=== PATIENT | male | born 1955 | race Caucasian/White ===

== ENCOUNTER 2018-02-04 15:31 | Inpatient (IN) | payer MEDICAID ==
[2018-02-04] MEDS ORDERED: Lidocaine 2% Jelly 10 ML Urojet MUCMEM ONE (16:15)
[2018-02-04] MEDS ORDERED: Belladonna Alkaloids/Opium 16.2-30 MG Supp RECTAL ONE (16:55)
--- NOTE | 2018-02-04 17:19 | EDM.PDOC ---
ED HPI GENERAL MEDICAL PROBLEM - General Chief Complaint: Genitourinary Problem Stated Complaint: UNABLE TO URINATE Time Seen by Provider: 02/04/18 16:14 Source of Information: Reports: Patient History Limitations: Reports: No Limitations - History of Present Illness INITIAL COMMENTS - FREE TEXT/NARRATIVE: Patient is a 62-year-old male who states over the past few days asincreased difficulty with urination. States today he only has a small amount of urine produced with straining. He has a burning sensation at times with urinating. Pain to the lower abdomen described as constant mild in nature with a sensation of feeling distended. He has no history of similar symptoms as such. He denies a history of BPH but medication records indicate he is on tamsulosin and finasteride. States he has history of renal disease, but notes no history of reoccuring uti's. Patient denies any fever, nausea vomiting, diarrhea, hematuria, bloody stool, pain to his testicles, swollen testicles, or any additional complaints. Lower Abdominal Pain Score (Numeric/FACES): 7 - Related Data Allergies Allergy/AdvReac Type Severity Reaction Status Date / Time No Known Allergies Allergy Verified 02/04/18 15:41 Home Meds: Home Meds Furosemide 20 mg PO DAILY 05/01/16 [History] Lactulose [Cephulac] 30 ml PO DAILY PRN 05/01/16 [History] Omeprazole 40 mg PO DAILY 05/01/16 [History] Spironolactone [Aldactone] 100 mg PO DAILY 05/01/16 [History] Tamsulosin HCl 0.4 mg PO DAILY 05/01/16 [History] Levothyroxine Sodium [Synthroid] 100 mcg PO DAILY 07/12/16 [History] Docusate Sodium [Colace] 100 mg PO BID cap 07/17/16 [Rx] Magnesium Hydroxide [Milk of Magnesia] 30 ml PO BID PRN #0 cup 07/17/16 [Rx] Sennosides [Senna] 8.6 mg PO BID PRN #0 tablet 07/17/16 [Rx] Canagliflozin/Metformin HCl [Invokamet 150-500 mg Tablet] 1 tab PO BIDMEALS [History] Exenatide Microspheres [Bydureon Pen] 2 mg SQ WEEKLY 02/05/18 [History] Rosuvastatin Calcium 5 mg PO DAILY 02/05/18 [History] oxyCODONE HCl/Acetaminophen [Oxycodone-Acetaminophen 5-325] 1 tab PO DAILY PRN 02/05/18 [History] Past Medical History HEENT History: Reports: Impaired Vision, Other (See Below) Other HEENT History: wears glasses Cardiovascular History: Reports: Hypertension, Other (See Below) Other Cardiovascular History: edema, PVCs Respiratory History: Reports: None Gastrointestinal History: Reports: Chronic Constipation, Other (See Below) Other Gastrointestinal History: alcoholic cirrhosis of liver with ascites Genitourinary History: Reports: BPH, Other (See Below) Other Genitourinary History: hematuria [employer] History: Reports: None Musculoskeletal History: Reports: Osteoarthritis Neurological History: Reports: None Psychiatric History: Reports: Addiction, Depression, Other (See Below) Other Psychiatric History: alcohol abuse Endocrine/Metabolic History: Reports: Diabetes, Type II, Hypothyroidism Hematologic History: Reports: None Immunologic History: Reports: None Oncologic (Cancer) History: Reports: None - Infectious Disease History Infectious Disease History: Reports: MRSA - Past Surgical History Musculoskeletal Surgical History: Reports: Knee Replacement Dermatological Surgical History: Reports: Skin Graft Social & Family History - Family History Cardiac: Reports: CT Other Cardiac Family History: father Neurological: Reports: Alzheimers Disease Other Neurological Family History: mother - Caffeine Use Caffeine Use: Reports: Coffee - Living Situation & Occupation Occupation: Employed ED ROS GENERAL - Review of Systems Review Of Systems: ROS reveals no pertinent complaints other than HPI. ED EXAM, GI/ABD - Physical Exam Exam: See Below Exam Limited By: No Limitations General Appearance: Alert, WD/WN, No Apparent Distress Ears: Hearing Grossly Normal Nose: Normal Inspection Throat/Mouth: Normal Voice, No Airway Compromise Neck: Normal Inspection, Supple Respiratory/Chest: No Respiratory Distress, Lungs Clear, Normal Breath Sounds, Chest Non-Tender Cardiovascular: Normal Peripheral Pulses, Regular Rate, Rhythm GI/Abdominal Exam: Normal Bowel Sounds, Soft, No Organomegaly, No Distention, Tender (Suprapubic region. No McBurney's point pain, no inguinal pain. ) (Male) Exam: Deferred (Patient deferred examination. ) Rectal (Males) Exam: Deferred (patient deferred examination. ) Back Exam: Normal Inspection Extremities: Normal Inspection Neurological: Alert, Oriented, CN II-XII Intact, Normal Cognition, No Motor/ Sensory Deficits Psychiatric: Normal Affect, Normal Mood Skin Exam: Warm, Dry, Intact, Normal Color Course - Vital Signs Last Recorded V/S: Last Vital Signs Temp 98.4 F 02/05/18 20:57 Pulse 70 02/05/18 20:57 Resp 14 02/05/18 20:57 BP 123/66 02/05/18 20:59 Pulse Ox 95 02/05/18 20:57 - Orders/Labs/Meds Orders: Medication Orders Acetaminophen (Tylenol) 650 mg PO Q4H PRN PRN Reason: Pain (Mild 1-3)/fever Hydrocodone Bitart/Acetaminophen ([place] 325-5 Mg) 1 tab PO Q4H PRN PRN Reason: Pain (moderate 4-6) Last Admin: 02/05/18 00:38 Dose: 1 tab Albuterol/Ipratropium (Duoneb 3.0-0.5 Mg/3 Ml) 3 ml NEB Q4H PRN PRN Reason: Shortness Of Breath/wheezing Bisacodyl (Dulcolax) 5 mg PO DAILY PRN PRN Reason: Constipation Calcium Carbonate/Glycine (Calcium Carbonate) 1,200 mg PO BIDMEALS [facility] Last Admin: 02/05/18 18:17 Dose: 1,200 mg Admin: 02/05/18 06:30 Dose: 1,200 mg Cyclobenzaprine HCl (Flexeril) 10 mg PO TID PRN PRN Reason: Muscle Spasm Last Admin: 02/05/18 15:21 Dose: 10 mg Docusate Sodium (Colace) 100 mg PO BID PRN PRN Reason: Constipation Doxazosin Mesylate (Cardura) 2 mg PO BID [facility] Last Admin: 02/05/18 20:59 Dose: 2 mg Admin: 02/05/18 10:09 Dose: 2 mg Enoxaparin Sodium (Lovenox) 30 mg SUBCUT DAILY [facility] Finasteride (Proscar) 5 mg PO DAILY [facility] Hydralazine HCl (Apresoline) 20 mg IVPUSH Q4H PRN PRN Reason: Hypertension Hydromorphone HCl (Dilaudid) 0.5 mg IVPUSH Q4H PRN PRN Reason: Pain (severe 7-10) Promethazine HCl 12.5 mg/ (Sodium Chloride) 50.5 mls @ 100 mls/hr IV Q6H PRN PRN Reason: Nausea/Vomiting Sodium Chloride (Normal Saline) 1,000 mls @ 100 mls/hr IV ASDIRECTED [facility] Last Admin: 02/05/18 15:07 Dose: 100 mls/hr Infusion: 02/05/18 14:13 Dose: 100 mls/hr Admin: 02/05/18 04:13 Dose: 100 mls/hr Lactulose (Cephulac) 20 gm PO DAILY PRN PRN Reason: Constipation Levothyroxine Sodium (Synthroid) 100 mcg PO ACBREAKFAST [facility] Lorazepam (Ativan) 2 mg IVPUSH Q4H PRN PRN Reason: Seizures Lorazepam (Ativan) 1 mg IV Q6H PRN PRN Reason: Anxiety Magnesium Hydroxide (Milk Of Magnesia) 30 ml PO BID PRN PRN Reason: Constipation Magnesium Sulfate (Pharmacy To Dose - Magnesium Replacement) 0 dose .XX ASDIRECTED PRN PRN Reason: RX TO DOSE MAG Metoprolol Tartrate (Lopressor) 5 mg IVPUSH Q4H PRN PRN Reason: Tachycardia Miscellaneous Information (Remove Patch) 1 ea TRDERM DAILY PRN PRN Reason: IF NICOTINE PATCH APPLIED Nicotine (Habitrol) 21 mg TRDERM DAILY PRN PRN Reason: Nicotine Dependence Ondansetron HCl (Zofran) 4 mg IV Q6H PRN PRN Reason: Nausea/Vomiting Pantoprazole Sodium (Protonix) 40 mg PO DAILY [facility] Last Admin: 02/05/18 11:15 Dose: 40 mg Polyethylene Glycol (Miralax) 17 gm PO DAILY PRN PRN Reason: Constipation Potassium Chloride (Pharmacy To Dose - Potassium Replacement) 0 dose .XX ASDIRECTED PRN PRN Reason: RX TO WATCH K Rosuvastatin Calcium (Crestor) 5 mg PO DAILY [facility] Senna (Senna) 8.6 mg PO BID PRN PRN Reason: Constipation Senna/Docusate Sodium (Senna Plus) 1 tab PO BID PRN PRN Reason: Constipation Sodium Chloride (Saline Flush) 10 ml FLUSH ASDIRECTED PRN PRN Reason: Keep Vein Open Last Admin: 02/04/18 19:06 Dose: 10 ml Tamsulosin HCl (Flomax) 0.4 mg PO BID [facility] Last Admin: 02/05/18 20:59 Dose: 0.4 mg Temazepam (Restoril) 7.5 mg PO BEDTIME PRN PRN Reason: Sleep Last Admin: 02/05/18 21:09 Dose: 7.5 mg Labs: Laboratory Tests 02/04/18 02/04/18 02/04/18 Range/Units 16:40 17:35 17:35 WBC 6.11 (4.23-9.07) K/mm3 RBC 4.15 L (4.63-6.08) M/mm3 Hgb 13.1 L (13.7-17.5) gm/L Hct 38.8 L (40.1-51.0) % MCV 93.5 H (79.0-92.2) fl MCH 31.6 (25.7-32.2) pg MCHC 33.8 (32.2-35.5) g/dl RDW Std Deviation 49.2 H (35.1-43.9) fL Plt Count 78 L (163-337) K/mm3 MPV 10.4 (9.4-12.3) fl Neutrophils % (Manual) 82 H (40-60) % Band Neutrophils % 0 (0-10) % Lymphocytes % (Manual) 12 L (20-40) % Atypical Lymphs % 0 % Monocytes % (Manual) 4 (2-10) % Eosinophils % (Manual) 2 (0.8-7.0) % Basophils % (Manual) 0 L (0.2-1.2) Platelet Estimate Decreased Plt Morphology Comment Normal RBC Morph Comment Normal Sodium 136 (136-145) mEq/L Potassium 4.6 (3.5-5.1) mEq/L Chloride 98 (98-107) mEq/L Carbon Dioxide 20 L (21-32) mEq/L Anion Gap 22.6 H (5-15) BUN 64 H (7-18) mg/dL Creatinine 9.5 H (0.7-1.3) mg/dL Est Cr Clr Drug Dosing 7.44 mL/min Estimated GFR (MDRD) 6 (>60) mL/min BUN/Creatinine Ratio 6.7 L (14-18) Glucose 110 (80-115) mg/dL Calcium 7.7 L (8.5-10.1) mg/dL Total Bilirubin 0.7 (0.2-1.0) mg/dL AST 20 (15-37) U/L ALT 26 (16-63) U/L Alkaline Phosphatase 84 (46-116) U/L C-Reactive Protein 12.7 H* (<1.0) mg/dL Total Protein 7.7 (6.4-8.2) g/dl Albumin 3.2 L (3.4-5.0) g/dl Globulin 4.5 gm/dL Albumin/Globulin Ratio 0.7 L (1-2) PSA Screen (0.0-4.0) ng/mL Urine Color Yellow (Yellow) Urine Appearance Clear (Clear) Urine pH 5.5 (5.0-8.0) Ur Specific [place] 1.010 (1.005-1.030) Urine Protein Negative (Negative) Urine Glucose (UA) Trace H (Negative) Urine Ketones Negative (Negative) Urine Occult Blood 2+ H (Negative) Urine Nitrite Negative (Negative) Urine Bilirubin Negative (Negative) Urine Urobilinogen 0.2 (0.2-1.0) Ur Leukocyte Esterase Negative (Negative) Urine RBC 0-5 (0-5) /hpf Urine WBC 0-5 (0-5) /hpf Ur Epithelial Cells 0-5 (0-5) /hpf Urine Bacteria Not seen (FEW) /hpf Urine Mucus Not seen (FEW) /hpf 02/04/18 Range/Units 17:35 WBC (4.23-9.07) K/mm3 RBC (4.63-6.08) M/mm3 Hgb (13.7-17.5) gm/L Hct (40.1-51.0) % MCV (79.0-92.2) fl MCH (25.7-32.2) pg MCHC (32.2-35.5) g/dl RDW Std Deviation (35.1-43.9) fL Plt Count (163-337) K/mm3 MPV (9.4-12.3) fl Neutrophils % (Manual) (40-60) % Band Neutrophils % (0-10) % Lymphocytes % (Manual) (20-40) % Atypical Lymphs % % Monocytes % (Manual) (2-10) % Eosinophils % (Manual) (0.8-7.0) % Basophils % (Manual) (0.2-1.2) Platelet Estimate Plt Morphology Comment RBC Morph Comment Sodium (136-145) mEq/L Potassium (3.5-5.1) mEq/L Chloride (98-107) mEq/L Carbon Dioxide (21-32) mEq/L Anion Gap (5-15) BUN (7-18) mg/dL Creatinine (0.7-1.3) mg/dL Est Cr Clr Drug Dosing mL/min Estimated GFR (MDRD) (>60) mL/min BUN/Creatinine Ratio (14-18) Glucose (80-115) mg/dL Calcium (8.5-10.1) mg/dL Total Bilirubin (0.2-1.0) mg/dL AST (15-37) U/L ALT (16-63) U/L Alkaline Phosphatase (46-116) U/L C-Reactive Protein (<1.0) mg/dL Total Protein (6.4-8.2) g/dl Albumin (3.4-5.0) g/dl Globulin gm/dL Albumin/Globulin Ratio (1-2) PSA Screen 17.0 H (0.0-4.0) ng/mL Urine Color (Yellow) Urine Appearance (Clear) Urine pH (5.0-8.0) Ur Specific [place] (1.005-1.030) Urine Protein (Negative) Urine Glucose (UA) (Negative) Urine Ketones (Negative) Urine Occult Blood (Negative) Urine Nitrite (Negative) Urine Bilirubin (Negative) Urine Urobilinogen (0.2-1.0) Ur Leukocyte Esterase (Negative) Urine RBC (0-5) /hpf Urine WBC (0-5) /hpf Ur Epithelial Cells (0-5) /hpf Urine Bacteria (FEW) /hpf Urine Mucus (FEW) /hpf Meds: Medications Generic Name Dose Route Start Last Admin Trade Name Freq PRN Reason Stop Dose Admin Acetaminophen 650 mg 02/04/18 22:01 Tylenol PO Q4H PRN Pain (Mild 1-3)/fever Hydrocodone Bitart/Acetaminophen 1 tab 02/04/18 22:01 02/05/18 00:38 [place] 325-5 Mg PO 1 tab Q4H PRN Administration Pain (moderate 4-6) Albuterol/Ipratropium 3 ml 02/04/18 22:01 Duoneb 3.0-0.5 Mg/3 Ml NEB Q4H PRN Shortness Of Breath/wheezing Bisacodyl 5 mg 02/04/18 22:01 Dulcolax PO DAILY PRN Constipation Calcium Carbonate/Glycine 1,200 mg 02/05/18 07:00 02/05/18 18:17 Calcium Carbonate PO 1,200 mg BIDMEALS [facility] Administration Cyclobenzaprine HCl 10 mg 02/04/18 23:05 02/05/18 15:21 Flexeril PO 10 mg TID PRN Administration Muscle Spasm Docusate Sodium 100 mg 02/04/18 22:01 Colace PO BID PRN Constipation Doxazosin Mesylate 2 mg 02/05/18 09:00 02/05/18 20:59 Cardura PO 2 mg BID [facility] Administration Enoxaparin Sodium 30 mg 02/06/18 09:00 Lovenox SUBCUT DAILY [facility] Finasteride 5 mg 02/06/18 09:00 Proscar PO DAILY [facility] Hydralazine HCl 20 mg 02/04/18 22:00 Apresoline IVPUSH Q4H PRN Hypertension Hydromorphone HCl 0.5 mg 02/05/18 07:30 Dilaudid IVPUSH Q4H PRN Pain (severe 7-10) Promethazine HCl 12.5 mg/ 50.5 mls @ 100 mls/hr 02/04/18 22:01 Sodium Chloride IV Q6H PRN Nausea/Vomiting Sodium Chloride 1,000 mls @ 100 mls/hr 02/04/18 23:15 02/05/18 15:07 Normal Saline IV 100 mls/hr ASDIRECTED [facility] Administration Lactulose 20 gm 02/04/18 22:07 Cephulac PO DAILY PRN Constipation Levothyroxine Sodium 100 mcg 02/06/18 06:00 Synthroid PO ACBREAKFAST [facility]KO Lorazepam 2 mg 02/04/18 22:00 Ativan IVPUSH Q4H PRN Seizures Lorazepam 1 mg 02/04/18 22:01 Ativan IV Q6H PRN Anxiety Magnesium Hydroxide 30 ml 02/04/18 22:07 Milk Of Magnesia PO BID PRN Constipation Magnesium Sulfate 0 dose 02/04/18 22:00 Pharmacy To Dose - Magnesium Replacement .XX ASDIRECTED PRN RX TO DOSE MAG Metoprolol Tartrate 5 mg 02/04/18 22:00 Lopressor IVPUSH Q4H PRN Tachycardia Miscellaneous Information 1 ea 09/12/18 22:13 Remove Patch TRDERM DAILY PRN IF NICOTINE PATCH APPLIED Nicotine 21 mg 02/04/18 22:00 Habitrol TRDERM DAILY PRN Nicotine Dependence Ondansetron HCl 4 mg 02/04/18 22:01 Zofran IV Q6H PRN Nausea/Vomiting Pantoprazole Sodium 40 mg 02/05/18 09:00 02/05/18 11:15 Protonix PO 40 mg DAILY [facility] Administration Polyethylene Glycol 17 gm 02/04/18 22:01 Miralax PO DAILY PRN Constipation Potassium Chloride 0 dose 02/04/18 22:00 Pharmacy To Dose - Potassium Replacement .XX ASDIRECTED PRN RX TO WATCH K Rosuvastatin Calcium 5 mg 02/06/18 09:00 Crestor PO DAILY [facility] Senna 8.6 mg 02/04/18 22:07 Senna PO BID PRN Constipation Senna/Docusate Sodium 1 tab 02/04/18 22:01 Senna Plus PO BID PRN Constipation Sodium Chloride 10 ml 02/04/18 18:35 02/04/18 19:06 Saline Flush FLUSH 10 ml ASDIRECTED PRN Administration Keep Vein Open Tamsulosin HCl 0.4 mg 02/05/18 21:00 02/05/18 20:59 Flomax PO 0.4 mg BID [facility] Administration Temazepam 7.5 mg 02/04/18 22:01 02/05/18 21:09 Restoril PO 7.5 mg BEDTIME PRN Administration Sleep Discontinued Medications Generic Name Dose Route Start Last Admin Trade Name Freq PRN Reason Stop Dose Admin Apixaban 2.5 mg 02/05/18 09:00 02/05/18 10:10 Eliquis PO 2.5 mg BID [facility] Administration Apixaban 2.5 mg 02/04/18 22:16 02/04/18 22:53 Eliquis PO 02/04/18 22:17 2.5 mg ONETIME STA Administration Belladonna Alkaloids/Opium 1 supp 02/04/18 16:55 02/04/18 16:59 B & O Supprettes No. 15a RECTAL 02/04/18 16:56 1 supp ONETIME ONE Administration Calcium Carbonate/Glycine 1,000 mg 02/04/18 23:09 02/05/18 00:38 Tums PO 02/04/18 23:10 1,000 mg ONETIME ONE Administration Cyclobenzaprine HCl 10 mg 02/04/18 20:16 02/04/18 20:21 Flexeril PO 02/04/18 20:17 10 mg ONETIME ONE Administration Cyclobenzaprine HCl 10 mg 02/05/18 04:11 02/05/18 04:20 Flexeril PO 02/05/18 04:12 10 mg ONETIME ONE Administration Finasteride mg 02/05/18 09:00 Proscar PO DAILY [facility] Hydromorphone HCl 0.5 mg 02/04/18 22:01 Dilaudid IVPUSH Q4H PRN Pain (severe 7-10) Sodium Chloride 1,000 mls @ 250 mls/hr 02/04/18 18:35 02/04/18 19:06 Normal Saline IV 02/04/18 22:34 250 mls/hr ONETIME ONE Administration Magnesium Sulfate 4 gm/ Premix 100 mls @ 25 mls/hr 02/05/18 09:00 02/05/18 10 :13 IV 02/05/18 12:59 25 mls/hr ONETIME ONE Administration Lidocaine HCl 10 ml 02/04/18 16:15 02/04/18 16:21 Xylocaine 2% Jelly MUCMEM 02/04/18 16:16 10 ml ONETIME ONE Administration Non-Formulary Medication 1 tab 02/05/18 09:00 Aspirin/Caffeine [Anacin 500-32 Mg Tablet] PO DAILY [facility] Non-Formulary Medication 2 mg 02/05/18 14:00 Exenatide Microspheres [Bydureon Pen] SQ WEEKLY [facility] Oxycodone/Acetaminophen 1 tab 02/05/18 13:52 Percocet 325-5 Mg PO DAILY PRN Pain (severe 7-10) Pneumococcal Polyvalent Vaccine 0.5 ml 02/05/18 08:25 Pneumovax 23 IM 02/05/18 08:26 .ONCE ONE - Re-Assessments/Exams Free Text/Narrative Re-Assessment/Exam: Bladder scan indicated >834 mL of urine present. Patient was tender to the suprapubic region with sensation to urinate. Rey will be placed with leg bag. 1718 Per nursing staff patient has had 1220 mls of total urine drainage. I have ordered basic labs including: CBC, C14, CRP, and UA. Labs reviewed: White blood cell count 6.11, hemoglobin 13.1, platelet count 78 which is low, neutrophil percent is 82, lymphocytes 12. Sodium 136, potassium 4.6, CO2 20, AG 22.6, creatinine 0.5, CRP is 12.7. UA Glucose trace, occult blood 2+. [address] Regalado pick[employer]. He agrees to admit patient or obstructive uropathy. PSA is 17. Departure - Departure Time of Disposition: 18:43 Disposition: Admitted As Inpatient 65 Clinical Impression: Obstructive uropathy - Discharge Information
[2018-02-04] MEDS ORDERED: Sodium Chloride 0.9% 1,000 ML IV ONE (18:35)
[2018-02-04] MEDS ORDERED: Sodium Chloride 0.9% 10 ML Syringe FLUSH PRN (18:35)
[2018-02-04] MEDS ORDERED: Cyclobenzaprine 10 MG Tab PO ONE (20:16)
[2018-02-04] MEDS ORDERED: Metoprolol Tartrate 5 MG/5 ML SDV IVPUSH PRN (22:00)
[2018-02-04] MEDS ORDERED: Nicotine 21 MG/24 Hr Patch TRDERM PRN (22:00)
[2018-02-04] MEDS ORDERED: LORazepam 2 MG/ML SDV IVPUSH PRN (22:00)
[2018-02-04] MEDS ORDERED: hydrALAZINE 20 MG/ML SDV IVPUSH PRN (22:00)
[2018-02-04] MEDS ORDERED: LORazepam 2 MG/ML SDV IV PRN (22:01)
[2018-02-04] MEDS ORDERED: Acetaminophen 325 MG Tab PO PRN (22:01)
[2018-02-04] MEDS ORDERED: HYDROmorphone 0.5 MG/0.5 ML SYRINGE IVPUSH PRN (22:01)
[2018-02-04] MEDS ORDERED: Albuterol/Ipratropium 3.0-0.5 MG/3 ML Neb Soln NEB PRN (22:01)
[2018-02-04] MEDS ORDERED: Polyethylene Glycol 3350 Powder 17 GM Packet PO PRN (22:01)
[2018-02-04] MEDS ORDERED: Ondansetron 4 MG/2 ML SDV IV PRN (22:01)
[2018-02-04] MEDS ORDERED: Temazepam 7.5 MG Cap PO PRN (22:01)
[2018-02-04] MEDS ORDERED: Bisacodyl 5 MG Tab PO PRN (22:01)
[2018-02-04] MEDS ORDERED: Promethazine 12.5 MG in Sodium Chloride 0.9% 50 ML IV PRN (22:01)
[2018-02-04] MEDS ORDERED: Docusate Sodium 100 MG Cap PO PRN (22:01)
[2018-02-04] MEDS ORDERED: Sennosides 8.6 MG Tab PO PRN (22:07)
[2018-02-04] MEDS ORDERED: Lactulose Soln 10 GM/15 ML 30 ML UD Cup PO PRN (22:07)
[2018-02-04] MEDS ORDERED: Magnesium Hydroxide 400 MG/5 ML Susp 30 ML Cup PO PRN (22:07)
[2018-02-04] MEDS ORDERED: Apixaban 5 MG Tab PO STA (22:16)
[2018-02-04] MEDS ORDERED: Calcium Carbonate 500 MG Tab.Chew PO ONE (23:09)
--- NOTE | 2018-02-04 23:18 | PCM.HP ---
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 His symptom started a few days ago and is associated with burning sensation, lower abdominal pain, and feeling of distention. He carries no hx/o BPH or enlarged prostate but his home medications show he is on flomax and finasteride. His initial work up in the emergency department shows a CBC remarkable for RBC of 4.15, Hgb of 13.1, Hct of 38.8, MCV of 93.5, RDW of 49.2, Platelet of 78, Neutrophils of 82% and Lymphocytes of 12%. His chemistry is significant for CO2 of 20, AG of 22.65, BUN of 64, CR of 9.5, GFR of 6, Ca of 7.7, Albumin of 3.2 and PSA of 17. His UA is negative for UTI. Patient is being admitted for medical management and evaluation of acute renal failure and urinary retention. He is full code. Lower Abdominal Pain Score (Numeric/FACES): 7 - Related Data Allergies/Adverse Reactions: Allergies Allergy/AdvReac Type Severity Reaction Status Date / Time No Known Allergies Allergy Verified 02/04/18 15:41 Home Medications: Home Meds Furosemide 20 mg PO DAILY 05/01/16 [History] Lactulose [Cephulac] 30 ml PO DAILY PRN 05/01/16 [History] Omeprazole 40 mg PO DAILY 05/01/16 [History] Spironolactone [Aldactone] 100 mg PO DAILY 05/01/16 [History] Tamsulosin HCl 0.4 mg PO DAILY 05/01/16 [History] Aspirin/Caffeine [Anacin 500-32 mg Tablet] 1 tab PO DAILY 07/12/16 [History] Levothyroxine Sodium [Synthroid] 100 mcg PO DAILY 07/12/16 [History] Bisacodyl [Dulcolax] 5 mg PO DAILY PRN #0 tablet 07/17/16 [Rx] Cyclobenzaprine [Flexeril] 10 mg PO TID PRN #40 tablet 07/17/16 [Rx] Docusate Sodium [Colace] 100 mg PO BID cap 07/17/16 [Rx] Magnesium Hydroxide [Milk of Magnesia] 30 ml PO BID PRN #0 cup 07/17/16 [Rx] Sennosides [Senna] 8.6 mg PO BID PRN #0 tablet 07/17/16 [Rx] Canagliflozin/Metformin HCl [Invokamet 150-500 mg Tablet] 1 tab PO BIDMEALS [History] Exenatide Microspheres [Bydureon Pen] 2 mg SQ WEEKLY 02/05/18 [History] Rosuvastatin Calcium 5 mg PO DAILY 02/05/18 [History] oxyCODONE HCl/Acetaminophen [Oxycodone-Acetaminophen 5-325] 1 tab PO DAILY PRN 02/05/18 [History] Past Medical History HEENT History: Reports: Impaired Vision, Other (See Below) Other HEENT History: wears glasses Cardiovascular History: Reports: Hypertension, Other (See Below) Other Cardiovascular History: edema, PVCs Respiratory History: Reports: None Gastrointestinal History: Reports: Chronic Constipation, Other (See Below) Other Gastrointestinal History: alcoholic cirrhosis of liver with ascites Genitourinary History: Reports: BPH, Other (See Below) Other Genitourinary History: hematuria STUD MASTER/MISTRESS History: Reports: None Musculoskeletal History: Reports: Osteoarthritis Neurological History: Reports: None Psychiatric History: Reports: Addiction, Depression, Other (See Below) Other Psychiatric History: alcohol abuse Endocrine/Metabolic History: Reports: Diabetes, Type II, Hypothyroidism Hematologic History: Reports: None Immunologic History: Reports: None Oncologic (Cancer) History: Reports: None - Infectious Disease History Infectious Disease History: Reports: MRSA - Past Surgical History Musculoskeletal Surgical History: Reports: Knee Replacement Dermatological Surgical History: Reports: Skin Graft Social & Family History - Family History Cardiac: Reports: [place] Other Cardiac Family History: father Neurological: Reports: Alzheimers Disease Other Neurological Family History: mother - Caffeine Use Caffeine Use: Reports: Coffee - Living Situation & Occupation Occupation: Employed H&P Review of Systems - Review of Systems: Review Of Systems: See Below General: Denies: Fever, Chills HEENT: Reports: No Symptoms Pulmonary: Denies: Shortness of Breath Cardiovascular: Reports: Edema. Denies: Chest Pain Gastrointestinal: Reports: Abdominal Pain, Distension. Denies: Nausea, Vomiting Genitourinary: Reports: Burning, Retention. Denies: Frequency, Urgency, Hematuria, Discharge, Flank Pain Musculoskeletal: Reports: No Symptoms Skin: Denies: Cyanosis, Jaundice, Mottled, Pallor, Diaphoresis, Bruising Psychiatric: Denies: Depression, Anxiety, Agitation, Hallucinations Neurological: Denies: Confusion, Difficulty Walking, Weakness, Gait Disturbance Hematologic/Lymphatic: Reports: No Symptoms Immunologic: Reports: No Symptoms Exam - Exam Exam: See Below - Vital Signs Vital Signs: Last Vital Signs Temp 36.9 C 02/04/18 20:50 Pulse 100 02/04/18 20:50 Resp 20 02/04/18 20:50 BP 118/99 H 02/04/18 20:50 Pulse Ox 98 02/04/18 20:50 Weight: 124.738 kg - Exam General: Alert, Oriented, Cooperative, Mild Distress, Other (Morbidly Obese) HEENT: Conjunctiva Clear, EACs Clear, EOMI, Hearing Intact, Mucosa Moist & [place] , Nares Patent, Normal Nasal Septum, Posterior Pharynx Clear, Pupils Equal, Pupils Reactive Neck: Supple, Trachea Midline, +2 Carotid Pulse wo Bruit, Other (short and thick ) Lungs: Normal Respiratory Effort, Decreased Breath Sounds Cardiovascular: Regular Rate, Regular Rhythm GI/Abdominal Exam: Normal Bowel Sounds, Soft, Non-Tender, No Abnormal Bruit, No Mass, Distended, Hepatomegaly. No: Guarding, Rigid, Rebound, Tender (Male) Exam: Other (indwelling dolan catheter) Rectal (Males) Exam: Normal Rectal Tone, BPH. No: Fecal Impaction, Hemorrhoids , Perirectal Abscess, Rectal Fissure Back Exam: Normal Inspection, Decreased Range of Motion Extremities: Normal Inspection, Normal Range of Motion, Non-Tender, No Pedal Edema, Normal Capillary Refill Peripheral Pulses: 2+: Posterior Tibial (L), Posterior Tibial (R), Dorsalis Pedis (L), Dorsalis Pedis (R) Skin: Warm, Dry, Intact Neuro Extensive - Mental Status: Oriented x3, Normal Cognition, Memory Intact Neuro Extensive - Motor, Sensory, Reflexes: CN II-XII Intact, Normal Gait Psychiatric: Alert, Normal Affect, Normal Mood - Patient Data Lab Results Last 24 hrs: Laboratory Results - last 24 hr 02/04/18 02/04/18 02/04/18 Range/Units 16:40 17:35 17:35 WBC 6.11 (4.23-9.07) K/mm3 RBC 4.15 L (4.63-6.08) M/mm3 Hgb 13.1 L (13.7-17.5) gm/L Hct 38.8 L (40.1-51.0) % MCV 93.5 H (79.0-92.2) fl MCH 31.6 (25.7-32.2) pg MCHC 33.8 (32.2-35.5) g/dl RDW Std Deviation 49.2 H (35.1-43.9) fL Plt Count 78 L (163-337) K/mm3 MPV 10.4 (9.4-12.3) fl Neutrophils % (Manual) 82 H (40-60) % Band Neutrophils % 0 (0-10) % Lymphocytes % (Manual) 12 L (20-40) % Atypical Lymphs % 0 % Monocytes % (Manual) 4 (2-10) % Eosinophils % (Manual) 2 (0.8-7.0) % Basophils % (Manual) 0 L (0.2-1.2) Platelet Estimate Decreased Plt Morphology Comment Normal RBC Morph Comment Normal Sodium 136 (136-145) mEq/L Potassium 4.6 (3.5-5.1) mEq/L Chloride 98 (98-107) mEq/L Carbon Dioxide 20 L (21-32) mEq/L Anion Gap 22.6 H (5-15) BUN 64 H (7-18) mg/dL Creatinine 9.5 H (0.7-1.3) mg/dL Est Cr Clr Drug Dosing 7.44 mL/min Estimated GFR (MDRD) 6 (>60) mL/min BUN/Creatinine Ratio 6.7 L (14-18) Glucose 110 (80-115) mg/dL Calcium 7.7 L (8.5-10.1) mg/dL Total Bilirubin 0.7 (0.2-1.0) mg/dL AST 20 (15-37) U/L ALT 26 (16-63) U/L Alkaline Phosphatase 84 (46-116) U/L C-Reactive Protein 12.7 H* (<1.0) mg/dL Total Protein 7.7 (6.4-8.2) g/dl Albumin 3.2 L (3.4-5.0) g/dl Globulin 4.5 gm/dL Albumin/Globulin Ratio 0.7 L (1-2) PSA Screen (0.0-4.0) ng/mL Urine Color Yellow (Yellow) Urine Appearance Clear (Clear) Urine pH 5.5 (5.0-8.0) Ur Specific [place] 1.010 (1.005-1.030) Urine Protein Negative (Negative) Urine Glucose (UA) Trace H (Negative) Urine Ketones Negative (Negative) Urine Occult Blood 2+ H (Negative) Urine Nitrite Negative (Negative) Urine Bilirubin Negative (Negative) Urine Urobilinogen 0.2 (0.2-1.0) Ur Leukocyte Esterase Negative (Negative) Urine RBC 0-5 (0-5) /hpf Urine WBC 0-5 (0-5) /hpf Ur Epithelial Cells 0-5 (0-5) /hpf Urine Bacteria Not seen (FEW) /hpf Urine Mucus Not seen (FEW) /hpf 02/04/18 Range/Units 17:35 WBC (4.23-9.07) K/mm3 RBC (4.63-6.08) M/mm3 Hgb (13.7-17.5) gm/L Hct (40.1-51.0) % MCV (79.0-92.2) fl MCH (25.7-32.2) pg MCHC (32.2-35.5) g/dl RDW Std Deviation (35.1-43.9) fL Plt Count (163-337) K/mm3 MPV (9.4-12.3) fl Neutrophils % (Manual) (40-60) % Band Neutrophils % (0-10) % Lymphocytes % (Manual) (20-40) % Atypical Lymphs % % Monocytes % (Manual) (2-10) % Eosinophils % (Manual) (0.8-7.0) % Basophils % (Manual) (0.2-1.2) Platelet Estimate Plt Morphology Comment RBC Morph Comment Sodium (136-145) mEq/L Potassium (3.5-5.1) mEq/L Chloride (98-107) mEq/L Carbon Dioxide (21-32) mEq/L Anion Gap (5-15) BUN (7-18) mg/dL Creatinine (0.7-1.3) mg/dL Est Cr Clr Drug Dosing mL/min Estimated GFR (MDRD) (>60) mL/min BUN/Creatinine Ratio (14-18) Glucose (80-115) mg/dL Calcium (8.5-10.1) mg/dL Total Bilirubin (0.2-1.0) mg/dL AST (15-37) U/L ALT (16-63) U/L Alkaline Phosphatase (46-116) U/L C-Reactive Protein (<1.0) mg/dL Total Protein (6.4-8.2) g/dl Albumin (3.4-5.0) g/dl Globulin gm/dL Albumin/Globulin Ratio (1-2) PSA Screen 17.0 H (0.0-4.0) ng/mL Urine Color (Yellow) Urine Appearance (Clear) Urine pH (5.0-8.0) Ur Specific [place] (1.005-1.030) Urine Protein (Negative) Urine Glucose (UA) (Negative) Urine Ketones (Negative) Urine Occult Blood (Negative) Urine Nitrite (Negative) Urine Bilirubin (Negative) Urine Urobilinogen (0.2-1.0) Ur Leukocyte Esterase (Negative) Urine RBC (0-5) /hpf Urine WBC (0-5) /hpf Ur Epithelial Cells (0-5) /hpf Urine Bacteria (FEW) /hpf Urine Mucus (FEW) /hpf Result Diagrams: 02/05/18 06:30 02/05/18 06:30 Problem List Initiated/Reviewed/Updated: Yes Orders Last 24hrs: Active Orders 24 hr Category Date Time Status Patient Status [ADT] Routine ADT 02/04/18 20:29 Active Bladder Scan [RC] ASDIRECTED Care 02/04/18 16:17 Active Dolan Catheter Insertion [Insert Urinary Catheter] [OM. Care 02/04/18 16:30 Ordered PC] Q24H Height and Weight [RC] 0400 Care 02/04/18 22:01 Active Intake and Output Strict [RC] Q2HR Care 02/04/18 22:14 Active Oxygen Therapy [RC] PRN Care 02/04/18 22:01 Active Peripheral IV Care [RC] Q2HR Care 02/04/18 18:35 Active RT Aerosol Therapy [RC] ASDIRECTED Care 02/04/18 22:05 Active Up ad Glendy [RC] ASDIRECTED Care 02/04/18 22:33 Active Urinary Catheter Assessment [RC] 10,22 Care 02/04/18 16:16 Active VTE/DVT Education [RC] DAILY Care 02/04/18 22:01 Active Vital Signs [RC] Q4HR Care 02/04/18 22:01 Active Consult to Case Management/Facility Administrator [CONS] Cons 02/04/18 22:01 Active Routine Consult to Spiritual Care [CONS] Routine Cons 02/04/18 22:01 Active Consistent Carbohydrate Diet [DIET] Diet 02/04/18 Breakfast Active Heart Healthy Diet [DIET] Diet 02/04/18 Breakfast Active Retroperitoneal Comp [US] Routine Exams 02/05/18 07:00 Ordered A1C [GLYCOSYLATED HEMOGLOBIN,HGBA1C] [CHEM] AM Lab 02/05/18 05:11 Ordered BASIC METABOLIC PANEL,BMP [CHEM] AM Lab 02/05/18 05:11 Ordered BASIC METABOLIC PANEL,BMP [CHEM] AM Lab 02/06/18 05:11 Ordered BASIC METABOLIC PANEL,BMP [CHEM] AM Lab 02/07/18 05:11 Ordered BASIC METABOLIC PANEL,BMP [CHEM] AM Lab 02/08/18 05:11 Ordered BASIC METABOLIC PANEL,BMP [CHEM] AM Lab 02/09/18 05:11 Ordered CBC WITH AUTO DIFF [HEME] AM Lab 02/05/18 05:11 Ordered CBC WITH AUTO DIFF [HEME] AM Lab 02/06/18 05:11 Ordered CBC WITH AUTO DIFF [HEME] AM Lab 02/07/18 05:11 Ordered MAGNESIUM [CHEM] AM Lab 02/05/18 05:11 Ordered MAGNESIUM [CHEM] AM Lab 02/06/18 05:11 Ordered MAGNESIUM [CHEM] AM Lab 02/07/18 05:11 Ordered T4 FREE [CHEM] AM Lab 02/05/18 05:11 Ordered TSH [CHEM] AM Lab 02/05/18 05:11 Ordered Acetaminophen [Tylenol] Med 02/04/18 22:01 Active 650 mg PO Q4H PRN Acetaminophen/HYDROcodone [[place] 325-5 MG] Med 02/04/18 22:01 Active 1 tab PO Q4H PRN Albuterol/Ipratropium [DuoNeb 3.0-0.5 MG/3 ML] Med 02/04/18 22:01 Active 3 ml NEB Q4H PRN Apixaban [Eliquis] Med 02/05/18 09:00 Ordered 2.5 mg PO BID Aspirin/Caffeine [Anacin 500-32 mg Tablet] Med 02/05/18 09:00 Ordered 1 tab PO DAILY Bisacodyl [Dulcolax] Med 02/04/18 22:01 Ordered 5 mg PO DAILY PRN Cyclobenzaprine [Flexeril] Med 02/04/18 22:07 Unverified DOSE UNIT RTE FREQ PRN Docusate Sodium [Colace] Med 02/04/18 22:01 Active 100 mg PO BID PRN Docusate Sodium/Sennosides [Senna Plus] Med 02/04/18 22:01 Active 1 tab PO BID PRN Doxazosin [Cardura] Med 02/05/18 09:00 Ordered 2 mg PO BID Finasteride [Proscar] Med 02/05/18 09:00 Ordered DOSE mg PO DAILY HYDROmorphone [Dilaudid] Med 02/04/18 22:01 Active 0.5 mg IVPUSH Q4H PRN LORazepam [Ativan] Med 02/04/18 22:01 Active 1 mg IV Q6H PRN LORazepam [Ativan] Med 02/04/18 22:00 Active 2 mg IVPUSH Q4H PRN Lactulose [Cephulac] Med 02/04/18 22:07 Active 20 gm PO DAILY PRN Levothyroxine [Synthroid] Med 02/05/18 09:00 Unverified DOSE UNIT RTE FREQ Magnesium Hydroxide [Milk of Magnesia] Med 02/04/18 22:07 Active 30 ml PO BID PRN Magnesium Rep Pharmacy to Dose [Pharmacy to Dose - Med 02/04/18 22:00 Pending Magnesium Replacement] 1 dose .XX ASDIRECTED Metoprolol Succinate [Toprol XL] Med 02/05/18 09:00 Unverified DOSE UNIT RTE FREQ Metoprolol Tartrate [Lopressor] Med 02/04/18 22:00 Active 5 mg IVPUSH Q4H PRN Nicotine [Habitrol] Med 02/04/18 22:00 Active 21 mg TRDERM DAILY PRN Omeprazole [Omeprazole] Med 02/05/18 09:00 Ordered 1 cap PO DAILY Ondansetron [Zofran] Med 02/04/18 22:01 Active 4 mg IV Q6H PRN Polyethylene Glycol 3350 [MiraLAX] Med 02/04/18 22:01 Active 17 gm PO DAILY PRN Potassium Rep Pharmacy to Dose [Pharmacy to Dose - Med 02/04/18 22:00 Pending Potassium Replacement] 1 dose .XX ASDIRECTED Promethazine [Phenergan] 12.5 mg Med 02/04/18 22:01 Active Sodium Chloride 0.9% [Normal Saline] 50 ml IV Q6H Remove Patch Med 02/04/18 22:13 Active 1 ea TRDERM DAILY PRN Sennosides [Senna] Med 02/04/18 22:07 Active 8.6 mg PO BID PRN Sodium Chloride 0.9% [Saline Flush] Med 02/04/18 18:35 Active 10 ml FLUSH ASDIRECTED PRN Tamsulosin [Flomax] Med 02/05/18 09:00 Ordered 0.4 mg PO BIDPC Temazepam [Restoril] Med 02/04/18 22:01 Active 7.5 mg PO BEDTIME PRN hydrALAZINE [Apresoline] Med 02/04/18 22:00 Active 20 mg IVPUSH Q4H PRN Peripheral IV Insertion Adult [OM.PC] Routine Oth 02/04/18 18:35 Ordered Resuscitation Status Routine Resus Stat 02/04/18 21:18 Ordered Medication Orders Acetaminophen (Tylenol) 650 mg PO Q4H PRN PRN Reason: Pain (Mild 1-3)/fever Hydrocodone Bitart/Acetaminophen ([place] 325-5 Mg) 1 tab PO Q4H PRN PRN Reason: Pain (moderate 4-6) Albuterol/Ipratropium (Duoneb 3.0-0.5 Mg/3 Ml) 3 ml NEB Q4H PRN PRN Reason: Shortness Of Breath/wheezing Apixaban (Eliquis) 2.5 mg PO BID MIKO Bisacodyl (Dulcolax) 5 mg PO DAILY PRN PRN Reason: Constipation Docusate Sodium (Colace) 100 mg PO BID PRN PRN Reason: Constipation Doxazosin Mesylate (Cardura) 2 mg PO BID MIKO Finasteride (Proscar) mg PO DAILY MIKO Hydralazine HCl (Apresoline) 20 mg IVPUSH Q4H PRN PRN Reason: Hypertension Hydromorphone HCl (Dilaudid) 0.5 mg IVPUSH Q4H PRN PRN Reason: Pain (severe 7-10) Promethazine HCl 12.5 mg/ (Sodium Chloride) 50.5 mls @ 100 mls/hr IV Q6H PRN PRN Reason: Nausea/Vomiting Lactulose (Cephulac) 20 gm PO DAILY PRN PRN Reason: Constipation Lorazepam (Ativan) 2 mg IVPUSH Q4H PRN PRN Reason: Seizures Lorazepam (Ativan) 1 mg IV Q6H PRN PRN Reason: Anxiety Magnesium Hydroxide (Milk Of Magnesia) 30 ml PO BID PRN PRN Reason: Constipation Magnesium Sulfate (Pharmacy To Dose - Magnesium Replacement) 1 dose .XX ASDIRECTED [facility] Metoprolol Tartrate (Lopressor) 5 mg IVPUSH Q4H PRN PRN Reason: Tachycardia Miscellaneous Information (Remove Patch) 1 ea TRDERM DAILY PRN PRN Reason: IF NICOTINE PATCH APPLIED Nicotine (Habitrol) 21 mg TRDERM DAILY PRN PRN Reason: Nicotine Dependence Non-Formulary Medication (Aspirin/Caffeine [Anacin 500-32 Mg Tablet]) 1 tab PO DAILY [facility] Non-Formulary Medication (Omeprazole [Omeprazole]) 1 cap PO DAILY [facility] Ondansetron HCl (Zofran) 4 mg IV Q6H PRN PRN Reason: Nausea/Vomiting Polyethylene Glycol (Miralax) 17 gm PO DAILY PRN PRN Reason: Constipation Potassium Chloride (Pharmacy To Dose - Potassium Replacement) 1 dose .XX ASDIRECTED [facility] Senna (Senna) 8.6 mg PO BID PRN PRN Reason: Constipation Senna/Docusate Sodium (Senna Plus) 1 tab PO BID PRN PRN Reason: Constipation Sodium Chloride (Saline Flush) 10 ml FLUSH ASDIRECTED PRN PRN Reason: Keep Vein Open Last Admin: 02/04/18 19:06 Dose: 10 ml Tamsulosin HCl (Flomax) 0.4 mg PO BIDPC MIKO Temazepam (Restoril) 7.5 mg PO BEDTIME PRN PRN Reason: Sleep Assessment/Plan Comment:: Assessment/Plan: Acute: Oliguric Renal Failure - 2/2 Obstructive Uropathy - Carries a hx/o enlarged prostate - He is on finasteride and flomax for maintenance medications - Urine output about 1220 ml after dolan cather was put in - Cr 9 and BUN 6 - Avoid Nephrotoxic agents - Renal U/S Urinary Retention - 2/2 Above - Risk Factors: BPH and DM2 - Dolan catheter for therapeutic management - Urology eval after discharge BPH - PSA is 17 - Continue flomax and finasteride - May consider adding cardura Hypocalcemia - Ca+ 7.7 - Replete and monitor Chronic: Impaired Vision HTN Peripheral Edema ETOH Liver Cirrhosis with Ascites, Stable Thrombocytopenia 2/2 Chronic Liver Cirrhosis Hx/o Hematuria Hx/o PVCs OA Hx/o ETOH Abuse DM2, Unsure of Medications, BS is 110 Hypothyroidism Morbid Obesity with BMI of 43 Plan: Admit to [facility] Resume Some Home Meds Routine AM Labs Strict Is/Os Hold Nephrotoxic Home Medications A1C level, Thyroid Panel Dietary consult for weight management DVT PPx: Per EMR he is on Lovenox SubQ but his platelet is low; will switch to Eliquis 2.5 mg po BID GI PPx: H2B Code status is full
[2018-02-05] MEDS: Acetaminophen/HYDROcodone 325-5 MG Tab PO PRN (00:38)
[2018-02-05] MEDS ORDERED: Cyclobenzaprine 10 MG Tab PO ONE (04:11)
[2018-02-05] MEDS: Sodium Chloride 0.9% 1,000 ML IV SCH ×2 (04:13→15:07)
[2018-02-05] MEDS: Calcium Carbonate 600 MG Tab PO SCH ×2 (06:30→18:17)
[2018-02-05] MEDS ORDERED: HYDROmorphone 0.5 MG/0.5 ML Syringe IVPUSH PRN (07:30)
[2018-02-05] MEDS ORDERED: Pneumococcal Polyvalent-23 Vaccine 0.5 ML SDV IM ONE (08:25)
[2018-02-05] MEDS ORDERED: Apixaban 5 MG Tab PO SCH (09:00)
[2018-02-05] MEDS ORDERED: Finasteride 5 MG Tab PO SCH (09:00)
[2018-02-05] MEDS ORDERED: Magnesium Sulfate/Water 4 GM in Premix Bag 1 BAG IV ONE (09:00)
[2018-02-05] MEDS ORDERED: ASPIRIN PO SCH (09:00)
[2018-02-05] MEDS ORDERED: CAFFEINE PO SCH (09:00)
--- NOTE | 2018-02-05 09:27 | PCM.PN ---
- General Info Date of Service: 02/05/18 Admission Dx/Problem (Free Text): Admission Diagnosis/Problem Admission Diagnosis/Problem Obstructive uropathy Subjective Update: Follow Up Functional Status: Reports: Pain Controlled, Tolerating Diet, Ambulating, Urinating. Denies: New Symptoms - Review of Systems General: Denies: Fever, Weakness, Fatigue, Malaise, Chills HEENT: Reports: No Symptoms Pulmonary: Denies: Shortness of Breath Cardiovascular: Denies: Chest Pain, Dyspnea on Exertion, Lightheadedness Gastrointestinal: Denies: Abdominal Pain, Nausea, Vomiting Genitourinary: Reports: No Symptoms Musculoskeletal: Reports: No Symptoms Skin: Reports: No Symptoms Neurological: Denies: Confusion, Difficulty Walking, Weakness, Gait Disturbance Psychiatric: Denies: Depression, Anxiety, Agitation, Hallucinations Systems Review Comment:: No significant overnight or acute issues. He feels much better this AM. He has no complaints. His Cr s now 5.5 from 9.5 His Mg level is slightly low at 1.2. He is afebrile w/o leukocytosis. - Patient Data Vitals - Most Recent: Last Vital Signs Temp 36.9 C 02/05/18 03:54 Pulse 77 02/05/18 03:54 Resp 18 02/05/18 03:54 BP 127/69 02/05/18 03:54 Pulse Ox 98 02/05/18 03:54 Weight - Most Recent: 117.594 kg I&O - Last 24 Hours: Intake & Output 02/04/18 02/05/18 02/05/18 22:59 06:59 14:59 Intake Total 300 1350 Output Total 4125 7985 Balance -4448 -1419 Lab Results Last 24 Hours: Laboratory Results - last 24 hr 02/04/18 02/04/18 02/04/18 Range/Units 16:40 17:35 17:35 WBC 6.11 (4.23-9.07) K/mm3 RBC 4.15 L (4.63-6.08) M/mm3 Hgb 13.1 L (13.7-17.5) gm/L Hct 38.8 L (40.1-51.0) % MCV 93.5 H (79.0-92.2) fl MCH 31.6 (25.7-32.2) pg MCHC 33.8 (32.2-35.5) g/dl RDW Std Deviation 49.2 H (35.1-43.9) fL Plt Count 78 L (163-337) K/mm3 MPV 10.4 (9.4-12.3) fl Neut % (Auto) (34.0-67.9) % Lymph % (Auto) (21.8-53.1) % [place] % (Auto) (5.3-12.2) % Eos % (Auto) (0.8-7.0) Baso % (Auto) (0.1-1.2) % Neut # (Auto) (1.78-5.38) K/mm3 Lymph # (Auto) (1.32-3.57) K/mm3 [place] # (Auto) (0.30-0.82) K/mm3 Eos # (Auto) (0.04-0.54) K/mm3 Baso # (Auto) (0.01-0.08) K/mm3 Neutrophils % (Manual) 82 H (40-60) % Band Neutrophils % 0 (0-10) % Lymphocytes % (Manual) 12 L (20-40) % Atypical Lymphs % 0 % Monocytes % (Manual) 4 (2-10) % Eosinophils % (Manual) 2 (0.8-7.0) % Basophils % (Manual) 0 L (0.2-1.2) Manual Slide Review Platelet Estimate Decreased Plt Morphology Comment Normal RBC Morph Comment Normal Sodium 136 (136-145) mEq/L Potassium 4.6 (3.5-5.1) mEq/L Chloride 98 (98-107) mEq/L Carbon Dioxide 20 L (21-32) mEq/L Anion Gap 22.6 H (5-15) BUN 64 H (7-18) mg/dL Creatinine 9.5 H (0.7-1.3) mg/dL Est Cr Clr Drug Dosing 7.44 mL/min Estimated GFR (MDRD) 6 (>60) mL/min BUN/Creatinine Ratio 6.7 L (14-18) Glucose 110 (80-115) mg/dL Calcium 7.7 L (8.5-10.1) mg/dL Magnesium (1.8-2.4) mg/dl Total Bilirubin 0.7 (0.2-1.0) mg/dL AST 20 (15-37) U/L ALT 26 (16-63) U/L Alkaline Phosphatase 84 (46-116) U/L C-Reactive Protein 12.7 H* (<1.0) mg/dL Total Protein 7.7 (6.4-8.2) g/dl Albumin 3.2 L (3.4-5.0) g/dl Globulin 4.5 gm/dL Albumin/Globulin Ratio 0.7 L (1-2) PSA Screen (0.0-4.0) ng/mL Free T4 (0.76-1.46) ng/dL TSH 3rd Generation (0.358-3.74) uIU/mL Urine Color Yellow (Yellow) Urine Appearance Clear (Clear) Urine pH 5.5 (5.0-8.0) Ur Specific [place] 1.010 (1.005-1.030) Urine Protein Negative (Negative) Urine Glucose (UA) Trace H (Negative) Urine Ketones Negative (Negative) Urine Occult Blood 2+ H (Negative) Urine Nitrite Negative (Negative) Urine Bilirubin Negative (Negative) Urine Urobilinogen 0.2 (0.2-1.0) Ur Leukocyte Esterase Negative (Negative) Urine RBC 0-5 (0-5) /hpf Urine WBC 0-5 (0-5) /hpf Ur Epithelial Cells 0-5 (0-5) /hpf Urine Bacteria Not seen (FEW) /hpf Urine Mucus Not seen (FEW) /hpf 02/04/18 02/05/18 02/05/18 Range/Units 17:35 06:30 06:30 WBC 6.05 (4.23-9.07) K/mm3 RBC 4.28 L (4.63-6.08) M/mm3 Hgb 13.4 L (13.7-17.5) gm/L Hct 39.3 L (40.1-51.0) % MCV 91.8 (79.0-92.2) fl MCH 31.3 (25.7-32.2) pg MCHC 34.1 (32.2-35.5) g/dl RDW Std Deviation 48.6 H (35.1-43.9) fL Plt Count 94 L (163-337) K/mm3 MPV 10.6 (9.4-12.3) fl Neut % (Auto) 62.0 (34.0-67.9) % Lymph % (Auto) 17.5 L (21.8-53.1) % [place] % (Auto) 13.7 H (5.3-12.2) % Eos % (Auto) 6.1 (0.8-7.0) Baso % (Auto) 0.5 (0.1-1.2) % Neut # (Auto) 3.75 (1.78-5.38) K/mm3 Lymph # (Auto) 1.06 L (1.32-3.57) K/mm3 [place] # (Auto) 0.83 H (0.30-0.82) K/mm3 Eos # (Auto) 0.37 (0.04-0.54) K/mm3 Baso # (Auto) 0.03 (0.01-0.08) K/mm3 Neutrophils % (Manual) (40-60) % Band Neutrophils % (0-10) % Lymphocytes % (Manual) (20-40) % Atypical Lymphs % % Monocytes % (Manual) (2-10) % Eosinophils % (Manual) (0.8-7.0) % Basophils % (Manual) (0.2-1.2) Manual Slide Review Abnormal smear Platelet Estimate Plt Morphology Comment RBC Morph Comment Sodium 140 (136-145) mEq/L Potassium 3.5 (3.5-5.1) mEq/L Chloride 100 (98-107) mEq/L Carbon Dioxide 24 (21-32) mEq/L Anion Gap 19.5 H (5-15) BUN 52 H (7-18) mg/dL Creatinine 5.5 H (0.7-1.3) mg/dL Est Cr Clr Drug Dosing 12.85 mL/min Estimated GFR (MDRD) 11 (>60) mL/min BUN/Creatinine Ratio 9.5 L (14-18) Glucose 90 (80-115) mg/dL Calcium 7.9 L (8.5-10.1) mg/dL Magnesium 1.2 L (1.8-2.4) mg/dl Total Bilirubin (0.2-1.0) mg/dL AST (15-37) U/L ALT (16-63) U/L Alkaline Phosphatase (46-116) U/L C-Reactive Protein (<1.0) mg/dL Total Protein (6.4-8.2) g/dl Albumin (3.4-5.0) g/dl Globulin gm/dL Albumin/Globulin Ratio (1-2) PSA Screen 17.0 H (0.0-4.0) ng/mL Free T4 1.12 (0.76-1.46) ng/dL TSH 3rd Generation 0.784 (0.358-3.74) uIU/mL Urine Color (Yellow) Urine Appearance (Clear) Urine pH (5.0-8.0) Ur Specific [place] (1.005-1.030) Urine Protein (Negative) Urine Glucose (UA) (Negative) Urine Ketones (Negative) Urine Occult Blood (Negative) Urine Nitrite (Negative) Urine Bilirubin (Negative) Urine Urobilinogen (0.2-1.0) Ur Leukocyte Esterase (Negative) Urine RBC (0-5) /hpf Urine WBC (0-5) /hpf Ur Epithelial Cells (0-5) /hpf Urine Bacteria (FEW) /hpf Urine Mucus (FEW) /hpf Med Orders - Current: Current Medications Acetaminophen (Tylenol) 650 mg PO Q4H PRN PRN Reason: Pain (Mild 1-3)/fever Hydrocodone Bitart/Acetaminophen ([place]ell 325-5 Mg) 1 tab PO Q4H PRN PRN Reason: Pain (moderate 4-6) Last Admin: 02/05/18 00:38 Dose: 1 tab Albuterol/Ipratropium (Duoneb 3.0-0.5 Mg/3 Ml) 3 ml NEB Q4H PRN PRN Reason: Shortness Of Breath/wheezing Apixaban (Eliquis) 2.5 mg PO BID MIKO Bisacodyl (Dulcolax) 5 mg PO DAILY PRN PRN Reason: Constipation Calcium Carbonate/Glycine (Calcium Carbonate) 1,200 mg PO BIDMEALS MIKO Last Admin: 02/05/18 06:30 Dose: 1,200 mg Cyclobenzaprine HCl (Flexeril) 10 mg PO TID PRN PRN Reason: Muscle Spasm Docusate Sodium (Colace) 100 mg PO BID PRN PRN Reason: Constipation Doxazosin Mesylate (Cardura) 2 mg PO BID MIKO Finasteride (Proscar) mg PO DAILY MIKO Hydralazine HCl (Apresoline) 20 mg IVPUSH Q4H PRN PRN Reason: Hypertension Hydromorphone HCl (Dilaudid) 0.5 mg IVPUSH Q4H PRN PRN Reason: Pain (severe 7-10) Promethazine HCl 12.5 mg/ (Sodium Chloride) 50.5 mls @ 100 mls/hr IV Q6H PRN PRN Reason: Nausea/Vomiting Sodium Chloride (Normal Saline) 1,000 mls @ 100 mls/hr IV ASDIRECTED [facility] Last Admin: 02/05/18 04:13 Dose: 100 mls/hr Magnesium Sulfate 4 gm/ Premix 100 mls @ 25 mls/hr IV ONETIME ONE Stop: 02/05/18 12:59 Lactulose (Cephulac) 20 gm PO DAILY PRN PRN Reason: Constipation Lorazepam (Ativan) 2 mg IVPUSH Q4H PRN PRN Reason: Seizures Lorazepam (Ativan) 1 mg IV Q6H PRN PRN Reason: Anxiety Magnesium Hydroxide (Milk Of Magnesia) 30 ml PO BID PRN PRN Reason: Constipation Magnesium Sulfate (Pharmacy To Dose - Magnesium Replacement) 0 dose .XX ASDIRECTED PRN PRN Reason: RX TO DOSE MAG Metoprolol Tartrate (Lopressor) 5 mg IVPUSH Q4H PRN PRN Reason: Tachycardia Miscellaneous Information (Remove Patch) 1 ea TRDERM DAILY PRN PRN Reason: IF NICOTINE PATCH APPLIED Nicotine (Habitrol) 21 mg TRDERM DAILY PRN PRN Reason: Nicotine Dependence Non-Formulary Medication (Omeprazole [Omeprazole]) 1 cap PO DAILY [facility] Ondansetron HCl (Zofran) 4 mg IV Q6H PRN PRN Reason: Nausea/Vomiting Polyethylene Glycol (Miralax) 17 gm PO DAILY PRN PRN Reason: Constipation Potassium Chloride (Pharmacy To Dose - Potassium Replacement) 0 dose .XX ASDIRECTED PRN PRN Reason: RX TO WATCH K Senna (Senna) 8.6 mg PO BID PRN PRN Reason: Constipation Senna/Docusate Sodium (Senna Plus) 1 tab PO BID PRN PRN Reason: Constipation Sodium Chloride (Saline Flush) 10 ml FLUSH ASDIRECTED PRN PRN Reason: Keep Vein Open Last Admin: 02/04/18 19:06 Dose: 10 ml Tamsulosin HCl (Flomax) 0.4 mg PO BIDPC MIKO Temazepam (Restoril) 7.5 mg PO BEDTIME PRN PRN Reason: Sleep Discontinued Medications Apixaban (Eliquis) 2.5 mg PO ONETIME STA Stop: 02/04/18 22:17 Last Admin: 02/04/18 22:53 Dose: 2.5 mg Belladonna Alkaloids/Opium (B & O Supprettes No. 15a) 1 supp RECTAL ONETIME ONE Stop: 02/04/18 16:56 Last Admin: 02/04/18 16:59 Dose: 1 supp Calcium Carbonate/Glycine (Tums) 1,000 mg PO ONETIME ONE Stop: 02/04/18 23:10 Last Admin: 02/05/18 00:38 Dose: 1,000 mg Cyclobenzaprine HCl (Flexeril) 10 mg PO ONETIME ONE Stop: 02/04/18 20:17 Last Admin: 02/04/18 20:21 Dose: 10 mg Cyclobenzaprine HCl (Flexeril) 10 mg PO ONETIME ONE Stop: 02/05/18 04:12 Last Admin: 02/05/18 04:20 Dose: 10 mg Hydromorphone HCl (Dilaudid) 0.5 mg IVPUSH Q4H PRN PRN Reason: Pain (severe 7-10) Sodium Chloride (Normal Saline) 1,000 mls @ 250 mls/hr IV ONETIME ONE Stop: 02/04/18 22:34 Last Admin: 02/04/18 19:06 Dose: 250 mls/hr Lidocaine HCl (Xylocaine 2% Jelly) 10 ml MUCMEM ONETIME ONE Stop: 02/04/18 16:16 Last Admin: 02/04/18 16:21 Dose: 10 ml Non-Formulary Medication (Aspirin/Caffeine [Anacin 500-32 Mg Tablet]) 1 tab PO DAILY MIKO Pneumococcal Polyvalent Vaccine (Pneumovax 23) 0.5 ml IM .ONCE ONE Stop: 02/05/18 08:26 - Exam General: Alert, Oriented, Cooperative, No Acute Distress, Other (Morbidly Obese) HEENT: Pupils Equal, Pupils Reactive, EOMI, Mucous Membr. Moist/[place] Neck: Supple, Trachea Midline, No JVD, No Thyromegaly. No: JVD Lungs: Clear to Auscultation, Normal Respiratory Effort Cardiovascular: Regular Rate, Regular Rhythm GI/Abdominal Exam: Normal Bowel Sounds, Soft, Non-Tender, No Mass, Pelvis Stable , Distended, Hepatomegaly. No: Guarding, Rigid, Rebound, Tender (Male) Exam: Other (indwelling dolan catheter) Back Exam: Normal Inspection, Decreased Range of Motion Extremities: Normal Inspection, Normal Range of Motion, Non-Tender, Pedal Edema (mild), Other (trace edema on b/l lower etxremity) Peripheral Pulses: 1+: Dorsalis Pedis (L), Dorsalis Pedis (R) Skin: Warm, Dry, Intact Neurological: No New Focal Deficit Psy/Mental Status: Alert, Normal Affect, Normal Mood - Problem List Review Problem List Initiated/Reviewed/Updated: Yes - My Orders Last 24 Hours: My Active Orders 02/04/18 21:18 Resuscitation Status Routine 02/04/18 22:00 LORazepam [Ativan] 2 mg IVPUSH Q4H PRN Magnesium Rep Pharmacy to Dose [Pharmacy to Dose - Magnesium Replacement] 0 dose .XX ASDIRECTED PRN Metoprolol Tartrate [Lopressor] 5 mg IVPUSH Q4H PRN Nicotine [Habitrol] 21 mg TRDERM DAILY PRN Potassium Rep Pharmacy to Dose [Pharmacy to Dose - Potassium Replacement] 0 dose .XX ASDIRECTED PRN hydrALAZINE [Apresoline] 20 mg IVPUSH Q4H PRN 02/04/18 22:01 Height and Weight [RC] 0400 Oxygen Therapy [RC] PRN VTE/DVT Education [RC] DAILY Vital Signs [RC] Q4HR Consult to Case Management/Photoflash Powder Mixer [CONS] Routine Consult to Spiritual Care [CONS] Routine Acetaminophen [Tylenol] 650 mg PO Q4H PRN Acetaminophen/HYDROcodone [[place] 325-5 MG] 1 tab PO Q4H PRN Albuterol/Ipratropium [DuoNeb 3.0-0.5 MG/3 ML] 3 ml NEB Q4H PRN Bisacodyl [Dulcolax] 5 mg PO DAILY PRN Docusate Sodium [Colace] 100 mg PO BID PRN Docusate Sodium/Sennosides [Senna Plus] 1 tab PO BID PRN LORazepam [Ativan] 1 mg IV Q6H PRN Ondansetron [Zofran] 4 mg IV Q6H PRN Polyethylene Glycol 3350 [MiraLAX] 17 gm PO DAILY PRN Promethazine [Phenergan] 12.5 mg Sodium Chloride 0.9% [Normal Saline] 50 ml IV Q6H Temazepam [Restoril] 7.5 mg PO BEDTIME PRN 02/04/18 22:05 RT Aerosol Therapy [RC] ASDIRECTED 02/04/18 22:07 Cyclobenzaprine [Flexeril] DOSE UNIT RTE FREQ PRN Lactulose [Cephulac] 20 gm PO DAILY PRN Magnesium Hydroxide [Milk of Magnesia] 30 ml PO BID PRN Sennosides [Senna] 8.6 mg PO BID PRN 02/04/18 22:13 Remove Patch 1 ea TRDERM DAILY PRN 02/04/18 22:14 Intake and Output Strict [RC] Q2HR 02/04/18 22:33 Up ad Glendy [RC] BID 02/04/18 23:05 Cyclobenzaprine [Flexeril] 10 mg PO TID PRN 02/04/18 23:11 Consult to Dietary [Consult to Lithographic Artist] [CONS] Routine 02/04/18 23:15 Sodium Chloride 0.9% [Normal Saline] 1,000 ml IV ASDIRECTED 02/05/18 06:30 A1C [GLYCOSYLATED HEMOGLOBIN,HGBA1C] [CHEM] AM 02/05/18 07:00 Retroperitoneal Comp [US] Routine Calcium Carbonate 1,200 mg PO BIDMEALS 02/05/18 07:30 HYDROmorphone [Dilaudid] 0.5 mg IVPUSH Q4H PRN 02/05/18 09:00 Apixaban [Eliquis] 2.5 mg PO BID Doxazosin [Cardura] 2 mg PO BID Finasteride [Proscar] DOSE mg PO DAILY Levothyroxine [Synthroid] DOSE UNIT RTE FREQ Magnesium Sulfate/Water [Magnesium Sulfate 4 GM in Water 100 ML] 4 gm Premix Bag 1 bag IV ONETIME Metoprolol Succinate [Toprol XL] DOSE UNIT RTE FREQ Omeprazole [Omeprazole] 1 cap PO DAILY Tamsulosin [Flomax] 0.4 mg PO BIDPC 02/06/18 05:11 BASIC METABOLIC PANEL,BMP [CHEM] AM CBC WITH AUTO DIFF [HEME] AM MAGNESIUM [CHEM] AM 02/07/18 05:11 BASIC METABOLIC PANEL,BMP [CHEM] AM CBC WITH AUTO DIFF [HEME] AM MAGNESIUM [CHEM] AM 02/08/18 05:11 BASIC METABOLIC PANEL,BMP [CHEM] AM 02/09/18 05:11 BASIC METABOLIC PANEL,BMP [CHEM] AM - Plan Plan:: Assessment/Plan: Acute: Oliguric Renal Failure, Improving - 2/2 Obstructive Uropathy - Carries a hx/o enlarged prostate - He is on finasteride and flomax for maintenance medications - Urine output about 1220 ml after dolan cather was put in - Cr 9.5 --> now 5.5 and BUN 64--> now 52 - Avoid Nephrotoxic agents - Renal U/S: right kidney shows a small cyst. Left kidney shows a non- obstructing stone. Small post void residual within the bladder. Mild elevated resistivity indices likely representing medical renal disease. Urinary Retention - 2/2 Above - Risk Factors: BPH and DM2 - Dolan catheter for therapeutic management - Urology eval after discharge BPH - PSA is 17 - Continue flomax, finasteride and cardura - Urology referral after discharge Hypocalcemia, Improved - Ca+ 7.7--> 7.9 - Replete and monitor Hypomagnesemia - 1.2 - 2/2 GI loss and inadequate intake - Replete and monitor Chronic: Impaired Vision HTN Peripheral Edema ETOH Liver Cirrhosis with Ascites, Stable Thrombocytopenia 2/2 Chronic Liver Cirrhosis Hx/o Hematuria Hx/o PVCs OA Hx/o ETOH Abuse DM2, Unsure of Medications, BS well controlled --> A1c 5.5 Hypothyroidism Morbid Obesity with BMI of 43 Plan: He is clinically stable Routine AM Labs Strict Is/Os Accu-check HS/AM Hold Invoka/Metformin combo due to renal failure Continue to hold Lasix and Spironolactone Thyroid Panel- normal Dietary consult for weight management DVT PPx: Will resume lovenox home dose GI PPx: H2B Code status is full Met up with his daughter with patient's permission. She was updated about dad's diagnosis, tests result, clinical progress and discharge care plan. CM to help schedule him for Urology outpatient after discharge.
[2018-02-05] MEDS: Doxazosin 2 MG Tab PO SCH ×2 (10:09→20:59)
--- NOTE | 2018-02-05 10:14 | US ---
Renal ultrasound: Multiple real-time images of the kidneys were obtained. Comparison: Previous abdominal ultrasound showing the kidneys dated 03/15/11. Findings: Small 1.4 cm cyst is seen within the right kidney. Kidneys show no hydronephrosis or solid mass. Rey catheter is noted within the bladder. Slight hyperechoic finding is seen within the mid to upper left kidney compatible with a nonobstructing stone measuring about 1.6 cm. Cortical thickness is preserved. Resistivity indices are slightly increased. Measurements: Right kidney length: 12.1 cm Left kidney likely: 12.1 cm Bladder: Prevoid volume 132 mL and post void volume 65 mL Impression: 1. Right kidney shows a small cyst. Left kidney shows a nonobstructing stone. 2. Small post void residual within the bladder. 3. Mildly elevated resistivity indices likely representing medical renal disease. Diagnostic code #3
[2018-02-05] MEDS: Pantoprazole 40 MG Tab.CR PO SCH (11:15)
[2018-02-05] MEDS ORDERED: Acetaminophen/oxyCODONE 325-5 MG Tab PO PRN (13:52)
[2018-02-05] MEDS ORDERED: Non-Formulary Medication 1 Each (Exenatide Microspheres [Bydureon Pen] 2 MG) SQ SCH (14:00)
[2018-02-05] MEDS: Cyclobenzaprine 10 MG Tab PO PRN ×2 (15:21→23:12)
[2018-02-05] MEDS: Tamsulosin 0.4 MG Cap.ER PO SCH (20:59)
[2018-02-06] MEDS: Sodium Chloride 0.9% 1,000 ML IV SCH (00:19)
[2018-02-06] MEDS ORDERED: Levothyroxine 100 MCG Tab PO SCH (06:00)
[2018-02-06] MEDS: Calcium Carbonate 600 MG Tab PO SCH (06:23)
[2018-02-06] MEDS: Doxazosin 2 MG Tab PO SCH (08:58)
[2018-02-06] MEDS: Tamsulosin 0.4 MG Cap.ER PO SCH (08:59)
[2018-02-06] MEDS ORDERED: Rosuvastatin 10 MG Tab PO SCH (09:00)
[2018-02-06] MEDS ORDERED: Enoxaparin 30 MG/0.3 ML Syringe SUBCUT SCH (09:00)
[2018-02-06] MEDS ORDERED: Finasteride 5 MG Tab PO SCH (09:00)
[2018-02-06] MEDS: Pantoprazole 40 MG Tab.CR PO SCH (09:01)
[2018-02-06] MEDS ORDERED: Magnesium Oxide 400 MG Tab PO ONE (09:30)
[2018-02-06] MEDS: Acetaminophen/HYDROcodone 325-5 MG Tab PO PRN (11:21)
--- NOTE | 2018-02-06 12:05 | PCM.DCSUM1 ---
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 His symptom started a few days ago and is associated with burning sensation, lower abdominal pain, and feeling of distention. He carries no hx/o BPH or enlarged prostate but his home medications show he is on flomax and finasteride. His initial work up in the emergency department shows a CBC remarkable for RBC of 4.15, Hgb of 13.1, Hct of 38.8, MCV of 93.5, RDW of 49.2, Platelet of 78, Neutrophils of 82% and Lymphocytes of 12%. His chemistry is significant for CO2 of 20, AG of 22.65, BUN of 64, CR of 9.5, GFR of 6, Ca of 7.7, Albumin of 3.2 and PSA of 17. His UA is negative for UTI. Patient is being admitted for medical management and evaluation of acute renal failure and urinary retention. He is full code. Diagnosis: Stroke: No Modified [place] Scale: No Symptoms at All Modified [place] Scale Score: 0 - Discharge Data Discharge Date: 02/06/18 Discharge Disposition: Home, Self-Care 01 Condition: Good - Discharge Diagnosis/Problem(s) (1) Acute renal failure (ARF) SNOMED Code(s): 93947017 ICD Code: N17.9 - ACUTE KIDNEY FAILURE, UNSPECIFIED Status: Resolved Qualifiers: Acute renal failure type: unspecified Qualified Code(s): N17.9 - Acute kidney failure, unspecified (2) Enlarged prostate with urinary retention SNOMED Code(s): 494226511 ICD Code: N40.1 - BENIGN PROSTATIC HYPERPLASIA WITH LOWER URINARY TRACT SYMP ; R33.8 - OTHER RETENTION OF URINE Status: Acute (3) Hypocalcemia syndrome SNOMED Code(s): 1818022 ICD Code: E83.51 - HYPOCALCEMIA Status: Resolved (4) Hypomagnesemia syndrome SNOMED Code(s): 911274788 ICD Code: E83.42 - HYPOMAGNESEMIA Status: Acute (5) Renal cyst SNOMED Code(s): 332615443 ICD Code: N28.1 - CYST OF KIDNEY, ACQUIRED Status: Acute (6) Renal stone SNOMED Code(s): 09801848 ICD Code: N20.0 - CALCULUS OF KIDNEY Status: Chronic Problem Details: - He is aware of it - Patient Summary/Data Operative Procedure(s) Performed: None Complications: None Consults: Consultations 02/04/18 22:01 Consult to Case Management/Engineer Specialist [CONS] Routine Consult to Spiritual Care [CONS] Routine 02/04/18 23:11 Consult to Dietary [Consult to [employer] Erector] [CONS] Routine Labs Pending at D/C: None Recommended Follow-up Testing/Procedures: Urology eval after discharge Planned Operative Procedure(s) after DC: None Hospital Course: Patient was primarily admitted for evaluation of acute urinary retention. He carried a hx/o enlarged prostate and was already on treatment for flomax and finasteride. Unfortunately, due to obstructive uropathy he developed acute renal injury. His severe urinary retention was improved with dolan catheter placement and a total to over 1500 ml was obtained at the time. As for his considerably reduced renal function, he was provided supportive care and fluid hydration. He slowly he improved on this regimen while we held his diuretic and other nephrotoxic agents. His hospital course was uncomplicated and the rest of his chronic medical illness remained stable during this admission. Patient was stable upon discharge. He was advised to see urology for further evaluation of his severe urinary retention. He was further advised to come back or seek immediate care should his symptom persists or gets worse. The patient expressed understanding and in agreement with the plans as discussed above. All questions were answered. - Patient Instructions Diet: Heart Healthy Diet, Usual Diet as Tolerated, Low Sodium, Diabetic Diet, Weight Loss Diet Activity: As Tolerated Driving: May Drive Today Showering/Bathing: May Shower Notify Provider of: Fever, Increased Pain, Swelling and Redness, Drainage, Nausea and/or Vomiting Other/Special Instructions: - Please new medication as directed. - Resume all home medications except for Invokamet for 5 days. - Continue routine home activities as tolerated. - Recommend follow up BMP and Mg in 1 week through your PCP's office. - Keep dolan catheter until Urology eval. - Recommend keep your Urology appointment as scheduled. - Call or follow up with your PCP for any questions or concerns after discharge. - Follow up with your PCP in 1 week with repeat labs above. - Come back or seek immediate care should your symptoms persist or get worse - Discharge Plan *PRESCRIPTION DRUG MONITORING PROGRAM REVIEWED*: Not Applicable *COPY OF PRESCRIPTION DRUG MONITORING REPORT IN PATIENT RM: Not Applicable Prescriptions/Med Rec: Glimepiride 4 mg PO BIDMEALS #10 tab Home Medications: Home Meds Furosemide 20 mg PO DAILY 05/01/16 [History] Lactulose [Cephulac] 30 ml PO DAILY PRN 05/01/16 [History] Omeprazole 40 mg PO DAILY 05/01/16 [History] Spironolactone [Aldactone] 100 mg PO DAILY 05/01/16 [History] Tamsulosin HCl 0.4 mg PO DAILY 05/01/16 [History] Levothyroxine Sodium [Synthroid] 100 mcg PO DAILY 07/12/16 [History] Docusate Sodium [Colace] 100 mg PO BID cap 07/17/16 [Rx] Magnesium Hydroxide [Milk of Magnesia] 30 ml PO BID PRN #0 cup 07/17/16 [Rx] Sennosides [Senna] 8.6 mg PO BID PRN #0 tablet 07/17/16 [Rx] Exenatide Microspheres [Bydureon Pen] 2 mg SQ WEEKLY 02/05/18 [History] Rosuvastatin Calcium 5 mg PO DAILY 02/05/18 [History] oxyCODONE HCl/Acetaminophen [Oxycodone-Acetaminophen 5-325] 1 tab PO DAILY PRN 02/05/18 [History] Canagliflozin/Metformin HCl [Invokamet 150-500 mg Tablet] 1 tab PO BIDMEALS #0 02/06/18 [Rx] Glimepiride 4 mg PO BIDMEALS #10 tab 02/06/18 [Rx] Patient Handouts: Acute Kidney Injury, Adult, Hypomagnesemia, Benign Prostatic Hyperplasia, Hypocalcemia, Adult, Indwelling Urinary Catheter Care, Adult, Easy- to-Read, Acute Urinary Retention, Male, [id number] Referrals: Lukas Trevino [Other] - 02/19/18 3:00 pm (You are being referred to a urologist. They need you to have the dolan catheter in place for 2 weeks prior to your appointment for bladder rest and they will evaluate you at your appointment. Please call [place] [facility] with any questions or concerns.) Reji Bravo MD [Primary Care Provider] - 02/23/18 10:15 am (Please see Dr. Bravo in the clinic on February 23 @ 10:15am. Contact his office before then if needed.) - Discharge Summary/Plan Comment DC Time >30 min.: Yes (45 mins) Discharge Summary/Plan Comment: Discharge to home - General Info Date of Service: 02/06/18 Admission Dx/Problem (Free Text: Admission Diagnosis/Problem Admission Diagnosis/Problem Obstructive uropathy Subjective Update: Follow Up Functional Status: Reports: Pain Controlled, Tolerating Diet, Ambulating, Urinating. Denies: New Symptoms - Review of Systems General: Denies: Fever, Weakness, Fatigue, Malaise, Chills HEENT: Reports: No Symptoms Pulmonary: Denies: Shortness of Breath, Cough, Other Cardiovascular: Reports: Edema. Denies: Chest Pain, Palpitations, Dyspnea on Exertion, Lightheadedness Gastrointestinal: Denies: Abdominal Pain, Constipation, Decreased Appetite, Diarrhea, Difficulty Swallowing, Nausea, Vomiting Genitourinary: Reports: No Symptoms Musculoskeletal: Reports: No Symptoms Skin: Denies: Cyanosis, Mottled, Pallor, Diaphoresis Neurological: Denies: Difficulty Walking, Weakness, Gait Disturbance Psychiatric: Denies: Depression, Anxiety, Agitation, Hallucinations Systems Review Comment: No overnight or acute issues. He rested well last night. He feels good this AM. His Cr is now 2.2. His Mg level is slightly low at 1.7. - Patient Data Vitals - Most Recent: Last Vital Signs Temp 36.8 C 02/06/18 04:54 Pulse 63 02/06/18 08:57 Resp 16 02/06/18 08:57 BP 143/67 H 02/06/18 08:58 Pulse Ox 95 02/06/18 08:57 Weight - Most Recent: 116.981 kg I&O - Last 24 hours: Intake & Output 02/05/18 02/06/18 02/06/18 22:59 06:59 14:59 Intake Total 2624 1400 0 Output Total 1400 950 300 Balance 1224 450 -300 Lab Results - Last 24 hrs: Laboratory Results - last 24 hr 02/05/18 02/05/18 02/05/18 Range/Units 18:13 18:27 21:22 WBC (4.23-9.07) K/mm3 RBC (4.63-6.08) M/mm3 Hgb (13.7-17.5) gm/L Hct (40.1-51.0) % MCV (79.0-92.2) fl MCH (25.7-32.2) pg MCHC (32.2-35.5) g/dl RDW Std Deviation (35.1-43.9) fL Plt Count (163-337) K/mm3 MPV (9.4-12.3) fl Neut % (Auto) (34.0-67.9) % Lymph % (Auto) (21.8-53.1) % [place] % (Auto) (5.3-12.2) % Eos % (Auto) (0.8-7.0) Baso % (Auto) (0.1-1.2) % Neut # (Auto) (1.78-5.38) K/mm3 Lymph # (Auto) (1.32-3.57) K/mm3 [place] # (Auto) (0.30-0.82) K/mm3 Eos # (Auto) (0.04-0.54) K/mm3 Baso # (Auto) (0.01-0.08) K/mm3 Manual Slide Review APTT 32 H (24-31) SECONDS Sodium (136-145) mEq/L Potassium (3.5-5.1) mEq/L Chloride (98-107) mEq/L Carbon Dioxide (21-32) mEq/L Anion Gap (5-15) BUN (7-18) mg/dL Creatinine (0.7-1.3) mg/dL Est Cr Clr Drug Dosing mL/min Estimated GFR (MDRD) (>60) mL/min BUN/Creatinine Ratio (14-18) Glucose (80-115) mg/dL POC Glucose 171 H 108 (80-115) mg/dL Calcium (8.5-10.1) mg/dL Magnesium (1.8-2.4) mg/dl 02/06/18 02/06/18 02/06/18 Range/Units 06:19 06:19 06:19 WBC 4.29 (4.23-9.07) K/mm3 RBC 4.14 L (4.63-6.08) M/mm3 Hgb 13.1 L (13.7-17.5) gm/L Hct 37.8 L (40.1-51.0) % MCV 91.3 (79.0-92.2) fl MCH 31.6 (25.7-32.2) pg MCHC 34.7 (32.2-35.5) g/dl RDW Std Deviation 48.2 H (35.1-43.9) fL Plt Count 85 L (163-337) K/mm3 MPV 10.3 (9.4-12.3) fl Neut % (Auto) 52.8 (34.0-67.9) % Lymph % (Auto) 23.5 (21.8-53.1) % [place] % (Auto) 14.2 H (5.3-12.2) % Eos % (Auto) 8.4 H (0.8-7.0) Baso % (Auto) 0.9 (0.1-1.2) % Neut # (Auto) 2.26 (1.78-5.38) K/mm3 Lymph # (Auto) 1.01 L (1.32-3.57) K/mm3 [place] # (Auto) 0.61 (0.30-0.82) K/mm3 Eos # (Auto) 0.36 (0.04-0.54) K/mm3 Baso # (Auto) 0.04 (0.01-0.08) K/mm3 Manual Slide Review Abnormal smear APTT 31 (24-31) SECONDS Sodium 138 (136-145) mEq/L Potassium 3.6 (3.5-5.1) mEq/L Chloride 104 (98-107) mEq/L Carbon Dioxide 26 (21-32) mEq/L Anion Gap 11.6 (5-15) BUN 34 H (7-18) mg/dL Creatinine 2.2 H (0.7-1.3) mg/dL Est Cr Clr Drug Dosing 32.13 mL/min Estimated GFR (MDRD) 30 (>60) mL/min BUN/Creatinine Ratio 15.5 (14-18) Glucose 108 (80-115) mg/dL POC Glucose (80-115) mg/dL Calcium 8.7 (8.5-10.1) mg/dL Magnesium 1.7 L (1.8-2.4) mg/dl 02/06/18 02/06/18 Range/Units 06:45 11:07 WBC (4.23-9.07) K/mm3 RBC (4.63-6.08) M/mm3 Hgb (13.7-17.5) gm/L Hct (40.1-51.0) % MCV (79.0-92.2) fl MCH (25.7-32.2) pg MCHC (32.2-35.5) g/dl RDW Std Deviation (35.1-43.9) fL Plt Count (163-337) K/mm3 MPV (9.4-12.3) fl Neut % (Auto) (34.0-67.9) % Lymph % (Auto) (21.8-53.1) % [place] % (Auto) (5.3-12.2) % Eos % (Auto) (0.8-7.0) Baso % (Auto) (0.1-1.2) % Neut # (Auto) (1.78-5.38) K/mm3 Lymph # (Auto) (1.32-3.57) K/mm3 [place] # (Auto) (0.30-0.82) K/mm3 Eos # (Auto) (0.04-0.54) K/mm3 Baso # (Auto) (0.01-0.08) K/mm3 Manual Slide Review APTT (24-31) SECONDS Sodium (136-145) mEq/L Potassium (3.5-5.1) mEq/L Chloride (98-107) mEq/L Carbon Dioxide (21-32) mEq/L Anion Gap (5-15) BUN (7-18) mg/dL Creatinine (0.7-1.3) mg/dL Est Cr Clr Drug Dosing mL/min Estimated GFR (MDRD) (>60) mL/min BUN/Creatinine Ratio (14-18) Glucose (80-115) mg/dL POC Glucose 135 H 221 H (80-115) mg/dL Calcium (8.5-10.1) mg/dL Magnesium (1.8-2.4) mg/dl Med Orders - Current: Current Medications Acetaminophen (Tylenol) 650 mg PO Q4H PRN PRN Reason: Pain (Mild 1-3)/fever Hydrocodone Bitart/Acetaminophen ([place] 325-5 Mg) 1 tab PO Q4H PRN PRN Reason: Pain (moderate 4-6) Last Admin: 02/06/18 11:21 Dose: 1 tab Albuterol/Ipratropium (Duoneb 3.0-0.5 Mg/3 Ml) 3 ml NEB Q4H PRN PRN Reason: Shortness Of Breath/wheezing Bisacodyl (Dulcolax) 5 mg PO DAILY PRN PRN Reason: Constipation Calcium Carbonate/Glycine (Calcium Carbonate) 1,200 mg PO BIDMEALS [facility] Last Admin: 02/06/18 06:23 Dose: 1,200 mg Cyclobenzaprine HCl (Flexeril) 10 mg PO TID PRN PRN Reason: Muscle Spasm Last Admin: 02/05/18 23:12 Dose: 10 mg Docusate Sodium (Colace) 100 mg PO BID PRN PRN Reason: Constipation Doxazosin Mesylate (Cardura) 2 mg PO BID [facility] Last Admin: 02/06/18 08:58 Dose: 2 mg Enoxaparin Sodium (Lovenox) 30 mg SUBCUT DAILY [facility] Last Admin: 02/06/18 09:02 Dose: 30 mg Finasteride (Proscar) 5 mg PO DAILY [facility] Last Admin: 02/06/18 09:01 Dose: 5 mg Hydralazine HCl (Apresoline) 20 mg IVPUSH Q4H PRN PRN Reason: Hypertension Hydromorphone HCl (Dilaudid) 0.5 mg IVPUSH Q4H PRN PRN Reason: Pain (severe 7-10) Promethazine HCl 12.5 mg/ (Sodium Chloride) 50.5 mls @ 100 mls/hr IV Q6H PRN PRN Reason: Nausea/Vomiting Lactulose (Cephulac) 20 gm PO DAILY PRN PRN Reason: Constipation Levothyroxine Sodium (Synthroid) 100 mcg PO ACBREAKFAST [facility] Last Admin: 02/06/18 06:24 Dose: 100 mcg Lorazepam (Ativan) 2 mg IVPUSH Q4H PRN PRN Reason: Seizures Lorazepam (Ativan) 1 mg IV Q6H PRN PRN Reason: Anxiety Magnesium Hydroxide (Milk Of Magnesia) 30 ml PO BID PRN PRN Reason: Constipation Magnesium Sulfate (Pharmacy To Dose - Magnesium Replacement) 0 dose .XX ASDIRECTED PRN PRN Reason: RX TO DOSE MAG Metoprolol Tartrate (Lopressor) 5 mg IVPUSH Q4H PRN PRN Reason: Tachycardia Miscellaneous Information (Remove Patch) 1 ea TRDERM DAILY PRN PRN Reason: IF NICOTINE PATCH APPLIED Nicotine (Habitrol) 21 mg TRDERM DAILY PRN PRN Reason: Nicotine Dependence Ondansetron HCl (Zofran) 4 mg IV Q6H PRN PRN Reason: Nausea/Vomiting Pantoprazole Sodium (Protonix) 40 mg PO DAILY [facility] Last Admin: 02/06/18 09:01 Dose: 40 mg Polyethylene Glycol (Miralax) 17 gm PO DAILY PRN PRN Reason: Constipation Potassium Chloride (Pharmacy To Dose - Potassium Replacement) 0 dose .XX ASDIRECTED PRN PRN Reason: RX TO WATCH K Rosuvastatin Calcium (Crestor) 5 mg PO DAILY [facility] Last Admin: 02/06/18 09:00 Dose: 5 mg Senna (Senna) 8.6 mg PO BID PRN PRN Reason: Constipation Senna/Docusate Sodium (Senna Plus) 1 tab PO BID PRN PRN Reason: Constipation Sodium Chloride (Saline Flush) 10 ml FLUSH ASDIRECTED PRN PRN Reason: Keep Vein Open Last Admin: 02/04/18 19:06 Dose: 10 ml Tamsulosin HCl (Flomax) 0.4 mg PO BID [facility] Last Admin: 02/06/18 08:59 Dose: 0.4 mg Temazepam (Restoril) 7.5 mg PO BEDTIME PRN PRN Reason: Sleep Last Admin: 02/05/18 21:09 Dose: 7.5 mg Discontinued Medications Apixaban (Eliquis) 2.5 mg PO BID [facility] Last Admin: 02/05/18 10:10 Dose: 2.5 mg Apixaban (Eliquis) 2.5 mg PO ONETIME STA Stop: 02/04/18 22:17 Last Admin: 02/04/18 22:53 Dose: 2.5 mg Belladonna Alkaloids/Opium (B & O Supprettes No. 15a) 1 supp RECTAL ONETIME ONE Stop: 02/04/18 16:56 Last Admin: 02/04/18 16:59 Dose: 1 supp Calcium Carbonate/Glycine (Tums) 1,000 mg PO ONETIME ONE Stop: 02/04/18 23:10 Last Admin: 02/05/18 00:38 Dose: 1,000 mg Cyclobenzaprine HCl (Flexeril) 10 mg PO ONETIME ONE Stop: 02/04/18 20:17 Last Admin: 02/04/18 20:21 Dose: 10 mg Cyclobenzaprine HCl (Flexeril) 10 mg PO ONETIME ONE Stop: 02/05/18 04:12 Last Admin: 02/05/18 04:20 Dose: 10 mg Finasteride (Proscar) mg PO DAILY MIKO Hydromorphone HCl (Dilaudid) 0.5 mg IVPUSH Q4H PRN PRN Reason: Pain (severe 7-10) Sodium Chloride (Normal Saline) 1,000 mls @ 250 mls/hr IV ONETIME ONE Stop: 02/04/18 22:34 Last Admin: 02/04/18 19:06 Dose: 250 mls/hr Sodium Chloride (Normal Saline) 1,000 mls @ 100 mls/hr IV ASDIRECTED MIKO Last Admin: 02/06/18 00:19 Dose: 100 mls/hr Magnesium Sulfate 4 gm/ Premix 100 mls @ 25 mls/hr IV ONETIME ONE Stop: 02/05/18 12:59 Last Admin: 02/05/18 10:13 Dose: 25 mls/hr Lidocaine HCl (Xylocaine 2% Jelly) 10 ml MUCMEM ONETIME ONE Stop: 02/04/18 16:16 Last Admin: 02/04/18 16:21 Dose: 10 ml Magnesium Oxide (Magnesium Oxide) 800 mg PO ONETIME ONE Stop: 02/06/18 09:31 Last Admin: 02/06/18 09:55 Dose: 800 mg Non-Formulary Medication (Aspirin/Caffeine [Anacin 500-32 Mg Tablet]) 1 tab PO DAILY MIKO Non-Formulary Medication (Exenatide Microspheres [Bydureon Pen]) 2 mg SQ WEEKLY MIKO Oxycodone/Acetaminophen (Percocet 325-5 Mg) 1 tab PO DAILY PRN PRN Reason: Pain (severe 7-10) Pneumococcal Polyvalent Vaccine (Pneumovax 23) 0.5 ml IM .ONCE ONE Stop: 02/05/18 08:26 - Exam General: Reports: Alert, Oriented, Cooperative, No Acute Distress, Other ( Morbidly Obese) HEENT: Reports: Pupils Equal, Pupils Reactive, EOMI, Mucous Membr. Moist/[place] Neck: Reports: Supple, Trachea Midline, No JVD, No Thyromegaly, JVD, Other ( short and thick) Lungs: Reports: Normal Respiratory Effort, Decreased Breath Sounds Cardiovascular: Reports: Regular Rate, Regular Rhythm GI/Abdominal Exam: Normal Bowel Sounds, Soft, Non-Tender, No Organomegaly, No Abnormal Bruit, Distended, Hepatomegaly. No: Guarding, Rigid, Rebound (Male) Exam: Other (indwelling dolan catheter) Rectal (Males) Exam: Deferred Back Exam: Reports: Normal Inspection, Decreased Range of Motion Extremities: Normal Inspection, Normal Range of Motion, Non-Tender, Normal Capillary Refill, Other (Trace bilateral lower extremity edema) Skin: Reports: Warm, Dry, Intact Neurological: Reports: No New Focal Deficit Psy/Mental Status: Reports: Alert, Normal Affect, Normal Mood
[2018-02-06 12:30] VITALS: BP 127/62
== END 2018-02-06 14:27 | disposition home or self-care (01) | DRG 683 ==
LOC: JD.ED 15:31 → JD.MS 20:27 → OBSVTOIN 20:29
PROVIDERS: ADMIT Internal Medicine; ATTEND Internal Medicine
PROC: 3E0234Z Introduction of Serum, Toxoid and Vaccine into Muscle, Percutaneous Approach (ICD-10-PCS; principal; 2018-02-06)
DX: N17.9 Acute kidney failure, unspecified (principal); Z68.41 Body mass index [BMI] 40.0-44.9, adult; N13.8 Other obstructive and reflux uropathy; H54.7 Unspecified visual loss; I10 Essential (primary) hypertension; D69.59 Other secondary thrombocytopenia; E11.9 Type 2 diabetes mellitus without complications; E03.9 Hypothyroidism, unspecified; E66.01 Morbid (severe) obesity due to excess calories; N40.1 Benign prostatic hyperplasia with lower urinary tract symptoms; R39.16 Straining to void; R33.8 Other retention of urine; E83.51 Hypocalcemia; N28.1 Cyst of kidney, acquired; N20.0 Calculus of kidney; K59.09 Other constipation; F32.9 Major depressive disorder, single episode, unspecified; M19.90 Unspecified osteoarthritis, unspecified site; K70.31 Alcoholic cirrhosis of liver with ascites; F10.10 Alcohol abuse, uncomplicated; E83.42 Hypomagnesemia; Z23 Encounter for immunization; Z79.899 Other long term (current) drug therapy; Z86.14 Personal history of Methicillin resistant Staphylococcus aureus infection; Z79.82 Long term (current) use of aspirin; Z96.659 Presence of unspecified artificial knee joint
CPT/HCPCS: 36415; 51702; 51798; 76770; 76770-26; 80048; 80053; 81001; 82962; 83036; 83735; 84439; 84443; 85007; 85025; 85027; 85730; 86140; 90732; 96360; 99284-25; 99285; A9270; A9270-GY; G0103; J1650; J3475; J7040; J7050

== ENCOUNTER 2018-05-30 12:25 | Emergency (ER) | payer MEDICAID ==
[2018-05-30 12:47] VITALS: BP 137/71
[2018-05-30] MEDS ORDERED: Acetaminophen 325 MG Tab PO ONE (13:24)
[2018-05-30] MEDS ORDERED: Ondansetron 4 MG/2 ML SDV IVPUSH ONE (13:27)
[2018-05-30] MEDS ORDERED: Sodium Chloride 0.9% 10 ML Syringe FLUSH PRN (13:27)
[2018-05-30] MEDS ORDERED: Sodium Chloride 0.9% 1,000 ML IV ONE ×3 (14:16→17:18)
--- NOTE | 2018-05-30 15:42 | CT ---
CT abdomen and pelvis Technique: Multiple axial sections were obtained from above the dome of the diaphragm inferiorly through the pubic symphysis. Intravenous contrast not utilized. Study performed as a ureteral stone protocol. Comparison: Previous CT abdomen exam of 03/14/1916. Findings: Small portion of the visualized lung bases shows slight basilar atelectasis on the left side. Fatty infiltration is seen within the liver. Liver is small with nodular contour compatible with cirrhosis. Spleen is not enlarged. 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 Obstructing stone is noted within the left UPJ measuring about 1.3 cm in size. Other portions of the right ureter show no additional calcifications or dilatation. Kidneys show no abnormal calcifications. Adrenal glands show no nodule. Pancreas is within normal limits. Surgical clips are seen from prior cholecystectomy. Aorta shows mild atherosclerotic change without aneurysm. No retroperitoneal adenopathy or mesenteric abnormalities are seen. Prostate gland mildly enlarged and contains several calcifications. No free fluid or inflammatory change is seen within the abdomen or pelvis. Mild diverticuli are seen within the descending and sigmoid colon without inflammatory change of diverticulitis. Bone window setting shows scattered degenerative change throughout the spine. Impression: 1. Obstructing stone within the left UPJ measuring 1.3 cm. 2. Fatty infiltration within the liver which has worsened from prior CT exam. Findings of cirrhosis are seen within the liver. 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 3. Other incidental findings as noted above. Diagnostic code #3
[2018-05-30] MEDS ORDERED: HYDROmorphone 1 MG/ML Syringe IVPUSH ONE (16:14)
--- NOTE | 2018-05-30 16:54 | EDM.PDOC ---
ED HPI GENERAL MEDICAL PROBLEM - General Chief Complaint: Genitourinary Problem Stated Complaint: UNABLE TO URINATE Time Seen by Provider: 05/30/18 13:05 Source of Information: Reports: Patient History Limitations: Reports: No Limitations - History of Present Illness INITIAL COMMENTS - FREE TEXT/NARRATIVE: 63-year-old male presents for evaluation and treatment of urinary retention. Reportedly the patient has not passed a significant amount of urine since yesterday. He states that he attempted to void during the night but is only been dribbling. He is reporting pain in his back and the sense of urination urgency. Patient reports that this occurred previously. Our ER records indicate he was seen in January 2018 for urinary retention. At that time he was admitted as his creatinine was significantly elevated at 9.5. He had a Rey catheter placed. He has followed up with urology as he is found to have BPH is currently on Flomax. He is also complaining of headaches and nausea. No fevers, chills or vomiting. No abdominal pain or suprapubic pain but he is experiencing left sided back pain. Patient's primary care providers Dr. Elaine. - Related Data Allergies Allergy/AdvReac Type Severity Reaction Status Date / Time No Known Allergies Allergy Verified 02/04/18 15:41 Home Meds: Home Meds Furosemide 20 mg PO DAILY 05/01/16 [History] Lactulose [Cephulac] 30 ml PO DAILY PRN 05/01/16 [History] Spironolactone [Aldactone] 100 mg PO DAILY 05/01/16 [History] Tamsulosin HCl 0.4 mg PO DAILY 05/01/16 [History] Levothyroxine Sodium [Synthroid] 100 mcg PO DAILY 07/12/16 [History] Magnesium Hydroxide [Milk of Magnesia] 30 ml PO BID PRN #0 cup 07/17/16 [Rx] Exenatide Microspheres [Bydureon Pen] 2 mg SQ WEEKLY 02/05/18 [History] Rosuvastatin Calcium 5 mg PO DAILY 02/05/18 [History] oxyCODONE HCl/Acetaminophen [Oxycodone-Acetaminophen 5-325] 1 tab PO DAILY PRN 02/05/18 [History] Glimepiride 4 mg PO BIDMEALS #10 tab 02/06/18 [Rx] Cephalexin [Keflex] 500 mg PO TID #30 capsule 05/30/18 [Rx] Ondansetron [Zofran ODT] 4 mg PO Q6H PRN #20 tab.dis 05/30/18 [Rx] Past Medical History HEENT History: Reports: Impaired Vision, Other (See Below) Other HEENT History: wears glasses Cardiovascular History: Reports: Hypertension, Other (See Below) Other Cardiovascular History: edema, PVCs Respiratory History: Reports: None Gastrointestinal History: Reports: Chronic Constipation, Other (See Below) Other Gastrointestinal History: alcoholic cirrhosis of liver with ascites Genitourinary History: Reports: BPH, Prostate Disorder, Other (See Below) Other Genitourinary History: hematuria INNER TUBE CUTTER History: Reports: None Musculoskeletal History: Reports: Osteoarthritis Neurological History: Reports: None Psychiatric History: Reports: Addiction, Depression, Other (See Below) Other Psychiatric History: alcohol abuse Endocrine/Metabolic History: Reports: Diabetes, Type II, Hypothyroidism Hematologic History: Reports: None Immunologic History: Reports: None Oncologic (Cancer) History: Reports: None - Infectious Disease History Infectious Disease History: Reports: MRSA - Past Surgical History Musculoskeletal Surgical History: Reports: Knee Replacement Dermatological Surgical History: Reports: Skin Graft Social & Family History - Family History Family Medical History: Noncontributory Cardiac: Reports: [place] Other Cardiac Family History: father Neurological: Reports: Alzheimers Disease Other Neurological Family History: mother - Tobacco Use Smoking Status *Q: Current Every Day Smoker Years of Tobacco use: 46 Packs/Tins Daily: 0.2 - Caffeine Use Caffeine Use: Reports: Soda - Recreational Drug Use Recreational Drug Use: No - Living Situation & Occupation Occupation: Employed ED ROS GENERAL - Review of Systems Review Of Systems: See Below Constitutional: Denies: Fever, Chills GI/Abdominal: Reports: Nausea. Denies: Abdominal Pain, Constipation, Vomiting : Reports: Dysuria, Frequency, Urgency, Urinary Retention. Denies: Flank Pain , Hematuria Musculoskeletal: Reports: Back Pain Neurological: Reports: Headache ED EXAM, RENAL/ - Physical Exam Exam: See Below Exam Limited By: No Limitations General Appearance: Alert, WD/WN, No Apparent Distress, Obese Throat/Mouth: Other (lips and mucus membranes are dry) Respiratory/Chest: No Respiratory Distress, Lungs Clear, Normal Breath Sounds Cardiovascular: Normal Peripheral Pulses, No Murmur, Tachycardia GI/Abdominal: Normal Bowel Sounds, Soft, Non-Tender, Other (no suprapubic tenderness appreciated) Back Exam: Normal Inspection, CVA Tenderness (L). No: CVA Tenderness (R) Extremities: Normal Inspection Neurological: Alert, Oriented, Normal Cognition Psychiatric: Normal Affect, Normal Mood Skin Exam: Warm, Dry, Normal Color Course - Vital Signs Last Recorded V/S: Last Vital Signs Temp 97.4 F 05/30/18 12:45 Pulse 104 H 05/30/18 12:45 Resp 20 05/30/18 12:45 BP 137/71 05/30/18 12:45 Pulse Ox 96 05/30/18 12:45 - Orders/Labs/Meds Orders: Active Orders 24 hr Category Date Time Status Head wo Cont [CT] Stat Exams 05/30/18 16:11 Taken CULTURE BLOOD [BC] Stat Lab 05/30/18 17:05 Received CULTURE BLOOD [BC] Stat Lab 05/30/18 17:15 Received CULTURE URINE [RM] Stat Lab 05/30/18 16:10 Received Blood Culture x2 Reflex Set [OM.PC] Stat Oth 05/30/18 16:48 Ordered Peripheral IV Insertion Adult [OM.PC] Routine Oth 05/30/18 13:27 Ordered Labs: Laboratory Tests 05/30/18 05/30/18 05/30/18 Range/Units 13:45 13:45 16:10 WBC 2.67 L (4.23-9.07) K/mm3 RBC 4.39 L (4.63-6.08) M/mm3 Hgb 13.9 (13.7-17.5) gm/L Hct 39.7 L (40.1-51.0) % MCV 90.4 (79.0-92.2) fl MCH 31.7 (25.7-32.2) pg MCHC 35.0 (32.2-35.5) g/dl RDW Std Deviation 45.6 H (35.1-43.9) fL Plt Count 41 L (163-337) K/mm3 MPV 10.0 (9.4-12.3) fl Neut % (Auto) 74.9 H (34.0-67.9) % Lymph % (Auto) 12.7 L (21.8-53.1) % [place] % (Auto) 12.0 (5.3-12.2) % Eos % (Auto) 0 L (0.8-7.0) Baso % (Auto) 0.4 (0.1-1.2) % Neut # (Auto) 2.00 (1.78-5.38) K/mm3 Lymph # (Auto) 0.34 L (1.32-3.57) K/mm3 [place] # (Auto) 0.32 (0.30-0.82) K/mm3 Eos # (Auto) 0.00 L (0.04-0.54) K/mm3 Baso # (Auto) 0.01 (0.01-0.08) K/mm3 Manual Slide Review Abnormal smear Sodium 135 L (136-145) mEq/L Potassium 4.4 (3.5-5.1) mEq/L Chloride 95 L (98-107) mEq/L Carbon Dioxide 16 L (21-32) mEq/L Anion Gap 28.4 H (5-15) BUN 28 H (7-18) mg/dL Creatinine 2.5 H (0.7-1.3) mg/dL Est Cr Clr Drug Dosing 26.94 mL/min Estimated GFR (MDRD) 26 (>60) mL/min BUN/Creatinine Ratio 11.2 L (14-18) Glucose 103 (80-115) mg/dL Lactic Acid (0.4-2.0) mmol/L Calcium 9.1 (8.5-10.1) mg/dL Total Bilirubin 3.3 H (0.2-1.0) mg/dL AST 91 H (15-37) U/L ALT 64 H (16-63) U/L Alkaline Phosphatase 78 (46-116) U/L C-Reactive Protein < 0.2 (<1.0) mg/dL Total Protein 8.2 (6.4-8.2) g/dl Albumin 3.8 (3.4-5.0) g/dl Globulin 4.4 gm/dL Albumin/Globulin Ratio 0.9 L (1-2) Urine Color Janet H (Yellow) Urine Appearance Cloudy H (Clear) Urine pH 6.0 (5.0-8.0) Ur Specific [place] 1.020 (1.005-1.030) Urine Protein 2+ H (Negative) Urine Glucose (UA) Negative (Negative) Urine Ketones Trace H (Negative) Urine Occult Blood 3+ H (Negative) Urine Nitrite Negative (Negative) Urine Bilirubin 1+ H (Negative) Urine Urobilinogen 0.2 (0.2-1.0) Ur Leukocyte Esterase 3+ H (Negative) Urine RBC Too numerous to cnt H (0-5) /hpf Urine WBC 50-75 H (0-5) /hpf Ur Epithelial Cells 0-5 (0-5) /hpf Urine Bacteria Moderate H (FEW) /hpf Urine Mucus Few (FEW) /hpf 05/30/18 Range/Units 17:05 WBC (4.23-9.07) K/mm3 RBC (4.63-6.08) M/mm3 Hgb (13.7-17.5) gm/L Hct (40.1-51.0) % MCV (79.0-92.2) fl MCH (25.7-32.2) pg MCHC (32.2-35.5) g/dl RDW Std Deviation (35.1-43.9) fL Plt Count (163-337) K/mm3 MPV (9.4-12.3) fl Neut % (Auto) (34.0-67.9) % Lymph % (Auto) (21.8-53.1) % [place] % (Auto) (5.3-12.2) % Eos % (Auto) (0.8-7.0) Baso % (Auto) (0.1-1.2) % Neut # (Auto) (1.78-5.38) K/mm3 Lymph # (Auto) (1.32-3.57) K/mm3 [place] # (Auto) (0.30-0.82) K/mm3 Eos # (Auto) (0.04-0.54) K/mm3 Baso # (Auto) (0.01-0.08) K/mm3 Manual Slide Review Sodium (136-145) mEq/L Potassium (3.5-5.1) mEq/L Chloride (98-107) mEq/L Carbon Dioxide (21-32) mEq/L Anion Gap (5-15) BUN (7-18) mg/dL Creatinine (0.7-1.3) mg/dL Est Cr Clr Drug Dosing mL/min Estimated GFR (MDRD) (>60) mL/min BUN/Creatinine Ratio (14-18) Glucose (80-115) mg/dL Lactic Acid 2.5 H (0.4-2.0) mmol/L Calcium (8.5-10.1) mg/dL Total Bilirubin (0.2-1.0) mg/dL AST (15-37) U/L ALT (16-63) U/L Alkaline Phosphatase (46-116) U/L C-Reactive Protein (<1.0) mg/dL Total Protein (6.4-8.2) g/dl Albumin (3.4-5.0) g/dl Globulin gm/dL Albumin/Globulin Ratio (1-2) Urine Color (Yellow) Urine Appearance (Clear) Urine pH (5.0-8.0) Ur Specific [place] (1.005-1.030) Urine Protein (Negative) Urine Glucose (UA) (Negative) Urine Ketones (Negative) Urine Occult Blood (Negative) Urine Nitrite (Negative) Urine Bilirubin (Negative) Urine Urobilinogen (0.2-1.0) Ur Leukocyte Esterase (Negative) Urine RBC (0-5) /hpf Urine WBC (0-5) /hpf Ur Epithelial Cells (0-5) /hpf Urine Bacteria (FEW) /hpf Urine Mucus (FEW) /hpf Meds: Medications Discontinued Medications Generic Name Dose Route Start Last Admin Trade Name Thu PRN Reason Stop Dose Admin Acetaminophen 650 mg 05/30/18 13:24 05/30/18 14:11 Tylenol PO 05/30/18 13:25 650 mg NOW ONE Administration Hydromorphone HCl 0.5 mg 05/30/18 16:14 05/30/18 16:22 Dilaudid IVPUSH 05/30/18 16:15 0.5 mg ONETIME ONE Administration Sodium Chloride 1,000 mls @ 999 mls/hr 05/30/18 14:16 05/30/18 14:24 Normal Saline IV 05/30/18 15:16 999 mls/hr ONETIME ONE Administration Sodium Chloride 1,000 mls @ 999 mls/hr 05/30/18 16:11 05/30/18 16:18 Normal Saline IV 05/30/18 17:11 999 mls/hr ONETIME ONE Administration Ceftriaxone Sodium 2 gm/ 100 mls @ 200 mls/hr 05/30/18 17:04 05/30/18 17:21 Sodium Chloride IV 05/30/18 17:33 200 mls/hr NOW STA Administration Sodium Chloride 1,000 mls @ 125 mls/hr 05/30/18 17:18 05/30/18 17:25 Normal Saline IV 05/31/18 01:17 125 mls/hr ONETIME ONE Administration Ondansetron HCl 4 mg 05/30/18 13:27 05/30/18 14:10 Zofran IVPUSH 05/30/18 13:28 4 mg ONETIME ONE Administration Sodium Chloride 10 ml 05/30/18 13:27 05/30/18 14:11 Saline Flush FLUSH 10 ml ASDIRECTED PRN Administration Keep Vein Open - Radiology Interpretation Free Text/Narrative:: CT abdomen and pelvis Technique: Multiple axial sections were obtained from above the dome of the diaphragm inferiorly through the pubic symphysis. Intravenous contrast not utilized. Study performed as a ureteral stone protocol. Comparison: Previous CT abdomen exam of 03/14/1916. Findings: Small portion of the visualized lung bases shows slight basilar atelectasis on the left side. Fatty infiltration is seen within the liver. Liver is small with nodular contour compatible with cirrhosis. Spleen is not enlarged. 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 Obstructing stone is noted within the left UPJ measuring about 1.3 cm in size. Other portions of the right ureter show no additional calcifications or dilatation. Kidneys show no abnormal calcifications. Adrenal glands show no nodule. Pancreas is within normal limits. Surgical clips are seen from prior cholecystectomy. Aorta shows mild atherosclerotic change without aneurysm. No retroperitoneal adenopathy or mesenteric abnormalities are seen. Prostate gland mildly enlarged and contains several calcifications. No free fluid or inflammatory change is seen within the abdomen or pelvis. Mild diverticuli are seen within the descending and sigmoid colon without inflammatory change of diverticulitis. Bone window setting shows scattered degenerative change throughout the spine. Impression: 1. Obstructing stone within the left UPJ measuring 1.3 cm. 2. Fatty infiltration within the liver which has worsened from prior CT exam. Findings of cirrhosis are seen within the liver. 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 3. Other incidental findings as noted above. CT of the head without contrast impression per vrad: No acute intracranial abnormality. Nonspecific lucent lesion in the left frontal bone. - Re-Assessments/Exams Free Text/Narrative Re-Assessment/Exam: 05/30/18 18:05 Patient reported to nursing staff that he fell approximately 2 weeks ago and since then has been having significant headaches. He is also complaining of nausea but no vomiting. Therefore head CT was ordered to further evaluate this complaint. Has returned without any acute findings. Patient's urine is slightly concerning for urinary tract infection. Urine has been sent for cultures. Blood and lactic acid levels were also obtained. His bladder scan did not show any urinary retention. I suspect that he is not drinking any fluids given his elevated creatinine and elevated anion gap. he has now reported to nursing staff that he has not been drinking the past few days because of his concern that he is in urinary retention. His mucus membranes are quite dry. He has received about 2.5L of fluid since entering the ER. Given the stone and possible urinary tract infection I discussed the case with , urologist at [facility] in [place]. Given his otherwise normal white blood cell count, CRP and the fact that he is afebrile he did not feel that he needed to come to [place] for emergent care. [place] that he could be seen in follow-up in the clinic this week to manage the 1.3 cm stone. Plan will be he will be seen in the clinic on June 02 at around 1 PM. In the meantime we'll start him on antibiotics. Given Rocephin here in the ER. He is instructed to return to the ER for symptoms change or worsen. Discharge instructions as documented. Departure - Departure Time of Disposition: 18:09 Disposition: Home, Self-Care 01 Condition: Fair Clinical Impression: UTI, Urinary tract infectious disease, Kidney stone, Dehydration, Acute kidney injury - Discharge Information *PRESCRIPTION DRUG MONITORING PROGRAM REVIEWED*: No *COPY OF PRESCRIPTION DRUG MONITORING REPORT IN PATIENT RM: No Prescriptions: Cephalexin [Keflex] 500 mg PO TID #30 capsule Ondansetron [Zofran ODT] 4 mg PO Q6H PRN #20 tab.dis PRN Reason: Nausea Instructions: Kidney Stones, [id number], Urinary Tract Infection, Adult, Easy -to-Read, Dehydration, Adult, [id number] Referrals: Reji Bravo MD [Primary Care Provider] - Forms: ED Department Discharge Additional Instructions: Make sure you are drinking plenty of fluids. Zofran 1 tab sublingual every 6-8 hours prn nausea. Take the cephalexin 1 tab PO tid x 10 days as prescribed unless otherwise directed by urology. , urologist at [facility] in [place] would like to see you on June 02 at 1 PM central. Please call [phone] if you have any questions for him. He is located on the fifth floor of the [facility]. Please note that this is central time. You may take [id number] Tylenol or Motrin as needed for relief of your symptoms. Please return to the ER if your symptoms change or worsen. - My Orders Last 24 Hours: My Active Orders 05/30/18 13:27 Peripheral IV Insertion Adult [OM.PC] Routine 05/30/18 16:10 CULTURE URINE [RM] Stat 05/30/18 16:11 Head wo Cont [CT] Stat 05/30/18 16:48 Blood Culture x2 Reflex Set [OM.PC] Stat 05/30/18 17:05 CULTURE BLOOD [BC] Stat 05/30/18 17:15 CULTURE BLOOD [BC] Stat - Assessment/Plan Last 24 Hours: My Active Orders 05/30/18 13:27 Peripheral IV Insertion Adult [OM.PC] Routine 05/30/18 16:10 CULTURE URINE [RM] Stat 05/30/18 16:11 Head wo Cont [CT] Stat 05/30/18 16:48 Blood Culture x2 Reflex Set [OM.PC] Stat 05/30/18 17:05 CULTURE BLOOD [BC] Stat 05/30/18 17:15 CULTURE BLOOD [BC] Stat
[2018-05-30] MEDS ORDERED: cefTRIAXone 2 GM in Sodium Chloride 0.9% 100 ML IV STA (17:04)
--- NOTE | 2018-05-31 14:08 | CT ---
Head CT Technique: Multiple axial sections through the brain were obtained. Intravenous contrast was not utilized. Comparison: No prior intracranial imaging. Findings: Ventricles along with basal cisterns and sulci over the convexities are moderately prominent. Minimal diminished density is noted within the periventricular and subcortical white matter compatible with small vessel ischemic demyelination change. No other abnormal parenchymal densities are seen. No evidence of intracranial hemorrhage. No midline shift or mass effect is seen. Bone window settings were reviewed which show a skull lesion within the left frontal skull measuring 1.8 cm in size. 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 No acute osseous abnormality is seen. Impression: 1. Skull lesion within the left frontal region. This has a benign appearance but recommend repeat noncontrast chest CT in 6 months to confirm stability. 2. Senescent change as noted above. No acute intracranial abnormality is seen Diagnostic code #3 Agree with preliminary report issued by [facility], preliminary report finalized on 05/30/18, 5:47 PM Central Time
== END 2018-05-30 19:00 | disposition home or self-care (01) ==
LOC: JD.ED 12:25
DX: N17.9 Acute kidney failure, unspecified (principal); N39.0 Urinary tract infection, site not specified; N20.2 Calculus of kidney with calculus of ureter; E86.0 Dehydration; I10 Essential (primary) hypertension; E11.9 Type 2 diabetes mellitus without complications; E03.9 Hypothyroidism, unspecified; F17.210 Nicotine dependence, cigarettes, uncomplicated; Z79.899 Other long term (current) drug therapy
CPT/HCPCS: 36415; 70450; 74176; 80053; 81001; 83605; 85025; 86140; 87040; 87086; 87088; 87186; 96361; 96365; 96375; 99284; A9270; J0696; J1170; J2405; J7030; J7040

== ENCOUNTER 2018-06-01 17:20 | Emergency (ER) | payer MEDICAID ==
[2018-06-01 17:29] VITALS: BP 144/79
--- NOTE | 2018-06-01 17:31 | EDM.PDOC ---
ED HPI GENERAL MEDICAL PROBLEM - General Chief Complaint: General Stated Complaint: BLOOD CLOTS IN LEGS Time Seen by Provider: 06/01/18 17:35 Source of Information: Reports: Patient, Provider History Limitations: Reports: No Limitations - History of Present Illness INITIAL COMMENTS - FREE TEXT/NARRATIVE: 63-year-old male sent to the ED for further evaluation due to abnormal blood work done earlier today. He should is having terrible cramps in his lower extremities and believes that they are slightly more swollen than normal as well. Is also complaining of feeling a little more short of breath than normal. is chronically ill with cirrhosis of the liver and has fluid retention including ascites. He has chronic thrombocytopenia and his platelet count today was 33,000. He has chronic leukopenia and white blood cell count today was 3.0. Patient was in the ED over the weekend and found to have a 1.3 cm kidney stone on the left side which isn't bothering him all that much but he did have an associated urinary tract infection. Patient is to see urology services tomorrow at [facility] in [place]. Patient did receive Rocephin 1 g intravenously while in the ED and is currently on cephalexin 500 mg 3 times a day. He has no fever and has not had any chills. The urinalysis grew out Escherichia coli sensitive to all antibiotics and presumably the cephalexin. D-dimer was noted to be mildly elevated today at 0.67. This is likely elevated due to his underlying chronic inflammatory process plus years recent urinary tract infection. And centered minimally elevated with upper limits of normal for him being 0.64. He presents to the ED for evaluation of possible blood clots in his legs. I reviewed all his labs done earlier today as blood work was done through the hospital today. On firm questioning the patient doesn't think his lower extremities or any more swollen than normal. He has chronic varicose veins and mild chronic edema of both lower extremities. On review of the chart from the weekend he was felt to be volume depleted and he did receive 2.5 L of IV fluid while in the ED. Therefore he may be slightly volume overloaded. Onset: Today, Other (Patient has chronic severe cramping in his lower extremities from being on spironolactone and Lasix) Duration: Chronic (Chronic lower extremity severe muscle cramps again from being on Lasix and spironolactone.), Other (However primary reason for ER visit was to make sure the ED did not have any blood clots in his legs.) Location: Reports: Lower Extremity, Left, Lower Extremity, Right Quality: Reports: Other (Severe leg cramps particularly in the calves but he can get them in the thighs and abdominal wall once a while as well.) Severity: Moderate Improves with: Reports: None Worsens with: Reports: None Context: Denies: Activity, Exercise, Lifting, Sick Contact, Trauma, Other Treatments LIC[employer]ED [employer] MANAGER: Reports: Other (see below) (None. He is on cephalexin 500 mg 3 times a day for urinary tract infection because he has a large stone at the left UPJ.) - Related Data Allergies Allergy/AdvReac Type Severity Reaction Status Date / Time No Known Allergies Allergy Verified 06/01/18 17:29 Home Meds: Home Meds Furosemide 20 mg PO DAILY 05/01/16 [History] Lactulose [Cephulac] 30 ml PO DAILY PRN 05/01/16 [History] Spironolactone [Aldactone] 100 mg PO DAILY 05/01/16 [History] Tamsulosin HCl 0.4 mg PO DAILY 05/01/16 [History] Levothyroxine Sodium [Synthroid] 100 mcg PO DAILY 07/12/16 [History] Magnesium Hydroxide [Milk of Magnesia] 30 ml PO BID PRN #0 cup 07/17/16 [Rx] Exenatide Microspheres [Bydureon Pen] 2 mg SQ WEEKLY 02/05/18 [History] Rosuvastatin Calcium 5 mg PO DAILY 02/05/18 [History] oxyCODONE HCl/Acetaminophen [Oxycodone-Acetaminophen 5-325] 1 tab PO DAILY PRN 02/05/18 [History] Glimepiride 4 mg PO BIDMEALS #10 tab 02/06/18 [Rx] Cephalexin [Keflex] 500 mg PO TID #30 capsule 05/30/18 [Rx] Ondansetron [Zofran ODT] 4 mg PO Q6H PRN #20 tab.dis 05/30/18 [Rx] Magnesium Chloride [Slow-Mag] 71.5 mg PO DAILY #120 tablet. 06/01/18 [Rx] Past Medical History HEENT History: Reports: Impaired Vision, Other (See Below) Other HEENT History: wears glasses Cardiovascular History: Reports: Hypertension, Other (See Below) Other Cardiovascular History: edema, PVCs Respiratory History: Reports: None Gastrointestinal History: Reports: Chronic Constipation, Other (See Below) Other Gastrointestinal History: alcoholic cirrhosis of liver with ascites Genitourinary History: Reports: BPH, Prostate Disorder, Other (See Below) Other Genitourinary History: hematuria [employer] WORKER History: Reports: None Musculoskeletal History: Reports: Osteoarthritis Neurological History: Reports: None Psychiatric History: Reports: Addiction, Depression, Other (See Below) Other Psychiatric History: alcohol abuse Endocrine/Metabolic History: Reports: Diabetes, Type II, Hypothyroidism Hematologic History: Reports: None Immunologic History: Reports: None Oncologic (Cancer) History: Reports: None - Infectious Disease History Infectious Disease History: Reports: MRSA - Past Surgical History Musculoskeletal Surgical History: Reports: Knee Replacement Dermatological Surgical History: Reports: Skin Graft Social & Family History - Family History Family Medical History: Noncontributory Cardiac: Reports: [place] Other Cardiac Family History: father Neurological: Reports: Alzheimers Disease Other Neurological Family History: mother - Caffeine Use Caffeine Use: Reports: Soda - Living Situation & Occupation Occupation: Employed ED ROS GENERAL - Review of Systems Review Of Systems: See Below Constitutional: Reports: Malaise, Weakness, Fatigue. Denies: Fever, Chills, Decreased Appetite, Weight Loss HEENT: Reports: Glasses Respiratory: Reports: Shortness of Breath, Other. Denies: Wheezing, Pleuritic Chest Pain (On exertion), Cough (No orthopnea no PND), Sputum Cardiovascular: Reports: Blood Pressure Problem, Dyspnea on Exertion ( has known ascites from cirrhosis of the liver), Edema (Mild chronic edema in his lower extremities). Denies: Chest Pain, Claudication, Lightheadedness, Orthopnea (Chronic hypertension), Palpitations Endocrine: Reports: Fatigue, High Glucose GI/Abdominal: Reports: Other (Stools on the loose side as he takes lactulose 2 or 3 times daily because of cirrhosis the liver.). Denies: Abdominal Pain, Decreased Appetite, Distension, Flatus, Hematemesis, Hematochezia, Nausea, Vomiting : Reports: Frequency, Other (He feels he is voiding normally. He is known to have marked prostatic hypertrophy and did have significant urinary retention in January requiring Rey catheterization for prolonged period of time. He is currently on tamsulosin and feels that he empties his bladder normally.). Denies: Incontinence Musculoskeletal: Reports: Back Pain, Other (Chronic cramps in his lower extremities) Skin: Reports: Other (Burke Baylee's both lower extremities. Patient wears a lidocaine patch on his medial calf bilaterally because of the severity of his lower extremity pain.) Neurological: Reports: No Symptoms Psychiatric: Reports: Anxiety Hematologic/Lymphatic: Reports: No Symptoms Immunologic: Reports: No Symptoms ED EXAM, GENERAL - Physical Exam Exam: See Below Exam Limited By: No Limitations General Appearance: Alert, WD/WN, No Apparent Distress Eye Exam: Bilateral Eye: Normal Inspection Head: Atraumatic, Normocephalic Neck: Normal Inspection, Supple, Non-Tender, Full Range of Motion. No: Carotid Bruit, Lymphadenopathy (L), Lymphadenopathy (R) Respiratory/Chest: No Respiratory Distress, Decreased Breath Sounds (Mildly decreased breath sounds lower 20% of lung saul bilaterally.), Rhonchi (Few scattered rhonchi posterior right upper lobe.). No: Rales, Wheezing Cardiovascular: Regular Rate, Rhythm, No Edema, No Gallop, No Murmur, No Rub. No: Normal Peripheral Pulses Peripheral Pulses: 1+: Posterior Tibial (L), Posterior Tibial (R), Dorsalis Pedis (L), Dorsalis Pedis (R) GI/Abdominal: Normal Bowel Sounds, Soft, No Organomegaly, No Abnormal Bruit, No Mass, Distended ( dull to percussion.), Other (Mild ascites clinically with a fluid wave. Abdomen is mildly distended and). No: Hepatomegaly, Splenomegaly (Male) Exam: No Hernia Back Exam: Normal Inspection, Full Range of Motion. No: CVA Tenderness (L), CVA Tenderness (R) Extremities: Non-Tender, Pedal Edema (Trace edema around the ankles.. He's noted in both lower extremities superficial however. Calves are easily pliable with no clinical evidence of DVT.), Other (Patient has had both knees replaced. He has nearly full range of motion. No pain no increased warmth in either knee or ankle.) Neurological: Alert, Oriented, CN II-XII Intact, Normal Cognition, No Motor/ Sensory Deficits Psychiatric: Normal Affect, Normal Mood Skin Exam: Warm, Dry, Intact, Normal Color, No Rash Course - Vital Signs Last Recorded V/S: Last Vital Signs Temp 37.1 C 01/07/19 17:26 Pulse 96 06/01/18 17:26 Resp 18 06/01/18 17:26 BP 144/79 H 06/01/18 17:26 Pulse Ox 98 06/01/18 17:26 - Orders/Labs/Meds Labs: Laboratory Tests 06/01/18 06/01/18 06/01/18 Range/Units 15:30 15:30 18:25 Magnesium 1.2 L (1.8-2.4) mg/dl C-Reactive Protein < 0.2 (<1.0) mg/dL NT-Pro-B Natriuret Pep 418 H (0-125) pg/mL Urine Color Yellow (Yellow) Urine Appearance Cloudy H (Clear) Urine pH 6.0 (5.0-8.0) Ur Specific [place] <=1.005 (1.005-1.030) Urine Protein 1+ H (Negative) Urine Glucose (UA) 1+ H (Negative) Urine Ketones Negative (Negative) Urine Occult Blood 3+ H (Negative) Urine Nitrite Negative (Negative) Urine Bilirubin Negative (Negative) Urine Urobilinogen 0.2 (0.2-1.0) Ur Leukocyte Esterase 2+ H (Negative) Urine RBC 40-50 H (0-5) /hpf Urine WBC 30-40 H (0-5) /hpf Urine WBC Clumps Moderate (NOT SEEN) /hpf Ur Epithelial Cells 0-5 (0-5) /hpf Urine Bacteria Moderate H (FEW) /hpf Urine Mucus Few (FEW) /hpf - Radiology Interpretation Free Text/Narrative:: 63-year-old male attends the ED for evaluation of lower extremity cramps and pain which seems to be getting worse over the last several weeks. Note the patient is on Lasix and spironolactone because of cirrhosis of liver and most likely the cause of his severe cramps. However serum magnesium BNP and CRP will be ordered from labs drawn earlier today. I will do the Doppler ultrasound of both lower extremities to rule out a DVT as I'm not convinced clinically that there is any signs or symptoms of DVT. - Re-Assessments/Exams Free Text/Narrative Re-Assessment/Exam: 06/01/18 18:21 I did Doppler ultrasound of both lower extremities up to the femoral veins in the groin. No evidence of DVT is evident in either lower extremity. Will await results of BNP, CRP, and serum magnesium. 06/01/18 19:32 BNP is elevated at 418 not bad for cirrhosis of the liver. Chest x-ray does show mild to moderate cardiomegaly and some mild diffuse vascular congestion pattern. Serum magnesium level did return low at 1.2. This may be contributing strongly to his lower extremity cramping pain. I will therefore place the patient on Slow-Mag 71.5 mg tablets 2 tablets twice daily. He should've his magnesium level checked in 2-3 weeks' time. I also advised him that he can take an ounce or 2 of tonic water daily which may also help alleviate a good deal of his lower extremity cramping pain. Patient reassured. He plans on traveling to [facility] in [place] to see urology services tomorrow to address kidney stone at the left UPJ. I did review his CT of the abdomen and pelvis done on the weekend. It shows previous cholecystectomy. His pancreas is very atrophic. Both kidneys are also very atrophic. There is a 1.3 cm stone lodged at the left UPJ. CRP today is 0.2. Departure - Departure Time of Disposition: 18:50 Disposition: Home, Self-Care 01 Condition: Fair Clinical Impression: Hypomagnesemia, Kidney stone on left side, Thrombocytopenia Cirrhosis of liver Qualifiers: Hepatic cirrhosis type: alcoholic cirrhosis Ascites presence: without ascites Qualified Code(s): K70.30 - Alcoholic cirrhosis of liver without ascites - Discharge Information *PRESCRIPTION DRUG MONITORING PROGRAM REVIEWED*: Not Applicable *COPY OF PRESCRIPTION DRUG MONITORING REPORT IN PATIENT RM: Not Applicable Prescriptions: Magnesium Chloride [Slow-Mag] 71.5 mg PO DAILY #120 tablet. Instructions: Hypomagnesemia, Kidney Stones, Uxaf-dr-Dorp Referrals: Reji Bravo MD [Primary Care Provider] - Forms: ED Department Discharge Additional Instructions: Evaluation the emergency room today in regards to abnormal tests done at the clinic. You were found to have a slightly elevated d-dimer at 0.63 normal values being up to 0.59. Your d-dimer slightly elevated because of urinary tract infection and chronic underlying inflammation. There is no evidence of blood clots in either leg on Doppler ultrasound performed in the ED. Abnormalities identified were a low serum magnesium level at 1.2. This requires magnesium supplementation. Prescription written for Slow-Mag tablets to be taken 2 tablets twice daily and after 2 weeks she should have your magnesium level checked in your blood one more time to make sure that is been restored to normal. Magnesium level today was 1.2. Normal is 2.0 or greater. Magnesium is important for heart and liver function.
== END 2018-06-01 19:10 | disposition home or self-care (01) ==
LOC: JD.ED 17:20
DX: K70.30 Alcoholic cirrhosis of liver without ascites (principal); E83.42 Hypomagnesemia; D69.6 Thrombocytopenia, unspecified; N20.0 Calculus of kidney; I10 Essential (primary) hypertension; E11.9 Type 2 diabetes mellitus without complications; E03.9 Hypothyroidism, unspecified; Z79.84 Long term (current) use of oral hypoglycemic drugs; Z79.899 Other long term (current) drug therapy
CPT/HCPCS: 36415; 81001; 83735; 83880; 86140; 99283; 99284

== ENCOUNTER 2019-01-08 12:06 | Inpatient (IN) | payer MEDICAID, OTHER ==
[2019-01-08] MEDS ORDERED: Sodium Chloride 0.9% 10 ML Syringe FLUSH PRN (12:40)
[2019-01-08] MEDS ORDERED: Diltiazem 50 MG/10 ML SDV IVPUSH ONE (12:42)
[2019-01-08] MEDS ORDERED: Sodium Chloride 0.9% 500 ML IV ONE (12:42)
[2019-01-08] MEDS ORDERED: Diltiazem 125 MG in Sodium Chloride 0.9% 100 ML IV SCH (12:45)
--- NOTE | 2019-01-08 13:08 | EDM.PDOC ---
ED HPI GENERAL MEDICAL PROBLEM - General Chief Complaint: Lower Extremity Injury/Pain Stated Complaint: KNEE PAIN Time Seen by Provider: 01/08/19 12:35 Source of Information: Reports: Patient History Limitations: Reports: No Limitations - History of Present Illness INITIAL COMMENTS - FREE TEXT/NARRATIVE: 63-year-old male presents for evaluation treatment of right knee pain. Patient reports Friday he bumped his right knee on his steering wheel. Since then he has been having pain to the right knee. Also has chronic pain to the left knee. Had both knees replaced several years ago. Patient presented to the ER for any right knee pain however, during triage he was noted to have an elevated heart rate. he was put on a monitor. Found to be in A. fib with RVR. He has no history of any rate problems. States he's never been in A. fib or has any history of heart failure. He denies any chest pain, shortness of breath, nausea, vomiting, palpitations, lightheadedness, dizziness or any syncope. Reports that he is "retaining some water recently " do not taking his diuretic recently. He denies any history of any PE or DVT blood clots. Reportedly per old records has a history of alcohol abuse. Primary care provider is Dr. Elaine. Right Knee Pain Score (Numeric/FACES): 8 - Related Data Allergies Allergy/AdvReac Type Severity Reaction Status Date / Time No Known Allergies Allergy Verified 06/01/18 17:29 Home Meds: Home Meds Furosemide 20 mg PO DAILY 05/01/16 [History] Spironolactone [Aldactone] 100 mg PO DAILY 05/01/16 [History] Tamsulosin HCl 0.4 mg PO BID 05/01/16 [History] Levothyroxine Sodium [Synthroid] 100 mcg PO DAILY 07/12/16 [History] Rosuvastatin Calcium 5 mg PO DAILY 02/05/18 [History] oxyCODONE HCl/Acetaminophen [Oxycodone-Acetaminophen 5-325] 1 tab PO DAILY PRN 02/05/18 [History] Dutasteride [Avodart] 0.5 mg PO DAILY 01/08/19 [History] Insulin Glargine,Hum.Rec.Anlog [Lantus Solostar] 22 unit SQ BEDTIME 01/08/19 [ History] Omeprazole Magnesium [Prilosec Otc] 40 mg PO DAILY 01/08/19 [History] Past Medical History HEENT History: Reports: Impaired Vision, Other (See Below) Other HEENT History: wears glasses Cardiovascular History: Reports: Hypertension, Other (See Below) Other Cardiovascular History: edema, PVCs Respiratory History: Reports: None Gastrointestinal History: Reports: Chronic Constipation, Other (See Below) Other Gastrointestinal History: alcoholic cirrhosis of liver with ascites Genitourinary History: Reports: BPH, Prostate Disorder, Other (See Below) Other Genitourinary History: hematuria 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 Musculoskeletal History: Reports: Osteoarthritis Neurological History: Reports: None Psychiatric History: Reports: Addiction, Depression, Other (See Below) Other Psychiatric History: alcohol abuse Endocrine/Metabolic History: Reports: Diabetes, Type II, Hypothyroidism Hematologic History: Reports: None Immunologic History: Reports: None Oncologic (Cancer) History: Reports: None - Infectious Disease History Infectious Disease History: Reports: MRSA - Past Surgical History Musculoskeletal Surgical History: Reports: Knee Replacement Dermatological Surgical History: Reports: Skin Graft Social & Family History - Family History Family Medical History: Noncontributory Cardiac: Reports: NE Other Cardiac Family History: father Neurological: Reports: Alzheimers Disease Other Neurological Family History: mother - Tobacco Use Smoking Status *Q: Never Smoker - Caffeine Use Caffeine Use: Reports: Soda - Living Situation & Occupation Occupation: Employed Review of Systems - Review of Systems Review Of Systems: See Below Respiratory: Denies: Shortness of Breath Cardiovascular: Denies: Chest Pain, Lightheadedness, Palpitations, Syncope GI/Abdominal: Denies: Abdominal Pain, Nausea, Vomiting Musculoskeletal: Reports: Joint Pain (bilteral right >> left). Denies: Back Pain Neurological: Denies: Dizziness ED EXAM, GENERAL - Physical Exam Exam: See Below Exam Limited By: No Limitations General Appearance: Alert, WD/WN, No Apparent Distress, Obese Ears: Normal External Exam Nose: Normal Inspection Throat/Mouth: Normal Inspection, Normal Lips, Normal Voice, No Airway Compromise Respiratory/Chest: No Respiratory Distress, Lungs Clear, Normal Breath Sounds Cardiovascular: Tachycardia, Irregularly Irregular GI/Abdominal: Soft, Non-Tender, Distended Extremities: Normal Inspection (no obvious defmorities to the bilateral knees; scars from previous knee replacements), Other (venous stasis deermatitis left lower leg; bruising to the left lower later leg (no reported falls)) Neurological: Alert, Oriented Psychiatric: Normal Affect, Normal Mood Skin Exam: Warm, Dry, Normal Color EKG INTERPRETATION EKG Date: 01/08/19 Time: 12:28 Rhythm: A-Fib Rate (Beats/Min): 174 [place]: Normal P-Wave: Present QRS: Normal ST-T: Normal QT: Prolonged (QTc 471) EKG Interpretation Comments: a.fib with RVR rate of 172. QTc mildly prolonged QTc of 471. Reviewed by myself and Dr. Smith. Course - Vital Signs Last Recorded V/S: Last Vital Signs Temp 96.6 F 01/08/19 12:18 Pulse 73 01/08/19 12:18 Resp 16 01/08/19 12:18 BP 129/90 01/08/19 12:18 Pulse Ox 100 01/08/19 12:18 - Orders/Labs/Meds Orders: Active Orders 24 hr Category Date Time Status Cardiac Monitoring [RC] . DIRECTED Care 01/08/19 12:29 Active EKG Documentation Completion [RC] ASDIRECTED Care 01/08/19 12:29 Active Peripheral IV Care [RC] . DIRECTED Care 01/08/19 12:40 Active DRUG SCREEN, URINE [URCHEM] Stat Lab 01/08/19 12:55 Ordered UA W/MICROSCOPIC [URIN] Stat Lab 01/08/19 12:55 Ordered Diltiazem 125 mg Med 01/08/19 12:45 Active Sodium Chloride 0.9% [Normal Saline] 100 ml IV TITRATE Sodium Chloride 0.9% [Saline Flush] Med 01/08/19 12:40 Active 10 ml FLUSH ASDIRECTED PRN Peripheral IV Insertion Adult [OM.PC] Routine Oth 01/08/19 12:40 Ordered EKG 12 Lead [EK] Stat Ther 01/08/19 12:29 Ordered Medication Orders Diltiazem HCl 125 mg/ Sodium (Chloride) 125 mls @ 10 mls/hr IV TITRATE MIKO; Protocol Last Titration: 01/08/19 13:54 Dose: 15 mg/hr, 15 mls/hr Admin: 01/08/19 13:22 Dose: 10 mg/hr, 10 mls/hr Sodium Chloride (Saline Flush) 10 ml FLUSH ASDIRECTED PRN PRN Reason: Keep Vein Open Last Admin: 01/08/19 12:53 Dose: 10 ml Labs: Laboratory Tests 01/08/19 01/08/19 01/08/19 Range/Units 12:44 12:44 12:44 WBC 8.92 (4.23-9.07) K/mm3 RBC 3.81 L (4.63-6.08) M/mm3 Hgb 13.3 L (13.7-17.5) gm/L Hct 38.4 L (40.1-51.0) % MCV 100.8 H D (79.0-92.2) fl MCH 34.9 H (25.7-32.2) pg MCHC 34.6 (32.2-35.5) g/dl RDW Std Deviation 58.3 H (35.1-43.9) fL Plt Count 24 L* (163-337) K/mm3 MPV 10.9 (9.4-12.3) fl Neut % (Auto) 83.1 H (34.0-67.9) % Lymph % (Auto) 6.3 L (21.8-53.1) % Tripp % (Auto) 9.8 (5.3-12.2) % Eos % (Auto) 0.3 L (0.8-7.0) Baso % (Auto) 0.1 (0.1-1.2) % Neut # (Auto) 7.41 H (1.78-5.38) K/mm3 Lymph # (Auto) 0.56 L (1.32-3.57) K/mm3 Tripp # (Auto) 0.87 H (0.30-0.82) K/mm3 Eos # (Auto) 0.03 L (0.04-0.54) K/mm3 Baso # (Auto) 0.01 (0.01-0.08) K/mm3 Manual Slide Review Abnormal smear PT (9.5-12.1) SECONDS INR APTT (24-31) SECONDS Sodium 136 (136-145) mEq/L Potassium 3.5 (3.5-5.1) mEq/L Chloride 98 (98-107) mEq/L Carbon Dioxide 26 D (21-32) mEq/L Anion Gap 15.5 H (5-15) BUN 31 H (7-18) mg/dL Creatinine 1.9 H (0.7-1.3) mg/dL Est Cr Clr Drug Dosing 35.44 mL/min Estimated GFR (MDRD) 36 (>60) mL/min BUN/Creatinine Ratio 16.3 (14-18) Glucose 89 (80-115) mg/dL Calcium 8.5 (8.5-10.1) mg/dL Magnesium 0.9 L (1.8-2.4) mg/dl Total Bilirubin 5.5 H (0.2-1.0) mg/dL AST 92 H (15-37) U/L ALT 36 (16-63) U/L Alkaline Phosphatase 81 (46-116) U/L Troponin I < 0.017 (0.00-0.056) ng/mL NT-Pro-B Natriuret Pep 7223 H (0-125) pg/mL Total Protein 6.7 (6.4-8.2) g/dl Albumin 2.4 L (3.4-5.0) g/dl Globulin 4.3 gm/dL Albumin/Globulin Ratio 0.6 L (1-2) TSH 3rd Generation 3.362 (0.358-3.74) uIU/mL Ethyl Alcohol (0.00) gm% 01/08/19 01/08/19 Range/Units 12:44 12:55 WBC (4.23-9.07) K/mm3 RBC (4.63-6.08) M/mm3 Hgb (13.7-17.5) gm/L Hct (40.1-51.0) % MCV (79.0-92.2) fl MCH (25.7-32.2) pg MCHC (32.2-35.5) g/dl RDW Std Deviation (35.1-43.9) fL Plt Count (163-337) K/mm3 MPV (9.4-12.3) fl Neut % (Auto) (34.0-67.9) % Lymph % (Auto) (21.8-53.1) % Tripp % (Auto) (5.3-12.2) % Eos % (Auto) (0.8-7.0) Baso % (Auto) (0.1-1.2) % Neut # (Auto) (1.78-5.38) K/mm3 Lymph # (Auto) (1.32-3.57) K/mm3 Tripp # (Auto) (0.30-0.82) K/mm3 Eos # (Auto) (0.04-0.54) K/mm3 Baso # (Auto) (0.01-0.08) K/mm3 Manual Slide Review PT 15.1 H (9.5-12.1) SECONDS INR 1.39 APTT 30 (24-31) SECONDS Sodium (136-145) mEq/L Potassium (3.5-5.1) mEq/L Chloride (98-107) mEq/L Carbon Dioxide (21-32) mEq/L Anion Gap (5-15) BUN (7-18) mg/dL Creatinine (0.7-1.3) mg/dL Est Cr Clr Drug Dosing mL/min Estimated GFR (MDRD) (>60) mL/min BUN/Creatinine Ratio (14-18) Glucose (80-115) mg/dL Calcium (8.5-10.1) mg/dL Magnesium (1.8-2.4) mg/dl Total Bilirubin (0.2-1.0) mg/dL AST (15-37) U/L ALT (16-63) U/L Alkaline Phosphatase (46-116) U/L Troponin I (0.00-0.056) ng/mL NT-Pro-B Natriuret Pep (0-125) pg/mL Total Protein (6.4-8.2) g/dl Albumin (3.4-5.0) g/dl Globulin gm/dL Albumin/Globulin Ratio (1-2) TSH 3rd Generation (0.358-3.74) uIU/mL Ethyl Alcohol 0.00 (0.00) gm% Meds: Medications Generic Name Dose Route Start Last Admin Trade Name Freq PRN Reason Stop Dose Admin Diltiazem HCl 125 mg/ Sodium 125 mls @ 10 mls/hr 01/08/19 12:45 01/08/19 13: 54 Chloride IV 15 mg/hr TITRATE MIKO 15 mls/hr Titration Protocol 10 MG/HR Sodium Chloride 10 ml 01/08/19 12:40 01/08/19 12:53 Saline Flush FLUSH 10 ml ASDIRECTED PRN Administration Keep Vein Open Discontinued Medications Generic Name Dose Route Start Last Admin Trade Name Freq PRN Reason Stop Dose Admin Diltiazem HCl 10 mg 01/08/19 12:42 01/08/19 12:52 Cardizem IVPUSH 01/08/19 12:43 10 mg ONETIME ONE Administration Sodium Chloride 500 mls @ 999 mls/hr 01/08/19 12:42 01/08/19 12:52 Normal Saline IV 01/08/19 13:12 999 mls/hr ONETIME ONE Administration Magnesium Sulfate 2 gm/ Premix 50 mls @ 50 mls/hr 01/08/19 14:06 IV 01/08/19 15:05 ONETIME ONE - Radiology Interpretation Free Text/Narrative:: Chest: AP view of the chest was obtained. Comparison: No prior chest x-ray is available. Heart size appears within normal limits for AP technique. Upper mediastinum is normal. Lungs are clear. Bony structures are grossly intact. Impression: 1. Nothing acute is appreciated on AP chest x-ray Left knee: Four views of the left knee were obtained. Comparison: Previous left knee exam of 05/02/16. Knee prosthesis is seen. Components are aligned. No abnormal lucency is seen around the knee prosthesis. No fracture or other bony abnormality is seen. Impression: 1. Knee prosthesis. Left knee study is otherwise unremarkable. Right knee: Four views of the right knee were obtained. Comparison: Prior right knee study of 07/15/16. Knee prosthesis is seen. Components are aligned. No abnormal lucency is identified around the knee prosthesis. No fracture or other bony abnormality is seen. Impression: 1. Knee prosthesis. No additional abnormality is appreciated. - Re-Assessments/Exams Free Text/Narrative Re-Assessment/Exam: 01/08/19 14:58 Reviewed the labs, EKG and imaging with the patient. Other than his knee pain and the feeling of constipation he has no other complaints at this time. Continues to deny chest pain, shortness breath, lightheadedness, dizziness, nausea or vomiting. Is agreeable to come in the hospital. Question more about his alcohol use. He states that he has not drank since October. He states that he was drinking vodka daily but states that it was "not much ". States he then may be a couple shots a day. After me leaving the room the patient's daughter pulled me aside and states that he does not seem to comprehend that his alcohol use is an issue. She states several weeks ago she saw him and he did smell of alcohol but he denied it. [place]. 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 Case discussed with Dr. Mackay, hospitalist on-call. He agrees to the admission. Patient will go to the ICU. Departure - Departure Time of Disposition: 15:09 Disposition: Admitted As Inpatient 65 Condition: Poor Clinical Impression: Atrial fibrillation with RVR, Hypomagnesemia, Thrombocytopenia - Discharge Information *PRESCRIPTION DRUG MONITORING PROGRAM REVIEWED*: Yes *COPY OF PRESCRIPTION DRUG MONITORING REPORT IN PATIENT RM: No Referrals: Reji Bravo MD [Primary Care Provider] - Forms: ED Department Discharge Additional Instructions: Patient admitted to ICU for a.fib with RVR, thrombocytopenia and hypomagnesemia. - My Orders Last 24 Hours: My Active Orders 01/08/19 12:29 Cardiac Monitoring [RC] . DIRECTED EKG Documentation Completion [RC] ASDIRECTED EKG 12 Lead [EK] Stat 01/08/19 12:40 Peripheral IV Care [RC] . DIRECTED Sodium Chloride 0.9% [Saline Flush] 10 ml FLUSH ASDIRECTED PRN Peripheral IV Insertion Adult [OM.PC] Routine 01/08/19 12:45 Diltiazem 125 mg Sodium Chloride 0.9% [Normal Saline] 100 ml IV TITRATE 01/08/19 12:55 DRUG SCREEN, URINE [URCHEM] Stat UA W/MICROSCOPIC [URIN] Stat - Assessment/Plan Last 24 Hours: My Active Orders 01/08/19 12:29 Cardiac Monitoring [RC] . DIRECTED EKG Documentation Completion [RC] ASDIRECTED EKG 12 Lead [EK] Stat 01/08/19 12:40 Peripheral IV Care [RC] . DIRECTED Sodium Chloride 0.9% [Saline Flush] 10 ml FLUSH ASDIRECTED PRN Peripheral IV Insertion Adult [OM.PC] Routine 01/08/19 12:45 Diltiazem 125 mg Sodium Chloride 0.9% [Normal Saline] 100 ml IV TITRATE 01/08/19 12:55 DRUG SCREEN, URINE [URCHEM] Stat UA W/MICROSCOPIC [URIN] Stat
[2019-01-08] MEDS ORDERED: Magnesium Sulfate/Water 2 GM in Premix Bag 1 BAG IV ONE ×2 (14:06→20:17)
--- NOTE | 2019-01-08 14:56 | CR ---
Left knee: Four views of the left knee were obtained. Comparison: Previous left knee exam of 05/02/16. Knee prosthesis is seen. Components are aligned. No abnormal lucency is seen around the knee prosthesis. No fracture or other bony abnormality is seen. Impression: 1. Knee prosthesis. Left knee study is otherwise unremarkable. Diagnostic code #2
--- NOTE | 2019-01-08 14:56 | CR ---
Right knee: Four views of the right knee were obtained. Comparison: Prior right knee study of 07/15/16. Knee prosthesis is seen. Components are aligned. No abnormal lucency is identified around the knee prosthesis. No fracture or other bony abnormality is seen. Impression: 1. Knee prosthesis. No additional abnormality is appreciated. Diagnostic code #2
--- NOTE | 2019-01-08 14:56 | CR ---
Chest: AP view of the chest was obtained. Comparison: No prior chest x-ray is available. Heart size appears within normal limits for AP technique. Upper mediastinum is normal. Lungs are clear. Bony structures are grossly intact. Impression: 1. Nothing acute is appreciated on AP chest x-ray Diagnostic code #1
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
[2019-01-08] MEDS ORDERED: Docusate Sodium 100 MG Cap PO PRN (17:34)
[2019-01-08] MEDS ORDERED: Albuterol/Ipratropium 3.0-0.5 MG/3 ML Neb Soln NEB PRN ×2 (17:34→18:00)
[2019-01-08] MEDS ORDERED: Ondansetron 4 MG/2 ML SDV IV PRN (17:34)
[2019-01-08] MEDS ORDERED: Promethazine 6.25 MG in Sodium Chloride 0.9% 50 ML IV PRN (17:34)
[2019-01-08] MEDS ORDERED: Zolpidem 5 MG Tab PO PRN (17:34)
[2019-01-08] MEDS ORDERED: Acetaminophen 325 MG Tab PO PRN (17:34)
[2019-01-08] MEDS ORDERED: Polyethylene Glycol 3350 Powder 17 GM Packet PO PRN (17:34)
[2019-01-08] MEDS ORDERED: Bisacodyl 5 MG Tab PO PRN (17:34)
[2019-01-08] MEDS ORDERED: 50% Dextrose in Water 50 ML Syringe IVPUSH PRN (17:40)
[2019-01-08] MEDS ORDERED: Metoprolol Tartrate 5 MG/5 ML SDV IVPUSH ONE (18:24)
[2019-01-08] MEDS ORDERED: Metoprolol Tartrate 25 MG Tab PO SCH ×2 (19:00→21:00)
[2019-01-08] MEDS ORDERED: Amiodarone In Dextrose,Iso-Osm 200 ML IV SCH (19:15)
[2019-01-08] MEDS ORDERED: Metoprolol Tartrate 5 MG/5 ML SDV IVPUSH PRN (19:16)
[2019-01-08] MEDS ORDERED: Lactated Ringers 500 ML IV ONE (19:42)
[2019-01-08] MEDS: LORazepam 2 MG/ML SDV IV PRN (19:53)
[2019-01-08] MEDS: HYDROmorphone 0.5 MG/0.5 ML Syringe IVPUSH PRN (19:53)
[2019-01-08] MEDS: Tamsulosin 0.4 MG Cap.ER PO SCH (20:01)
[2019-01-08] MEDS: Temazepam 15 MG Cap PO PRN (20:01)
[2019-01-08] MEDS: Apixaban 5 MG Tab PO SCH (20:01)
[2019-01-08] MEDS: Hydrochlorothiazide 12.5 MG Cap PO SCH (20:02)
[2019-01-08] MEDS ORDERED: cefTRIAXone 1 GM in Sodium Chloride 0.9% 100 ML IV SCH (20:15)
[2019-01-08] MEDS ORDERED: Thiamine 200 MG in Sodium Chloride 0.9% 100 ML IV ONE (20:20)
[2019-01-08] MEDS ORDERED: LORazepam 2 MG/ML SDV IVPUSH PRN ×2 (20:22→20:24)
[2019-01-08] MEDS: cefTRIAXone 1 GM in Sodium Chloride 0.9% 100 ML IV SCH (20:40)
[2019-01-08] MEDS: Folic Acid 1 MG Tab PO SCH (20:41)
[2019-01-08] MEDS: Multivitamins,Therapeutic Tab PO SCH (20:41)
[2019-01-08] MEDS ORDERED: Insulin Glarg,Human.Rec.Analog 100 UNIT/ML ML ONE (21:00)
[2019-01-08] MEDS ORDERED: Insulin Glarg,Human.Rec.Analog 100 UNIT/ML ML SUBCUT SCH (21:00)
--- NOTE | 2019-01-08 22:23 | PCM.SN ---
- Free Text/Narrative Note: Duplex US on B/L LE report read as no acute findings. No evidence of deep vein thrombosis. V/Q scan will be done in AM
[2019-01-08] MEDS: Insulin Lispro 100 Units/ML 3 ML Vial SUBCUT SCH (22:37)
[2019-01-09] MEDS: HYDROmorphone 0.5 MG/0.5 ML Syringe IVPUSH PRN (01:04)
[2019-01-09] MEDS: Pantoprazole 40 MG Tab.CR PO SCH (06:01)
[2019-01-09] MEDS: Insulin Lispro 100 Units/ML 3 ML Vial SUBCUT SCH ×4 (06:01→21:47)
[2019-01-09] MEDS: Acetaminophen/HYDROcodone 325-5 MG Tab PO PRN ×2 (06:01→09:55)
[2019-01-09 06:31] LABS: HEMOGLOBIN A1C 5.4 % (4.50-6.20)
--- NOTE | 2019-01-09 07:01 | PCM.PN ---
- General Info Date of Service: 01/09/19 Admission Dx/Problem (Free Text): Admission Diagnosis/Problem Admission Diagnosis/Problem Afib, Atrial fibrillation Subjective Update: Follow up Functional Status: Reports: Pain Controlled, Tolerating Diet, Ambulating, Urinating - Review of Systems General: Denies: Fever, Weakness, Fatigue, Malaise, Chills HEENT: Reports: No Symptoms Pulmonary: Denies: Shortness of Breath, Cough, Sputum Cardiovascular: Reports: Edema. Denies: Chest Pain, Dyspnea on Exertion, Lightheadedness Gastrointestinal: Denies: Abdominal Pain, Nausea, Vomiting Genitourinary: Reports: No Symptoms Musculoskeletal: Reports: No Symptoms Skin: Denies: Bruising, Rash Neurological: Reports: Gait Disturbance. Denies: Confusion, Difficulty Walking , Weakness Psychiatric: Denies: Depression, Anxiety, Agitation, Hallucinations Systems Review Comment:: No significant overnight issues. He rested well. He complaints of leg pain this morning 3/10 and 810 with activity. His CBC is about the same except his platelet improves to 30K. His folate, HLD and Vit D level were low. His HR is now in the low hundreds to teens while eating breakfast. His UA is suggestive of infection. - Patient Data Vitals - Most Recent: Last Vital Signs Temp 36.4 C 01/09/19 04:00 Pulse 97 01/08/19 20:01 Resp 17 01/09/19 05:00 BP 96/72 01/09/19 05:00 Pulse Ox 93 L 01/09/19 05:00 Weight - Most Recent: 114.9 kg I&O - Last 24 Hours: Intake & Output 01/08/19 01/09/19 01/09/19 22:59 06:59 14:59 Intake Total 120 717 Output Total 600 100 Balance -480 617 Lab Results Last 24 Hours: Laboratory Results - last 24 hr 01/08/19 01/08/19 01/08/19 Range/Units 12:44 12:44 12:44 WBC 8.92 (4.23-9.07) K/mm3 RBC 3.81 L (4.63-6.08) M/mm3 Hgb 13.3 L (13.7-17.5) gm/L Hct 38.4 L (40.1-51.0) % MCV 100.8 H D (79.0-92.2) fl MCH 34.9 H (25.7-32.2) pg MCHC 34.6 (32.2-35.5) g/dl RDW Std Deviation 58.3 H (35.1-43.9) fL Plt Count 24 L* (163-337) K/mm3 MPV 10.9 (9.4-12.3) fl Neut % (Auto) 83.1 H (34.0-67.9) % Lymph % (Auto) 6.3 L (21.8-53.1) % [place] % (Auto) 9.8 (5.3-12.2) % Eos % (Auto) 0.3 L (0.8-7.0) Baso % (Auto) 0.1 (0.1-1.2) % Neut # (Auto) 7.41 H (1.78-5.38) K/mm3 Lymph # (Auto) 0.56 L (1.32-3.57) K/mm3 [place] # (Auto) 0.87 H (0.30-0.82) K/mm3 Eos # (Auto) 0.03 L (0.04-0.54) K/mm3 Baso # (Auto) 0.01 (0.01-0.08) K/mm3 Manual Slide Review Abnormal smear PT (9.5-12.1) SECONDS INR APTT (24-31) SECONDS D-Dimer, Quantitative (0.19-0.50) mg/L Sodium 136 (136-145) mEq/L Potassium 3.5 (3.5-5.1) mEq/L Chloride 98 (98-107) mEq/L Carbon Dioxide 26 D (21-32) mEq/L Anion Gap 15.5 H (5-15) BUN 31 H (7-18) mg/dL Creatinine 1.9 H (0.7-1.3) mg/dL Est Cr Clr Drug Dosing 35.44 mL/min Estimated GFR (MDRD) 36 (>60) mL/min BUN/Creatinine Ratio 16.3 (14-18) Glucose 89 (80-115) mg/dL POC Glucose (80-115) mg/dL Hemoglobin A1c (4.50-6.20) % Lactic Acid (0.4-2.0) mmol/L Calcium 8.5 (8.5-10.1) mg/dL Magnesium 0.9 L (1.8-2.4) mg/dl Total Bilirubin 5.5 H (0.2-1.0) mg/dL AST 92 H (15-37) U/L ALT 36 (16-63) U/L Alkaline Phosphatase 81 (46-116) U/L Troponin I < 0.017 (0.00-0.056) ng/mL C-Reactive Protein (<1.0) mg/dL NT-Pro-B Natriuret Pep 7223 H (0-125) pg/mL Total Protein 6.7 (6.4-8.2) g/dl Albumin 2.4 L (3.4-5.0) g/dl Globulin 4.3 gm/dL Albumin/Globulin Ratio 0.6 L (1-2) Triglycerides (<150) mg/dL Cholesterol (<200) mg/dL LDL Cholesterol Direct (<100) mg/dL HDL Cholesterol (40-59) mg/dL TSH 3rd Generation 3.362 (0.358-3.74) uIU/mL Urine Color (Yellow) Urine Appearance (Clear) Urine pH (5.0-8.0) Ur Specific [place] (1.005-1.030) Urine Protein (Negative) Urine Glucose (UA) (Negative) Urine Ketones (Negative) Urine Occult Blood (Negative) Urine Nitrite (Negative) Urine Bilirubin (Negative) Urine Urobilinogen (0.2-1.0) Ur Leukocyte Esterase (Negative) Urine RBC (0-5) /hpf Urine WBC (0-5) /hpf Ur Squamous Epith Cells (0-5) /hpf Urine Bacteria (FEW) /hpf Urine Mucus (FEW) /hpf Ur Random Creatinine (30.0-125.0) mg/dL U Random Total Protein (0.0-11.8) mg/dL Protein/Creatinin Ratio (0-149) mg/g Urine Opiates Screen (WUKKYK=080) Ur Buprenorphine Scrn (CUTOFF=10) Ur Oxycodone Screen (OLR4PC=881) Urine Methadone Screen (TRG7WN=431) Ur Propoxyphene Screen (MHFNHP=311) Ur Barbiturates Screen (FVGTJC=005) Ur Tricyclics Screen (WEGXNP=369) Ur Phencyclidine Scrn (CUTOFF=25) Ur Amphetamine Screen (CVBZPW=937) U Methamphetamines Scrn (QSMUVE=900) U Benzodiazepines Scrn (AYAWGD=670) U Cocaine Metab Screen (MTYOFV=471) U Marijuana (THC) Screen (CUTOFF=50) Ethyl Alcohol (0.00) gm% MRSA (PCR) 01/08/19 01/08/19 01/08/19 Range/Units 12:44 12:44 12:55 WBC (4.23-9.07) K/mm3 RBC (4.63-6.08) M/mm3 Hgb (13.7-17.5) gm/L Hct (40.1-51.0) % MCV (79.0-92.2) fl MCH (25.7-32.2) pg MCHC (32.2-35.5) g/dl RDW Std Deviation (35.1-43.9) fL Plt Count (163-337) K/mm3 MPV (9.4-12.3) fl Neut % (Auto) (34.0-67.9) % Lymph % (Auto) (21.8-53.1) % [place] % (Auto) (5.3-12.2) % Eos % (Auto) (0.8-7.0) Baso % (Auto) (0.1-1.2) % Neut # (Auto) (1.78-5.38) K/mm3 Lymph # (Auto) (1.32-3.57) K/mm3 [place] # (Auto) (0.30-0.82) K/mm3 Eos # (Auto) (0.04-0.54) K/mm3 Baso # (Auto) (0.01-0.08) K/mm3 Manual Slide Review PT 15.1 H (9.5-12.1) SECONDS INR 1.39 APTT 30 (24-31) SECONDS D-Dimer, Quantitative (0.19-0.50) mg/L Sodium (136-145) mEq/L Potassium (3.5-5.1) mEq/L Chloride (98-107) mEq/L Carbon Dioxide (21-32) mEq/L Anion Gap (5-15) BUN (7-18) mg/dL Creatinine (0.7-1.3) mg/dL Est Cr Clr Drug Dosing mL/min Estimated GFR (MDRD) (>60) mL/min BUN/Creatinine Ratio (14-18) Glucose (80-115) mg/dL POC Glucose (80-115) mg/dL Hemoglobin A1c (4.50-6.20) % Lactic Acid (0.4-2.0) mmol/L Calcium (8.5-10.1) mg/dL Magnesium (1.8-2.4) mg/dl Total Bilirubin (0.2-1.0) mg/dL AST (15-37) U/L ALT (16-63) U/L Alkaline Phosphatase (46-116) U/L Troponin I (0.00-0.056) ng/mL C-Reactive Protein 19.2 H* (<1.0) mg/dL NT-Pro-B Natriuret Pep (0-125) pg/mL Total Protein (6.4-8.2) g/dl Albumin (3.4-5.0) g/dl Globulin gm/dL Albumin/Globulin Ratio (1-2) Triglycerides (<150) mg/dL Cholesterol (<200) mg/dL LDL Cholesterol Direct (<100) mg/dL HDL Cholesterol (40-59) mg/dL TSH 3rd Generation (0.358-3.74) uIU/mL Urine Color (Yellow) Urine Appearance (Clear) Urine pH (5.0-8.0) Ur Specific [place] (1.005-1.030) Urine Protein (Negative) Urine Glucose (UA) (Negative) Urine Ketones (Negative) Urine Occult Blood (Negative) Urine Nitrite (Negative) Urine Bilirubin (Negative) Urine Urobilinogen (0.2-1.0) Ur Leukocyte Esterase (Negative) Urine RBC (0-5) /hpf Urine WBC (0-5) /hpf Ur Squamous Epith Cells (0-5) /hpf Urine Bacteria (FEW) /hpf Urine Mucus (FEW) /hpf Ur Random Creatinine (30.0-125.0) mg/dL U Random Total Protein (0.0-11.8) mg/dL Protein/Creatinin Ratio (0-149) mg/g Urine Opiates Screen (LASCFR=439) Ur Buprenorphine Scrn (CUTOFF=10) Ur Oxycodone Screen (LPR1DH=804) Urine Methadone Screen (DLM6IT=473) Ur Propoxyphene Screen (BDTVUH=010) Ur Barbiturates Screen (YTETTD=167) Ur Tricyclics Screen (GTRPAN=796) Ur Phencyclidine Scrn (CUTOFF=25) Ur Amphetamine Screen (NVQXRC=778) U Methamphetamines Scrn (TAFAIS=350) U Benzodiazepines Scrn (MDZLCP=759) U Cocaine Metab Screen (FMPPYT=898) U Marijuana (THC) Screen (CUTOFF=50) Ethyl Alcohol 0.00 (0.00) gm% MRSA (PCR) 01/08/19 01/08/19 01/08/19 Range/Units 18:16 18:16 20:06 WBC (4.23-9.07) K/mm3 RBC (4.63-6.08) M/mm3 Hgb (13.7-17.5) gm/L Hct (40.1-51.0) % MCV (79.0-92.2) fl MCH (25.7-32.2) pg MCHC (32.2-35.5) g/dl RDW Std Deviation (35.1-43.9) fL Plt Count (163-337) K/mm3 MPV (9.4-12.3) fl Neut % (Auto) (34.0-67.9) % Lymph % (Auto) (21.8-53.1) % [place] % (Auto) (5.3-12.2) % Eos % (Auto) (0.8-7.0) Baso % (Auto) (0.1-1.2) % Neut # (Auto) (1.78-5.38) K/mm3 Lymph # (Auto) (1.32-3.57) K/mm3 [place] # (Auto) (0.30-0.82) K/mm3 Eos # (Auto) (0.04-0.54) K/mm3 Baso # (Auto) (0.01-0.08) K/mm3 Manual Slide Review PT (9.5-12.1) SECONDS INR APTT (24-31) SECONDS D-Dimer, Quantitative 3.28 H (0.19-0.50) mg/L Sodium (136-145) mEq/L Potassium (3.5-5.1) mEq/L Chloride (98-107) mEq/L Carbon Dioxide (21-32) mEq/L Anion Gap (5-15) BUN (7-18) mg/dL Creatinine (0.7-1.3) mg/dL Est Cr Clr Drug Dosing mL/min Estimated GFR (MDRD) (>60) mL/min BUN/Creatinine Ratio (14-18) Glucose (80-115) mg/dL POC Glucose 121 H (80-115) mg/dL Hemoglobin A1c (4.50-6.20) % Lactic Acid 2.3 H (0.4-2.0) mmol/L Calcium (8.5-10.1) mg/dL Magnesium (1.8-2.4) mg/dl Total Bilirubin (0.2-1.0) mg/dL AST (15-37) U/L ALT (16-63) U/L Alkaline Phosphatase (46-116) U/L Troponin I (0.00-0.056) ng/mL C-Reactive Protein (<1.0) mg/dL NT-Pro-B Natriuret Pep (0-125) pg/mL Total Protein (6.4-8.2) g/dl Albumin (3.4-5.0) g/dl Globulin gm/dL Albumin/Globulin Ratio (1-2) Triglycerides (<150) mg/dL Cholesterol (<200) mg/dL LDL Cholesterol Direct (<100) mg/dL HDL Cholesterol (40-59) mg/dL TSH 3rd Generation (0.358-3.74) uIU/mL Urine Color (Yellow) Urine Appearance (Clear) Urine pH (5.0-8.0) Ur Specific [place] (1.005-1.030) Urine Protein (Negative) Urine Glucose (UA) (Negative) Urine Ketones (Negative) Urine Occult Blood (Negative) Urine Nitrite (Negative) Urine Bilirubin (Negative) Urine Urobilinogen (0.2-1.0) Ur Leukocyte Esterase (Negative) Urine RBC (0-5) /hpf Urine WBC (0-5) /hpf Ur Squamous Epith Cells (0-5) /hpf Urine Bacteria (FEW) /hpf Urine Mucus (FEW) /hpf Ur Random Creatinine (30.0-125.0) mg/dL U Random Total Protein (0.0-11.8) mg/dL Protein/Creatinin Ratio (0-149) mg/g Urine Opiates Screen (LUBOAQ=177) Ur Buprenorphine Scrn (CUTOFF=10) Ur Oxycodone Screen (FNZ4YE=508) Urine Methadone Screen (CKW1AV=149) Ur Propoxyphene Screen (GRIEPI=295) Ur Barbiturates Screen (DVRXQF=502) Ur Tricyclics Screen (LFAHCT=647) Ur Phencyclidine Scrn (CUTOFF=25) Ur Amphetamine Screen (XALHRU=389) U Methamphetamines Scrn (JZGMHH=219) U Benzodiazepines Scrn (DWMLSP=836) U Cocaine Metab Screen (FTMDSJ=450) U Marijuana (THC) Screen (CUTOFF=50) Ethyl Alcohol (0.00) gm% MRSA (PCR) 01/08/19 01/08/19 01/08/19 Range/Units 21:21 21:21 21:21 WBC (4.23-9.07) K/mm3 RBC (4.63-6.08) M/mm3 Hgb (13.7-17.5) gm/L Hct (40.1-51.0) % MCV (79.0-92.2) fl MCH (25.7-32.2) pg MCHC (32.2-35.5) g/dl RDW Std Deviation (35.1-43.9) fL Plt Count (163-337) K/mm3 MPV (9.4-12.3) fl Neut % (Auto) (34.0-67.9) % Lymph % (Auto) (21.8-53.1) % [place] % (Auto) (5.3-12.2) % Eos % (Auto) (0.8-7.0) Baso % (Auto) (0.1-1.2) % Neut # (Auto) (1.78-5.38) K/mm3 Lymph # (Auto) (1.32-3.57) K/mm3 [place] # (Auto) (0.30-0.82) K/mm3 Eos # (Auto) (0.04-0.54) K/mm3 Baso # (Auto) (0.01-0.08) K/mm3 Manual Slide Review PT (9.5-12.1) SECONDS INR APTT (24-31) SECONDS D-Dimer, Quantitative (0.19-0.50) mg/L Sodium (136-145) mEq/L Potassium (3.5-5.1) mEq/L Chloride (98-107) mEq/L Carbon Dioxide (21-32) mEq/L Anion Gap (5-15) BUN (7-18) mg/dL Creatinine (0.7-1.3) mg/dL Est Cr Clr Drug Dosing mL/min Estimated GFR (MDRD) (>60) mL/min BUN/Creatinine Ratio (14-18) Glucose (80-115) mg/dL POC Glucose (80-115) mg/dL Hemoglobin A1c (4.50-6.20) % Lactic Acid (0.4-2.0) mmol/L Calcium (8.5-10.1) mg/dL Magnesium (1.8-2.4) mg/dl Total Bilirubin (0.2-1.0) mg/dL AST (15-37) U/L ALT (16-63) U/L Alkaline Phosphatase (46-116) U/L Troponin I (0.00-0.056) ng/mL C-Reactive Protein (<1.0) mg/dL NT-Pro-B Natriuret Pep (0-125) pg/mL Total Protein (6.4-8.2) g/dl Albumin (3.4-5.0) g/dl Globulin gm/dL Albumin/Globulin Ratio (1-2) Triglycerides (<150) mg/dL Cholesterol (<200) mg/dL LDL Cholesterol Direct (<100) mg/dL HDL Cholesterol (40-59) mg/dL TSH 3rd Generation (0.358-3.74) uIU/mL Urine Color [place] H (Yellow) Urine Appearance Cloudy H (Clear) Urine pH 6.5 (5.0-8.0) Ur Specific [place] 1.020 (1.005-1.030) Urine Protein 2+ H (Negative) Urine Glucose (UA) Negative (Negative) Urine Ketones Trace H (Negative) Urine Occult Blood 2+ H (Negative) Urine Nitrite Negative (Negative) Urine Bilirubin 1+ H (Negative) Urine Urobilinogen >=8.0 H (0.2-1.0) Ur Leukocyte Esterase 2+ H (Negative) Urine RBC Not seen (0-5) /hpf Urine WBC 5-10 H (0-5) /hpf Ur Squamous Epith Cells 0-5 (0-5) /hpf Urine Bacteria Moderate H (FEW) /hpf Urine Mucus Not seen (FEW) /hpf Ur Random Creatinine 157.1 H (30.0-125.0) mg/dL U Random Total Protein 66.7 H (0.0-11.8) mg/dL Protein/Creatinin Ratio 424.6 H (0-149) mg/g Urine Opiates Screen Negative (TNHTPZ=097) Ur Buprenorphine Scrn Negative (CUTOFF=10) Ur Oxycodone Screen Presumptive positive H (NXY5NX=620) Urine Methadone Screen Negative (VHM8TO=199) Ur Propoxyphene Screen Negative (XMIHSR=558) Ur Barbiturates Screen Negative (NNRYOV=825) Ur Tricyclics Screen Negative (TJOCVJ=738) Ur Phencyclidine Scrn Negative (CUTOFF=25) Ur Amphetamine Screen Negative (ODTGYM=009) U Methamphetamines Scrn Negative (ONHJMT=660) U Benzodiazepines Scrn Negative (TXDJNM=403) U Cocaine Metab Screen Negative (HBISRH=059) U Marijuana (THC) Screen Negative (CUTOFF=50) Ethyl Alcohol (0.00) gm% MRSA (PCR) 01/09/19 01/09/19 01/09/19 Range/Units 01:45 05:53 06:05 WBC 9.84 H (4.23-9.07) K/mm3 RBC 3.59 L (4.63-6.08) M/mm3 Hgb 12.5 L (13.7-17.5) gm/L Hct 36.2 L (40.1-51.0) % MCV 100.8 H (79.0-92.2) fl MCH 34.8 H (25.7-32.2) pg MCHC 34.5 (32.2-35.5) g/dl RDW Std Deviation 59.3 H (35.1-43.9) fL Plt Count 30 L (163-337) K/mm3 MPV 11.5 (9.4-12.3) fl Neut % (Auto) 74.4 H (34.0-67.9) % Lymph % (Auto) 9.7 L (21.8-53.1) % [place] % (Auto) 12.4 H (5.3-12.2) % Eos % (Auto) 2.1 (0.8-7.0) Baso % (Auto) 0.2 (0.1-1.2) % Neut # (Auto) 7.32 H (1.78-5.38) K/mm3 Lymph # (Auto) 0.95 L (1.32-3.57) K/mm3 [place] # (Auto) 1.22 H (0.30-0.82) K/mm3 Eos # (Auto) 0.21 (0.04-0.54) K/mm3 Baso # (Auto) 0.02 (0.01-0.08) K/mm3 Manual Slide Review Abnormal smear PT (9.5-12.1) SECONDS INR APTT (24-31) SECONDS D-Dimer, Quantitative (0.19-0.50) mg/L Sodium (136-145) mEq/L Potassium (3.5-5.1) mEq/L Chloride (98-107) mEq/L Carbon Dioxide (21-32) mEq/L Anion Gap (5-15) BUN (7-18) mg/dL Creatinine (0.7-1.3) mg/dL Est Cr Clr Drug Dosing mL/min Estimated GFR (MDRD) (>60) mL/min BUN/Creatinine Ratio (14-18) Glucose (80-115) mg/dL POC Glucose 75 L (80-115) mg/dL Hemoglobin A1c (4.50-6.20) % Lactic Acid (0.4-2.0) mmol/L Calcium (8.5-10.1) mg/dL Magnesium (1.8-2.4) mg/dl Total Bilirubin (0.2-1.0) mg/dL AST (15-37) U/L ALT (16-63) U/L Alkaline Phosphatase (46-116) U/L Troponin I (0.00-0.056) ng/mL C-Reactive Protein (<1.0) mg/dL NT-Pro-B Natriuret Pep (0-125) pg/mL Total Protein (6.4-8.2) g/dl Albumin (3.4-5.0) g/dl Globulin gm/dL Albumin/Globulin Ratio (1-2) Triglycerides (<150) mg/dL Cholesterol (<200) mg/dL LDL Cholesterol Direct (<100) mg/dL HDL Cholesterol (40-59) mg/dL TSH 3rd Generation (0.358-3.74) uIU/mL Urine Color (Yellow) Urine Appearance (Clear) Urine pH (5.0-8.0) Ur Specific [place] (1.005-1.030) Urine Protein (Negative) Urine Glucose (UA) (Negative) Urine Ketones (Negative) Urine Occult Blood (Negative) Urine Nitrite (Negative) Urine Bilirubin (Negative) Urine Urobilinogen (0.2-1.0) Ur Leukocyte Esterase (Negative) Urine RBC (0-5) /hpf Urine WBC (0-5) /hpf Ur Squamous Epith Cells (0-5) /hpf Urine Bacteria (FEW) /hpf Urine Mucus (FEW) /hpf Ur Random Creatinine (30.0-125.0) mg/dL U Random Total Protein (0.0-11.8) mg/dL Protein/Creatinin Ratio (0-149) mg/g Urine Opiates Screen (BXJGUY=964) Ur Buprenorphine Scrn (CUTOFF=10) Ur Oxycodone Screen (AZY6IG=477) Urine Methadone Screen (YEL1VI=655) Ur Propoxyphene Screen (RURZVH=474) Ur Barbiturates Screen (DSREKB=950) Ur Tricyclics Screen (QWRCRK=274) Ur Phencyclidine Scrn (CUTOFF=25) Ur Amphetamine Screen (ZZQEMU=424) U Methamphetamines Scrn (PPDJNO=694) U Benzodiazepines Scrn (TYMZMI=894) U Cocaine Metab Screen (QILKSM=872) U Marijuana (THC) Screen (CUTOFF=50) Ethyl Alcohol (0.00) gm% MRSA (PCR) Positive H 01/09/19 01/09/19 01/09/19 Range/Units 06:05 06:05 06:05 WBC (4.23-9.07) K/mm3 RBC (4.63-6.08) M/mm3 Hgb (13.7-17.5) gm/L Hct (40.1-51.0) % MCV (79.0-92.2) fl MCH (25.7-32.2) pg MCHC (32.2-35.5) g/dl RDW Std Deviation (35.1-43.9) fL Plt Count (163-337) K/mm3 MPV (9.4-12.3) fl Neut % (Auto) (34.0-67.9) % Lymph % (Auto) (21.8-53.1) % [place] % (Auto) (5.3-12.2) % Eos % (Auto) (0.8-7.0) Baso % (Auto) (0.1-1.2) % Neut # (Auto) (1.78-5.38) K/mm3 Lymph # (Auto) (1.32-3.57) K/mm3 [place] # (Auto) (0.30-0.82) K/mm3 Eos # (Auto) (0.04-0.54) K/mm3 Baso # (Auto) (0.01-0.08) K/mm3 Manual Slide Review PT (9.5-12.1) SECONDS INR APTT (24-31) SECONDS D-Dimer, Quantitative (0.19-0.50) mg/L Sodium 133 L (136-145) mEq/L Potassium 3.6 (3.5-5.1) mEq/L Chloride 98 (98-107) mEq/L Carbon Dioxide 25 (21-32) mEq/L Anion Gap 13.6 (5-15) BUN 34 H (7-18) mg/dL Creatinine 1.9 H (0.7-1.3) mg/dL Est Cr Clr Drug Dosing 35.44 mL/min Estimated GFR (MDRD) 36 (>60) mL/min BUN/Creatinine Ratio 17.9 (14-18) Glucose 85 (80-115) mg/dL POC Glucose (80-115) mg/dL Hemoglobin A1c 5.40 (4.50-6.20) % Lactic Acid 2.4 H (0.4-2.0) mmol/L Calcium 8.3 L (8.5-10.1) mg/dL Magnesium 1.8 (1.8-2.4) mg/dl Total Bilirubin (0.2-1.0) mg/dL AST (15-37) U/L ALT (16-63) U/L Alkaline Phosphatase (46-116) U/L Troponin I (0.00-0.056) ng/mL C-Reactive Protein (<1.0) mg/dL NT-Pro-B Natriuret Pep (0-125) pg/mL Total Protein (6.4-8.2) g/dl Albumin (3.4-5.0) g/dl Globulin gm/dL Albumin/Globulin Ratio (1-2) Triglycerides 112 (<150) mg/dL Cholesterol 56 (<200) mg/dL LDL Cholesterol Direct 28 (<100) mg/dL HDL Cholesterol 6.0 L (40-59) mg/dL TSH 3rd Generation (0.358-3.74) uIU/mL Urine Color (Yellow) Urine Appearance (Clear) Urine pH (5.0-8.0) Ur Specific [place] (1.005-1.030) Urine Protein (Negative) Urine Glucose (UA) (Negative) Urine Ketones (Negative) Urine Occult Blood (Negative) Urine Nitrite (Negative) Urine Bilirubin (Negative) Urine Urobilinogen (0.2-1.0) Ur Leukocyte Esterase (Negative) Urine RBC (0-5) /hpf Urine WBC (0-5) /hpf Ur Squamous Epith Cells (0-5) /hpf Urine Bacteria (FEW) /hpf Urine Mucus (FEW) /hpf Ur Random Creatinine (30.0-125.0) mg/dL U Random Total Protein (0.0-11.8) mg/dL Protein/Creatinin Ratio (0-149) mg/g Urine Opiates Screen (RLURCW=788) Ur Buprenorphine Scrn (CUTOFF=10) Ur Oxycodone Screen (XHD6UH=366) Urine Methadone Screen (XHX2FY=656) Ur Propoxyphene Screen (BHDFKB=877) Ur Barbiturates Screen (GXVWNB=194) Ur Tricyclics Screen (NFSGUJ=406) Ur Phencyclidine Scrn (CUTOFF=25) Ur Amphetamine Screen (MKAPRS=876) U Methamphetamines Scrn (BWFYLD=431) U Benzodiazepines Scrn (XEQPSK=971) U Cocaine Metab Screen (VKJSPP=390) U Marijuana (THC) Screen (CUTOFF=50) Ethyl Alcohol (0.00) gm% MRSA (PCR) Med Orders - Current: Current Medications Acetaminophen (Tylenol) 650 mg PO Q4H PRN PRN Reason: Pain (Mild 1-3)/fever Hydrocodone Bitart/Acetaminophen ([place] 325-5 Mg) 1 tab PO Q4H PRN PRN Reason: Pain (moderate 4-6) Last Admin: 01/09/19 06:01 Dose: 1 tab Albuterol/Ipratropium (Duoneb 3.0-0.5 Mg/3 Ml) 3 ml NEB Q4HRRT PRN PRN Reason: Shortness Of Breath/wheezing Apixaban (Eliquis) 5 mg PO BID MIKO Last Admin: 01/08/19 20:01 Dose: 5 mg Bisacodyl (Dulcolax) 5 mg PO DAILY PRN PRN Reason: Constipation Dextrose/Water (Dextrose 50% In Water) 50 ml IVPUSH ASDIRECTED PRN PRN Reason: Hypoglycemia Docusate Sodium (Colace) 100 mg PO BID PRN PRN Reason: Constipation Finasteride (Proscar) 5 mg PO DAILY MIKO Folic Acid (Folic Acid) 1 mg PO BEDTIME MIKO Last Admin: 01/08/19 20:41 Dose: 1 mg Furosemide (Lasix) 20 mg PO SuMoWeFr@0900 MIKO Hydrochlorothiazide (Hydrochlorothiazide) 12.5 mg PO BEDTIME MIKO Last Admin: 01/08/19 20:02 Dose: 12.5 mg Hydromorphone HCl (Dilaudid) 0.25 mg IVPUSH Q2H PRN PRN Reason: Pain (severe 7-10) Last Admin: 01/09/19 01:04 Dose: 0.25 mg Diltiazem HCl 125 mg/ Sodium (Chloride) 125 mls @ 10 mls/hr IV TITRATE MIKO; Protocol Last Titration: 01/08/19 22:25 Dose: 0 mg/hr, 0 mls/hr Promethazine HCl 6.25 mg/ (Sodium Chloride) 50.25 mls @ 100 mls/hr IV Q6H PRN PRN Reason: Nausea/Vomiting Furosemide 100 mg/ Sodium (Chloride) 110 mls @ 3.3 mls/hr IV TITRATE MIKO; Protocol Ceftriaxone Sodium 1 gm/ (Sodium Chloride) 100 mls @ 200 mls/hr IV Q24H MIKO Last Admin: 01/08/19 20:40 Dose: 200 mls/hr Insulin Glargine (Lantus) 22 unit SUBCUT BEDTIME MIKO Last Admin: 01/08/19 20:06 Dose: 22 unit Insulin Human Lispro (Humalog) 0 unit SUBCUT QIDACANDBED MIKO; Protocol Last Admin: 01/09/19 06:01 Dose: Not Given Levothyroxine Sodium (Synthroid) 100 mcg PO DAILY MIKO Lorazepam (Ativan) 1 mg IV Q6H PRN PRN Reason: Anxiety Last Admin: 01/08/19 19:53 Dose: 1 mg Lorazepam (Ativan) 2 mg IVPUSH Q4H PRN PRN Reason: Seizures Lorazepam (Ativan) 0 mg IVPUSH Q4H PRN; Protocol PRN Reason: Withdrawal Symptoms Magnesium Oxide (Magnesium Oxide) 400 mg PO BID [facility] Metoprolol Tartrate (Lopressor) 5 mg IVPUSH Q4H PRN PRN Reason: Tachycardia Metoprolol Tartrate (Lopressor) 25 mg PO Q12H [facility] Last Admin: 01/08/19 20:01 Dose: 25 mg Multivitamins (Thera) 1 each PO BEDTIME [facility] Last Admin: 01/08/19 20:41 Dose: 1 each Ondansetron HCl (Zofran) 4 mg IV Q6H PRN PRN Reason: Nausea/Vomiting Oxycodone/Acetaminophen (Percocet 325-5 Mg) 1 tab PO DAILY PRN PRN Reason: Pain (severe 7-10) Pantoprazole Sodium (Protonix) 40 mg PO DAILY@0700 [facility] Last Admin: 01/09/19 06:01 Dose: 40 mg Polyethylene Glycol (Miralax) 17 gm PO DAILY PRN PRN Reason: Constipation Rosuvastatin Calcium (Crestor) 5 mg PO DAILY [facility] Senna/Docusate Sodium (Senna Plus) 1 tab PO BID PRN PRN Reason: Constipation Sodium Chloride (Saline Flush) 10 ml FLUSH ASDIRECTED PRN PRN Reason: Keep Vein Open Last Admin: 01/08/19 12:53 Dose: 10 ml Spironolactone (Aldactone) 100 mg PO DAILY [facility] Tamsulosin HCl (Flomax) 0.4 mg PO BID [facility] Last Admin: 01/08/19 20:01 Dose: 0.4 mg Temazepam (Restoril) 15 mg PO BEDTIME PRN PRN Reason: Insomnia Last Admin: 01/08/19 20:01 Dose: 15 mg Thiamine HCl (Vitamin B-1) 100 mg PO BEDTIME [facility] Discontinued Medications Albuterol/Ipratropium (Duoneb 3.0-0.5 Mg/3 Ml) 3 ml NEB Q4H PRN PRN Reason: Shortness Of Breath/wheezing Diltiazem HCl (Cardizem) 10 mg IVPUSH ONETIME ONE Stop: 01/08/19 12:43 Last Admin: 01/08/19 12:52 Dose: 10 mg Furosemide (Lasix) 20 mg PO DAILY [facility] Sodium Chloride (Normal Saline) 500 mls @ 999 mls/hr IV ONETIME ONE Stop: 01/08/19 13:12 Last Admin: 01/08/19 12:52 Dose: 999 mls/hr Magnesium Sulfate 2 gm/ Premix 50 mls @ 50 mls/hr IV ONETIME ONE Stop: 01/08/19 15:05 Last Admin: 01/08/19 16:40 Dose: 50 mls/hr Amiodarone HCl/Dextrose (Nexterone In Dextrose 360 Mg/200 Ml) 200 mls @ 33.333 mls/hr IV ASDIRECTED MIKO; Protocol Lactated Ringer's (Ringers, Lactated) 500 mls @ 450 mls/hr IV BOLUS ONE Stop: 01/08/19 20:48 Last Admin: 01/08/19 20:04 Dose: 450 mls/hr Ceftriaxone Sodium 1 gm/ (Sodium Chloride) 100 mls @ 200 mls/hr IV Q24H [facility] Last Admin: 01/08/19 20:50 Dose: Not Given Magnesium Sulfate 2 gm/ Premix 50 mls @ 25 mls/hr IV ONETIME ONE Stop: 01/08/19 22:16 Last Admin: 01/08/19 20:40 Dose: 25 mls/hr Thiamine HCl 200 mg/ Sodium (Chloride) 102 mls @ 204 mls/hr IV ONETIME ONE Stop: 01/08/19 20:21 Last Admin: 01/08/19 20:41 Dose: 204 mls/hr Metoprolol Tartrate (Lopressor) 25 mg PO Q12H [facility] Last Admin: 01/08/19 20:20 Dose: Not Given Metoprolol Tartrate (Lopressor) 5 mg IVPUSH ONETIME ONE Stop: 01/08/19 18:25 Last Admin: 01/08/19 18:30 Dose: 5 mg Zolpidem Tartrate (Ambien) 5 mg PO BEDTIME PRN PRN Reason: Sleep - Exam Quality Assessment: No: Supplemental Oxygen General: Alert, Oriented, Cooperative, No Acute Distress, Other (Morbidly Obese) HEENT: Pupils Equal, Pupils Reactive, EOMI, Mucous Membr. Moist/[place] Neck: Supple Lungs: Clear to Auscultation, Normal Respiratory Effort Cardiovascular: Irregular Rhythm. No: Regular Rate GI/Abdominal Exam: Normal Bowel Sounds, Soft, Non-Tender, No Organomegaly, No Distention, No Abnormal Bruit, Other (Obese) (Male) Exam: Deferred Back Exam: Normal Inspection, Decreased Range of Motion Extremities: Normal Range of Motion, Pedal Edema, Redness (left lower leg- slightly improved), Other (left leg less warmth to the touch) Peripheral Pulses: 1+: Posterior Tibial (L), Posterior Tibial (R), Dorsalis Pedis (L), Dorsalis Pedis (R) Skin: Warm, Dry, Intact Neurological: No New Focal Deficit. No: Normal Gait Psy/Mental Status: Alert, Normal Affect, Normal Mood - Problem List Review Problem List Initiated/Reviewed/Updated: Yes - My Orders Last 24 Hours: My Active Orders 01/08/19 17:33 Acetaminophen/oxyCODONE [Percocet 325-5 MG] 1 tab PO DAILY PRN 01/08/19 17:34 Height and Weight [RC] 0400 Oxygen Therapy [RC] PRN Up ad Glendy [RC] ASDIRECTED VTE/DVT Education [RC] Consult to Case Management/Child Development Consultant [CONS] Routine Consult to Board Winder [CONS] Routine Consult to Spiritual Care [CONS] Routine OT Evaluation and Treatment [CONS] Routine PT Evaluation and Treatment [CONS] Routine Acetaminophen [Tylenol] 650 mg PO Q4H PRN Acetaminophen/HYDROcodone [Benzonia 325-5 MG] 1 tab PO Q4H PRN Bisacodyl [Dulcolax] 5 mg PO DAILY PRN Docusate Sodium [Colace] 100 mg PO BID PRN Docusate Sodium/Sennosides [Senna Plus] 1 tab PO BID PRN HYDROmorphone [Dilaudid] 0.25 mg IVPUSH Q2H PRN LORazepam [Ativan] 1 mg IV Q6H PRN Ondansetron [Zofran] 4 mg IV Q6H PRN Polyethylene Glycol 3350 [MiraLAX] 17 gm PO DAILY PRN Promethazine [Phenergan] 6.25 mg Sodium Chloride 0.9% [Normal Saline] 50 ml IV Q6H Resuscitation Status Routine 01/08/19 17:35 Intake and Output [RC] PRN 01/08/19 17:37 RT Aerosol Therapy [RC] ASDIRECTED 01/08/19 17:40 Blood Glucose Check, Bedside [RC] QIDACANDBED Dextrose 50% in Water 50 ml IVPUSH ASDIRECTED PRN 01/08/19 18:00 Albuterol/Ipratropium [DuoNeb 3.0-0.5 MG/3 ML] 3 ml NEB Q4HRRT PRN 01/08/19 18:06 Temazepam [Restoril] 15 mg PO BEDTIME PRN 01/08/19 19:10 Lung Vent Perfusion [NM] Stat Venous Doppler Lwr Ext Bi [US] Stat 01/08/19 19:12 Antiembolic Devices [RC] PER UNIT ROUTINE MYRON Hose [Antiembolic Hose] [OM.PC] Routine 01/08/19 19:16 Metoprolol Tartrate [Lopressor] 5 mg IVPUSH Q4H PRN 01/08/19 19:49 Intake and Output Strict [RC] 04,16 01/08/19 20:10 Hemoccult [OCCULT BLOOD DIAGNOSTIC] [OP] Routine 01/08/19 20:22 LORazepam [Ativan] 2 mg IVPUSH Q4H PRN Precautions [COMM] Routine 01/08/19 20:24 CIWAA Assessment [RC] Q4HR LORazepam [Ativan] See Protocol IVPUSH Q4H PRN 01/08/19 20:45 cefTRIAXone [Rocephin] 1 gm Sodium Chloride 0.9% [Normal Saline] 100 ml IV Q24H 01/08/19 21:00 Apixaban [Eliquis] 5 mg PO BID Folic Acid 1 mg PO BEDTIME Insulin Glarg,Human.Rec.Analog [LantUS] 22 unit SUBCUT BEDTIME Metoprolol Tartrate [Lopressor] 25 mg PO Q12H Multivitamins,Therapeutic [Thera] 1 each PO BEDTIME Tamsulosin [Flomax] 0.4 mg PO BID hydroCHLOROthiazide 12.5 mg PO BEDTIME 01/08/19 22:00 Insulin Lispro [HumaLOG] See Protocol SUBCUT QIDACANDBED 01/08/19 Dinner 2 Gram Sodium Diet [DIET] Consistent Carbohydrate Diet [DIET] Heart Healthy Diet [DIET] 01/09/19 06:05 BASIC METABOLIC PANEL,BMP [CHEM] AM CRP [C-REACTIVE PROTEIN] [CHEM] AM FE, TIBC, TRANSFERRIN, FE SAT [CHEM] Routine FOLIC ACID [CHEM] Routine LIPID PANEL [CHEM] AM MAGNESIUM [CHEM] AM METHYLMALONIC ACID, SERUM [REF] DAILY T4 FREE [CHEM] Routine VITAMIN B12 [CHEM] AM VITAMIN D,25-HYDROXY [CHEM] AM 01/09/19 07:00 Echo Comp wo Cont [US] Routine Pantoprazole [ProTONIX] 40 mg PO DAILY@0700 01/09/19 08:00 Furosemide [Lasix] 100 mg Sodium Chloride 0.9% [Normal Saline] 100 ml IV TITRATE 01/09/19 09:00 Finasteride [Proscar] 5 mg PO DAILY Levothyroxine [Synthroid] 100 mcg PO DAILY Magnesium Oxide 400 mg PO BID Rosuvastatin [Crestor] 5 mg PO DAILY Spironolactone [Aldactone] 100 mg PO DAILY 01/09/19 21:00 Thiamine [Vitamin B-1] 100 mg PO BEDTIME 01/10/19 05:00 PRO B-TYPE NATRIUR PEPT,BNPPRO [CHEM] DAILY 01/10/19 05:11 BASIC METABOLIC PANEL,BMP [CHEM] AM CBC WITH AUTO DIFF [HEME] AM MAGNESIUM [CHEM] AM 01/10/19 09:00 Furosemide [Lasix] 20 mg PO SuMoWeFr@0900 01/11/19 05:00 PRO B-TYPE NATRIUR PEPT,BNPPRO [CHEM] DAILY 01/11/19 05:11 BASIC METABOLIC PANEL,BMP [CHEM] AM CBC WITH AUTO DIFF [HEME] AM MAGNESIUM [CHEM] AM 01/12/19 05:00 PRO B-TYPE NATRIUR PEPT,BNPPRO [CHEM] DAILY 01/12/19 05:11 BASIC METABOLIC PANEL,BMP [CHEM] AM CBC WITH AUTO DIFF [HEME] AM MAGNESIUM [CHEM] AM 01/13/19 05:11 MAGNESIUM [CHEM] AM - Plan Plan:: Assessment: Acute Atrial Fibrillation - New Onset - HR as high as 130s in ED; HR in the low hundreds to low teens - EKG shows atrial fibrillation with HR of 174 with prolonged QTc of 471 - TSH is wnl; FT4 is 1.5 (elevated) could the reason why he is in atrial fibrillation - Received Cardizem bolus and was put on Cardizem drip; now off - Responded to Metoprolol last night; start Metoprolol Tartrate 50 mg po BID - [id number] score of 5 (high risk for stroke) with HAS-BLED Score of 4 ( high risk for major bleeding) - Eliquis 2.5 mg po BID for pharmacy to renally dose - 2D echo come Friday Heart Failure with Peripheral Edema - ProBNP of 7223; repeat level this AM shows 5113 - CXR shows no acute abnormal findings - Complaints of shortness of breath plus significant peripheral edema - UA shows elevated protein level (has proteinuria) - 2D echo come Friday to confirm - Heart failure regimen: diuretics, salt/fluid restrictions, daily weight check, and Is/Os - Peripheral edema may just be due to low albumin state from liver disease, proteinuria and vascular insufficiency - Lasix drip today at low rate Macrocytic Normochromic Anemia - Hgb of 13.3-12.5; at baseline with Hgb level - MCV is 100.8--> same - B12 - 5113 (high) - Folic Acid 6.0 - low; now on supplement - Thiamine and MMA - pending - Iron Panel: low transferrin and Iron levels--> likely 2/2 malnutrition and alcoholism - Heme-occult test ordered; also had some rectal bleeding seen on bed pads Thrombocytopenia - Acute on chronic 2/2 Liver Cirrhosis and Chronic ETOH Use - Platelet of 24K--> improved to 30K; Baseline is 41-78 - No active bleeding - He is not on antiplatelet or anticoagulation Elevated D-Dimer - D-Dimer 3.28 - Joshua's sign positive on left lower extremity - Duplex U/S shows no PED -V/Q scan to r/o PE this morning - Chest CTA contraindicated due to Renal Insufficiency/CKD stage 3 - Eliquis po BID for pharmacy to dose Lactic Acidosis - LA of 2.3--> 2.4 in MA - 2/2 Metabolic has underlying CKD and Cellulitis - IV hydration - Repeat level this evening Erysipelas/Cellulitis - Left Lower Extremity - Risk factors: Morbid Obesity, Venous Insufficiency, DM and Chronic Leg Edema - CRP of 19.2--> 19.4 - Continue IV Rocephin 1 gram Daily - Compression stocking to improve edema and circulations Relative Hypotension - He came off Cardizem drip - May likely worsen with Lasix drip; will monitor - PRN Midodrine for BP < 100/60 mmHg DM2 - A1C is 5.4 - BS is well controlled - Accu-check QID with ISS Dyslipidemia - HLD is low - He takes Atorvastatin 5 mg p[o daily; will increase to 10 mg po daily - Continue AHA diet Morbid Obesity - Advised LSM - BMI of 40.8 - Dietary consult for weight management Hx/o ETOH Abuse/Use - Folic Acid, Thiamine, and MVI - PRN Ativan - CIWAA Protocol with Ativan Positive MRSA Screening - Bactroban topical TID for 5 days Rectal Bleed - Minimal rectal bleed on his bed pads - Hgb is stable otherwise - Likely 2/2 Hemorrhoids or rectal varices - Will continue to monitor Folic Acid Deficiency - Folate of 6.0 - 2/2 Malnutrition from chronic alcoholism - Folic acid supplement B/L Knee Pain - Both plain x-ray imaging studies: stable prothesis with nothing acute appreciated - PRN pain medication for management - PT/OT when appropriate Resolved: S/p Hypomagnesemia - Mg of 0.9--> 1.8 - 2/2 Poor intake - Replete and monitor Chronic: Impaired Vision, HTN, DM2, Hypothyroidism, GERD, CKD Stage 3, Chronic Peripheral Edema, Hx/o PVCs, Constipation, Hx/o Liver Cirrhosis with Ascites, Hx /o Fatty Liver Disease, BPH, Hx/o Renal Stone, OA/DJD, Substance Abuse, Hx/o MRSA and Morbid obesity Plan: He is much better clinically Routine AM Labs Fall Precautions due to Morbid Obesity DVT/Stroke Prophylaxis: Eliquis BID for pharmacy to dose GI Prophylaxis with PPI Continue Dutasteride home dose daily Cut down dose of Synthroid due to elevated FT4 level: 100 mg po to 75 mcg daily Dietary consult for weight management Lipid Panel- low HDL; Urine Cr and Protein- considerably elevated; Vit D level- wnl; FT4 is 1.50- high with normal TSH; will cut down thyroid dose PT/OT to assess and treat when appropriate SW/CM for d/c planning Possible SNF rehab Code status: full Additional orders as above Prognosis is guarded Met up and updated daughter at beside about his diagnoses, morning lab results, treatment and discharge care plan.
[2019-01-09] MEDS ORDERED: Furosemide 100 MG in Sodium Chloride 0.9% 100 ML IV SCH (08:00)
[2019-01-09 08:18] LABS: VITAMIN D,25-HYDROXY 37.8 ng/ml (30.0-100.0)
[2019-01-09] MEDS ORDERED: Midodrine 5 MG Tab PO STA (08:31)
[2019-01-09] MEDS: Finasteride 5 MG Tab PO SCH (08:50)
[2019-01-09] MEDS: Apixaban 5 MG Tab PO SCH ×2 (08:50→20:17)
[2019-01-09] MEDS: Spironolactone 100 MG Tab PO SCH (08:50)
[2019-01-09] MEDS: Magnesium Oxide 400 MG Tab PO SCH ×2 (08:52→20:17)
[2019-01-09] MEDS: Tamsulosin 0.4 MG Cap.ER PO SCH ×2 (08:52→20:17)
[2019-01-09] MEDS: Metoprolol Tartrate 25 MG Tab PO SCH ×2 (08:55→20:18)
[2019-01-09] MEDS: Rosuvastatin 10 MG Tab PO SCH (08:59)
[2019-01-09] MEDS ORDERED: Furosemide 20 MG Tab PO SCH (09:00)
[2019-01-09] MEDS ORDERED: Rosuvastatin 10 MG Tab PO SCH (09:00)
[2019-01-09] MEDS: Mupirocin Oint 22 GM Tube TOP SCH ×3 (09:00→20:15)
[2019-01-09] MEDS ORDERED: Levothyroxine 100 MCG Tab PO SCH (09:00)
[2019-01-09] MEDS ORDERED: Furosemide 100 MG in Sodium Chloride 0.9% 90 ML IV SCH (10:09)
[2019-01-09] MEDS: Midodrine 5 MG Tab PO SCH ×2 (11:55→17:16)
[2019-01-09] MEDS: cefTRIAXone 1 GM in Sodium Chloride 0.9% 100 ML IV SCH (20:15)
[2019-01-09] MEDS: Insulin Glarg,Human.Rec.Analog 100 UNIT/ML ML SUBCUT SCH (20:16)
[2019-01-09] MEDS: Temazepam 15 MG Cap PO PRN (20:17)
[2019-01-09] MEDS: Multivitamins,Therapeutic Tab PO SCH (20:17)
[2019-01-09] MEDS: Thiamine 100 MG Tab PO SCH (20:17)
[2019-01-09] MEDS: Folic Acid 1 MG Tab PO SCH (20:17)
[2019-01-09] MEDS: Hydrochlorothiazide 12.5 MG Cap PO SCH (20:17)
[2019-01-10] MEDS: LORazepam 2 MG/ML SDV IV PRN (04:25)
[2019-01-10] MEDS: Insulin Lispro 100 Units/ML 3 ML Vial SUBCUT SCH ×4 (06:20→21:11)
[2019-01-10] MEDS: Midodrine 5 MG Tab PO SCH ×3 (06:47→17:14)
[2019-01-10] MEDS: Levothyroxine 75 MCG Tab PO SCH (06:47)
[2019-01-10] MEDS: Pantoprazole 40 MG Tab.CR PO SCH (06:47)
[2019-01-10] MEDS ORDERED: Potassium Chloride 20 MEQ Tab.ER PO ONE (07:14)
[2019-01-10] MEDS ORDERED: Magnesium Sulfate/Water 2 GM in Premix Bag 1 BAG IV ONE (07:14)
--- NOTE | 2019-01-10 07:16 | PCM.PN ---
- General Info Date of Service: 01/10/19 Admission Dx/Problem (Free Text): Admission Diagnosis/Problem Admission Diagnosis/Problem Afib, Atrial fibrillation Subjective Update: Follow up Functional Status: Reports: Pain Controlled, Tolerating Diet, Ambulating, Urinating, New Symptoms - Review of Systems General: Denies: Fever, Weakness, Fatigue, Malaise, Chills HEENT: Reports: No Symptoms Pulmonary: Denies: Shortness of Breath Cardiovascular: Denies: Chest Pain, Lightheadedness Gastrointestinal: Denies: Abdominal Pain, Nausea, Vomiting Genitourinary: Reports: No Symptoms Musculoskeletal: Reports: No Symptoms Skin: Reports: Bruising Neurological: Denies: Difficulty Walking, Weakness, Gait Disturbance Psychiatric: Reports: Confusion. Denies: Anxiety, Agitation, Hallucinations, Suicidal Ideation, Homicidal Ideation Systems Review Comment:: No significant overnight issues but he was confused last night and seems to be worse this morning. However he is able to follow commands. His electrolytes were abnormal. - Patient Data Vitals - Most Recent: Last Vital Signs Temp 36.3 C 01/10/19 04:00 Pulse 105 H 01/09/19 20:18 Resp 17 01/10/19 04:00 BP 104/71 01/10/19 04:00 Pulse Ox 94 L 01/10/19 04:00 Weight - Most Recent: 115.666 kg I&O - Last 24 Hours: Intake & Output 01/09/19 01/10/19 01/10/19 22:59 06:59 14:59 Intake Total 1053 141 Output Total 400 1400 Balance 653 -1259 Lab Results Last 24 Hours: Laboratory Results - last 24 hr 01/09/19 01/09/19 01/09/19 Range/Units 06:05 06:05 06:05 WBC (4.23-9.07) K/mm3 RBC (4.63-6.08) M/mm3 Hgb (13.7-17.5) gm/L Hct (40.1-51.0) % MCV (79.0-92.2) fl MCH (25.7-32.2) pg MCHC (32.2-35.5) g/dl RDW Std Deviation (35.1-43.9) fL Plt Count (163-337) K/mm3 MPV (9.4-12.3) fl Neut % (Auto) (34.0-67.9) % Lymph % (Auto) (21.8-53.1) % [place] % (Auto) (5.3-12.2) % Eos % (Auto) (0.8-7.0) Baso % (Auto) (0.1-1.2) % Neut # (Auto) (1.78-5.38) K/mm3 Lymph # (Auto) (1.32-3.57) K/mm3 [place] # (Auto) (0.30-0.82) K/mm3 Eos # (Auto) (0.04-0.54) K/mm3 Baso # (Auto) (0.01-0.08) K/mm3 Manual Slide Review Sodium (136-145) mEq/L Potassium (3.5-5.1) mEq/L Chloride (98-107) mEq/L Carbon Dioxide (21-32) mEq/L Anion Gap (5-15) BUN (7-18) mg/dL Creatinine (0.7-1.3) mg/dL Est Cr Clr Drug Dosing mL/min Estimated GFR (MDRD) (>60) mL/min BUN/Creatinine Ratio (14-18) Glucose (80-115) mg/dL POC Glucose (80-115) mg/dL Lactic Acid (0.4-2.0) mmol/L Calcium (8.5-10.1) mg/dL Magnesium (1.8-2.4) mg/dl Iron 32 L (65-175) ug/dL TIBC 154 (100-400) ug/dL % Saturation 21 (20-55) % Transferrin 123 L (202-364) mg/dL Vitamin B12 (193-986) pg/ml Vitamin D 25-Hydroxy 37.8 (30.0-100.0) ng/ml Folate 6.1 L (8.6-58.9) ng/mL Free T4 1.50 H (0.76-1.46) ng/dL 01/09/19 01/09/19 01/09/19 Range/Units 06:05 08:31 11:54 WBC (4.23-9.07) K/mm3 RBC (4.63-6.08) M/mm3 Hgb (13.7-17.5) gm/L Hct (40.1-51.0) % MCV (79.0-92.2) fl MCH (25.7-32.2) pg MCHC (32.2-35.5) g/dl RDW Std Deviation (35.1-43.9) fL Plt Count (163-337) K/mm3 MPV (9.4-12.3) fl Neut % (Auto) (34.0-67.9) % Lymph % (Auto) (21.8-53.1) % [place] % (Auto) (5.3-12.2) % Eos % (Auto) (0.8-7.0) Baso % (Auto) (0.1-1.2) % Neut # (Auto) (1.78-5.38) K/mm3 Lymph # (Auto) (1.32-3.57) K/mm3 [place] # (Auto) (0.30-0.82) K/mm3 Eos # (Auto) (0.04-0.54) K/mm3 Baso # (Auto) (0.01-0.08) K/mm3 Manual Slide Review Sodium (136-145) mEq/L Potassium (3.5-5.1) mEq/L Chloride (98-107) mEq/L Carbon Dioxide (21-32) mEq/L Anion Gap (5-15) BUN (7-18) mg/dL Creatinine (0.7-1.3) mg/dL Est Cr Clr Drug Dosing mL/min Estimated GFR (MDRD) (>60) mL/min BUN/Creatinine Ratio (14-18) Glucose (80-115) mg/dL POC Glucose 90 101 (80-115) mg/dL Lactic Acid (0.4-2.0) mmol/L Calcium (8.5-10.1) mg/dL Magnesium (1.8-2.4) mg/dl Iron (65-175) ug/dL TIBC (100-400) ug/dL % Saturation (20-55) % Transferrin (202-364) mg/dL Vitamin B12 5113 H (193-986) pg/ml Vitamin D 25-Hydroxy (30.0-100.0) ng/ml Folate (8.6-58.9) ng/mL Free T4 (0.76-1.46) ng/dL 01/09/19 01/09/19 01/09/19 Range/Units 17:07 20:00 20:00 WBC (4.23-9.07) K/mm3 RBC (4.63-6.08) M/mm3 Hgb (13.7-17.5) gm/L Hct (40.1-51.0) % MCV (79.0-92.2) fl MCH (25.7-32.2) pg MCHC (32.2-35.5) g/dl RDW Std Deviation (35.1-43.9) fL Plt Count (163-337) K/mm3 MPV (9.4-12.3) fl Neut % (Auto) (34.0-67.9) % Lymph % (Auto) (21.8-53.1) % [place] % (Auto) (5.3-12.2) % Eos % (Auto) (0.8-7.0) Baso % (Auto) (0.1-1.2) % Neut # (Auto) (1.78-5.38) K/mm3 Lymph # (Auto) (1.32-3.57) K/mm3 [place] # (Auto) (0.30-0.82) K/mm3 Eos # (Auto) (0.04-0.54) K/mm3 Baso # (Auto) (0.01-0.08) K/mm3 Manual Slide Review Sodium 133 L (136-145) mEq/L Potassium 3.9 (3.5-5.1) mEq/L Chloride 98 (98-107) mEq/L Carbon Dioxide 27 (21-32) mEq/L Anion Gap 11.9 (5-15) BUN 41 H (7-18) mg/dL Creatinine 2.3 H (0.7-1.3) mg/dL Est Cr Clr Drug Dosing 29.28 mL/min Estimated GFR (MDRD) 29 (>60) mL/min BUN/Creatinine Ratio 17.8 (14-18) Glucose 124 H (80-115) mg/dL POC Glucose 86 (80-115) mg/dL Lactic Acid 2.2 H (0.4-2.0) mmol/L Calcium 8.5 (8.5-10.1) mg/dL Magnesium (1.8-2.4) mg/dl Iron (65-175) ug/dL TIBC (100-400) ug/dL % Saturation (20-55) % Transferrin (202-364) mg/dL Vitamin B12 (193-986) pg/ml Vitamin D 25-Hydroxy (30.0-100.0) ng/ml Folate (8.6-58.9) ng/mL Free T4 (0.76-1.46) ng/dL 01/09/19 01/10/19 01/10/19 Range/Units 20:15 05:01 05:01 WBC 8.32 (4.23-9.07) K/mm3 RBC 3.73 L (4.63-6.08) M/mm3 Hgb 12.9 L (13.7-17.5) gm/L Hct 37.0 L (40.1-51.0) % MCV 99.2 H (79.0-92.2) fl MCH 34.6 H (25.7-32.2) pg MCHC 34.9 (32.2-35.5) g/dl RDW Std Deviation 56.3 H (35.1-43.9) fL Plt Count 38 L (163-337) K/mm3 MPV 11.4 (9.4-12.3) fl Neut % (Auto) 71.6 H (34.0-67.9) % Lymph % (Auto) 10.2 L (21.8-53.1) % [place] % (Auto) 15.4 H (5.3-12.2) % Eos % (Auto) 2.2 (0.8-7.0) Baso % (Auto) 0.2 (0.1-1.2) % Neut # (Auto) 5.96 H (1.78-5.38) K/mm3 Lymph # (Auto) 0.85 L (1.32-3.57) K/mm3 [place] # (Auto) 1.28 H (0.30-0.82) K/mm3 Eos # (Auto) 0.18 (0.04-0.54) K/mm3 Baso # (Auto) 0.02 (0.01-0.08) K/mm3 Manual Slide Review Abnormal smear Sodium 134 L (136-145) mEq/L Potassium 3.3 L (3.5-5.1) mEq/L Chloride 99 (98-107) mEq/L Carbon Dioxide 23 (21-32) mEq/L Anion Gap 15.3 H (5-15) BUN 39 H (7-18) mg/dL Creatinine 2.2 H (0.7-1.3) mg/dL Est Cr Clr Drug Dosing 30.61 mL/min Estimated GFR (MDRD) 30 (>60) mL/min BUN/Creatinine Ratio 17.7 (14-18) Glucose 110 (80-115) mg/dL POC Glucose 122 H (80-115) mg/dL Lactic Acid (0.4-2.0) mmol/L Calcium 8.5 (8.5-10.1) mg/dL Magnesium 1.6 L (1.8-2.4) mg/dl Iron (65-175) ug/dL TIBC (100-400) ug/dL % Saturation (20-55) % Transferrin (202-364) mg/dL Vitamin B12 (193-986) pg/ml Vitamin D 25-Hydroxy (30.0-100.0) ng/ml Folate (8.6-58.9) ng/mL Free T4 (0.76-1.46) ng/dL Med Orders - Current: Current Medications Acetaminophen (Tylenol) 650 mg PO Q4H PRN PRN Reason: Pain (Mild 1-3)/fever Hydrocodone Bitart/Acetaminophen ([place] 325-5 Mg) 1 tab PO Q4H PRN PRN Reason: Pain (moderate 4-6) Last Admin: 01/09/19 09:55 Dose: 1 tab Albuterol/Ipratropium (Duoneb 3.0-0.5 Mg/3 Ml) 3 ml NEB Q4HRRT PRN PRN Reason: Shortness Of Breath/wheezing Apixaban (Eliquis) 5 mg PO BID MIKO Last Admin: 01/09/19 20:17 Dose: 5 mg Bisacodyl (Dulcolax) 5 mg PO DAILY PRN PRN Reason: Constipation Dextrose/Water (Dextrose 50% In Water) 50 ml IVPUSH ASDIRECTED PRN PRN Reason: Hypoglycemia Docusate Sodium (Colace) 100 mg PO BID PRN PRN Reason: Constipation Last Admin: 01/09/19 13:40 Dose: 100 mg Finasteride (Proscar) 5 mg PO DAILY [facility] Last Admin: 01/09/19 08:50 Dose: 5 mg Folic Acid (Folic Acid) 1 mg PO BEDTIME MIKO Last Admin: 01/09/19 20:17 Dose: 1 mg Furosemide (Lasix) 20 mg PO SuMoWeFr@0900 [facility] Hydrochlorothiazide (Hydrochlorothiazide) 12.5 mg PO BEDTIME MIKO Last Admin: 01/09/19 20:17 Dose: 12.5 mg Hydromorphone HCl (Dilaudid) 0.25 mg IVPUSH Q2H PRN PRN Reason: Pain (severe 7-10) Last Admin: 01/09/19 01:04 Dose: 0.25 mg Diltiazem HCl 125 mg/ Sodium (Chloride) 125 mls @ 10 mls/hr IV TITRATE [facility]; Protocol Last Titration: 01/08/19 22:25 Dose: 0 mg/hr, 0 mls/hr Promethazine HCl 6.25 mg/ (Sodium Chloride) 50.25 mls @ 100 mls/hr IV Q6H PRN PRN Reason: Nausea/Vomiting Ceftriaxone Sodium 1 gm/ (Sodium Chloride) 100 mls @ 200 mls/hr IV Q24H [facility] Last Admin: 01/09/19 20:15 Dose: 200 mls/hr Magnesium Sulfate 2 gm/ Premix 50 mls @ 25 mls/hr IV ONETIME ONE Stop: 01/10/19 09:13 Insulin Glargine (Lantus) 22 unit SUBCUT BEDTIME [facility] Last Admin: 01/09/19 20:16 Dose: 22 units Insulin Human Lispro (Humalog) 0 unit SUBCUT QIDACANDBED [facility]; Protocol Last Admin: 01/10/19 06:20 Dose: Not Given Levothyroxine Sodium (Levothyroxine) 75 mcg PO ACBREAKFAST [facility] Last Admin: 01/10/19 06:47 Dose: 75 mcg Lorazepam (Ativan) 1 mg IV Q6H PRN PRN Reason: Anxiety Last Admin: 01/10/19 04:25 Dose: 1 mg Lorazepam (Ativan) 2 mg IVPUSH Q4H PRN PRN Reason: Seizures Lorazepam (Ativan) 0 mg IVPUSH Q4H PRN; Protocol PRN Reason: Withdrawal Symptoms Magnesium Oxide (Magnesium Oxide) 400 mg PO BID [facility] Last Admin: 01/09/19 20:17 Dose: 400 mg Metoprolol Tartrate (Lopressor) 5 mg IVPUSH Q4H PRN PRN Reason: Tachycardia Last Admin: 01/09/19 17:01 Dose: 5 mg Metoprolol Tartrate (Lopressor) 50 mg PO Q12H [facility] Last Admin: 01/09/19 20:18 Dose: 50 mg Midodrine (Midodrine) 10 mg PO TIDAC [facility] Last Admin: 01/10/19 06:47 Dose: 10 mg Multivitamins (Thera) 1 each PO BEDTIME [facility] Last Admin: 01/09/19 20:17 Dose: 1 each Mupirocin (Bactroban Oint) 0 gm TOP TID [facility] Stop: 01/14/19 09:01 Last Admin: 01/09/19 20:15 Dose: 1 g Ondansetron HCl (Zofran) 4 mg IV Q6H PRN PRN Reason: Nausea/Vomiting Oxycodone/Acetaminophen (Percocet 325-5 Mg) 1 tab PO DAILY PRN PRN Reason: Pain (severe 7-10) Pantoprazole Sodium (Protonix) 40 mg PO DAILY@0700 [facility] Last Admin: 01/10/19 06:47 Dose: 40 mg Polyethylene Glycol (Miralax) 17 gm PO DAILY PRN PRN Reason: Constipation Potassium Chloride (Klor-Con M20) 60 meq PO ONETIME ONE Stop: 01/10/19 07:15 Rosuvastatin Calcium (Crestor) 10 mg PO DAILY [facility] Last Admin: 01/09/19 08:59 Dose: 10 mg Senna/Docusate Sodium (Senna Plus) 1 tab PO BID PRN PRN Reason: Constipation Sodium Chloride (Saline Flush) 10 ml FLUSH ASDIRECTED PRN PRN Reason: Keep Vein Open Last Admin: 01/08/19 12:53 Dose: 10 ml Spironolactone (Aldactone) 100 mg PO DAILY [facility] Last Admin: 01/09/19 08:50 Dose: 100 mg Tamsulosin HCl (Flomax) 0.4 mg PO BID [facility] Last Admin: 01/09/19 20:17 Dose: 0.4 mg Temazepam (Restoril) 15 mg PO BEDTIME PRN PRN Reason: Insomnia Last Admin: 01/09/19 20:17 Dose: 15 mg Thiamine HCl (Vitamin B-1) 100 mg PO BEDTIME MIKO Last Admin: 01/09/19 20:17 Dose: 100 mg Discontinued Medications Albuterol/Ipratropium (Duoneb 3.0-0.5 Mg/3 Ml) 3 ml NEB Q4H PRN PRN Reason: Shortness Of Breath/wheezing Diltiazem HCl (Cardizem) 10 mg IVPUSH ONETIME ONE Stop: 01/08/19 12:43 Last Admin: 01/08/19 12:52 Dose: 10 mg Furosemide (Lasix) 20 mg PO DAILY MIKO Furosemide (Lasix) 20 mg PO SuMoWeFr@0900 [facility] Sodium Chloride (Normal Saline) 500 mls @ 999 mls/hr IV ONETIME ONE Stop: 01/08/19 13:12 Last Admin: 01/08/19 12:52 Dose: 999 mls/hr Magnesium Sulfate 2 gm/ Premix 50 mls @ 50 mls/hr IV ONETIME ONE Stop: 01/08/19 15:05 Last Admin: 01/08/19 16:40 Dose: 50 mls/hr Amiodarone HCl/Dextrose (Nexterone In Dextrose 360 Mg/200 Ml) 200 mls @ 33.333 mls/hr IV ASDIRECTED MIKO; Protocol Lactated Ringer's (Ringers, Lactated) 500 mls @ 450 mls/hr IV BOLUS ONE Stop: 01/08/19 20:48 Last Admin: 01/08/19 20:04 Dose: 450 mls/hr Furosemide 100 mg/ Sodium (Chloride) 110 mls @ 2.5 mls/hr IV TITRATE MIKO; Protocol Ceftriaxone Sodium 1 gm/ (Sodium Chloride) 100 mls @ 200 mls/hr IV Q24H [facility] Last Admin: 01/08/19 20:50 Dose: Not Given Magnesium Sulfate 2 gm/ Premix 50 mls @ 25 mls/hr IV ONETIME ONE Stop: 01/08/19 22:16 Last Admin: 01/08/19 20:40 Dose: 25 mls/hr Thiamine HCl 200 mg/ Sodium (Chloride) 102 mls @ 204 mls/hr IV ONETIME ONE Stop: 01/08/19 20:21 Last Admin: 01/08/19 20:41 Dose: 204 mls/hr Furosemide 100 mg/ Sodium (Chloride) 100 mls @ 2.273 mls/hr IV TITRATE [facility]KO; Protocol Last Admin: 01/09/19 11:34 Dose: 2.5 mls/hr Insulin Glargine (Lantus) 22 unit SUBCUT BEDTIME [facility] Last Admin: 01/08/19 20:06 Dose: 22 unit Levothyroxine Sodium (Synthroid) 100 mcg PO DAILY [facility] Last Admin: 01/09/19 08:51 Dose: 100 mcg Metoprolol Tartrate (Lopressor) 25 mg PO Q12H [facility] Last Admin: 01/08/19 20:20 Dose: Not Given Metoprolol Tartrate (Lopressor) 5 mg IVPUSH ONETIME ONE Stop: 01/08/19 18:25 Last Admin: 01/08/19 18:30 Dose: 5 mg Metoprolol Tartrate (Lopressor) 25 mg PO Q12H [facility] Last Admin: 01/08/19 20:01 Dose: 25 mg Midodrine (Midodrine) 10 mg PO NOW STA Stop: 01/09/19 08:32 Last Admin: 01/09/19 08:48 Dose: 10 mg Rosuvastatin Calcium (Crestor) 5 mg PO DAILY [facility] Zolpidem Tartrate (Ambien) 5 mg PO BEDTIME PRN PRN Reason: Sleep - Exam General: Cooperative, No Acute Distress, Other (awake). No: Oriented HEENT: Pupils Equal, Pupils Reactive, Mucous Membr. Moist/[place] Neck: Supple Lungs: Normal Respiratory Effort, Decreased Breath Sounds Cardiovascular: Regular Rate, Regular Rhythm GI/Abdominal Exam: Normal Bowel Sounds, Soft, Non-Tender, No Organomegaly, No Distention, No Abnormal Bruit (Male) Exam: Other (indwelling dolan) Back Exam: Normal Inspection, Decreased Range of Motion Extremities: Normal Inspection, Normal Range of Motion, Normal Capillary Refill , Pedal Edema, Redness (improving) Peripheral Pulses: 1+: Dorsalis Pedis (L), Dorsalis Pedis (R) Skin: Warm, Dry, Intact, Ecchymosis (large area on lateral aspect of his left lower extremity) Neurological: No New Focal Deficit. No: Normal Gait Psy/Mental Status: Alert, Normal Affect, Normal Mood Physical Findings Comments:: Pleasantly confused - Problem List Review Problem List Initiated/Reviewed/Updated: Yes - My Orders Last 24 Hours: My Active Orders 01/09/19 07:00 Pantoprazole [ProTONIX] 40 mg PO DAILY@0700 01/09/19 09:00 Finasteride [Proscar] 5 mg PO DAILY Magnesium Oxide 400 mg PO BID Metoprolol Tartrate [Lopressor] 50 mg PO Q12H Mupirocin Oint [Bactroban Oint] 0 gm TOP TID Rosuvastatin [Crestor] 10 mg PO DAILY Spironolactone [Aldactone] 100 mg PO DAILY 01/09/19 11:00 Midodrine 10 mg PO TIDAC 01/09/19 11:08 Insulin Glarg,Human.Rec.Analog [LantUS] 22 unit SUBCUT BEDTIME 01/09/19 19:30 Insert Urinary Catheter [OM.PC] Q24H 01/09/19 19:38 Urinary Catheter Assessment [RC] Q4HR 01/09/19 21:00 Thiamine [Vitamin B-1] 100 mg PO BEDTIME 01/10/19 05:01 PRO B-TYPE NATRIUR PEPT,BNPPRO [CHEM] DAILY 01/10/19 06:00 Levothyroxine 75 mcg PO ACBREAKFAST 01/10/19 07:14 Magnesium Sulfate/Water [Magnesium Sulfate in Water Premix] 2 gm Premix Bag 1 bag IV ONETIME Potassium Chloride [Klor-Con M20] 60 meq PO ONETIME ONE 01/10/19 09:00 Furosemide [Lasix] 20 mg PO SuMoWeFr@0900 01/11/19 05:00 PRO B-TYPE NATRIUR PEPT,BNPPRO [CHEM] DAILY 01/11/19 05:11 BASIC METABOLIC PANEL,BMP [CHEM] AM CBC WITH AUTO DIFF [HEME] AM MAGNESIUM [CHEM] AM 01/11/19 07:00 Echo Comp wo Cont [US] Routine 01/11/19 19:10 Lung Vent Perfusion [NM] Stat 01/12/19 05:00 PRO B-TYPE NATRIUR PEPT,BNPPRO [CHEM] DAILY 01/12/19 05:11 BASIC METABOLIC PANEL,BMP [CHEM] AM CBC WITH AUTO DIFF [HEME] AM MAGNESIUM [CHEM] AM 01/13/19 05:11 MAGNESIUM [CHEM] AM - Plan Plan:: Assessment: Acute: AMS - 2/2 Hepatic Encephalopathy plus Metabolic from electrolytes abnormality - Carries a hx/o Liver Cirrhosis - Order Ammonia level stat - May need to start lactulose - Fall Precautions Atrial Fibrillation - New Onset - HR as high as 130s in ED; HR now mostly controlled - EKG shows atrial fibrillation with HR of 174 with prolonged QTc of 471 - TSH is wnl; FT4 is 1.5 (elevated) could the reason why he is in atrial fibrillation - Received Cardizem bolus and was put on Cardizem drip; now off - Responded to Metoprolol last night; start Metoprolol Tartrate 50 mg po BID - [id number] score of 5 (high risk for stroke) with HAS-BLED Score of 4 ( high risk for major bleeding) - Eliquis 2.5 mg po BID for pharmacy to renally dose - 2D echo come Friday Heart Failure with Peripheral Edema, Improving - ProBNP of 7223--> 5113 --> 1941 - CXR shows no acute abnormal findings - Complaints of shortness of breath plus significant peripheral edema - UA shows elevated protein level (has proteinuria) - 2D echo come Friday to confirm - Heart failure regimen: diuretics, salt/fluid restrictions, daily weight check, and Is/Os - Peripheral edema may just be due to low albumin state from liver disease, proteinuria and vascular insufficiency - Discontinue Lasix drip and resume home dose regimen Macrocytic Normochromic Anemia, Stable - Hgb of 13.3-->12.5--> 12.9; at baseline with Hgb level - MCV is 100.8--> same - B12 - 5113 (high) - Folic Acid 6.0 - low; now on supplement - Thiamine and MMA - pending - Iron Panel: low transferrin and Iron levels--> likely 2/2 malnutrition and alcoholism - Heme-occult test ordered; also had some rectal bleeding seen on bed pads Thrombocytopenia, Stable - Acute on chronic 2/2 Liver Cirrhosis and Chronic ETOH Use - Platelet of 24K--> 30K--> 38K; Baseline is 41-78 - No active bleeding - He is not on antiplatelet or anticoagulation Elevated D-Dimer - D-Dimer 3.28 - Joshua's sign positive on left lower extremity - Duplex U/S shows no PED - V/Q scan to r/o PE this morning - Chest CTA contraindicated due to Renal Insufficiency/CKD stage 3 - Eliquis po BID for pharmacy to dose Lactic Acidosis, Improving - LA of 2.3--> 2.4 --> 2.2 ( maybe chronic due to CKD and Liver Cirrhosis) - 2/2 Metabolic has underlying CKD and Cellulitis - IV hydration Erysipelas/Cellulitis, Improving - Left Lower Extremity: less erythema, no warmth, less edema, non tender to palpation - Risk factors: Morbid Obesity, Venous Insufficiency, DM and Chronic Leg Edema - CRP of 19.2--> 19.4 - Continue IV Rocephin 1 gram Daily - Compression stocking to improve edema and circulations DM2 - A1C is 5.4 - BS is well controlled - Accu-check QID with ISS Dyslipidemia - HLD is low - He takes Atorvastatin 5 mg p[o daily; will increase to 10 mg po daily - Continue AHA diet Morbid Obesity - Advised LSM - BMI of 40.8 - Dietary consult for weight management Hx/o ETOH Abuse/Use - Folic Acid, Thiamine, and MVI - PRN Ativan - CIWAA Protocol with Ativan Positive MRSA Screening - Bactroban topical TID for 5 days Rectal Bleed - Minimal rectal bleed on his bed pads - Hgb is stable otherwise - Likely 2/2 Hemorrhoids or rectal varices - Will continue to monitor Folic Acid Deficiency - Folate of 6.0 - 2/2 Malnutrition from chronic alcoholism - Folic acid supplement B/L Knee Pain, Stable - Both plain x-ray imaging studies: stable prothesis with nothing acute appreciated - PRN pain medication for management - PT/OT when appropriate Hypokalemia - K of 3.3 - He has been on lasix - Replete and monitor Hypomagnesemia - Mg of 1.4 - 2/2 diuresis - Replete and monitor Resolved: S/p Hypomagnesemia - Mg of 0.9--> 1.8 - 2/2 Poor intake - Replete and monitor S/p Relative Hypotension - He came off Cardizem drip - May likely worsen with Lasix drip; will monitor - PRN Midodrine for BP < 100/60 mmHg Chronic: Impaired Vision, HTN, DM2, Hypothyroidism, GERD, CKD Stage 3, Chronic Peripheral Edema, Hx/o PVCs, Constipation, Hx/o Liver Cirrhosis with Ascites, Hx /o Fatty Liver Disease, BPH, Hx/o Renal Stone, OA/DJD, Substance Abuse, Hx/o MRSA and Morbid obesity Plan: He is hemodynamically stable but confused but able to follow commands Routine AM Labs Fall Precautions due to Morbid Obesity DVT/Stroke Prophylaxis: Eliquis BID for pharmacy to dose GI Prophylaxis with PPI Dietary consult for weight management PT/OT to assess and treat when appropriate SW/CM for d/c planning Possible SNF rehab Code status: full Additional orders as above Prognosis is guarded
[2019-01-10] MEDS ORDERED: Furosemide 20 MG Tab PO SCH (09:00)
[2019-01-10] MEDS: Mupirocin Oint 22 GM Tube TOP SCH ×3 (09:21→20:10)
[2019-01-10] MEDS: Metoprolol Tartrate 25 MG Tab PO SCH ×2 (09:23→20:09)
[2019-01-10] MEDS: Furosemide 20 MG Tab PO SCH (09:24)
[2019-01-10] MEDS: Rosuvastatin 10 MG Tab PO SCH (09:25)
[2019-01-10] MEDS: Finasteride 5 MG Tab PO SCH (09:25)
[2019-01-10] MEDS: Tamsulosin 0.4 MG Cap.ER PO SCH ×2 (09:25→20:07)
[2019-01-10] MEDS: Spironolactone 100 MG Tab PO SCH (09:25)
[2019-01-10] MEDS: Apixaban 5 MG Tab PO SCH ×2 (09:26→20:07)
[2019-01-10] MEDS: Magnesium Oxide 400 MG Tab PO SCH ×2 (09:26→20:07)
--- NOTE | 2019-01-10 13:29 | US ---
Bilateral lower extremity deep venous ultrasound: Duplex and color flow imaging was obtained of the right and left common femoral, proximal greater saphenous, superficial femoral, popliteal, posterior tibial and peroneal veins. Findings: Soft tissue edema noted within both lower extremities. Deep veins within both lower extremities show normal phasic flow, augmentation and compression. Right distal superficial femoral vein is duplicated. There was suboptimal compression of the right popliteal vein due to patient complaining of pain but normal phasic flow and augmentation are seen in this area. Impression: 1. Subcutaneous edema within both lower extremities. 2. No evidence of deep venous thrombosis is seen within the right or left lower extremities. Diagnostic code #2 I agree with preliminary report issued by [facility] ([facility] report finalized on 01/08/19, 10:56 PM Central Time.
[2019-01-10] MEDS: Lactulose Soln 10 GM/15 ML 30 ML UD Cup PO SCH ×3 (13:53→20:08)
[2019-01-10] MEDS: cefTRIAXone 1 GM in Sodium Chloride 0.9% 100 ML IV SCH (20:06)
[2019-01-10] MEDS: Insulin Glarg,Human.Rec.Analog 100 UNIT/ML ML SUBCUT SCH (20:06)
[2019-01-10] MEDS: Multivitamins,Therapeutic Tab PO SCH (20:07)
[2019-01-10] MEDS: Folic Acid 1 MG Tab PO SCH (20:07)
[2019-01-10] MEDS: Thiamine 100 MG Tab PO SCH (20:07)
[2019-01-10] MEDS: Temazepam 15 MG Cap PO PRN (20:07)
[2019-01-10] MEDS: Hydrochlorothiazide 12.5 MG Cap PO SCH (20:08)
[2019-01-11] MEDS: Levothyroxine 75 MCG Tab PO SCH (06:12)
[2019-01-11] MEDS: Midodrine 5 MG Tab PO SCH ×3 (06:13→17:16)
[2019-01-11] MEDS: Pantoprazole 40 MG Tab.CR PO SCH (06:13)
[2019-01-11] MEDS: Insulin Lispro 100 Units/ML 3 ML Vial SUBCUT SCH ×3 (06:27→17:15)
[2019-01-11] MEDS: Magnesium Oxide 400 MG Tab PO SCH ×2 (08:49→21:29)
[2019-01-11] MEDS: Finasteride 5 MG Tab PO SCH (08:49)
[2019-01-11] MEDS: Lactulose Soln 10 GM/15 ML 30 ML UD Cup PO SCH ×3 (08:49→21:28)
[2019-01-11] MEDS: Furosemide 20 MG Tab PO SCH (08:50)
[2019-01-11] MEDS: Metoprolol Tartrate 25 MG Tab PO SCH ×2 (08:50→21:30)
[2019-01-11] MEDS: Mupirocin Oint 22 GM Tube TOP SCH ×3 (08:50→21:31)
[2019-01-11] MEDS: Potassium Chloride 20 MEQ Tab.ER PO SCH ×2 (08:50→21:29)
[2019-01-11] MEDS: Tamsulosin 0.4 MG Cap.ER PO SCH ×2 (08:50→21:29)
[2019-01-11] MEDS: Rosuvastatin 10 MG Tab PO SCH (08:50)
[2019-01-11] MEDS: Apixaban 5 MG Tab PO SCH ×2 (08:50→21:29)
[2019-01-11] MEDS: Spironolactone 25 MG Tab PO SCH (08:55)
--- NOTE | 2019-01-11 15:18 | NM ---
Ventilation/perfusion lung scan Technique: 2.2 mCi of technetium 99m MAA was given intravenously. Scintigraphic imaging then obtained over the chest. Following this, 40 mCi of technetium 99m DTPA was aerosolized and continued scintigraphic imaging was performed over the chest. Comparison: Prior chest x-ray performed on 01/08/19. Findings: Matched defects are seen between perfusion and ventilation study. No mismatched defects are seen. Impression: 1. Multiple matched defects. Findings correlate to an indeterminate probability of pulmonary embolism. Diagnostic code #2
--- NOTE | 2019-01-11 17:02 | PCM.PN ---
<Carlitos Blankenship - Last Filed: 01/11/19 16:55> - General Info Date of Service: 01/11/19 Admission Dx/Problem (Free Text): Admission Diagnosis/Problem Admission Diagnosis/Problem Afib, Atrial fibrillation Subjective Update: Jose was sleeping comfortably in bed, then awoken for rounds today. He was very sleepy during the interview. Patient states he is feeling good today. He is now oriented to person, place, and time. He has no specific complaints at this time. Nursing reports his orientation has improved from this morning. RN reports he is still feeling quite tender on his knees and legs, especially when moving around. Patient reports some mild diarrhea. Patient continues to deny chest pain, dizziness, lightheadedness, and shortness of breath. - Review of Systems General: Reports: No Symptoms HEENT: Reports: No Symptoms Pulmonary: Reports: No Symptoms Cardiovascular: Reports: No Symptoms, Edema (Bilateral leg/pedal edema) Gastrointestinal: Reports: Diarrhea Genitourinary: Reports: No Symptoms Musculoskeletal: Reports: Leg Pain, Foot Pain, Joint Pain (bilateral knees) Neurological: Denies: Headache, Syncope, Tremors Psychiatric: Reports: No Symptoms - Patient Data Vitals - Most Recent: Last Vital Signs Temp 97 F 01/11/19 16:00 Pulse 97 01/11/19 08:50 Resp 18 01/11/19 16:00 BP 91/68 01/11/19 16:00 Pulse Ox 92 L 01/11/19 16:00 Weight - Most Recent: 110.495 kg I&O - Last 24 Hours: Intake & Output 01/11/19 01/11/19 01/11/19 06:59 14:59 22:59 Intake Total 49 280 400 Output Total 1375 495 200 Balance -1326 -215 200 Imaging Impressions - Last 24 Hours: Patient was sent for V/Q scan. Impression was: 1. Multiple matched defects. Findings correlate to an indeterminate probability of pulmonary embolism. Lab Results Last 24 Hours: Laboratory Results - last 24 hr 01/10/19 01/10/19 01/11/19 Range/Units 17:02 20:13 05:30 WBC 9.51 H (4.23-9.07) K/mm3 RBC 3.87 L (4.63-6.08) M/mm3 Hgb 13.4 L (13.7-17.5) gm/L Hct 38.2 L (40.1-51.0) % MCV 98.7 H (79.0-92.2) fl MCH 34.6 H (25.7-32.2) pg MCHC 35.1 (32.2-35.5) g/dl RDW Std Deviation 56.7 H (35.1-43.9) fL Plt Count 64 L (163-337) K/mm3 MPV 11.4 (9.4-12.3) fl Neut % (Auto) 65.3 (34.0-67.9) % Lymph % (Auto) 12.1 L (21.8-53.1) % Norman % (Auto) 18.0 H (5.3-12.2) % Eos % (Auto) 2.5 (0.8-7.0) Baso % (Auto) 0.5 (0.1-1.2) % Neut # (Auto) 6.21 H (1.78-5.38) K/mm3 Lymph # (Auto) 1.15 L (1.32-3.57) K/mm3 Norman # (Auto) 1.71 H (0.30-0.82) K/mm3 Eos # (Auto) 0.24 (0.04-0.54) K/mm3 Baso # (Auto) 0.05 (0.01-0.08) K/mm3 Manual Slide Review Abnormal smear Sodium (136-145) mEq/L Potassium (3.5-5.1) mEq/L Chloride (98-107) mEq/L Carbon Dioxide (21-32) mEq/L Anion Gap (5-15) BUN (7-18) mg/dL Creatinine (0.7-1.3) mg/dL Est Cr Clr Drug Dosing mL/min Estimated GFR (MDRD) (>60) mL/min BUN/Creatinine Ratio (14-18) Glucose (80-115) mg/dL POC Glucose 115 119 H (80-115) mg/dL Calcium (8.5-10.1) mg/dL Magnesium (1.8-2.4) mg/dl Ammonia (11-32) umol/L C-Reactive Protein (<1.0) mg/dL NT-Pro-B Natriuret Pep (0-125) pg/mL 01/11/19 01/11/19 01/11/19 Range/Units 05:30 05:30 05:30 WBC (4.23-9.07) K/mm3 RBC (4.63-6.08) M/mm3 Hgb (13.7-17.5) gm/L Hct (40.1-51.0) % MCV (79.0-92.2) fl MCH (25.7-32.2) pg MCHC (32.2-35.5) g/dl RDW Std Deviation (35.1-43.9) fL Plt Count (163-337) K/mm3 MPV (9.4-12.3) fl Neut % (Auto) (34.0-67.9) % Lymph % (Auto) (21.8-53.1) % Norman % (Auto) (5.3-12.2) % Eos % (Auto) (0.8-7.0) Baso % (Auto) (0.1-1.2) % Neut # (Auto) (1.78-5.38) K/mm3 Lymph # (Auto) (1.32-3.57) K/mm3 Norman # (Auto) (0.30-0.82) K/mm3 Eos # (Auto) (0.04-0.54) K/mm3 Baso # (Auto) (0.01-0.08) K/mm3 Manual Slide Review Sodium 135 L (136-145) mEq/L Potassium 3.2 L (3.5-5.1) mEq/L Chloride 100 (98-107) mEq/L Carbon Dioxide 25 (21-32) mEq/L Anion Gap 13.2 (5-15) BUN 42 H (7-18) mg/dL Creatinine 2.4 H (0.7-1.3) mg/dL Est Cr Clr Drug Dosing 28.06 mL/min Estimated GFR (MDRD) 27 (>60) mL/min BUN/Creatinine Ratio 17.5 (14-18) Glucose 109 (80-115) mg/dL POC Glucose (80-115) mg/dL Calcium 9.1 (8.5-10.1) mg/dL Magnesium 1.9 (1.8-2.4) mg/dl Ammonia 29 (11-32) umol/L C-Reactive Protein 17.1 H* (<1.0) mg/dL NT-Pro-B Natriuret Pep 1563 H (0-125) pg/mL 01/11/19 Range/Units 11:30 WBC (4.23-9.07) K/mm3 RBC (4.63-6.08) M/mm3 Hgb (13.7-17.5) gm/L Hct (40.1-51.0) % MCV (79.0-92.2) fl MCH (25.7-32.2) pg MCHC (32.2-35.5) g/dl RDW Std Deviation (35.1-43.9) fL Plt Count (163-337) K/mm3 MPV (9.4-12.3) fl Neut % (Auto) (34.0-67.9) % Lymph % (Auto) (21.8-53.1) % Norman % (Auto) (5.3-12.2) % Eos % (Auto) (0.8-7.0) Baso % (Auto) (0.1-1.2) % Neut # (Auto) (1.78-5.38) K/mm3 Lymph # (Auto) (1.32-3.57) K/mm3 Norman # (Auto) (0.30-0.82) K/mm3 Eos # (Auto) (0.04-0.54) K/mm3 Baso # (Auto) (0.01-0.08) K/mm3 Manual Slide Review Sodium (136-145) mEq/L Potassium (3.5-5.1) mEq/L Chloride (98-107) mEq/L Carbon Dioxide (21-32) mEq/L Anion Gap (5-15) BUN (7-18) mg/dL Creatinine (0.7-1.3) mg/dL Est Cr Clr Drug Dosing mL/min Estimated GFR (MDRD) (>60) mL/min BUN/Creatinine Ratio (14-18) Glucose (80-115) mg/dL POC Glucose 146 H (80-115) mg/dL Calcium (8.5-10.1) mg/dL Magnesium (1.8-2.4) mg/dl Ammonia (11-32) umol/L C-Reactive Protein (<1.0) mg/dL NT-Pro-B Natriuret Pep (0-125) pg/mL Nolan Results Last 24 Hours: Microbiology 01/08/19 21:21 Urine Culture - Final Urine, Clean Catch Escherichia Coli Med Orders - Current: Current Medications Acetaminophen (Tylenol) 650 mg PO Q4H PRN PRN Reason: Pain (Mild 1-3)/fever Hydrocodone Bitart/Acetaminophen ([place] 325-5 Mg) 1 tab PO Q4H PRN PRN Reason: Pain (moderate 4-6) Last Admin: 01/09/19 09:55 Dose: 1 tab Albuterol/Ipratropium (Duoneb 3.0-0.5 Mg/3 Ml) 3 ml NEB Q4HRRT PRN PRN Reason: Shortness Of Breath/wheezing Apixaban (Eliquis) 5 mg PO BID [facility] Last Admin: 01/11/19 08:50 Dose: 5 mg Bisacodyl (Dulcolax) 5 mg PO DAILY PRN PRN Reason: Constipation Dextrose/Water (Dextrose 50% In Water) 50 ml IVPUSH ASDIRECTED PRN PRN Reason: Hypoglycemia Docusate Sodium (Colace) 100 mg PO BID PRN PRN Reason: Constipation Last Admin: 01/09/19 13:40 Dose: 100 mg Finasteride (Proscar) 5 mg PO DAILY [facility] Last Admin: 01/11/19 08:49 Dose: 5 mg Folic Acid (Folic Acid) 1 mg PO BEDTIME [facility] Last Admin: 01/10/19 20:07 Dose: 1 mg Furosemide (Lasix) 20 mg PO SuMoWeFr@0900 [facility] Last Admin: 01/11/19 08:50 Dose: 20 mg Hydromorphone HCl (Dilaudid) 0.25 mg IVPUSH Q2H PRN PRN Reason: Pain (severe 7-10) Last Admin: 01/09/19 01:04 Dose: 0.25 mg Diltiazem HCl 125 mg/ Sodium (Chloride) 125 mls @ 10 mls/hr IV TITRATE [facility]; Protocol Last Titration: 01/08/19 22:25 Dose: 0 mg/hr, 0 mls/hr Promethazine HCl 6.25 mg/ (Sodium Chloride) 50.25 mls @ 100 mls/hr IV Q6H PRN PRN Reason: Nausea/Vomiting Ceftriaxone Sodium 1 gm/ (Sodium Chloride) 100 mls @ 200 mls/hr IV Q24H [facility] Last Admin: 01/10/19 20:06 Dose: 200 mls/hr Insulin Glargine (Lantus) 22 unit SUBCUT BEDTIME [facility] Last Admin: 01/10/19 20:06 Dose: 22 units Insulin Human Lispro (Humalog) 0 unit SUBCUT QIDACANDBED [facility]; Protocol Last Admin: 01/11/19 11:47 Dose: Not Given Lactulose (Cephulac) 20 gm PO TID [facility] Last Admin: 01/11/19 15:17 Dose: 20 gm Levothyroxine Sodium (Levothyroxine) 75 mcg PO ACBREAKFAST [facility] Last Admin: 01/11/19 06:12 Dose: 75 mcg Lorazepam (Ativan) 1 mg IV Q6H PRN PRN Reason: Anxiety Last Admin: 01/10/19 04:25 Dose: 1 mg Lorazepam (Ativan) 2 mg IVPUSH Q4H PRN PRN Reason: Seizures Lorazepam (Ativan) 0 mg IVPUSH Q4H PRN; Protocol PRN Reason: Withdrawal Symptoms Magnesium Oxide (Magnesium Oxide) 400 mg PO BID [facility] Last Admin: 01/11/19 08:49 Dose: 400 mg Metoprolol Tartrate (Lopressor) 5 mg IVPUSH Q4H PRN PRN Reason: Tachycardia Last Admin: 01/09/19 17:01 Dose: 5 mg Metoprolol Tartrate (Lopressor) 50 mg PO Q12H [facility] Last Admin: 01/11/19 08:50 Dose: 50 mg Midodrine (Midodrine) 10 mg PO TIDAC [facility] Last Admin: 01/11/19 10:25 Dose: 10 mg Multivitamins (Thera) 1 each PO BEDTIME [facility] Last Admin: 01/10/19 20:07 Dose: 1 each Mupirocin (Bactroban Oint) 0 gm TOP TID [facility] Stop: 01/14/19 09:01 Last Admin: 01/11/19 15:17 Dose: 1 g Ondansetron HCl (Zofran) 4 mg IV Q6H PRN PRN Reason: Nausea/Vomiting Oxycodone/Acetaminophen (Percocet 325-5 Mg) 1 tab PO DAILY PRN PRN Reason: Pain (severe 7-10) Pantoprazole Sodium (Protonix) 40 mg PO DAILY@0700 [facility] Last Admin: 01/11/19 06:13 Dose: 40 mg Polyethylene Glycol (Miralax) 17 gm PO DAILY PRN PRN Reason: Constipation Potassium Chloride (Klor-Con M20) 40 meq PO BID [facility] Stop: 01/12/19 09:01 Last Admin: 01/11/19 08:50 Dose: 40 meq Rosuvastatin Calcium (Crestor) 10 mg PO DAILY [facility] Last Admin: 01/11/19 08:50 Dose: 10 mg Senna/Docusate Sodium (Senna Plus) 1 tab PO BID PRN PRN Reason: Constipation Sodium Chloride (Saline Flush) 10 ml FLUSH ASDIRECTED PRN PRN Reason: Keep Vein Open Last Admin: 01/08/19 12:53 Dose: 10 ml Spironolactone (Aldactone) 50 mg PO DAILY [facility] Last Admin: 01/11/19 08:55 Dose: 50 mg Tamsulosin HCl (Flomax) 0.4 mg PO BID [facility] Last Admin: 01/11/19 08:50 Dose: 0.4 mg Temazepam (Restoril) 15 mg PO BEDTIME PRN PRN Reason: Insomnia Last Admin: 01/10/19 20:07 Dose: 15 mg Thiamine HCl (Vitamin B-1) 100 mg PO BEDTIME [facility] Last Admin: 01/10/19 20:07 Dose: 100 mg Discontinued Medications Albuterol/Ipratropium (Duoneb 3.0-0.5 Mg/3 Ml) 3 ml NEB Q4H PRN PRN Reason: Shortness Of Breath/wheezing Diltiazem HCl (Cardizem) 10 mg IVPUSH ONETIME ONE Stop: 01/08/19 12:43 Last Admin: 01/08/19 12:52 Dose: 10 mg Furosemide (Lasix) 20 mg PO DAILY [facility] Furosemide (Lasix) 20 mg PO SuMoWeFr@0900 [facility] Hydrochlorothiazide (Hydrochlorothiazide) 12.5 mg PO BEDTIME [facility] Last Admin: 01/10/19 20:08 Dose: 12.5 mg Sodium Chloride (Normal Saline) 500 mls @ 999 mls/hr IV ONETIME ONE Stop: 01/08/19 13:12 Last Admin: 01/08/19 12:52 Dose: 999 mls/hr Magnesium Sulfate 2 gm/ Premix 50 mls @ 50 mls/hr IV ONETIME ONE Stop: 01/08/19 15:05 Last Admin: 01/08/19 16:40 Dose: 50 mls/hr Amiodarone HCl/Dextrose (Nexterone In Dextrose 360 Mg/200 Ml) 200 mls @ 33.333 mls/hr IV ASDIRECTED [facility]; Protocol Lactated Ringer's (Ringers, Lactated) 500 mls @ 450 mls/hr IV BOLUS ONE Stop: 01/08/19 20:48 Last Admin: 01/08/19 20:04 Dose: 450 mls/hr Furosemide 100 mg/ Sodium (Chloride) 110 mls @ 2.5 mls/hr IV TITRATE [facility]; Protocol Ceftriaxone Sodium 1 gm/ (Sodium Chloride) 100 mls @ 200 mls/hr IV Q24H [facility] Last Admin: 01/08/19 20:50 Dose: Not Given Magnesium Sulfate 2 gm/ Premix 50 mls @ 25 mls/hr IV ONETIME ONE Stop: 01/08/19 22:16 Last Admin: 01/08/19 20:40 Dose: 25 mls/hr Thiamine HCl 200 mg/ Sodium (Chloride) 102 mls @ 204 mls/hr IV ONETIME ONE Stop: 01/08/19 20:21 Last Admin: 01/08/19 20:41 Dose: 204 mls/hr Furosemide 100 mg/ Sodium (Chloride) 100 mls @ 2.273 mls/hr IV TITRATE [facility]; Protocol Last Admin: 01/09/19 11:34 Dose: 2.5 mls/hr Magnesium Sulfate 2 gm/ Premix 50 mls @ 25 mls/hr IV ONETIME ONE Stop: 01/10/19 09:13 Last Admin: 01/10/19 07:45 Dose: 25 mls/hr Insulin Glargine (Lantus) 22 unit SUBCUT BEDTIME [facility] Last Admin: 01/08/19 20:06 Dose: 22 unit Insulin Glargine (Lantus) 22 unit .ROUTE .STK-MED ONE Stop: 01/08/19 21:01 Levothyroxine Sodium (Synthroid) 100 mcg PO DAILY [facility] Last Admin: 01/09/19 08:51 Dose: 100 mcg Metoprolol Tartrate (Lopressor) 25 mg PO Q12H [facility] Last Admin: 01/08/19 20:20 Dose: Not Given Metoprolol Tartrate (Lopressor) 5 mg IVPUSH ONETIME ONE Stop: 01/08/19 18:25 Last Admin: 01/08/19 18:30 Dose: 5 mg Metoprolol Tartrate (Lopressor) 25 mg PO Q12H [facility] Last Admin: 01/08/19 20:01 Dose: 25 mg Midodrine (Midodrine) 10 mg PO NOW STA Stop: 01/09/19 08:32 Last Admin: 01/09/19 08:48 Dose: 10 mg Potassium Chloride (Klor-Con M20) 60 meq PO ONETIME ONE Stop: 01/10/19 07:15 Last Admin: 01/10/19 07:55 Dose: 60 meq Rosuvastatin Calcium (Crestor) 5 mg PO DAILY [facility] Spironolactone (Aldactone) 100 mg PO DAILY [facility] Last Admin: 01/10/19 09:25 Dose: 100 mg Zolpidem Tartrate (Ambien) 5 mg PO BEDTIME PRN PRN Reason: Sleep - Exam General: Alert, Oriented, Cooperative, No Acute Distress, Lethargic HEENT: Pupils Equal, Pupils Reactive, EOMI. No: Scleral Icterus Neck: Supple, Trachea Midline, No JVD. No: Lymphadenopathy, Carotid Bruit Lungs: Clear to Auscultation, Normal Respiratory Effort. No: Crackles, Rales, Rhonchi, Stridor, Wheezing Cardiovascular: No Murmurs, Irregular Rhythm. No: Murmurs, Gallops, Rubs GI/Abdominal Exam: Normal Bowel Sounds, Soft, Non-Tender, No Organomegaly (Male) Exam: Deferred Back Exam: Normal Inspection Extremities: Pedal Edema, Joint Swelling, Leg Pain, Increased Warmth, Mottled Skin: Warm, Dry, Intact Neurological: No New Focal Deficit, Normal Speech, Normal Tone Psy/Mental Status: Alert, Normal Affect, Normal Mood. No: Hallucinations, Withdrawal Symptoms - Problem List Review Problem List Initiated/Reviewed/Updated: Yes - Plan Plan:: Assessment: Acute: AMS - 2/2 Hepatic Encephalopathy plus Metabolic from electrolytes abnormality - Carries a hx/o Liver Cirrhosis - Order Ammonia level stat - May need to start lactulose; lactulose given - Fall Precautions Atrial Fibrillation - New Onset - HR as high as 130s in ED; HR now mostly controlled; continue to monitor - EKG shows atrial fibrillation with HR of 174 with prolonged QTc of 471 - TSH is wnl; FT4 is 1.5 (elevated) could the reason why he is in atrial fibrillation - Received Cardizem bolus and was put on Cardizem drip; now off - Responded to Metoprolol last night; start Metoprolol Tartrate 50 mg po BID - [id number] score of 5 (high risk for stroke) with HAS-BLED Score of 4 ( high risk for major bleeding) - Eliquis 2.5 mg po BID for pharmacy to renally dose - 2D echo come Friday; echo performed, results pending Heart Failure with Peripheral Edema, Improving - ProBNP of 7223--> 5113 --> 1941 --> 1563 - CXR shows no acute abnormal findings - Complaints of shortness of breath plus significant peripheral edema; no longer complains of SOB, continues to have peripheral edema - UA shows elevated protein level (has proteinuria) - 2D echo come Friday to confirm - Heart failure regimen: diuretics, salt/fluid restrictions, daily weight check, and Is/Os - Peripheral edema may just be due to low albumin state from liver disease, proteinuria and vascular insufficiency - Discontinue Lasix drip and resume home dose regimen Macrocytic Normochromic Anemia, Stable - Hgb of 13.3-->12.5--> 12.9; at baseline with Hgb level -->now 13.4 - MCV is 100.8--> same - B12 - 5113 (high) - Folic Acid 6.0 - low; now on supplement - Thiamine and MMA - pending - Iron Panel: low transferrin and Iron levels--> likely 2/2 malnutrition and alcoholism - Heme-occult test ordered; also had some rectal bleeding seen on bed pads Thrombocytopenia, Stable - Acute on chronic 2/2 Liver Cirrhosis and Chronic ETOH Use - Platelet of 24K--> 30K--> 38K; Baseline is 41-78 -->64K - No active bleeding - He is not on antiplatelet or anticoagulation; is now on eliquis for Afib Elevated D-Dimer - D-Dimer 3.28 - Joshua's sign positive on left lower extremity - Duplex U/S shows no PED - V/Q scan to r/o PE this morning; V/Q showed indeterminate probability of pulmonary embolus, will continue Eliquis therapy - Chest CTA contraindicated due to Renal Insufficiency/CKD stage 3 - Eliquis po BID for pharmacy to dose Lactic Acidosis, Improving - LA of 2.3--> 2.4 --> 2.2 ( maybe chronic due to CKD and Liver Cirrhosis) - 2/2 Metabolic has underlying CKD and Cellulitis - IV hydration Erysipelas/Cellulitis, Improving - Left Lower Extremity: less erythema, no warmth, less edema, non tender to palpation --> less edema, tender to palpation and movement. - Risk factors: Morbid Obesity, Venous Insufficiency, DM and Chronic Leg Edema - CRP of 19.2--> 19.4 - Continue IV Rocephin 1 gram Daily - Compression stocking to improve edema and circulations DM2 - A1C is 5.4 - BS is well controlled - Accu-check QID with ISS Dyslipidemia - HLD is low - He takes Atorvastatin 5 mg p[o daily; will increase to 10 mg po daily - Continue AHA diet Morbid Obesity - Advised LSM - BMI of 40.8 - Dietary consult for weight management Hx/o ETOH Abuse/Use - Folic Acid, Thiamine, and MVI - PRN Ativan - CIWAA Protocol with Ativan Positive MRSA Screening - Bactroban topical TID for 5 days Rectal Bleed - Minimal rectal bleed on his bed pads - Hgb is stable otherwise - Likely 2/2 Hemorrhoids or rectal varices - Will continue to monitor Folic Acid Deficiency - Folate of 6.0 - 2/2 Malnutrition from chronic alcoholism - Folic acid supplement B/L Knee Pain, Stable - Both plain x-ray imaging studies: stable prothesis with nothing acute appreciated - PRN pain medication for management - PT/OT when appropriate Hypokalemia - K of 3.3 - He has been on lasix - Replete and monitor Hypomagnesemia - Mg of 1.4 - 2/2 diuresis - Replete and monitor Resolved: S/p Hypomagnesemia - Mg of 0.9--> 1.8 - 2/2 Poor intake - Replete and monitor S/p Relative Hypotension - He came off Cardizem drip - May likely worsen with Lasix drip; will monitor - PRN Midodrine for BP < 100/60 mmHg Chronic: Impaired Vision, HTN, DM2, Hypothyroidism, GERD, CKD Stage 3, Chronic Peripheral Edema, Hx/o PVCs, Constipation, Hx/o Liver Cirrhosis with Ascites, Hx /o Fatty Liver Disease, BPH, Hx/o Renal Stone, OA/DJD, Substance Abuse, Hx/o MRSA and Morbid obesity Plan: He is hemodynamically stable but confused but able to follow commands Routine AM Labs Fall Precautions due to Morbid Obesity DVT/Stroke Prophylaxis: Eliquis BID for pharmacy to dose GI Prophylaxis with PPI Dietary consult for weight management PT/OT to assess and treat when appropriate SW/CM for d/c planning Possible SNF rehab Code status: full Additional orders as above Prognosis is guarded <John Regalado T - Last Filed: 01/11/19 20:50> - Patient Data Vitals - Most Recent: Last Vital Signs Temp 36.1 C 01/11/19 16:00 Pulse 97 01/11/19 08:50 Resp 18 01/11/19 16:00 BP 91/68 01/11/19 16:00 Pulse Ox 91 L 01/11/19 17:00 I&O - Last 24 Hours: Intake & Output 01/11/19 01/11/19 01/11/19 06:59 14:59 22:59 Intake Total 49 280 400 Output Total 1375 495 400 Balance -1326 -215 0 Lab Results Last 24 Hours: Laboratory Results - last 24 hr 01/11/19 01/11/19 01/11/19 Range/Units 05:30 05:30 05:30 WBC 9.51 H (4.23-9.07) K/mm3 RBC 3.87 L (4.63-6.08) M/mm3 Hgb 13.4 L (13.7-17.5) gm/L Hct 38.2 L (40.1-51.0) % MCV 98.7 H (79.0-92.2) fl MCH 34.6 H (25.7-32.2) pg MCHC 35.1 (32.2-35.5) g/dl RDW Std Deviation 56.7 H (35.1-43.9) fL Plt Count 64 L (163-337) K/mm3 MPV 11.4 (9.4-12.3) fl Neut % (Auto) 65.3 (34.0-67.9) % Lymph % (Auto) 12.1 L (21.8-53.1) % Norman % (Auto) 18.0 H (5.3-12.2) % Eos % (Auto) 2.5 (0.8-7.0) Baso % (Auto) 0.5 (0.1-1.2) % Neut # (Auto) 6.21 H (1.78-5.38) K/mm3 Lymph # (Auto) 1.15 L (1.32-3.57) K/mm3 Norman # (Auto) 1.71 H (0.30-0.82) K/mm3 Eos # (Auto) 0.24 (0.04-0.54) K/mm3 Baso # (Auto) 0.05 (0.01-0.08) K/mm3 Manual Slide Review Abnormal smear Sodium 135 L (136-145) mEq/L Potassium 3.2 L (3.5-5.1) mEq/L Chloride 100 (98-107) mEq/L Carbon Dioxide 25 (21-32) mEq/L Anion Gap 13.2 (5-15) BUN 42 H (7-18) mg/dL Creatinine 2.4 H (0.7-1.3) mg/dL Est Cr Clr Drug Dosing 28.06 mL/min Estimated GFR (MDRD) 27 (>60) mL/min BUN/Creatinine Ratio 17.5 (14-18) Glucose 109 (80-115) mg/dL POC Glucose (80-115) mg/dL Calcium 9.1 (8.5-10.1) mg/dL Magnesium 1.9 (1.8-2.4) mg/dl Ammonia (11-32) umol/L C-Reactive Protein 17.1 H* (<1.0) mg/dL NT-Pro-B Natriuret Pep 1563 H (0-125) pg/mL 01/11/19 01/11/19 01/11/19 Range/Units 05:30 11:30 17:15 WBC (4.23-9.07) K/mm3 RBC (4.63-6.08) M/mm3 Hgb (13.7-17.5) gm/L Hct (40.1-51.0) % MCV (79.0-92.2) fl MCH (25.7-32.2) pg MCHC (32.2-35.5) g/dl RDW Std Deviation (35.1-43.9) fL Plt Count (163-337) K/mm3 MPV (9.4-12.3) fl Neut % (Auto) (34.0-67.9) % Lymph % (Auto) (21.8-53.1) % Norman % (Auto) (5.3-12.2) % Eos % (Auto) (0.8-7.0) Baso % (Auto) (0.1-1.2) % Neut # (Auto) (1.78-5.38) K/mm3 Lymph # (Auto) (1.32-3.57) K/mm3 Norman # (Auto) (0.30-0.82) K/mm3 Eos # (Auto) (0.04-0.54) K/mm3 Baso # (Auto) (0.01-0.08) K/mm3 Manual Slide Review Sodium (136-145) mEq/L Potassium (3.5-5.1) mEq/L Chloride (98-107) mEq/L Carbon Dioxide (21-32) mEq/L Anion Gap (5-15) BUN (7-18) mg/dL Creatinine (0.7-1.3) mg/dL Est Cr Clr Drug Dosing mL/min Estimated GFR (MDRD) (>60) mL/min BUN/Creatinine Ratio (14-18) Glucose (80-115) mg/dL POC Glucose 146 H 139 H (80-115) mg/dL Calcium (8.5-10.1) mg/dL Magnesium (1.8-2.4) mg/dl Ammonia 29 (11-32) umol/L C-Reactive Protein (<1.0) mg/dL NT-Pro-B Natriuret Pep (0-125) pg/mL Nolan Results Last 24 Hours: Microbiology 01/08/19 21:21 Urine Culture - Final Urine, Clean Catch Escherichia Coli Med Orders - Current: Current Medications Acetaminophen (Tylenol) 650 mg PO Q4H PRN PRN Reason: Pain (Mild 1-3)/fever Hydrocodone Bitart/Acetaminophen ([place] 325-5 Mg) 1 tab PO Q4H PRN PRN Reason: Pain (moderate 4-6) Last Admin: 08/17/19 09:55 Dose: 1 tab Albuterol/Ipratropium (Duoneb 3.0-0.5 Mg/3 Ml) 3 ml NEB Q4HRRT PRN PRN Reason: Shortness Of Breath/wheezing Apixaban (Eliquis) 5 mg PO BID [facility] Last Admin: 01/11/19 08:50 Dose: 5 mg Bisacodyl (Dulcolax) 5 mg PO DAILY PRN PRN Reason: Constipation Dextrose/Water (Dextrose 50% In Water) 50 ml IVPUSH ASDIRECTED PRN PRN Reason: Hypoglycemia Docusate Sodium (Colace) 100 mg PO BID PRN PRN Reason: Constipation Last Admin: 01/09/19 13:40 Dose: 100 mg Finasteride (Proscar) 5 mg PO DAILY [facility] Last Admin: 01/11/19 08:49 Dose: 5 mg Folic Acid (Folic Acid) 1 mg PO BEDTIME [facility] Last Admin: 01/10/19 20:07 Dose: 1 mg Furosemide (Lasix) 20 mg PO SuMoWeFr@0900 [facility] Last Admin: 01/11/19 08:50 Dose: 20 mg Hydromorphone HCl (Dilaudid) 0.25 mg IVPUSH Q2H PRN PRN Reason: Pain (severe 7-10) Last Admin: 01/09/19 01:04 Dose: 0.25 mg Diltiazem HCl 125 mg/ Sodium (Chloride) 125 mls @ 10 mls/hr IV TITRATE [facility]; Protocol Last Titration: 01/08/19 22:25 Dose: 0 mg/hr, 0 mls/hr Promethazine HCl 6.25 mg/ (Sodium Chloride) 50.25 mls @ 100 mls/hr IV Q6H PRN PRN Reason: Nausea/Vomiting Ceftriaxone Sodium 1 gm/ (Sodium Chloride) 100 mls @ 200 mls/hr IV Q24H [facility] Last Admin: 01/10/19 20:06 Dose: 200 mls/hr Insulin Glargine (Lantus) 22 unit SUBCUT BEDTIME [facility] Last Admin: 01/10/19 20:06 Dose: 22 units Insulin Human Lispro (Humalog) 0 unit SUBCUT QIDACANDBED [facility]; Protocol Last Admin: 01/11/19 17:15 Dose: Not Given Lactulose (Cephulac) 20 gm PO TID [facility] Last Admin: 01/11/19 15:17 Dose: 20 gm Levothyroxine Sodium (Levothyroxine) 75 mcg PO ACBREAKFAST [facility] Last Admin: 01/11/19 06:12 Dose: 75 mcg Lorazepam (Ativan) 1 mg IV Q6H PRN PRN Reason: Anxiety Last Admin: 01/10/19 04:25 Dose: 1 mg Lorazepam (Ativan) 2 mg IVPUSH Q4H PRN PRN Reason: Seizures Lorazepam (Ativan) 0 mg IVPUSH Q4H PRN; Protocol PRN Reason: Withdrawal Symptoms Magnesium Oxide (Magnesium Oxide) 400 mg PO BID [facility] Last Admin: 01/11/19 08:49 Dose: 400 mg Metoprolol Tartrate (Lopressor) 5 mg IVPUSH Q4H PRN PRN Reason: Tachycardia Last Admin: 01/09/19 17:01 Dose: 5 mg Metoprolol Tartrate (Lopressor) 50 mg PO Q12H [facility] Last Admin: 01/11/19 08:50 Dose: 50 mg Midodrine (Midodrine) 10 mg PO TIDAC [facility] Last Admin: 01/11/19 17:16 Dose: 10 mg Multivitamins (Thera) 1 each PO BEDTIME [facility] Last Admin: 01/10/19 20:07 Dose: 1 each Mupirocin (Bactroban Oint) 0 gm TOP TID [facility] Stop: 01/14/19 09:01 Last Admin: 01/11/19 15:17 Dose: 1 g Ondansetron HCl (Zofran) 4 mg IV Q6H PRN PRN Reason: Nausea/Vomiting Oxycodone/Acetaminophen (Percocet 325-5 Mg) 1 tab PO DAILY PRN PRN Reason: Pain (severe 7-10) Pantoprazole Sodium (Protonix) 40 mg PO DAILY@0700 [facility] Last Admin: 01/11/19 06:13 Dose: 40 mg Polyethylene Glycol (Miralax) 17 gm PO DAILY PRN PRN Reason: Constipation Potassium Chloride (Klor-Con M20) 40 meq PO BID [facility] Stop: 01/12/19 09:01 Last Admin: 01/11/19 08:50 Dose: 40 meq Rosuvastatin Calcium (Crestor) 10 mg PO DAILY [facility] Last Admin: 01/11/19 08:50 Dose: 10 mg Senna/Docusate Sodium (Senna Plus) 1 tab PO BID PRN PRN Reason: Constipation Sodium Chloride (Saline Flush) 10 ml FLUSH ASDIRECTED PRN PRN Reason: Keep Vein Open Last Admin: 01/08/19 12:53 Dose: 10 ml Spironolactone (Aldactone) 50 mg PO DAILY MIKO Last Admin: 01/11/19 08:55 Dose: 50 mg Tamsulosin HCl (Flomax) 0.4 mg PO BID MIKO Last Admin: 01/11/19 08:50 Dose: 0.4 mg Temazepam (Restoril) 15 mg PO BEDTIME PRN PRN Reason: Insomnia Last Admin: 01/10/19 20:07 Dose: 15 mg Thiamine HCl (Vitamin B-1) 100 mg PO BEDTIME MIKO Last Admin: 01/10/19 20:07 Dose: 100 mg Discontinued Medications Albuterol/Ipratropium (Duoneb 3.0-0.5 Mg/3 Ml) 3 ml NEB Q4H PRN PRN Reason: Shortness Of Breath/wheezing Diltiazem HCl (Cardizem) 10 mg IVPUSH ONETIME ONE Stop: 01/08/19 12:43 Last Admin: 01/08/19 12:52 Dose: 10 mg Furosemide (Lasix) 20 mg PO DAILY MIKO Furosemide (Lasix) 20 mg PO SuMoWeFr@0900 MIKO Hydrochlorothiazide (Hydrochlorothiazide) 12.5 mg PO BEDTIME MIKO Last Admin: 01/10/19 20:08 Dose: 12.5 mg Sodium Chloride (Normal Saline) 500 mls @ 999 mls/hr IV ONETIME ONE Stop: 01/08/19 13:12 Last Admin: 01/08/19 12:52 Dose: 999 mls/hr Magnesium Sulfate 2 gm/ Premix 50 mls @ 50 mls/hr IV ONETIME ONE Stop: 01/08/19 15:05 Last Admin: 01/08/19 16:40 Dose: 50 mls/hr Amiodarone HCl/Dextrose (Nexterone In Dextrose 360 Mg/200 Ml) 200 mls @ 33.333 mls/hr IV ASDIRECTED MIKO; Protocol Lactated Ringer's (Ringers, Lactated) 500 mls @ 450 mls/hr IV BOLUS ONE Stop: 01/08/19 20:48 Last Admin: 01/08/19 20:04 Dose: 450 mls/hr Furosemide 100 mg/ Sodium (Chloride) 110 mls @ 2.5 mls/hr IV TITRATE MIKO; Protocol Ceftriaxone Sodium 1 gm/ (Sodium Chloride) 100 mls @ 200 mls/hr IV Q24H MIKO Last Admin: 01/08/19 20:50 Dose: Not Given Magnesium Sulfate 2 gm/ Premix 50 mls @ 25 mls/hr IV ONETIME ONE Stop: 01/08/19 22:16 Last Admin: 01/08/19 20:40 Dose: 25 mls/hr Thiamine HCl 200 mg/ Sodium (Chloride) 102 mls @ 204 mls/hr IV ONETIME ONE Stop: 01/08/19 20:21 Last Admin: 01/08/19 20:41 Dose: 204 mls/hr Furosemide 100 mg/ Sodium (Chloride) 100 mls @ 2.273 mls/hr IV TITRATE MIKO; Protocol Last Admin: 01/09/19 11:34 Dose: 2.5 mls/hr Magnesium Sulfate 2 gm/ Premix 50 mls @ 25 mls/hr IV ONETIME ONE Stop: 01/10/19 09:13 Last Admin: 01/10/19 07:45 Dose: 25 mls/hr Insulin Glargine (Lantus) 22 unit SUBCUT BEDTIME MIKO Last Admin: 01/08/19 20:06 Dose: 22 unit Insulin Glargine (Lantus) 22 unit .ROUTE .STK-MED ONE Stop: 01/08/19 21:01 Levothyroxine Sodium (Synthroid) 100 mcg PO DAILY MIKO Last Admin: 01/09/19 08:51 Dose: 100 mcg Metoprolol Tartrate (Lopressor) 25 mg PO Q12H MIKO Last Admin: 01/08/19 20:20 Dose: Not Given Metoprolol Tartrate (Lopressor) 5 mg IVPUSH ONETIME ONE Stop: 01/08/19 18:25 Last Admin: 01/08/19 18:30 Dose: 5 mg Metoprolol Tartrate (Lopressor) 25 mg PO Q12H MIKO Last Admin: 01/08/19 20:01 Dose: 25 mg Midodrine (Midodrine) 10 mg PO NOW STA Stop: 01/09/19 08:32 Last Admin: 01/09/19 08:48 Dose: 10 mg Potassium Chloride (Klor-Con M20) 60 meq PO ONETIME ONE Stop: 01/10/19 07:15 Last Admin: 01/10/19 07:55 Dose: 60 meq Rosuvastatin Calcium (Crestor) 5 mg PO DAILY MIKO Spironolactone (Aldactone) 100 mg PO DAILY MIKO Last Admin: 01/10/19 09:25 Dose: 100 mg Zolpidem Tartrate (Ambien) 5 mg PO BEDTIME PRN PRN Reason: Sleep - Problem List Review Problem List Initiated/Reviewed/Updated: Yes - My Orders Last 24 Hours: My Active Orders 01/11/19 09:00 Potassium Chloride [Klor-Con M20] 40 meq PO BID Spironolactone [Aldactone] 50 mg PO DAILY 01/12/19 05:00 PRO B-TYPE NATRIUR PEPT,BNPPRO [CHEM] DAILY 01/12/19 05:11 BASIC METABOLIC PANEL,BMP [CHEM] AM CBC WITH AUTO DIFF [HEME] AM CRP [C-REACTIVE PROTEIN] [CHEM] AM MAGNESIUM [CHEM] AM 01/13/19 05:11 CRP [C-REACTIVE PROTEIN] [CHEM] AM MAGNESIUM [CHEM] AM 01/14/19 05:11 CRP [C-REACTIVE PROTEIN] [CHEM] AM 01/15/19 05:11 CRP [C-REACTIVE PROTEIN] [CHEM] AM - Plan Plan:: No significant overnight or acute issues. He is still confused to place and person. His Ammonia is slightly elevated at 29 from 19 yesterday. His K remains low at 3.2. His 2D echo was obtained today. His V/Q scan report read as multiple matched defects. Patient is already on Eliquis 5 mg po BID for stroke Prophylaxis which was started on admission. His PE is likely related to his atrial fibrillation. His Duplex U/S was negative. Per day nurse, he now weights 243lbs since admission. Patient may need SNF/Rehab for deconditioning. Updated family at beside regarding diagnoses, test results, treatment and possible discharge care plan. The patient was seen and examined in concert with the medical student. The assessment and plans were discussed and agreed upon with me. Any changes or further recommendations will be based on the patient's course.
[2019-01-11] MEDS: cefTRIAXone 1 GM in Sodium Chloride 0.9% 100 ML IV SCH (21:21)
[2019-01-11] MEDS: Insulin Glarg,Human.Rec.Analog 100 UNIT/ML ML SUBCUT SCH (21:25)
[2019-01-11] MEDS: Folic Acid 1 MG Tab PO SCH (21:29)
[2019-01-11] MEDS: Thiamine 100 MG Tab PO SCH (21:30)
[2019-01-11] MEDS: Multivitamins,Therapeutic Tab PO SCH (21:30)
[2019-01-12] MEDS: Insulin Lispro 100 Units/ML 3 ML Vial SUBCUT SCH ×5 (01:55→21:11)
[2019-01-12] MEDS: Levothyroxine 75 MCG Tab PO SCH (06:11)
[2019-01-12] MEDS: Pantoprazole 40 MG Tab.CR PO SCH (06:12)
[2019-01-12] MEDS: Midodrine 5 MG Tab PO SCH ×3 (06:12→16:10)
--- NOTE | 2019-01-12 06:47 | PCM.PN ---
- General Info Date of Service: 01/12/19 Admission Dx/Problem (Free Text): Admission Diagnosis/Problem Admission Diagnosis/Problem Afib, Atrial fibrillation Subjective Update: No significant overnight issues except that he was still confused last night. However he is alert, awake and orientated x 3. He continues to have diarrhea due to lactulose. Functional Status: Reports: Pain Controlled, Tolerating Diet, Ambulating, Urinating. Denies: New Symptoms - Review of Systems General: Denies: Fever, Chills HEENT: Reports: No Symptoms Pulmonary: Denies: Shortness of Breath, Cough Cardiovascular: Reports: Edema. Denies: Chest Pain, Dyspnea on Exertion, Lightheadedness Gastrointestinal: Denies: Abdominal Pain, Nausea, Vomiting Genitourinary: Reports: No Symptoms Musculoskeletal: Denies: Neck Pain Skin: Denies: Cyanosis, Mottled, Pallor, Diaphoresis, Bruising, Other Neurological: Reports: Gait Disturbance. Denies: Confusion Psychiatric: Denies: Depression, Mood Lability, Anxiety, Agitation, Cravings, Hallucinations, Suicidal Ideation, Homicidal Ideation - Patient Data Vitals - Most Recent: Last Vital Signs Temp 35.9 C 01/12/19 04:00 Pulse 101 H 01/11/19 21:30 Resp 14 01/12/19 04:00 BP 91/56 L 01/12/19 04:00 Pulse Ox 98 01/12/19 04:00 Weight - Most Recent: 108.908 kg I&O - Last 24 Hours: Intake & Output 01/11/19 01/11/19 01/12/19 14:59 22:59 06:59 Intake Total 280 520 218 Output Total 495 935 495 Balance -215 -415 -277 Lab Results Last 24 Hours: Laboratory Results - last 24 hr 01/11/19 01/11/19 01/11/19 Range/Units 05:30 11:30 17:15 WBC (4.23-9.07) K/mm3 RBC (4.63-6.08) M/mm3 Hgb (13.7-17.5) gm/L Hct (40.1-51.0) % MCV (79.0-92.2) fl MCH (25.7-32.2) pg MCHC (32.2-35.5) g/dl RDW Std Deviation (35.1-43.9) fL Plt Count (163-337) K/mm3 MPV (9.4-12.3) fl Neut % (Auto) (34.0-67.9) % Lymph % (Auto) (21.8-53.1) % [place] % (Auto) (5.3-12.2) % Eos % (Auto) (0.8-7.0) Baso % (Auto) (0.1-1.2) % Neut # (Auto) (1.78-5.38) K/mm3 Lymph # (Auto) (1.32-3.57) K/mm3 [place] # (Auto) (0.30-0.82) K/mm3 Eos # (Auto) (0.04-0.54) K/mm3 Baso # (Auto) (0.01-0.08) K/mm3 Manual Slide Review Abnormal smear Sodium (136-145) mEq/L Potassium (3.5-5.1) mEq/L Chloride (98-107) mEq/L Carbon Dioxide (21-32) mEq/L Anion Gap (5-15) BUN (7-18) mg/dL Creatinine (0.7-1.3) mg/dL Est Cr Clr Drug Dosing mL/min Estimated GFR (MDRD) (>60) mL/min BUN/Creatinine Ratio (14-18) Glucose (80-115) mg/dL POC Glucose 146 H 139 H (80-115) mg/dL Calcium (8.5-10.1) mg/dL Magnesium (1.8-2.4) mg/dl C-Reactive Protein (<1.0) mg/dL 01/11/19 01/12/19 01/12/19 Range/Units 21:20 04:52 04:52 WBC 11.00 H (4.23-9.07) K/mm3 RBC 3.87 L (4.63-6.08) M/mm3 Hgb 13.4 L (13.7-17.5) gm/L Hct 38.6 L (40.1-51.0) % MCV 99.7 H (79.0-92.2) fl MCH 34.6 H (25.7-32.2) pg MCHC 34.7 (32.2-35.5) g/dl RDW Std Deviation 58.7 H (35.1-43.9) fL Plt Count 82 L (163-337) K/mm3 MPV 10.8 (9.4-12.3) fl Neut % (Auto) 70.1 H (34.0-67.9) % Lymph % (Auto) 9.6 L (21.8-53.1) % [place] % (Auto) 15.6 H (5.3-12.2) % Eos % (Auto) 1.0 (0.8-7.0) Baso % (Auto) 0.5 (0.1-1.2) % Neut # (Auto) 7.70 H (1.78-5.38) K/mm3 Lymph # (Auto) 1.06 L (1.32-3.57) K/mm3 [place] # (Auto) 1.72 H (0.30-0.82) K/mm3 Eos # (Auto) 0.11 (0.04-0.54) K/mm3 Baso # (Auto) 0.06 (0.01-0.08) K/mm3 Manual Slide Review Sodium 138 (136-145) mEq/L Potassium 3.5 (3.5-5.1) mEq/L Chloride 102 (98-107) mEq/L Carbon Dioxide 24 (21-32) mEq/L Anion Gap 15.5 H (5-15) BUN 40 H (7-18) mg/dL Creatinine 2.3 H (0.7-1.3) mg/dL Est Cr Clr Drug Dosing 29.28 mL/min Estimated GFR (MDRD) 29 (>60) mL/min BUN/Creatinine Ratio 17.4 (14-18) Glucose 144 H (80-115) mg/dL POC Glucose 136 H (80-115) mg/dL Calcium 9.3 (8.5-10.1) mg/dL Magnesium 1.9 (1.8-2.4) mg/dl C-Reactive Protein 15.7 H* (<1.0) mg/dL 01/12/19 Range/Units 06:11 WBC (4.23-9.07) K/mm3 RBC (4.63-6.08) M/mm3 Hgb (13.7-17.5) gm/L Hct (40.1-51.0) % MCV (79.0-92.2) fl MCH (25.7-32.2) pg MCHC (32.2-35.5) g/dl RDW Std Deviation (35.1-43.9) fL Plt Count (163-337) K/mm3 MPV (9.4-12.3) fl Neut % (Auto) (34.0-67.9) % Lymph % (Auto) (21.8-53.1) % [place] % (Auto) (5.3-12.2) % Eos % (Auto) (0.8-7.0) Baso % (Auto) (0.1-1.2) % Neut # (Auto) (1.78-5.38) K/mm3 Lymph # (Auto) (1.32-3.57) K/mm3 [place] # (Auto) (0.30-0.82) K/mm3 Eos # (Auto) (0.04-0.54) K/mm3 Baso # (Auto) (0.01-0.08) K/mm3 Manual Slide Review Sodium (136-145) mEq/L Potassium (3.5-5.1) mEq/L Chloride (98-107) mEq/L Carbon Dioxide (21-32) mEq/L Anion Gap (5-15) BUN (7-18) mg/dL Creatinine (0.7-1.3) mg/dL Est Cr Clr Drug Dosing mL/min Estimated GFR (MDRD) (>60) mL/min BUN/Creatinine Ratio (14-18) Glucose (80-115) mg/dL POC Glucose 121 H (80-115) mg/dL Calcium (8.5-10.1) mg/dL Magnesium (1.8-2.4) mg/dl C-Reactive Protein (<1.0) mg/dL [place] Results Last 24 Hours: Microbiology 01/11/19 22:00 Stool Occult Blood (NOLAN) - Final Stool / Feces 01/08/19 21:21 Urine Culture - Final Urine, Clean Catch Escherichia Coli Med Orders - Current: Current Medications Acetaminophen (Tylenol) 650 mg PO Q4H PRN PRN Reason: Pain (Mild 1-3)/fever Hydrocodone Bitart/Acetaminophen ([place] 325-5 Mg) 1 tab PO Q4H PRN PRN Reason: Pain (moderate 4-6) Last Admin: 01/09/19 09:55 Dose: 1 tab Albuterol/Ipratropium (Duoneb 3.0-0.5 Mg/3 Ml) 3 ml NEB Q4HRRT PRN PRN Reason: Shortness Of Breath/wheezing Apixaban (Eliquis) 5 mg PO BID [facility] Last Admin: 01/11/19 21:29 Dose: 5 mg Bisacodyl (Dulcolax) 5 mg PO DAILY PRN PRN Reason: Constipation Dextrose/Water (Dextrose 50% In Water) 50 ml IVPUSH ASDIRECTED PRN PRN Reason: Hypoglycemia Docusate Sodium (Colace) 100 mg PO BID PRN PRN Reason: Constipation Last Admin: 01/09/19 13:40 Dose: 100 mg Finasteride (Proscar) 5 mg PO DAILY [facility] Last Admin: 01/11/19 08:49 Dose: 5 mg Folic Acid (Folic Acid) 1 mg PO BEDTIME [facility] Last Admin: 01/11/19 21:29 Dose: 1 mg Furosemide (Lasix) 20 mg PO SuMoWeFr@0900 [facility] Last Admin: 01/11/19 08:50 Dose: 20 mg Hydromorphone HCl (Dilaudid) 0.25 mg IVPUSH Q2H PRN PRN Reason: Pain (severe 7-10) Last Admin: 01/09/19 01:04 Dose: 0.25 mg Diltiazem HCl 125 mg/ Sodium (Chloride) 125 mls @ 10 mls/hr IV TITRATE [facility]; Protocol Last Titration: 01/08/19 22:25 Dose: 0 mg/hr, 0 mls/hr Promethazine HCl 6.25 mg/ (Sodium Chloride) 50.25 mls @ 100 mls/hr IV Q6H PRN PRN Reason: Nausea/Vomiting Ceftriaxone Sodium 1 gm/ (Sodium Chloride) 100 mls @ 200 mls/hr IV Q24H [facility] Last Admin: 01/11/19 21:21 Dose: 200 mls/hr Insulin Glargine (Lantus) 22 unit SUBCUT BEDTIME [facility] Last Admin: 01/11/19 21:25 Dose: 22 units Insulin Human Lispro (Humalog) 0 unit SUBCUT QIDACANDBED [facility]; Protocol Last Admin: 01/12/19 06:17 Dose: Not Given Lactulose (Cephulac) 20 gm PO TID [facility] Last Admin: 01/11/19 21:28 Dose: 20 gm Levothyroxine Sodium (Levothyroxine) 75 mcg PO ACBREAKFAST [facility] Last Admin: 01/12/19 06:11 Dose: 75 mcg Lorazepam (Ativan) 1 mg IV Q6H PRN PRN Reason: Anxiety Last Admin: 01/10/19 04:25 Dose: 1 mg Lorazepam (Ativan) 2 mg IVPUSH Q4H PRN PRN Reason: Seizures Lorazepam (Ativan) 0 mg IVPUSH Q4H PRN; Protocol PRN Reason: Withdrawal Symptoms Magnesium Oxide (Magnesium Oxide) 400 mg PO BID [facility] Last Admin: 01/11/19 21:29 Dose: 400 mg Metoprolol Tartrate (Lopressor) 5 mg IVPUSH Q4H PRN PRN Reason: Tachycardia Last Admin: 01/09/19 17:01 Dose: 5 mg Metoprolol Tartrate (Lopressor) 50 mg PO Q12H [facility] Last Admin: 01/11/19 21:30 Dose: 50 mg Midodrine (Midodrine) 10 mg PO TIDAC [facility] Last Admin: 01/12/19 06:12 Dose: 10 mg Multivitamins (Thera) 1 each PO BEDTIME [facility] Last Admin: 01/11/19 21:30 Dose: 1 each Mupirocin (Bactroban Oint) 0 gm TOP TID [facility] Stop: 01/14/19 09:01 Last Admin: 01/11/19 21:31 Dose: 1 applic Ondansetron HCl (Zofran) 4 mg IV Q6H PRN PRN Reason: Nausea/Vomiting Oxycodone/Acetaminophen (Percocet 325-5 Mg) 1 tab PO DAILY PRN PRN Reason: Pain (severe 7-10) Pantoprazole Sodium (Protonix) 40 mg PO DAILY@0700 [facility] Last Admin: 01/12/19 06:12 Dose: 40 mg Polyethylene Glycol (Miralax) 17 gm PO DAILY PRN PRN Reason: Constipation Potassium Chloride (Klor-Con M20) 40 meq PO BID [facility] Stop: 01/12/19 09:01 Last Admin: 01/11/19 21:29 Dose: 40 meq Rosuvastatin Calcium (Crestor) 10 mg PO DAILY [facility] Last Admin: 01/11/19 08:50 Dose: 10 mg Senna/Docusate Sodium (Senna Plus) 1 tab PO BID PRN PRN Reason: Constipation Sodium Chloride (Saline Flush) 10 ml FLUSH ASDIRECTED PRN PRN Reason: Keep Vein Open Last Admin: 01/08/19 12:53 Dose: 10 ml Spironolactone (Aldactone) 50 mg PO DAILY [facility] Last Admin: 01/11/19 08:55 Dose: 50 mg Tamsulosin HCl (Flomax) 0.4 mg PO BID MIKO Last Admin: 01/11/19 21:29 Dose: 0.4 mg Temazepam (Restoril) 15 mg PO BEDTIME PRN PRN Reason: Insomnia Last Admin: 01/10/19 20:07 Dose: 15 mg Thiamine HCl (Vitamin B-1) 100 mg PO BEDTIME MIKO Last Admin: 01/11/19 21:30 Dose: 100 mg Discontinued Medications Albuterol/Ipratropium (Duoneb 3.0-0.5 Mg/3 Ml) 3 ml NEB Q4H PRN PRN Reason: Shortness Of Breath/wheezing Diltiazem HCl (Cardizem) 10 mg IVPUSH ONETIME ONE Stop: 01/08/19 12:43 Last Admin: 01/08/19 12:52 Dose: 10 mg Furosemide (Lasix) 20 mg PO DAILY [facility] Furosemide (Lasix) 20 mg PO SuMoWeFr@0900 [facility] Hydrochlorothiazide (Hydrochlorothiazide) 12.5 mg PO BEDTIME [facility] Last Admin: 01/10/19 20:08 Dose: 12.5 mg Sodium Chloride (Normal Saline) 500 mls @ 999 mls/hr IV ONETIME ONE Stop: 01/08/19 13:12 Last Admin: 01/08/19 12:52 Dose: 999 mls/hr Magnesium Sulfate 2 gm/ Premix 50 mls @ 50 mls/hr IV ONETIME ONE Stop: 01/08/19 15:05 Last Admin: 01/08/19 16:40 Dose: 50 mls/hr Amiodarone HCl/Dextrose (Nexterone In Dextrose 360 Mg/200 Ml) 200 mls @ 33.333 mls/hr IV ASDIRECTED [facility]; Protocol Lactated Ringer's (Ringers, Lactated) 500 mls @ 450 mls/hr IV BOLUS ONE Stop: 01/08/19 20:48 Last Admin: 01/08/19 20:04 Dose: 450 mls/hr Furosemide 100 mg/ Sodium (Chloride) 110 mls @ 2.5 mls/hr IV TITRATE MIKO; Protocol Ceftriaxone Sodium 1 gm/ (Sodium Chloride) 100 mls @ 200 mls/hr IV Q24H [facility]KO Last Admin: 01/08/19 20:50 Dose: Not Given Magnesium Sulfate 2 gm/ Premix 50 mls @ 25 mls/hr IV ONETIME ONE Stop: 01/08/19 22:16 Last Admin: 01/08/19 20:40 Dose: 25 mls/hr Thiamine HCl 200 mg/ Sodium (Chloride) 102 mls @ 204 mls/hr IV ONETIME ONE Stop: 01/08/19 20:21 Last Admin: 01/08/19 20:41 Dose: 204 mls/hr Furosemide 100 mg/ Sodium (Chloride) 100 mls @ 2.273 mls/hr IV TITRATE MIKO; Protocol Last Admin: 01/09/19 11:34 Dose: 2.5 mls/hr Magnesium Sulfate 2 gm/ Premix 50 mls @ 25 mls/hr IV ONETIME ONE Stop: 01/10/19 09:13 Last Admin: 01/10/19 07:45 Dose: 25 mls/hr Insulin Glargine (Lantus) 22 unit SUBCUT BEDTIME [facility]KO Last Admin: 01/08/19 20:06 Dose: 22 unit Insulin Glargine (Lantus) 22 unit .ROUTE .STK-MED ONE Stop: 01/08/19 21:01 Levothyroxine Sodium (Synthroid) 100 mcg PO DAILY [facility]KO Last Admin: 01/09/19 08:51 Dose: 100 mcg Metoprolol Tartrate (Lopressor) 25 mg PO Q12H [facility] Last Admin: 01/08/19 20:20 Dose: Not Given Metoprolol Tartrate (Lopressor) 5 mg IVPUSH ONETIME ONE Stop: 01/08/19 18:25 Last Admin: 01/08/19 18:30 Dose: 5 mg Metoprolol Tartrate (Lopressor) 25 mg PO Q12H [facility]KO Last Admin: 01/08/19 20:01 Dose: 25 mg Midodrine (Midodrine) 10 mg PO NOW STA Stop: 01/09/19 08:32 Last Admin: 01/09/19 08:48 Dose: 10 mg Potassium Chloride (Klor-Con M20) 60 meq PO ONETIME ONE Stop: 01/10/19 07:15 Last Admin: 01/10/19 07:55 Dose: 60 meq Rosuvastatin Calcium (Crestor) 5 mg PO DAILY [facility] Spironolactone (Aldactone) 100 mg PO DAILY [facility] Last Admin: 01/10/19 09:25 Dose: 100 mg Zolpidem Tartrate (Ambien) 5 mg PO BEDTIME PRN PRN Reason: Sleep - Exam General: Alert, Oriented, Cooperative HEENT: Pupils Equal, Pupils Reactive, Mucous Membr. Moist/[place] Neck: Supple Lungs: Normal Respiratory Effort, Decreased Breath Sounds Cardiovascular: Irregular Rhythm GI/Abdominal Exam: Normal Bowel Sounds, Soft, Non-Tender, No Organomegaly, No Distention, No Abnormal Bruit (Male) Exam: Other (indwelling dolan catheter) Back Exam: Normal Inspection, Decreased Range of Motion Extremities: Normal Inspection, Normal Range of Motion, Non-Tender, Normal Capillary Refill, Limited Range of Motion, Redness (minimal on left lower extremity), Other (left leg: continues to improve) Peripheral Pulses: 2+: Posterior Tibial (L), Posterior Tibial (R), Dorsalis Pedis (L), Dorsalis Pedis (R) Skin: Warm, Dry, Intact Wound/Incisions: Other (lesion above his anus) Neurological: No New Focal Deficit, Other (tremors on both hands: L>R) Psy/Mental Status: Alert, Normal Affect, Normal Mood. No: Anxious, Agitated, Suicidal Ideation, Homicidal Ideation, Hallucinations - Problem List Review Problem List Initiated/Reviewed/Updated: Yes - My Orders Last 24 Hours: My Active Orders 01/11/19 09:00 Potassium Chloride [Klor-Con M20] 40 meq PO BID Spironolactone [Aldactone] 50 mg PO DAILY 01/12/19 04:52 CBC WITH AUTO DIFF [HEME] AM PRO B-TYPE NATRIUR PEPT,BNPPRO [CHEM] DAILY 01/13/19 05:11 CRP [C-REACTIVE PROTEIN] [CHEM] AM MAGNESIUM [CHEM] AM 01/14/19 05:11 CRP [C-REACTIVE PROTEIN] [CHEM] AM 01/15/19 05:11 CRP [C-REACTIVE PROTEIN] [CHEM] AM - Plan Plan:: Assessment: Acute: AMS, Improved - 2/2 Hepatic Encephalopathy plus Metabolic from electrolytes abnormality - Carries a hx/o Liver Cirrhosis - Ammonia 19--> 29; repeat level in AM - Lactulose 20 mg po BID; consider Xifaxan 550 mg po BID - Fall Precautions Atrial Fibrillation - New Onset - HR as high as 130s in ED; HR is controlled - EKG shows atrial fibrillation with HR of 174 with prolonged QTc of 471 - TSH is wnl; FT4 is 1.5 (elevated) could the reason why he is in atrial fibrillation - Metoprolol Tartrate 50 mg po BID - [id number] score of 5 (high risk for stroke) with HAS-BLED Score of 4 ( high risk for major bleeding) - Eliquis 2.5 mg po BID for pharmacy to renally dose - 2D echo come Friday Heart Failure with Peripheral Edema, Continues to Improve - ProBNP of 7223--> 5113 --> 1941-->1247 - CXR shows no acute abnormal findings - Complaints of shortness of breath plus significant peripheral edema - UA shows elevated protein level (has proteinuria) - 2D echo: EF of 55-60% (study not optimal) - Heart failure regimen: diuretics, salt/fluid restrictions, daily weight check, and Is/Os - Peripheral edema may just be due to low albumin state from liver disease, proteinuria and vascular insufficiency - Resume home dose regimen - He now weights 140 from 253 lbs on admission Macrocytic Normochromic Anemia, Stable - Hgb of 13.3-->12.5--> 12.9-->13.4; at baseline with Hgb level - MCV is 100.8--> same - B12 - 5113 (high) - Folic Acid 6.0 - low; now on supplement - MMA - pending - Iron Panel: low transferrin and Iron levels--> likely 2/2 malnutrition and alcoholism - Heme-occult test ordered; also had some rectal bleeding seen on bed pads Thrombocytopenia, Stable - Acute on chronic 2/2 Liver Cirrhosis and Chronic ETOH Use - Platelet of 24K--> 30K--> 38K-->64K-->82K; Baseline is 41-78 - No active bleeding - He is not on antiplatelet or anticoagulation Pulmonary Embolism - D-Dimer 3.28 - Joshua's sign positive on left lower extremity - Duplex U/S shows no PE - V/Q scan to r/o PE: multiple matched defects - Chest CTA contraindicated due to Renal Insufficiency/CKD stage 3 - Patient has been on Eliquis po BID since admission for DVT stroke prophylaxis - Converted to PE/DVT treatment Erysipelas/Cellulitis, Improving - Left Lower Extremity: less erythema, no warmth, less edema, non tender to palpation - Risk factors: Morbid Obesity, Venous Insufficiency, DM and Chronic Leg Edema - CRP of 19.2-->19.4-->15.7 - Continue IV Rocephin 1 gram Daily - Compression stocking to improve edema and circulations DM2 - A1C is 5.4 - BS is well controlled - Accu-check QID with ISS Dyslipidemia - HLD is low - Atorvastatin 10 mg po daily - Continue AHA diet Morbid Obesity - Advised LSM - BMI of 40.8 - Dietary consult for weight management Hx/o ETOH Abuse/Use - Folic Acid, Thiamine, and MVI - PRN Ativan - CIWAA Protocol with Ativan Positive MRSA Screening - Bactroban topical TID for 5 days Rectal Bleed 2/2 Pilonidal cysts - Minimal rectal bleed on his bed pads - Hgb is stable otherwise - GS consult for further eval: recommends conservative management for now Folic Acid Deficiency - Folate of 6.0 - 2/2 Malnutrition from chronic alcoholism - Folic acid supplement Generalized Weakness - 2/2 Acute Illness - PT/OT to assess and treat Resolved: S/p Hypomagnesemia - Mg of 0.9--> 1.8 - 2/2 Poor intake - Replete and monitor S/p Relative Hypotension - He came off Cardizem drip - May likely worsen with Lasix drip; will monitor - PRN Midodrine for BP < 100/60 mmHg S/p Lactic Acidosis, likely resolved - LA of 2.3--> 2.4 --> 2.2 ( maybe chronic due to CKD and Liver Cirrhosis) - 2/2 Metabolic has underlying CKD and Cellulitis - IV hydration S/p B/L Knee Pain, Stable - Both plain x-ray imaging studies: stable prothesis with nothing acute appreciated - PRN pain medication for management - PT/OT when appropriate S/p Hypokalemia - K of 3.3--> 3.5 - He has been on lasix - Replete and monitor S/p Hypomagnesemia - Mg of 1.4--> 1.9 - 2/2 diuresis - Replete and monitor Chronic: Impaired Vision, HTN, DM2, Hypothyroidism, GERD, CKD Stage 3, Chronic Peripheral Edema, Hx/o PVCs, Constipation, Hx/o Liver Cirrhosis with Ascites, Hx /o Fatty Liver Disease, BPH, Hx/o Renal Stone, OA/DJD, Substance Abuse, Hx/o MRSA and Morbid obesity Plan: He remains hemodynamically stable seems to be better with mentation this morning Routine AM Labs Fall Precautions due to Morbid Obesity DVT/Stroke Prophylaxis: Eliquis BID for pharmacy to dose GI Prophylaxis with PPI Dietary consult for weight management PT/OT to assess and treat when appropriate SW/CM for d/c planning Recommend SNF/Rehab vs [facility] Code status: full Additional orders as above Prognosis is good-guarded Updated family at bedside regarding clinical progress, morning labs, treatment and possible discharge care plan
[2019-01-12] MEDS: Finasteride 5 MG Tab PO SCH (09:34)
[2019-01-12] MEDS: Rosuvastatin 10 MG Tab PO SCH (09:34)
[2019-01-12] MEDS: Magnesium Oxide 400 MG Tab PO SCH ×2 (09:34→20:43)
[2019-01-12] MEDS: Spironolactone 25 MG Tab PO SCH (09:35)
[2019-01-12] MEDS: Apixaban 5 MG Tab PO SCH ×2 (09:35→20:43)
[2019-01-12] MEDS: Tamsulosin 0.4 MG Cap.ER PO SCH ×2 (09:36→20:43)
[2019-01-12] MEDS: Potassium Chloride 20 MEQ Tab.ER PO SCH (09:36)
[2019-01-12] MEDS: Lactulose Soln 10 GM/15 ML 30 ML UD Cup PO SCH ×4 (09:38→20:42)
[2019-01-12] MEDS: Metoprolol Tartrate 25 MG Tab PO SCH ×2 (09:39→21:03)
[2019-01-12] MEDS: Mupirocin Oint 22 GM Tube TOP SCH ×3 (09:41→20:44)
[2019-01-12] MEDS: Acetaminophen/HYDROcodone 325-5 MG Tab PO PRN (11:46)
--- NOTE | 2019-01-12 12:02 | CONS ---
CONSULTING PHYSICIAN: Melvin Pollock MD DATE OF CONSULTATION: 01/12/2019 REQUESTING PHYSICIAN: John Regalado MD. REASON FOR CONSULTATION: Question of pressure sore on the sacrum. HISTORY OF PRESENT ILLNESS: The patient is a 63-year-old male with cirrhosis, who was admitted with cellulitis. The patient had some spotting of blood located on his pants. Question of a GI bleed was raised. On further examination, the nurse noted an opening over the sacrum of approximately a centimeter or so. I was asked to evaluate. Physical exam demonstrated a tender approximately 1 cm opening in the midline. There is an additional what appears to be a pilonidal sinus adjacent to this opening. The area is tender, but non-erythematous, which would be consistent with pilonidal disease. On further direct questioning, the patient admitted to chronic episodes of pain in the same location previous to his admission stretching back for many years. He was not aware he had pilonidal disease. He has never had an operation in that location. 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 PLAN: I would not entertain an operation in this gentleman until he is in an outpatient setting, assuming he can tolerate an operation in his best of health. There is no evidence of abscess here currently, so no I and D is required. I am happy to follow him as an outpatient. MOSHE /[id number]
[2019-01-12] MEDS: Multivitamins,Therapeutic Tab PO SCH (20:42)
[2019-01-12] MEDS: Folic Acid 1 MG Tab PO SCH (20:43)
[2019-01-12] MEDS: Insulin Glarg,Human.Rec.Analog 100 UNIT/ML ML SUBCUT SCH (20:43)
[2019-01-12] MEDS: Rifaximin 550 MG Tab PO SCH (20:43)
[2019-01-12] MEDS: Thiamine 100 MG Tab PO SCH (20:43)
[2019-01-12] MEDS: cefTRIAXone 1 GM in Sodium Chloride 0.9% 100 ML IV SCH (20:44)
[2019-01-12] MEDS ORDERED: Apixaban 5 MG Tab PO ONE (21:00)
[2019-01-12] MEDS: Acetaminophen/oxyCODONE 325-5 MG Tab PO PRN (21:19)
[2019-01-13] MEDS: Pantoprazole 40 MG Tab.CR PO SCH (06:30)
[2019-01-13] MEDS: Levothyroxine 75 MCG Tab PO SCH (06:30)
[2019-01-13] MEDS: Insulin Lispro 100 Units/ML 3 ML Vial SUBCUT SCH ×4 (06:30→22:26)
[2019-01-13] MEDS: Midodrine 5 MG Tab PO SCH ×3 (06:30→16:22)
--- NOTE | 2019-01-13 07:26 | PCM.PN ---
- General Info Date of Service: 01/13/19 Admission Dx/Problem (Free Text): Admission Diagnosis/Problem Admission Diagnosis/Problem Afib, Atrial fibrillation Subjective Update: No significant overnight issues. He rested well last night. No new complaints this morning. Functional Status: Reports: Pain Controlled, Tolerating Diet, Ambulating, Urinating. Denies: New Symptoms - Review of Systems General: Reports: Weakness. Denies: Fever, Fatigue, Malaise, Chills HEENT: Reports: No Symptoms Pulmonary: Denies: Shortness of Breath Cardiovascular: Denies: Chest Pain, Dyspnea on Exertion, Lightheadedness Gastrointestinal: Reports: Diarrhea. Denies: Abdominal Pain, Nausea, Vomiting Genitourinary: Reports: No Symptoms Musculoskeletal: Reports: No Symptoms Neurological: Reports: Weakness, Gait Disturbance. Denies: Confusion Psychiatric: Denies: Depression, Anxiety, Agitation, Hallucinations - Patient Data Vitals - Most Recent: Last Vital Signs Temp 36.4 C 01/13/19 04:00 Pulse 101 H 01/13/19 04:00 Resp 15 01/13/19 04:00 BP 91/63 01/13/19 04:00 Pulse Ox 96 01/13/19 04:00 Weight - Most Recent: 109.769 kg I&O - Last 24 Hours: Intake & Output 01/12/19 01/13/19 01/13/19 22:59 06:59 14:59 Intake Total 330 100 Output Total 340 635 Balance -10 -535 Lab Results Last 24 Hours: Laboratory Results - last 24 hr 01/12/19 01/12/19 01/12/19 Range/Units 04:52 11:18 16:16 WBC (4.23-9.07) K/mm3 RBC (4.63-6.08) M/mm3 Hgb (13.7-17.5) gm/L Hct (40.1-51.0) % MCV (79.0-92.2) fl MCH (25.7-32.2) pg MCHC (32.2-35.5) g/dl RDW Std Deviation (35.1-43.9) fL Plt Count (163-337) K/mm3 MPV (9.4-12.3) fl Neut % (Auto) (34.0-67.9) % Lymph % (Auto) (21.8-53.1) % Sutton % (Auto) (5.3-12.2) % Eos % (Auto) (0.8-7.0) Baso % (Auto) (0.1-1.2) % Neut # (Auto) (1.78-5.38) K/mm3 Lymph # (Auto) (1.32-3.57) K/mm3 Sutton # (Auto) (0.30-0.82) K/mm3 Eos # (Auto) (0.04-0.54) K/mm3 Baso # (Auto) (0.01-0.08) K/mm3 Manual Slide Review Sodium (136-145) mEq/L Potassium (3.5-5.1) mEq/L Chloride (98-107) mEq/L Carbon Dioxide (21-32) mEq/L Anion Gap (5-15) BUN (7-18) mg/dL Creatinine (0.7-1.3) mg/dL Est Cr Clr Drug Dosing mL/min Estimated GFR (MDRD) (>60) mL/min BUN/Creatinine Ratio (14-18) Glucose (80-115) mg/dL POC Glucose 130 H 132 H (80-115) mg/dL Calcium (8.5-10.1) mg/dL Magnesium (1.8-2.4) mg/dl Ammonia (11-32) umol/L C-Reactive Protein (<1.0) mg/dL NT-Pro-B Natriuret Pep 1247 H (0-125) pg/mL 01/12/19 01/13/19 01/13/19 Range/Units 20:40 05:03 05:03 WBC (4.23-9.07) K/mm3 RBC (4.63-6.08) M/mm3 Hgb (13.7-17.5) gm/L Hct (40.1-51.0) % MCV (79.0-92.2) fl MCH (25.7-32.2) pg MCHC (32.2-35.5) g/dl RDW Std Deviation (35.1-43.9) fL Plt Count (163-337) K/mm3 MPV (9.4-12.3) fl Neut % (Auto) (34.0-67.9) % Lymph % (Auto) (21.8-53.1) % Sutton % (Auto) (5.3-12.2) % Eos % (Auto) (0.8-7.0) Baso % (Auto) (0.1-1.2) % Neut # (Auto) (1.78-5.38) K/mm3 Lymph # (Auto) (1.32-3.57) K/mm3 Sutton # (Auto) (0.30-0.82) K/mm3 Eos # (Auto) (0.04-0.54) K/mm3 Baso # (Auto) (0.01-0.08) K/mm3 Manual Slide Review Sodium 136 (136-145) mEq/L Potassium 4.0 (3.5-5.1) mEq/L Chloride 103 (98-107) mEq/L Carbon Dioxide 22 (21-32) mEq/L Anion Gap 15.0 (5-15) BUN 41 H (7-18) mg/dL Creatinine 2.1 H (0.7-1.3) mg/dL Est Cr Clr Drug Dosing 32.23 mL/min Estimated GFR (MDRD) 32 (>60) mL/min BUN/Creatinine Ratio 19.5 H (14-18) Glucose 147 H (80-115) mg/dL POC Glucose 129 H (80-115) mg/dL Calcium 9.0 (8.5-10.1) mg/dL Magnesium 1.8 (1.8-2.4) mg/dl Ammonia 24 (11-32) umol/L C-Reactive Protein 16.2 H* (<1.0) mg/dL NT-Pro-B Natriuret Pep (0-125) pg/mL 01/13/19 01/13/19 Range/Units 05:03 06:30 WBC 10.51 H (4.23-9.07) K/mm3 RBC 3.83 L (4.63-6.08) M/mm3 Hgb 13.4 L (13.7-17.5) gm/L Hct 38.1 L (40.1-51.0) % MCV 99.5 H (79.0-92.2) fl MCH 35.0 H (25.7-32.2) pg MCHC 35.2 (32.2-35.5) g/dl RDW Std Deviation 57.5 H (35.1-43.9) fL Plt Count 101 L (163-337) K/mm3 MPV 10.4 (9.4-12.3) fl Neut % (Auto) 66.9 (34.0-67.9) % Lymph % (Auto) 11.8 L (21.8-53.1) % Sutton % (Auto) 15.9 H (5.3-12.2) % Eos % (Auto) 1.0 (0.8-7.0) Baso % (Auto) 0.5 (0.1-1.2) % Neut # (Auto) 7.04 H (1.78-5.38) K/mm3 Lymph # (Auto) 1.24 L (1.32-3.57) K/mm3 Sutton # (Auto) 1.67 H (0.30-0.82) K/mm3 Eos # (Auto) 0.10 (0.04-0.54) K/mm3 Baso # (Auto) 0.05 (0.01-0.08) K/mm3 Manual Slide Review Abnormal smear Sodium (136-145) mEq/L Potassium (3.5-5.1) mEq/L Chloride (98-107) mEq/L Carbon Dioxide (21-32) mEq/L Anion Gap (5-15) BUN (7-18) mg/dL Creatinine (0.7-1.3) mg/dL Est Cr Clr Drug Dosing mL/min Estimated GFR (MDRD) (>60) mL/min BUN/Creatinine Ratio (14-18) Glucose (80-115) mg/dL POC Glucose 131 H (80-115) mg/dL Calcium (8.5-10.1) mg/dL Magnesium (1.8-2.4) mg/dl Ammonia (11-32) umol/L C-Reactive Protein (<1.0) mg/dL NT-Pro-B Natriuret Pep (0-125) pg/mL Med Orders - Current: Current Medications Acetaminophen (Tylenol) 650 mg PO Q4H PRN PRN Reason: Pain (Mild 1-3)/fever Hydrocodone Bitart/Acetaminophen ([place] 325-5 Mg) 1 tab PO Q4H PRN PRN Reason: Pain (moderate 4-6) Last Admin: 08/20/19 11:46 Dose: 1 tab Albuterol/Ipratropium (Duoneb 3.0-0.5 Mg/3 Ml) 3 ml NEB Q4HRRT PRN PRN Reason: Shortness Of Breath/wheezing Apixaban (Eliquis) 10 mg PO BID [facility] Stop: 01/17/19 09:01 Apixaban (Eliquis) 5 mg PO BID [facility] Bisacodyl (Dulcolax) 5 mg PO DAILY PRN PRN Reason: Constipation Dextrose/Water (Dextrose 50% In Water) 50 ml IVPUSH ASDIRECTED PRN PRN Reason: Hypoglycemia Docusate Sodium (Colace) 100 mg PO BID PRN PRN Reason: Constipation Last Admin: 01/09/19 13:40 Dose: 100 mg Finasteride (Proscar) 5 mg PO DAILY [facility] Last Admin: 01/12/19 09:34 Dose: 5 mg Folic Acid (Folic Acid) 1 mg PO BEDTIME [facility] Last Admin: 01/12/19 20:43 Dose: 1 mg Furosemide (Lasix) 20 mg PO SuMoWeFr@0900 [facility] Last Admin: 01/11/19 08:50 Dose: 20 mg Hydromorphone HCl (Dilaudid) 0.25 mg IVPUSH Q2H PRN PRN Reason: Pain (severe 7-10) Last Admin: 01/09/19 01:04 Dose: 0.25 mg Diltiazem HCl 125 mg/ Sodium (Chloride) 125 mls @ 10 mls/hr IV TITRATE [facility]; Protocol Last Titration: 01/08/19 22:25 Dose: 0 mg/hr, 0 mls/hr Promethazine HCl 6.25 mg/ (Sodium Chloride) 50.25 mls @ 100 mls/hr IV Q6H PRN PRN Reason: Nausea/Vomiting Ceftriaxone Sodium 1 gm/ (Sodium Chloride) 100 mls @ 200 mls/hr IV Q24H [facility] Last Admin: 01/12/19 20:44 Dose: 200 mls/hr Insulin Glargine (Lantus) 22 unit SUBCUT BEDTIME [facility] Last Admin: 01/12/19 20:43 Dose: 22 units Insulin Human Lispro (Humalog) 0 unit SUBCUT QIDACANDBED [facility]; Protocol Last Admin: 01/13/19 06:30 Dose: Not Given Lactulose (Cephulac) 20 gm PO BID [facility] Last Admin: 01/12/19 20:42 Dose: 20 gm Levothyroxine Sodium (Levothyroxine) 75 mcg PO ACBREAKFAST [facility] Last Admin: 01/13/19 06:30 Dose: 75 mcg Lorazepam (Ativan) 1 mg IV Q6H PRN PRN Reason: Anxiety Last Admin: 01/10/19 04:25 Dose: 1 mg Lorazepam (Ativan) 2 mg IVPUSH Q4H PRN PRN Reason: Seizures Lorazepam (Ativan) 0 mg IVPUSH Q4H PRN; Protocol PRN Reason: Withdrawal Symptoms Magnesium Oxide (Magnesium Oxide) 400 mg PO BID [facility] Last Admin: 01/12/19 20:43 Dose: 400 mg Metoprolol Tartrate (Lopressor) 5 mg IVPUSH Q4H PRN PRN Reason: Tachycardia Last Admin: 01/09/19 17:01 Dose: 5 mg Metoprolol Tartrate (Lopressor) 50 mg PO Q12H [facility] Last Admin: 01/12/19 21:03 Dose: Not Given Midodrine (Midodrine) 10 mg PO TIDAC [facility] Last Admin: 01/13/19 06:30 Dose: 10 mg Multivitamins (Thera) 1 each PO BEDTIME [facility] Last Admin: 01/12/19 20:42 Dose: 1 each Mupirocin (Bactroban Oint) 0 gm TOP TID [facility] Stop: 01/14/19 09:01 Last Admin: 01/12/19 20:44 Dose: 1 applic Ondansetron HCl (Zofran) 4 mg IV Q6H PRN PRN Reason: Nausea/Vomiting Oxycodone/Acetaminophen (Percocet 325-5 Mg) 1 tab PO DAILY PRN PRN Reason: Pain (severe 7-10) Last Admin: 01/12/19 21:19 Dose: 1 tab Pantoprazole Sodium (Protonix) 40 mg PO DAILY@0700 [facility] Last Admin: 01/13/19 06:30 Dose: 40 mg Polyethylene Glycol (Miralax) 17 gm PO DAILY PRN PRN Reason: Constipation Rifaximin (Xifaxan) 550 mg PO BID [facility] Last Admin: 01/12/19 20:43 Dose: 550 mg Rosuvastatin Calcium (Crestor) 10 mg PO DAILY [facility] Last Admin: 01/12/19 09:34 Dose: 10 mg Senna/Docusate Sodium (Senna Plus) 1 tab PO BID PRN PRN Reason: Constipation Sodium Chloride (Saline Flush) 10 ml FLUSH ASDIRECTED PRN PRN Reason: Keep Vein Open Last Admin: 01/08/19 12:53 Dose: 10 ml Spironolactone (Aldactone) 50 mg PO DAILY [facility] Last Admin: 01/12/19 09:35 Dose: 50 mg Tamsulosin HCl (Flomax) 0.4 mg PO BID [facility] Last Admin: 01/12/19 20:43 Dose: 0.4 mg Thiamine HCl (Vitamin B-1) 100 mg PO BEDTIME [facility] Last Admin: 01/12/19 20:43 Dose: 100 mg Discontinued Medications Albuterol/Ipratropium (Duoneb 3.0-0.5 Mg/3 Ml) 3 ml NEB Q4H PRN PRN Reason: Shortness Of Breath/wheezing Apixaban (Eliquis) 5 mg PO BID [facility] Last Admin: 01/12/19 20:43 Dose: 5 mg Apixaban (Eliquis) 5 mg PO ONETIME ONE Stop: 01/12/19 21:01 Last Admin: 01/12/19 21:18 Dose: 5 mg Diltiazem HCl (Cardizem) 10 mg IVPUSH ONETIME ONE Stop: 01/08/19 12:43 Last Admin: 01/08/19 12:52 Dose: 10 mg Furosemide (Lasix) 20 mg PO DAILY [facility] Furosemide (Lasix) 20 mg PO SuMoWeFr@0900 [facility] Hydrochlorothiazide (Hydrochlorothiazide) 12.5 mg PO BEDTIME [facility] Last Admin: 01/10/19 20:08 Dose: 12.5 mg Sodium Chloride (Normal Saline) 500 mls @ 999 mls/hr IV ONETIME ONE Stop: 01/08/19 13:12 Last Admin: 01/08/19 12:52 Dose: 999 mls/hr Magnesium Sulfate 2 gm/ Premix 50 mls @ 50 mls/hr IV ONETIME ONE Stop: 01/08/19 15:05 Last Admin: 01/08/19 16:40 Dose: 50 mls/hr Amiodarone HCl/Dextrose (Nexterone In Dextrose 360 Mg/200 Ml) 200 mls @ 33.333 mls/hr IV ASDIRECTED [facility]; Protocol Lactated Ringer's (Ringers, Lactated) 500 mls @ 450 mls/hr IV BOLUS ONE Stop: 01/08/19 20:48 Last Admin: 01/08/19 20:04 Dose: 450 mls/hr Furosemide 100 mg/ Sodium (Chloride) 110 mls @ 2.5 mls/hr IV TITRATE [facility]; Protocol Ceftriaxone Sodium 1 gm/ (Sodium Chloride) 100 mls @ 200 mls/hr IV Q24H [facility] Last Admin: 01/08/19 20:50 Dose: Not Given Magnesium Sulfate 2 gm/ Premix 50 mls @ 25 mls/hr IV ONETIME ONE Stop: 01/08/19 22:16 Last Admin: 01/08/19 20:40 Dose: 25 mls/hr Thiamine HCl 200 mg/ Sodium (Chloride) 102 mls @ 204 mls/hr IV ONETIME ONE Stop: 01/08/19 20:21 Last Admin: 01/08/19 20:41 Dose: 204 mls/hr Furosemide 100 mg/ Sodium (Chloride) 100 mls @ 2.273 mls/hr IV TITRATE [facility]; Protocol Last Admin: 01/09/19 11:34 Dose: 2.5 mls/hr Magnesium Sulfate 2 gm/ Premix 50 mls @ 25 mls/hr IV ONETIME ONE Stop: 01/10/19 09:13 Last Admin: 01/10/19 07:45 Dose: 25 mls/hr Insulin Glargine (Lantus) 22 unit SUBCUT BEDTIME [facility] Last Admin: 01/08/19 20:06 Dose: 22 unit Insulin Glargine (Lantus) 22 unit .ROUTE .STK-MED ONE Stop: 01/08/19 21:01 Lactulose (Cephulac) 20 gm PO TID [facility] Last Admin: 01/12/19 16:14 Dose: Not Given Levothyroxine Sodium (Synthroid) 100 mcg PO DAILY [facility] Last Admin: 01/09/19 08:51 Dose: 100 mcg Metoprolol Tartrate (Lopressor) 25 mg PO Q12H [facility] Last Admin: 01/08/19 20:20 Dose: Not Given Metoprolol Tartrate (Lopressor) 5 mg IVPUSH ONETIME ONE Stop: 01/08/19 18:25 Last Admin: 01/08/19 18:30 Dose: 5 mg Metoprolol Tartrate (Lopressor) 25 mg PO Q12H [facility] Last Admin: 01/08/19 20:01 Dose: 25 mg Midodrine (Midodrine) 10 mg PO NOW STA Stop: 01/09/19 08:32 Last Admin: 01/09/19 08:48 Dose: 10 mg Potassium Chloride (Klor-Con M20) 60 meq PO ONETIME ONE Stop: 01/10/19 07:15 Last Admin: 01/10/19 07:55 Dose: 60 meq Potassium Chloride (Klor-Con M20) 40 meq PO BID [facility] Stop: 01/12/19 09:01 Last Admin: 01/12/19 09:36 Dose: 40 meq Rosuvastatin Calcium (Crestor) 5 mg PO DAILY [facility] Spironolactone (Aldactone) 100 mg PO DAILY [facility] Last Admin: 01/10/19 09:25 Dose: 100 mg Temazepam (Restoril) 15 mg PO BEDTIME PRN PRN Reason: Insomnia Last Admin: 01/10/19 20:07 Dose: 15 mg Zolpidem Tartrate (Ambien) 5 mg PO BEDTIME PRN PRN Reason: Sleep - Exam General: Alert, Oriented, Cooperative, No Acute Distress HEENT: Pupils Equal, Pupils Reactive, EOMI, Mucous Membr. Moist/Mildred Neck: Supple Lungs: Clear to Auscultation, Normal Respiratory Effort Cardiovascular: Irregular Rhythm GI/Abdominal Exam: Normal Bowel Sounds, Soft, Non-Tender, No Organomegaly, No Distention, No Abnormal Bruit, Other (rectal tube) (Male) Exam: Other (indwelling dolan catheter) Back Exam: Normal Inspection, Decreased Range of Motion Extremities: Normal Inspection, Normal Range of Motion, Non-Tender, Normal Capillary Refill, Other (trace b/l edema) Peripheral Pulses: 2+: Dorsalis Pedis (L), Dorsalis Pedis (R) Skin: Warm, Dry, Intact Neurological: No New Focal Deficit. No: Normal Gait Psy/Mental Status: Alert, Normal Affect, Normal Mood - Problem List Review Problem List Initiated/Reviewed/Updated: Yes - My Orders Last 24 Hours: My Active Orders 01/12/19 10:53 Consult to Physician [CONS] Routine 01/12/19 10:54 Notify Provider Consults [RC] ASDIRECTED 01/12/19 13:14 Rectal Tube Insertion [OM.PC] Routine 01/12/19 15:56 Lactulose [Cephulac] 20 gm PO BID 01/12/19 21:00 Rifaximin [Xifaxan] 550 mg PO BID 01/12/19 Lunch Fluid Restriction [DIET] 01/13/19 09:00 Apixaban [Eliquis] 10 mg PO BID 01/14/19 05:11 BMP [BASIC METABOLIC PANEL,BMP] [CHEM] AM CBC WITH AUTO DIFF [HEME] AM CRP [C-REACTIVE PROTEIN] [CHEM] AM 01/15/19 05:11 BMP [BASIC METABOLIC PANEL,BMP] [CHEM] AM CBC WITH AUTO DIFF [HEME] AM CRP [C-REACTIVE PROTEIN] [CHEM] AM 01/16/19 05:11 BMP [BASIC METABOLIC PANEL,BMP] [CHEM] AM CBC WITH AUTO DIFF [HEME] AM 01/17/19 05:11 CBC WITH AUTO DIFF [HEME] AM 01/17/19 21:00 Apixaban [Eliquis] 5 mg PO BID - Plan Plan:: Assessment: Acute: AMS, Continues to Improve - 2/2 Hepatic Encephalopathy plus Metabolic from electrolytes abnormality - Carries a hx/o Liver Cirrhosis - Ammonia 19--> 29; repeat level this AM is 24 - Lactulose 20 mg po daily and Xifaxan 550 mg po BID - Fall Precautions Atrial Fibrillation - New Onset - HR as high as 130s in ED; HR is controlled - EKG shows atrial fibrillation with HR of 174 with prolonged QTc of 471 - TSH is wnl; FT4 is 1.5 (elevated) could the reason why he is in atrial fibrillation - Metoprolol Tartrate 50 mg po BID - [id number] score of 5 (high risk for stroke) with HAS-BLED Score of 4 ( high risk for major bleeding) - Eliquis 2.5 mg po BID for pharmacy to renally dose Heart Failure with Peripheral Edema, Continues to Improve - ProBNP of 7223--> 5113 --> 1941-->1247 - CXR shows no acute abnormal findings - Complaints of shortness of breath plus significant peripheral edema - UA shows elevated protein level (has proteinuria) - 2D echo: EF of 55-60% (study not optimal) - Heart failure regimen: diuretics, salt/fluid restrictions, daily weight check, and Is/Os - Peripheral edema may just be due to low albumin state from liver disease, proteinuria and vascular insufficiency - Resume home dose regimen - He now weights 140 from 253 lbs on admission Macrocytic Normochromic Anemia, Stable - Hgb of 13.3-->12.5--> 12.9-->13.4; at baseline with Hgb level - MCV is 100.8--> same - B12 - 5113 (high) - Folic Acid 6.0 - low; now on supplement - MMA - pending - Iron Panel: low transferrin and Iron levels--> likely 2/2 malnutrition and alcoholism - Heme-occult test ordered; also had some rectal bleeding seen on bed pads Thrombocytopenia, Stable - Acute on chronic 2/2 Liver Cirrhosis and Chronic ETOH Use - Platelet of 24K--> 30K--> 38K-->64K-->82K--> 101K; Baseline is 41-78 - No active bleeding - He is not on antiplatelet or anticoagulation Pulmonary Embolism - D-Dimer 3.28 - Joshua's sign positive on left lower extremity - Duplex U/S shows no PE - V/Q scan to r/o PE: multiple matched defects - Chest CTA contraindicated due to Renal Insufficiency/CKD stage 3 - Patient has been on Eliquis po BID since admission for DVT stroke prophylaxis - Converted to PE/DVT treatment Erysipelas/Cellulitis, Stable - Left Lower Extremity: less erythema, no warmth, less edema, non tender to palpation - Risk factors: Morbid Obesity, Venous Insufficiency, DM and Chronic Leg Edema - CRP of 19.2-->19.4-->15.7 - Discontinue IV Rocephin 1 gram Daily - Compression stocking to improve edema and circulations (patient has been refusing it) DM2 - A1C is 5.4 - BS is well controlled - Accu-check QID with ISS Dyslipidemia - HLD is low - Atorvastatin 10 mg po daily - Continue AHA diet Morbid Obesity - Advised LSM - BMI of 40.8 - Dietary consult for weight management Hx/o ETOH Abuse/Use - Folic Acid, Thiamine, and MVI - PRN Ativan - CIWAA Protocol with Ativan Positive MRSA Screening - Bactroban topical TID for 5 days Rectal Bleed 2/2 Pilonidal cysts - Minimal rectal bleed on his bed pads - Hgb is stable otherwise - GS consult for further eval: recommends conservative management for now Folic Acid Deficiency - Folate of 6.0 - 2/2 Malnutrition from chronic alcoholism - Folic acid supplement Generalized Weakness - 2/2 Acute Illness - He still weak and requires assistance getting around - PT/OT to assess and treat Resolved: S/p Hypomagnesemia - Mg of 0.9--> 1.8 - 2/2 Poor intake - Replete and monitor S/p Relative Hypotension - He came off Cardizem drip - May likely worsen with Lasix drip; will monitor - PRN Midodrine for BP < 100/60 mmHg S/p Lactic Acidosis, likely resolved - LA of 2.3--> 2.4 --> 2.2 ( maybe chronic due to CKD and Liver Cirrhosis) - 2/2 Metabolic has underlying CKD and Cellulitis - IV hydration S/p B/L Knee Pain, Stable - Both plain x-ray imaging studies: stable prothesis with nothing acute appreciated - PRN pain medication for management - PT/OT when appropriate S/p Hypokalemia - K of 3.3--> 3.5 - He has been on lasix - Replete and monitor S/p Hypomagnesemia - Mg of 1.4--> 1.9 - 2/2 diuresis - Replete and monitor Chronic: Impaired Vision, HTN, DM2, Hypothyroidism, GERD, CKD Stage 3, Chronic Peripheral Edema, Hx/o PVCs, Constipation, Hx/o Liver Cirrhosis with Ascites, Hx /o Fatty Liver Disease, BPH, Hx/o Renal Stone, OA/DJD, Substance Abuse, Hx/o MRSA and Morbid obesity Plan: He remains hemodynamically stable seems to be better with mentation this morning Routine AM Labs Fall Precautions due to Morbid Obesity Discontinue dolan catheter and rectal tube DVT/Stroke Prophylaxis: Eliquis BID for pharmacy to dose GI Prophylaxis with PPI Dietary consult for weight management PT/OT to assess and treat when appropriate SW/CM for d/c planning Recommend SNF/Rehab vs [facility] Code status: full Additional orders as above Prognosis is good Updated daughter at bedside regarding clinical progress, morning labs, treatment and possible discharge care plan
[2019-01-13] MEDS: Lactulose Soln 10 GM/15 ML 30 ML UD Cup PO SCH (08:15)
[2019-01-13] MEDS: Rosuvastatin 10 MG Tab PO SCH (08:16)
[2019-01-13] MEDS: Apixaban 5 MG Tab PO SCH ×2 (08:16→22:24)
[2019-01-13] MEDS: Rifaximin 550 MG Tab PO SCH ×2 (08:16→22:24)
[2019-01-13] MEDS: Tamsulosin 0.4 MG Cap.ER PO SCH ×2 (08:16→22:24)
[2019-01-13] MEDS: Magnesium Oxide 400 MG Tab PO SCH ×2 (08:16→22:24)
[2019-01-13] MEDS: Finasteride 5 MG Tab PO SCH (08:17)
[2019-01-13] MEDS: Mupirocin Oint 22 GM Tube TOP SCH ×3 (08:19→22:24)
[2019-01-13] MEDS: Acetaminophen/HYDROcodone 325-5 MG Tab PO PRN (08:56)
[2019-01-13] MEDS: Spironolactone 25 MG Tab PO SCH (08:56)
[2019-01-13] MEDS: Metoprolol Tartrate 25 MG Tab PO SCH ×2 (08:56→22:23)
[2019-01-13] MEDS: Furosemide 20 MG Tab PO SCH (08:56)
[2019-01-13] MEDS: Insulin Glarg,Human.Rec.Analog 100 UNIT/ML ML SUBCUT SCH (22:23)
[2019-01-13] MEDS: Folic Acid 1 MG Tab PO SCH (22:24)
[2019-01-13] MEDS: Multivitamins,Therapeutic Tab PO SCH (22:24)
[2019-01-13] MEDS: Thiamine 100 MG Tab PO SCH (22:24)
[2019-01-14] MEDS: Acetaminophen/HYDROcodone 325-5 MG Tab PO PRN ×3 (00:57→21:03)
[2019-01-14] MEDS: Insulin Lispro 100 Units/ML 3 ML Vial SUBCUT SCH ×4 (06:33→21:04)
[2019-01-14] MEDS: Midodrine 5 MG Tab PO SCH ×3 (06:33→17:24)
[2019-01-14] MEDS: Pantoprazole 40 MG Tab.CR PO SCH (06:33)
[2019-01-14] MEDS: Levothyroxine 75 MCG Tab PO SCH (06:33)
--- NOTE | 2019-01-14 07:47 | PCM.PN ---
- General Info Date of Service: 01/14/19 Admission Dx/Problem (Free Text): Admission Diagnosis/Problem Admission Diagnosis/Problem Afib, Atrial fibrillation Subjective Update: No significant overnight issues Functional Status: Reports: Pain Controlled, Tolerating Diet, Ambulating, Urinating. Denies: New Symptoms - Review of Systems General: Denies: Fever, Weakness, Fatigue, Malaise, Chills HEENT: Reports: No Symptoms Pulmonary: Denies: Shortness of Breath Cardiovascular: Denies: Chest Pain, Dyspnea on Exertion, Lightheadedness Gastrointestinal: Denies: Abdominal Pain, Nausea, Vomiting Genitourinary: Reports: No Symptoms Musculoskeletal: Reports: No Symptoms Skin: Denies: Cyanosis, Pallor, Diaphoresis, Pruritis Neurological: Reports: Weakness, Gait Disturbance. Denies: Confusion Psychiatric: Denies: Depression, Anxiety, Agitation, Hallucinations, Suicidal Ideation, Homicidal Ideation - Patient Data Vitals - Most Recent: Last Vital Signs Temp 36.4 C 01/14/19 05:01 Pulse 98 01/14/19 05:01 Resp 16 01/14/19 05:01 BP 90/41 L 01/14/19 05:01 Pulse Ox 95 01/14/19 05:01 Weight - Most Recent: 112.037 kg I&O - Last 24 Hours: Intake & Output 01/13/19 01/14/19 01/14/19 22:59 06:59 14:59 Intake Total 180 400 Output Total 400 Balance 180 0 Lab Results Last 24 Hours: Laboratory Results - last 24 hr 01/13/19 01/13/19 01/13/19 Range/Units 11:25 16:35 22:14 WBC (4.23-9.07) K/mm3 RBC (4.63-6.08) M/mm3 Hgb (13.7-17.5) gm/L Hct (40.1-51.0) % MCV (79.0-92.2) fl MCH (25.7-32.2) pg MCHC (32.2-35.5) g/dl RDW Std Deviation (35.1-43.9) fL Plt Count (163-337) K/mm3 MPV (9.4-12.3) fl Neut % (Auto) (34.0-67.9) % Lymph % (Auto) (21.8-53.1) % [place] % (Auto) (5.3-12.2) % Eos % (Auto) (0.8-7.0) Baso % (Auto) (0.1-1.2) % Neut # (Auto) (1.78-5.38) K/mm3 Lymph # (Auto) (1.32-3.57) K/mm3 [place] # (Auto) (0.30-0.82) K/mm3 Eos # (Auto) (0.04-0.54) K/mm3 Baso # (Auto) (0.01-0.08) K/mm3 Manual Slide Review Sodium (136-145) mEq/L Potassium (3.5-5.1) mEq/L Chloride (98-107) mEq/L Carbon Dioxide (21-32) mEq/L Anion Gap (5-15) BUN (7-18) mg/dL Creatinine (0.7-1.3) mg/dL Est Cr Clr Drug Dosing mL/min Estimated GFR (MDRD) (>60) mL/min BUN/Creatinine Ratio (14-18) Glucose (80-115) mg/dL POC Glucose 186 H 128 H 136 H (80-115) mg/dL Calcium (8.5-10.1) mg/dL C-Reactive Protein (<1.0) mg/dL 01/14/19 01/14/19 01/14/19 Range/Units 04:25 04:29 06:32 WBC 10.46 H (4.23-9.07) K/mm3 RBC 3.66 L (4.63-6.08) M/mm3 Hgb 12.8 L (13.7-17.5) gm/L Hct 36.7 L (40.1-51.0) % MCV 100.3 H (79.0-92.2) fl MCH 35.0 H (25.7-32.2) pg MCHC 34.9 (32.2-35.5) g/dl RDW Std Deviation 56.8 H (35.1-43.9) fL Plt Count 99 L (163-337) K/mm3 MPV 10.4 (9.4-12.3) fl Neut % (Auto) 69.9 H (34.0-67.9) % Lymph % (Auto) 11.5 L (21.8-53.1) % [place] % (Auto) 11.7 (5.3-12.2) % Eos % (Auto) 1.5 (0.8-7.0) Baso % (Auto) 0.7 (0.1-1.2) % Neut # (Auto) 7.32 H (1.78-5.38) K/mm3 Lymph # (Auto) 1.20 L (1.32-3.57) K/mm3 [place] # (Auto) 1.22 H (0.30-0.82) K/mm3 Eos # (Auto) 0.16 (0.04-0.54) K/mm3 Baso # (Auto) 0.07 (0.01-0.08) K/mm3 Manual Slide Review Abnormal smear Sodium 134 L (136-145) mEq/L Potassium 4.2 (3.5-5.1) mEq/L Chloride 102 (98-107) mEq/L Carbon Dioxide 21 (21-32) mEq/L Anion Gap 15.2 H (5-15) BUN 42 H (7-18) mg/dL Creatinine 2.0 H (0.7-1.3) mg/dL Est Cr Clr Drug Dosing 33.84 mL/min Estimated GFR (MDRD) 34 (>60) mL/min BUN/Creatinine Ratio 21.0 H (14-18) Glucose 108 (80-115) mg/dL POC Glucose 109 (80-115) mg/dL Calcium 9.0 (8.5-10.1) mg/dL C-Reactive Protein 14.1 H* (<1.0) mg/dL Med Orders - Current: Current Medications Acetaminophen (Tylenol) 650 mg PO Q4H PRN PRN Reason: Pain (Mild 1-3)/fever Hydrocodone Bitart/Acetaminophen ([place] 325-5 Mg) 1 tab PO Q4H PRN PRN Reason: Pain (moderate 4-6) Last Admin: 01/14/19 00:57 Dose: 1 tab Albuterol/Ipratropium (Duoneb 3.0-0.5 Mg/3 Ml) 3 ml NEB Q4HRRT PRN PRN Reason: Shortness Of Breath/wheezing Apixaban (Eliquis) 10 mg PO BID [facility] Stop: 01/17/19 09:01 Last Admin: 01/13/19 22:24 Dose: 10 mg Apixaban (Eliquis) 5 mg PO BID [facility] Bisacodyl (Dulcolax) 5 mg PO DAILY PRN PRN Reason: Constipation Dextrose/Water (Dextrose 50% In Water) 50 ml IVPUSH ASDIRECTED PRN PRN Reason: Hypoglycemia Docusate Sodium (Colace) 100 mg PO BID PRN PRN Reason: Constipation Last Admin: 01/09/19 13:40 Dose: 100 mg Finasteride (Proscar) 5 mg PO DAILY [facility] Last Admin: 01/13/19 08:17 Dose: 5 mg Folic Acid (Folic Acid) 1 mg PO BEDTIME [facility] Last Admin: 01/13/19 22:24 Dose: 1 mg Furosemide (Lasix) 20 mg PO SuMoWeFr@0900 [facility] Last Admin: 01/13/19 08:56 Dose: 20 mg Hydromorphone HCl (Dilaudid) 0.25 mg IVPUSH Q2H PRN PRN Reason: Pain (severe 7-10) Last Admin: 01/09/19 01:04 Dose: 0.25 mg Promethazine HCl 6.25 mg/ (Sodium Chloride) 50.25 mls @ 100 mls/hr IV Q6H PRN PRN Reason: Nausea/Vomiting Insulin Glargine (Lantus) 22 unit SUBCUT BEDTIME [facility] Last Admin: 01/13/19 22:23 Dose: 22 units Insulin Human Lispro (Humalog) 0 unit SUBCUT QIDACANDBED [facility]; Protocol Last Admin: 01/14/19 06:33 Dose: Not Given Lactulose (Cephulac) 20 gm PO DAILY [facility] Levothyroxine Sodium (Levothyroxine) 75 mcg PO ACBREAKFAST [facility] Last Admin: 01/14/19 06:33 Dose: 75 mcg Lorazepam (Ativan) 1 mg IV Q6H PRN PRN Reason: Anxiety Last Admin: 01/10/19 04:25 Dose: 1 mg Lorazepam (Ativan) 2 mg IVPUSH Q4H PRN PRN Reason: Seizures Lorazepam (Ativan) 0 mg IVPUSH Q4H PRN; Protocol PRN Reason: Withdrawal Symptoms Magnesium Oxide (Magnesium Oxide) 400 mg PO BID [facility] Last Admin: 01/13/19 22:24 Dose: 400 mg Metoprolol Tartrate (Lopressor) 5 mg IVPUSH Q4H PRN PRN Reason: Tachycardia Last Admin: 01/09/19 17:01 Dose: 5 mg Metoprolol Tartrate (Lopressor) 50 mg PO Q12H [facility] Last Admin: 01/13/19 22:23 Dose: 50 mg Midodrine (Midodrine) 10 mg PO TIDAC [facility] Last Admin: 01/14/19 06:33 Dose: 10 mg Multivitamins (Thera) 1 each PO BEDTIME [facility] Last Admin: 01/13/19 22:24 Dose: 1 each Mupirocin (Bactroban Oint) 0 gm TOP TID [facility] Stop: 01/14/19 09:01 Last Admin: 01/13/19 22:24 Dose: 1 applic Ondansetron HCl (Zofran) 4 mg IV Q6H PRN PRN Reason: Nausea/Vomiting Oxycodone/Acetaminophen (Percocet 325-5 Mg) 1 tab PO DAILY PRN PRN Reason: Pain (severe 7-10) Last Admin: 01/12/19 21:19 Dose: 1 tab Pantoprazole Sodium (Protonix) 40 mg PO DAILY@0700 [facility] Last Admin: 01/14/19 06:33 Dose: 40 mg Polyethylene Glycol (Miralax) 17 gm PO DAILY PRN PRN Reason: Constipation Rifaximin (Xifaxan) 550 mg PO BID [facility] Last Admin: 01/13/19 22:24 Dose: 550 mg Rosuvastatin Calcium (Crestor) 10 mg PO DAILY [facility] Last Admin: 01/13/19 08:16 Dose: 10 mg Senna/Docusate Sodium (Senna Plus) 1 tab PO BID PRN PRN Reason: Constipation Sodium Chloride (Saline Flush) 10 ml FLUSH ASDIRECTED PRN PRN Reason: Keep Vein Open Last Admin: 01/08/19 12:53 Dose: 10 ml Spironolactone (Aldactone) 50 mg PO DAILY [facility] Last Admin: 01/13/19 08:56 Dose: 50 mg Tamsulosin HCl (Flomax) 0.4 mg PO BID [facility] Last Admin: 01/13/19 22:24 Dose: 0.4 mg Thiamine HCl (Vitamin B-1) 100 mg PO BEDTIME [facility] Last Admin: 01/13/19 22:24 Dose: 100 mg Discontinued Medications Albuterol/Ipratropium (Duoneb 3.0-0.5 Mg/3 Ml) 3 ml NEB Q4H PRN PRN Reason: Shortness Of Breath/wheezing Apixaban (Eliquis) 5 mg PO BID [facility] Last Admin: 01/12/19 20:43 Dose: 5 mg Apixaban (Eliquis) 5 mg PO ONETIME ONE Stop: 01/12/19 21:01 Last Admin: 01/12/19 21:18 Dose: 5 mg Diltiazem HCl (Cardizem) 10 mg IVPUSH ONETIME ONE Stop: 01/08/19 12:43 Last Admin: 01/08/19 12:52 Dose: 10 mg Furosemide (Lasix) 20 mg PO DAILY [facility] Furosemide (Lasix) 20 mg PO SuMoWeFr@0900 [facility] Hydrochlorothiazide (Hydrochlorothiazide) 12.5 mg PO BEDTIME [facility] Last Admin: 01/10/19 20:08 Dose: 12.5 mg Sodium Chloride (Normal Saline) 500 mls @ 999 mls/hr IV ONETIME ONE Stop: 01/08/19 13:12 Last Admin: 01/08/19 12:52 Dose: 999 mls/hr Diltiazem HCl 125 mg/ Sodium (Chloride) 125 mls @ 10 mls/hr IV TITRATE [facility]; Protocol Last Titration: 01/08/19 22:25 Dose: 0 mg/hr, 0 mls/hr Magnesium Sulfate 2 gm/ Premix 50 mls @ 50 mls/hr IV ONETIME ONE Stop: 01/08/19 15:05 Last Admin: 01/08/19 16:40 Dose: 50 mls/hr Amiodarone HCl/Dextrose (Nexterone In Dextrose 360 Mg/200 Ml) 200 mls @ 33.333 mls/hr IV ASDIRECTED [facility]; Protocol Lactated Ringer's (Ringers, Lactated) 500 mls @ 450 mls/hr IV BOLUS ONE Stop: 01/08/19 20:48 Last Admin: 01/08/19 20:04 Dose: 450 mls/hr Furosemide 100 mg/ Sodium (Chloride) 110 mls @ 2.5 mls/hr IV TITRATE [facility]; Protocol Ceftriaxone Sodium 1 gm/ (Sodium Chloride) 100 mls @ 200 mls/hr IV Q24H [facility] Last Admin: 01/08/19 20:50 Dose: Not Given Magnesium Sulfate 2 gm/ Premix 50 mls @ 25 mls/hr IV ONETIME ONE Stop: 01/08/19 22:16 Last Admin: 01/08/19 20:40 Dose: 25 mls/hr Thiamine HCl 200 mg/ Sodium (Chloride) 102 mls @ 204 mls/hr IV ONETIME ONE Stop: 01/08/19 20:21 Last Admin: 01/08/19 20:41 Dose: 204 mls/hr Ceftriaxone Sodium 1 gm/ (Sodium Chloride) 100 mls @ 200 mls/hr IV Q24H [facility] Last Admin: 01/12/19 20:44 Dose: 200 mls/hr Furosemide 100 mg/ Sodium (Chloride) 100 mls @ 2.273 mls/hr IV TITRATE [facility]; Protocol Last Admin: 01/09/19 11:34 Dose: 2.5 mls/hr Magnesium Sulfate 2 gm/ Premix 50 mls @ 25 mls/hr IV ONETIME ONE Stop: 01/10/19 09:13 Last Admin: 01/10/19 07:45 Dose: 25 mls/hr Insulin Glargine (Lantus) 22 unit SUBCUT BEDTIME [facility] Last Admin: 01/08/19 20:06 Dose: 22 unit Insulin Glargine (Lantus) 22 unit .ROUTE .STK-MED ONE Stop: 01/08/19 21:01 Lactulose (Cephulac) 20 gm PO TID [facility] Last Admin: 01/12/19 16:14 Dose: Not Given Lactulose (Cephulac) 20 gm PO BID [facility] Last Admin: 01/13/19 08:15 Dose: 20 gm Levothyroxine Sodium (Synthroid) 100 mcg PO DAILY [facility] Last Admin: 01/09/19 08:51 Dose: 100 mcg Metoprolol Tartrate (Lopressor) 25 mg PO Q12H [facility] Last Admin: 01/08/19 20:20 Dose: Not Given Metoprolol Tartrate (Lopressor) 5 mg IVPUSH ONETIME ONE Stop: 01/08/19 18:25 Last Admin: 01/08/19 18:30 Dose: 5 mg Metoprolol Tartrate (Lopressor) 25 mg PO Q12H [facility] Last Admin: 01/08/19 20:01 Dose: 25 mg Midodrine (Midodrine) 10 mg PO NOW STA Stop: 01/09/19 08:32 Last Admin: 01/09/19 08:48 Dose: 10 mg Potassium Chloride (Klor-Con M20) 60 meq PO ONETIME ONE Stop: 01/10/19 07:15 Last Admin: 01/10/19 07:55 Dose: 60 meq Potassium Chloride (Klor-Con M20) 40 meq PO BID [facility] Stop: 01/12/19 09:01 Last Admin: 01/12/19 09:36 Dose: 40 meq Rosuvastatin Calcium (Crestor) 5 mg PO DAILY [facility] Spironolactone (Aldactone) 100 mg PO DAILY [facility] Last Admin: 01/10/19 09:25 Dose: 100 mg Temazepam (Restoril) 15 mg PO BEDTIME PRN PRN Reason: Insomnia Last Admin: 01/10/19 20:07 Dose: 15 mg Zolpidem Tartrate (Ambien) 5 mg PO BEDTIME PRN PRN Reason: Sleep - Exam General: Alert, Oriented, Cooperative, No Acute Distress HEENT: Pupils Equal, Pupils Reactive, EOMI, Mucous Membr. Moist/[place] Neck: Supple Lungs: Normal Respiratory Effort, Decreased Breath Sounds Cardiovascular: Irregular Rhythm GI/Abdominal Exam: Normal Bowel Sounds, Soft, Non-Tender, No Organomegaly, No Distention, No Abnormal Bruit, No Mass (Male) Exam: Deferred Back Exam: Normal Inspection, Decreased Range of Motion Extremities: Normal Inspection, Normal Range of Motion, Non-Tender, No Pedal Edema, Normal Capillary Refill, Other (Left Leg: Large Hematoma) Peripheral Pulses: 2+: Dorsalis Pedis (L), Dorsalis Pedis (R) Skin: Warm, Dry, Intact, Ecchymosis, Other (left laterla leg: large hematoma) Neurological: No New Focal Deficit. No: Normal Gait Psy/Mental Status: Alert, Normal Affect, Normal Mood - Problem List Review Problem List Initiated/Reviewed/Updated: Yes - My Orders Last 24 Hours: My Active Orders 01/13/19 08:00 Communication Order [RC] ASDIRECTED 01/13/19 08:50 Remove Rectal Tube [Rectal Tube Removal] [OM.PC] Routine 01/13/19 09:00 Apixaban [Eliquis] 10 mg PO BID 01/13/19 10:52 Admission Status [Patient Status] [ADT] Routine 01/14/19 09:00 Lactulose [Cephulac] 20 gm PO DAILY 01/15/19 05:11 BMP [BASIC METABOLIC PANEL,BMP] [CHEM] AM CBC WITH AUTO DIFF [HEME] AM CRP [C-REACTIVE PROTEIN] [CHEM] AM 01/16/19 05:11 BMP [BASIC METABOLIC PANEL,BMP] [CHEM] AM CBC WITH AUTO DIFF [HEME] AM 01/17/19 05:11 CBC WITH AUTO DIFF [HEME] AM 01/17/19 21:00 Apixaban [Eliquis] 5 mg PO BID - Plan Plan:: Assessment: Acute: Atrial Fibrillation - New Onset - HR as high as 130s in ED; HR is controlled - EKG shows atrial fibrillation with HR of 174 with prolonged QTc of 471 - TSH is wnl; FT4 is 1.5 (elevated) could the reason why he is in atrial fibrillation - Metoprolol Tartrate 50 mg po BID - [id number] score of 5 (high risk for stroke) with HAS-BLED Score of 4 ( high risk for major bleeding) - Eliquis 2.5 mg po BID for pharmacy to renally dose Heart Failure with Peripheral Edema, Continues to Improve - ProBNP of 7223--> 5113 --> 1941-->1247 - CXR shows no acute abnormal findings - Complaints of shortness of breath plus significant peripheral edema - UA shows elevated protein level (has proteinuria) - 2D echo: EF of 55-60% (study not optimal) - Heart failure regimen: diuretics, salt/fluid restrictions, daily weight check, and Is/Os - Peripheral edema may just be due to low albumin state from liver disease, proteinuria and vascular insufficiency - Resume home dose regimen Macrocytic Normochromic Anemia, Stable - Hgb of 13.3-->12.5--> 12.9-->13.4-->12.8; at baseline with Hgb level - MCV is 100.8--> same - B12 - 5113 (high) - Folic Acid 6.0 - low; now on supplement - MMA - pending - Iron Panel: low transferrin and Iron levels--> likely 2/2 malnutrition and alcoholism - Heme-occult test ordered; also had some rectal bleeding seen on bed pads Thrombocytopenia, Stable - Acute on chronic 2/2 Liver Cirrhosis and Chronic ETOH Use - Platelet of 24K--> 30K--> 38K-->64K-->82K--> 101K-->99K; Baseline is 41-78 - No active bleeding - He is not on antiplatelet or anticoagulation Pulmonary Embolism - D-Dimer 3.28 - Joshua's sign positive on left lower extremity - Duplex U/S shows no PE - V/Q scan to r/o PE: multiple matched defects - Chest CTA contraindicated due to Renal Insufficiency/CKD stage 3 - Patient has been on Eliquis po BID since admission for DVT stroke prophylaxis - Converted to PE/DVT treatment Erysipelas/Cellulitis, Stable - Left Lower Extremity: less erythema, no warmth, less edema, non tender to palpation - Risk factors: Morbid Obesity, Venous Insufficiency, DM and Chronic Leg Edema - CRP of 19.2-->19.4-->15.7-->14.1 - Discontinue IV Rocephin 1 gram Daily - Compression stocking to improve edema and circulations (patient has been refusing it) DM2 - A1C is 5.4 - BS is well controlled - Accu-check QID with ISS Dyslipidemia - HLD is low - Atorvastatin 10 mg po daily - Continue AHA diet Morbid Obesity - Advised LSM - BMI of 40.8--> 39.7 - Dietary consult for weight management Positive MRSA Screening - Bactroban topical TID for 5 days Folic Acid Deficiency - Folate of 6.0 - 2/2 Malnutrition from chronic alcoholism - Folic acid supplement Generalized Weakness - 2/2 Acute Illness - He still weak and requires assistance getting around - PT/OT to assess and treat Left Lateral Leg Large Hematoma - Unclear how he got it; possibly hit the bed rails - He is on Eliquis to PE treatment - Monitor - U/S of lower extremity Resolved: S/p Hypomagnesemia - Mg of 0.9--> 1.8 - 2/2 Poor intake - Replete and monitor S/p Relative Hypotension - He came off Cardizem drip - May likely worsen with Lasix drip; will monitor - PRN Midodrine for BP < 100/60 mmHg S/p Lactic Acidosis, likely resolved - LA of 2.3--> 2.4 --> 2.2 ( maybe chronic due to CKD and Liver Cirrhosis) - 2/2 Metabolic has underlying CKD and Cellulitis - IV hydration S/p B/L Knee Pain, Stable - Both plain x-ray imaging studies: stable prothesis with nothing acute appreciated - PRN pain medication for management - PT/OT when appropriate S/p Hypokalemia - K of 3.3--> 3.5 - He has been on lasix - Replete and monitor S/p Hypomagnesemia - Mg of 1.4--> 1.9 - 2/2 diuresis - Replete and monitor S/p AMS - 2/2 Hepatic Encephalopathy plus Metabolic from electrolytes abnormality - Carries a hx/o Liver Cirrhosis - Ammonia 19--> 29; repeat level this AM is 24 - Lactulose 20 mg po daily and Xifaxan 550 mg po BID - Fall Precautions Hx/o ETOH Abuse/Use - Folic Acid, Thiamine, and MVI - PRN Ativan - Discontinued CIWAA Protocol with Ativan S/p Rectal Bleed 2/2 Pilonidal Cyst - Minimal rectal bleed on his bed pads - Hgb is stable otherwise - consult for further eval: recommends conservative management for now Chronic: Impaired Vision, HTN, DM2, Hypothyroidism, GERD, CKD Stage 3, Chronic Peripheral Edema, Hx/o PVCs, Constipation, Hx/o Liver Cirrhosis with Ascites, Hx /o Fatty Liver Disease, BPH, Hx/o Renal Stone, OA/DJD, Substance Abuse, Hx/o MRSA and Morbid obesity Plan: He is clinically and hemodynamically stable Routine AM Labs Fall Precautions due to Morbid Obesity Discontinue dolan catheter and rectal tube DVT/Stroke Prophylaxis: Eliquis BID for pharmacy to dose GI Prophylaxis with PPI Dietary consult for weight management PT/OT to assess and treat when appropriate SW/CM for d/c planning Code status: full Additional orders as above Prognosis is good Discharge pending placement Updated daughter at bedside regarding clinical progress, morning labs, treatment and possible discharge care plan
[2019-01-14] MEDS: Finasteride 5 MG Tab PO SCH (08:36)
[2019-01-14] MEDS: Rifaximin 550 MG Tab PO SCH ×2 (08:36→20:52)
[2019-01-14] MEDS: Magnesium Oxide 400 MG Tab PO SCH ×2 (08:37→20:50)
[2019-01-14] MEDS: Apixaban 5 MG Tab PO SCH ×2 (08:40→20:52)
[2019-01-14] MEDS: Rosuvastatin 10 MG Tab PO SCH (08:40)
[2019-01-14] MEDS: Tamsulosin 0.4 MG Cap.ER PO SCH ×2 (08:50→20:53)
[2019-01-14] MEDS: Metoprolol Tartrate 25 MG Tab PO SCH ×2 (08:51→20:49)
[2019-01-14] MEDS: Spironolactone 25 MG Tab PO SCH (08:52)
[2019-01-14] MEDS: Lactulose Soln 10 GM/15 ML 30 ML UD Cup PO SCH (08:52)
[2019-01-14] MEDS: Mupirocin Oint 22 GM Tube TOP SCH (08:53)
--- NOTE | 2019-01-14 13:32 | US ---
Left lower extremity venous ultrasound: Multiple real-time images were obtained of the left lower extremity with an area of hematoma. Complicated fluid filled structure is noted within the superficial soft tissues measuring at least 5.6 x 1.6 x 4.4 cm most likely representing liquefying hematoma. No additional abnormality is seen in this area. Impression: 1. Findings which are felt compatible with liquefying hematoma as noted above. Diagnostic code #3
[2019-01-14] MEDS: Multivitamins,Therapeutic Tab PO SCH (20:49)
[2019-01-14] MEDS: Thiamine 100 MG Tab PO SCH (20:51)
[2019-01-14] MEDS: Insulin Glarg,Human.Rec.Analog 100 UNIT/ML ML SUBCUT SCH (20:53)
[2019-01-14] MEDS: Folic Acid 1 MG Tab PO SCH (20:53)
[2019-01-15] MEDS: Acetaminophen/HYDROcodone 325-5 MG Tab PO PRN ×2 (05:25→09:31)
[2019-01-15] MEDS: Levothyroxine 75 MCG Tab PO SCH (05:25)
[2019-01-15] MEDS: Midodrine 5 MG Tab PO SCH ×2 (06:10→11:34)
[2019-01-15] MEDS: Pantoprazole 40 MG Tab.CR PO SCH (06:10)
[2019-01-15] MEDS: Insulin Lispro 100 Units/ML 3 ML Vial SUBCUT SCH ×2 (06:13→11:45)
--- NOTE | 2019-01-15 07:45 | PCM.PN ---
- General Info Date of Service: 01/15/19 Admission Dx/Problem (Free Text): Admission Diagnosis/Problem Admission Diagnosis/Problem Afib, Atrial fibrillation Subjective Update: No significant overnight issues Functional Status: Reports: Pain Controlled, Tolerating Diet, Ambulating, Urinating. Denies: New Symptoms - Patient Data Vitals - Most Recent: Last Vital Signs Temp 37.1 C 01/15/19 04:52 Pulse 93 01/15/19 04:52 Resp 20 01/15/19 04:52 BP 92/58 L 01/15/19 05:00 Pulse Ox 94 L 01/15/19 04:52 Weight - Most Recent: 111.856 kg I&O - Last 24 Hours: Intake & Output 01/14/19 01/15/19 01/15/19 22:59 06:59 14:59 Intake Total 720 400 Output Total 650 300 Balance 70 100 Lab Results Last 24 Hours: Laboratory Results - last 24 hr 01/14/19 01/14/19 01/14/19 Range/Units 11:30 17:18 20:48 WBC (4.23-9.07) K/mm3 RBC (4.63-6.08) M/mm3 Hgb (13.7-17.5) gm/L Hct (40.1-51.0) % MCV (79.0-92.2) fl MCH (25.7-32.2) pg MCHC (32.2-35.5) g/dl RDW Std Deviation (35.1-43.9) fL Plt Count (163-337) K/mm3 MPV (9.4-12.3) fl Neut % (Auto) (34.0-67.9) % Lymph % (Auto) (21.8-53.1) % Clay % (Auto) (5.3-12.2) % Eos % (Auto) (0.8-7.0) Baso % (Auto) (0.1-1.2) % Neut # (Auto) (1.78-5.38) K/mm3 Lymph # (Auto) (1.32-3.57) K/mm3 Clay # (Auto) (0.30-0.82) K/mm3 Eos # (Auto) (0.04-0.54) K/mm3 Baso # (Auto) (0.01-0.08) K/mm3 Manual Slide Review Sodium (136-145) mEq/L Potassium (3.5-5.1) mEq/L Chloride (98-107) mEq/L Carbon Dioxide (21-32) mEq/L Anion Gap (5-15) BUN (7-18) mg/dL Creatinine (0.7-1.3) mg/dL Est Cr Clr Drug Dosing mL/min Estimated GFR (MDRD) (>60) mL/min BUN/Creatinine Ratio (14-18) Glucose (80-115) mg/dL POC Glucose 130 H 133 H 156 H (80-115) mg/dL Calcium (8.5-10.1) mg/dL C-Reactive Protein (<1.0) mg/dL NT-Pro-B Natriuret Pep (0-125) pg/mL 01/15/19 01/15/19 01/15/19 Range/Units 04:50 04:50 04:50 WBC 12.00 H (4.23-9.07) K/mm3 RBC 3.62 L (4.63-6.08) M/mm3 Hgb 12.5 L (13.7-17.5) gm/L Hct 35.9 L (40.1-51.0) % MCV 99.2 H (79.0-92.2) fl MCH 34.5 H (25.7-32.2) pg MCHC 34.8 (32.2-35.5) g/dl RDW Std Deviation 54.9 H (35.1-43.9) fL Plt Count 120 L (163-337) K/mm3 MPV 10.2 (9.4-12.3) fl Neut % (Auto) 70.7 H (34.0-67.9) % Lymph % (Auto) 10.8 L (21.8-53.1) % Clay % (Auto) 11.7 (5.3-12.2) % Eos % (Auto) 1.6 (0.8-7.0) Baso % (Auto) 0.4 (0.1-1.2) % Neut # (Auto) 8.50 H (1.78-5.38) K/mm3 Lymph # (Auto) 1.29 L (1.32-3.57) K/mm3 Clay # (Auto) 1.40 H (0.30-0.82) K/mm3 Eos # (Auto) 0.19 (0.04-0.54) K/mm3 Baso # (Auto) 0.05 (0.01-0.08) K/mm3 Manual Slide Review Abnormal smear Sodium 131 L (136-145) mEq/L Potassium 4.8 (3.5-5.1) mEq/L Chloride 100 (98-107) mEq/L Carbon Dioxide 21 (21-32) mEq/L Anion Gap 14.8 (5-15) BUN 42 H (7-18) mg/dL Creatinine 1.7 H (0.7-1.3) mg/dL Est Cr Clr Drug Dosing 39.82 mL/min Estimated GFR (MDRD) 41 (>60) mL/min BUN/Creatinine Ratio 24.7 H (14-18) Glucose 113 (80-115) mg/dL POC Glucose (80-115) mg/dL Calcium 8.5 (8.5-10.1) mg/dL C-Reactive Protein 14.8 H* (<1.0) mg/dL NT-Pro-B Natriuret Pep 1294 H (0-125) pg/mL 01/15/19 Range/Units 06:12 WBC (4.23-9.07) K/mm3 RBC (4.63-6.08) M/mm3 Hgb (13.7-17.5) gm/L Hct (40.1-51.0) % MCV (79.0-92.2) fl MCH (25.7-32.2) pg MCHC (32.2-35.5) g/dl RDW Std Deviation (35.1-43.9) fL Plt Count (163-337) K/mm3 MPV (9.4-12.3) fl Neut % (Auto) (34.0-67.9) % Lymph % (Auto) (21.8-53.1) % Clay % (Auto) (5.3-12.2) % Eos % (Auto) (0.8-7.0) Baso % (Auto) (0.1-1.2) % Neut # (Auto) (1.78-5.38) K/mm3 Lymph # (Auto) (1.32-3.57) K/mm3 Clay # (Auto) (0.30-0.82) K/mm3 Eos # (Auto) (0.04-0.54) K/mm3 Baso # (Auto) (0.01-0.08) K/mm3 Manual Slide Review Sodium (136-145) mEq/L Potassium (3.5-5.1) mEq/L Chloride (98-107) mEq/L Carbon Dioxide (21-32) mEq/L Anion Gap (5-15) BUN (7-18) mg/dL Creatinine (0.7-1.3) mg/dL Est Cr Clr Drug Dosing mL/min Estimated GFR (MDRD) (>60) mL/min BUN/Creatinine Ratio (14-18) Glucose (80-115) mg/dL POC Glucose 111 (80-115) mg/dL Calcium (8.5-10.1) mg/dL C-Reactive Protein (<1.0) mg/dL NT-Pro-B Natriuret Pep (0-125) pg/mL Med Orders - Current: Current Medications Acetaminophen (Tylenol) 650 mg PO Q4H PRN PRN Reason: Pain (Mild 1-3)/fever Hydrocodone Bitart/Acetaminophen ([place] 325-5 Mg) 1 tab PO Q4H PRN PRN Reason: Pain (moderate 4-6) Last Admin: 01/15/19 05:25 Dose: 1 tab Albuterol/Ipratropium (Duoneb 3.0-0.5 Mg/3 Ml) 3 ml NEB Q4HRRT PRN PRN Reason: Shortness Of Breath/wheezing Apixaban (Eliquis) 10 mg PO BID [facility] Stop: 01/17/19 09:01 Last Admin: 01/14/19 20:52 Dose: 10 mg Apixaban (Eliquis) 5 mg PO BID [facility] Bisacodyl (Dulcolax) 5 mg PO DAILY PRN PRN Reason: Constipation Dextrose/Water (Dextrose 50% In Water) 50 ml IVPUSH ASDIRECTED PRN PRN Reason: Hypoglycemia Docusate Sodium (Colace) 100 mg PO BID PRN PRN Reason: Constipation Last Admin: 01/09/19 13:40 Dose: 100 mg Finasteride (Proscar) 5 mg PO DAILY [facility] Last Admin: 01/14/19 08:36 Dose: 5 mg Folic Acid (Folic Acid) 1 mg PO BEDTIME [facility] Last Admin: 01/14/19 20:53 Dose: 1 mg Furosemide (Lasix) 20 mg PO SuMoWeFr@0900 [facility] Last Admin: 01/13/19 08:56 Dose: 20 mg Hydromorphone HCl (Dilaudid) 0.25 mg IVPUSH Q2H PRN PRN Reason: Pain (severe 7-10) Last Admin: 01/09/19 01:04 Dose: 0.25 mg Promethazine HCl 6.25 mg/ (Sodium Chloride) 50.25 mls @ 100 mls/hr IV Q6H PRN PRN Reason: Nausea/Vomiting Insulin Glargine (Lantus) 22 unit SUBCUT BEDTIME [facility] Last Admin: 01/14/19 20:53 Dose: 22 units Insulin Human Lispro (Humalog) 0 unit SUBCUT QIDACANDBED [facility]; Protocol Last Admin: 01/15/19 06:13 Dose: Not Given Lactulose (Cephulac) 20 gm PO DAILY [facility] Last Admin: 01/14/19 08:52 Dose: 20 gm Levothyroxine Sodium (Levothyroxine) 75 mcg PO ACBREAKFAST [facility] Last Admin: 01/15/19 05:25 Dose: 75 mcg Lorazepam (Ativan) 1 mg IV Q6H PRN PRN Reason: Anxiety Last Admin: 01/10/19 04:25 Dose: 1 mg Lorazepam (Ativan) 2 mg IVPUSH Q4H PRN PRN Reason: Seizures Lorazepam (Ativan) 0 mg IVPUSH Q4H PRN; Protocol PRN Reason: Withdrawal Symptoms Magnesium Oxide (Magnesium Oxide) 400 mg PO BID [facility] Last Admin: 01/14/19 20:50 Dose: 400 mg Metoprolol Tartrate (Lopressor) 5 mg IVPUSH Q4H PRN PRN Reason: Tachycardia Last Admin: 01/09/19 17:01 Dose: 5 mg Metoprolol Tartrate (Lopressor) 50 mg PO Q12H [facility] Last Admin: 01/14/19 20:49 Dose: 50 mg Midodrine (Midodrine) 10 mg PO TIDAC [facility] Last Admin: 01/15/19 06:10 Dose: 10 mg Multivitamins (Thera) 1 each PO BEDTIME [facility] Last Admin: 01/14/19 20:49 Dose: 1 each Ondansetron HCl (Zofran) 4 mg IV Q6H PRN PRN Reason: Nausea/Vomiting Oxycodone/Acetaminophen (Percocet 325-5 Mg) 1 tab PO DAILY PRN PRN Reason: Pain (severe 7-10) Last Admin: 01/12/19 21:19 Dose: 1 tab Pantoprazole Sodium (Protonix) 40 mg PO DAILY@0700 [facility] Last Admin: 01/15/19 06:10 Dose: 40 mg Polyethylene Glycol (Miralax) 17 gm PO DAILY PRN PRN Reason: Constipation Rifaximin (Xifaxan) 550 mg PO BID [facility] Last Admin: 01/14/19 20:52 Dose: 550 mg Rosuvastatin Calcium (Crestor) 10 mg PO DAILY [facility] Last Admin: 01/14/19 08:40 Dose: 10 mg Senna/Docusate Sodium (Senna Plus) 1 tab PO BID PRN PRN Reason: Constipation Sodium Chloride (Saline Flush) 10 ml FLUSH ASDIRECTED PRN PRN Reason: Keep Vein Open Last Admin: 01/08/19 12:53 Dose: 10 ml Spironolactone (Aldactone) 50 mg PO DAILY [facility] Last Admin: 01/14/19 08:52 Dose: Not Given Tamsulosin HCl (Flomax) 0.4 mg PO BID [facility] Last Admin: 01/14/19 20:53 Dose: 0.4 mg Thiamine HCl (Vitamin B-1) 100 mg PO BEDTIME [facility] Last Admin: 01/14/19 20:51 Dose: 100 mg Discontinued Medications Albuterol/Ipratropium (Duoneb 3.0-0.5 Mg/3 Ml) 3 ml NEB Q4H PRN PRN Reason: Shortness Of Breath/wheezing Apixaban (Eliquis) 5 mg PO BID [facility] Last Admin: 01/12/19 20:43 Dose: 5 mg Apixaban (Eliquis) 5 mg PO ONETIME ONE Stop: 01/12/19 21:01 Last Admin: 01/12/19 21:18 Dose: 5 mg Diltiazem HCl (Cardizem) 10 mg IVPUSH ONETIME ONE Stop: 01/08/19 12:43 Last Admin: 01/08/19 12:52 Dose: 10 mg Furosemide (Lasix) 20 mg PO DAILY [facility] Furosemide (Lasix) 20 mg PO SuMoWeFr@0900 [facility] Hydrochlorothiazide (Hydrochlorothiazide) 12.5 mg PO BEDTIME [facility] Last Admin: 01/10/19 20:08 Dose: 12.5 mg Sodium Chloride (Normal Saline) 500 mls @ 999 mls/hr IV ONETIME ONE Stop: 01/08/19 13:12 Last Admin: 01/08/19 12:52 Dose: 999 mls/hr Diltiazem HCl 125 mg/ Sodium (Chloride) 125 mls @ 10 mls/hr IV TITRATE [facility]; Protocol Last Titration: 01/08/19 22:25 Dose: 0 mg/hr, 0 mls/hr Magnesium Sulfate 2 gm/ Premix 50 mls @ 50 mls/hr IV ONETIME ONE Stop: 01/08/19 15:05 Last Admin: 01/08/19 16:40 Dose: 50 mls/hr Amiodarone HCl/Dextrose (Nexterone In Dextrose 360 Mg/200 Ml) 200 mls @ 33.333 mls/hr IV ASDIRECTED [facility]; Protocol Lactated Ringer's (Ringers, Lactated) 500 mls @ 450 mls/hr IV BOLUS ONE Stop: 01/08/19 20:48 Last Admin: 01/08/19 20:04 Dose: 450 mls/hr Furosemide 100 mg/ Sodium (Chloride) 110 mls @ 2.5 mls/hr IV TITRATE [facility]; Protocol Ceftriaxone Sodium 1 gm/ (Sodium Chloride) 100 mls @ 200 mls/hr IV Q24H [facility] Last Admin: 01/08/19 20:50 Dose: Not Given Magnesium Sulfate 2 gm/ Premix 50 mls @ 25 mls/hr IV ONETIME ONE Stop: 01/08/19 22:16 Last Admin: 01/08/19 20:40 Dose: 25 mls/hr Thiamine HCl 200 mg/ Sodium (Chloride) 102 mls @ 204 mls/hr IV ONETIME ONE Stop: 01/08/19 20:21 Last Admin: 01/08/19 20:41 Dose: 204 mls/hr Ceftriaxone Sodium 1 gm/ (Sodium Chloride) 100 mls @ 200 mls/hr IV Q24H [facility] Last Admin: 01/12/19 20:44 Dose: 200 mls/hr Furosemide 100 mg/ Sodium (Chloride) 100 mls @ 2.273 mls/hr IV TITRATE [facility]; Protocol Last Admin: 01/09/19 11:34 Dose: 2.5 mls/hr Magnesium Sulfate 2 gm/ Premix 50 mls @ 25 mls/hr IV ONETIME ONE Stop: 01/10/19 09:13 Last Admin: 01/10/19 07:45 Dose: 25 mls/hr Insulin Glargine (Lantus) 22 unit SUBCUT BEDTIME [facility] Last Admin: 01/08/19 20:06 Dose: 22 unit Insulin Glargine (Lantus) 22 unit .ROUTE .STK-MED ONE Stop: 01/08/19 21:01 Lactulose (Cephulac) 20 gm PO TID [facility] Last Admin: 01/12/19 16:14 Dose: Not Given Lactulose (Cephulac) 20 gm PO BID [facility] Last Admin: 01/13/19 08:15 Dose: 20 gm Levothyroxine Sodium (Synthroid) 100 mcg PO DAILY [facility] Last Admin: 01/09/19 08:51 Dose: 100 mcg Metoprolol Tartrate (Lopressor) 25 mg PO Q12H [facility] Last Admin: 01/08/19 20:20 Dose: Not Given Metoprolol Tartrate (Lopressor) 5 mg IVPUSH ONETIME ONE Stop: 01/08/19 18:25 Last Admin: 01/08/19 18:30 Dose: 5 mg Metoprolol Tartrate (Lopressor) 25 mg PO Q12H [facility] Last Admin: 01/08/19 20:01 Dose: 25 mg Midodrine (Midodrine) 10 mg PO NOW STA Stop: 01/09/19 08:32 Last Admin: 01/09/19 08:48 Dose: 10 mg Mupirocin (Bactroban Oint) 0 gm TOP TID [facility] Stop: 01/14/19 09:01 Last Admin: 01/14/19 08:53 Dose: 1 applic Potassium Chloride (Klor-Con M20) 60 meq PO ONETIME ONE Stop: 01/10/19 07:15 Last Admin: 01/10/19 07:55 Dose: 60 meq Potassium Chloride (Klor-Con M20) 40 meq PO BID [facility] Stop: 01/12/19 09:01 Last Admin: 01/12/19 09:36 Dose: 40 meq Rosuvastatin Calcium (Crestor) 5 mg PO DAILY [facility] Spironolactone (Aldactone) 100 mg PO DAILY [facility] Last Admin: 01/10/19 09:25 Dose: 100 mg Temazepam (Restoril) 15 mg PO BEDTIME PRN PRN Reason: Insomnia Last Admin: 01/10/19 20:07 Dose: 15 mg Zolpidem Tartrate (Ambien) 5 mg PO BEDTIME PRN PRN Reason: Sleep - My Orders Last 24 Hours: My Active Orders 01/14/19 09:00 Lactulose [Cephulac] 20 gm PO DAILY 01/16/19 05:11 BMP [BASIC METABOLIC PANEL,BMP] [CHEM] AM CBC WITH AUTO DIFF [HEME] AM 01/17/19 05:11 CBC WITH AUTO DIFF [HEME] AM 01/17/19 21:00 Apixaban [Eliquis] 5 mg PO BID - Plan Plan:: Assessment: Acute: Atrial Fibrillation - New Onset - HR as high as 130s in ED; HR is controlled - EKG shows atrial fibrillation with HR of 174 with prolonged QTc of 471 - TSH is wnl; FT4 is 1.5 (elevated) could the reason why he is in atrial fibrillation - Metoprolol Tartrate 50 mg po BID - [id number] score of 5 (high risk for stroke) with HAS-BLED Score of 4 ( high risk for major bleeding) - Eliquis 2.5 mg po BID for pharmacy to renally dose Heart Failure with Peripheral Edema, Continues to Improve - ProBNP of 7223--> 5113 --> 1941-->1247 - CXR shows no acute abnormal findings - Complaints of shortness of breath plus significant peripheral edema - UA shows elevated protein level (has proteinuria) - 2D echo: EF of 55-60% (study not optimal) - Heart failure regimen: diuretics, salt/fluid restrictions, daily weight check, and Is/Os - Peripheral edema may just be due to low albumin state from liver disease, proteinuria and vascular insufficiency - Resume home dose regimen Macrocytic Normochromic Anemia, Stable - Hgb of 13.3-->12.5--> 12.9-->13.4-->12.8; at baseline with Hgb level - MCV is 100.8--> same - B12 - 5113 (high) - Folic Acid 6.0 - low; now on supplement - MMA - pending - Iron Panel: low transferrin and Iron levels--> likely 2/2 malnutrition and alcoholism - Heme-occult test ordered; also had some rectal bleeding seen on bed pads Thrombocytopenia, Stable - Acute on chronic 2/2 Liver Cirrhosis and Chronic ETOH Use - Platelet of 24K--> 30K--> 38K-->64K-->82K--> 101K-->99K; Baseline is 41-78 - No active bleeding - He is not on antiplatelet or anticoagulation Pulmonary Embolism - D-Dimer 3.28 - Joshua's sign positive on left lower extremity - Duplex U/S shows no PE - V/Q scan to r/o PE: multiple matched defects - Chest CTA contraindicated due to Renal Insufficiency/CKD stage 3 - Patient has been on Eliquis po BID since admission for DVT stroke prophylaxis - Converted to PE/DVT treatment Erysipelas/Cellulitis, Stable - Left Lower Extremity: less erythema, no warmth, less edema, non tender to palpation - Risk factors: Morbid Obesity, Venous Insufficiency, DM and Chronic Leg Edema - CRP of 19.2-->19.4-->15.7-->14.1 - Discontinue IV Rocephin 1 gram Daily - Compression stocking to improve edema and circulations (patient has been refusing it) DM2 - A1C is 5.4 - BS is well controlled - Accu-check QID with ISS Dyslipidemia - HLD is low - Atorvastatin 10 mg po daily - Continue AHA diet Morbid Obesity - Advised LSM - BMI of 40.8--> 39.7 - Dietary consult for weight management Positive MRSA Screening - Bactroban topical TID for 5 days Folic Acid Deficiency - Folate of 6.0 - 2/2 Malnutrition from chronic alcoholism - Folic acid supplement Generalized Weakness - 2/2 Acute Illness - He still weak and requires assistance getting around - PT/OT to assess and treat Left Lateral Leg Large Hematoma - Unclear how he got it; possibly hit the bed rails - He is on Eliquis to PE treatment - Monitor - U/S of lower extremity Resolved: S/p Hypomagnesemia - Mg of 0.9--> 1.8 - 2/2 Poor intake - Replete and monitor S/p Relative Hypotension - He came off Cardizem drip - May likely worsen with Lasix drip; will monitor - PRN Midodrine for BP < 100/60 mmHg S/p Lactic Acidosis, likely resolved - LA of 2.3--> 2.4 --> 2.2 ( maybe chronic due to CKD and Liver Cirrhosis) - 2/2 Metabolic has underlying CKD and Cellulitis - IV hydration S/p B/L Knee Pain, Stable - Both plain x-ray imaging studies: stable prothesis with nothing acute appreciated - PRN pain medication for management - PT/OT when appropriate S/p Hypokalemia - K of 3.3--> 3.5 - He has been on lasix - Replete and monitor S/p Hypomagnesemia - Mg of 1.4--> 1.9 - 2/2 diuresis - Replete and monitor S/p AMS - 2/2 Hepatic Encephalopathy plus Metabolic from electrolytes abnormality - Carries a hx/o Liver Cirrhosis - Ammonia 19--> 29; repeat level this AM is 24 - Lactulose 20 mg po daily and Xifaxan 550 mg po BID - Fall Precautions Hx/o ETOH Abuse/Use - Folic Acid, Thiamine, and MVI - PRN Ativan - Discontinued CIWAA Protocol with Ativan S/p Rectal Bleed 2/2 Pilonidal Cyst - Minimal rectal bleed on his bed pads - Hgb is stable otherwise - GS consult for further eval: recommends conservative management for now Chronic: Impaired Vision, HTN, DM2, Hypothyroidism, GERD, CKD Stage 3, Chronic Peripheral Edema, Hx/o PVCs, Constipation, Hx/o Liver Cirrhosis with Ascites, Hx /o Fatty Liver Disease, BPH, Hx/o Renal Stone, OA/DJD, Substance Abuse, Hx/o MRSA and Morbid obesity Plan: He is clinically and hemodynamically stable Routine AM Labs Fall Precautions due to Morbid Obesity Discontinue dolan catheter and rectal tube DVT/Stroke Prophylaxis: Eliquis BID for pharmacy to dose GI Prophylaxis with PPI Dietary consult for weight management PT/OT to assess and treat when appropriate SW/CM for d/c planning Code status: full Additional orders as above Prognosis is good Discharge pending placement Updated daughter at bedside regarding clinical progress, morning labs, treatment and possible discharge care plan
[2019-01-15] MEDS: Lactulose Soln 10 GM/15 ML 30 ML UD Cup PO SCH (09:06)
[2019-01-15] MEDS: Apixaban 5 MG Tab PO SCH (09:07)
[2019-01-15] MEDS: Rifaximin 550 MG Tab PO SCH (09:08)
[2019-01-15] MEDS: Finasteride 5 MG Tab PO SCH (09:09)
[2019-01-15] MEDS: Magnesium Oxide 400 MG Tab PO SCH (09:09)
[2019-01-15] MEDS: Rosuvastatin 10 MG Tab PO SCH (09:10)
[2019-01-15] MEDS: Tamsulosin 0.4 MG Cap.ER PO SCH (09:11)
[2019-01-15] MEDS: Metoprolol Tartrate 25 MG Tab PO SCH (09:20)
[2019-01-15] MEDS: Spironolactone 25 MG Tab PO SCH (09:22)
[2019-01-15] MEDS: Furosemide 20 MG Tab PO SCH (09:22)
[2019-01-15 11:42] VITALS: BP 105/52
--- NOTE | 2019-01-15 13:25 | PCM.DCSUM1 ---
Discharge Summary - Hospital Course Brief History: This is a 63 yo white male with past medical hx/o Impaired Vision , HTN, DM2, Hypothyroidism, GERD, CKD Stage 3, Chronic Edema, Hx/o PVCs, Constipation, Hx/o Liver Cirrhosis with Ascites, Hx/o Fatty Liver Disease, BPH, Hx/o Renal Stone, OA/DJD, Substance Abuse, Hx/o MRSA and Morbid Obesity who presents to ED for evaluation of right knee pain that started Friday after he bumped his knees on steering wheel. He also reports left sided knee but chronic to him. Both plain imaging studies reveal no acute fracture or dislocation but stable prostheses. However on presentation to ED, he was found to have an elevated heart rate and showed atrial fibrillation with RVR on monitor. He denies any hx/o irregular rhythm except for PVCs. Patient denies any chest pain , shortness of breath, heart palpitation, dizziness, lightheadedness or syncopal episode. Patient carries a hx/o alcohol abuse he states he used to quit drinking alcohol back in 2010 but resumed it 6 months. He normally drinks 2 -3 beers a day. He states his last drink was a couple of months ago but family members disagrees. His ANNA level is 0.00. His initial work up in ED shows a CBC remarkable for RBC of 3.81, Hgb of 13.3, Hct of 38.4, MCV of 100.8, MCH of 34.9 , RDW of 58.3, Neutrophils 83.1%, Lymphocytes of 6.3%, and Eosinophils of 0.3%. His coagulation studies show PT of 15.1, and D-dimer of 3.28. His chemistry is significant for AG of 15.5, BUN of 31, Cr of 1.9, LA of 2.3, Mg of 0.9, Total Bilirubin of 5.5, AST of 92, CRP of 19.2, ProBNP of 7223, and Albumin of 2.4. His chest x-ray shows no acute abnormal findings. Patient received initial treatment in ED prior to coming in to the unit for further treatment of new onset of atrial fibrillation. He is full code Diagnosis: Stroke: No Modified De Lancey Scale: No Symptoms at All Modified De Lancey Scale Score: 0 - Discharge Data Discharge Date: 01/15/19 Discharge Disposition: DC/Tfer to Other 70 Condition: Good - Discharge Diagnosis/Problem(s) (1) Anemia, macrocytic, nutritional SNOMED Code(s): 12079839 ICD Code: D52.0 - DIETARY FOLATE DEFICIENCY ANEMIA Status: Chronic Current Visit: Yes (2) Pulmonary embolism SNOMED Code(s): 08595889 ICD Code: I26.99 - OTHER PULMONARY EMBOLISM WITHOUT ACUTE COR PULMONALE Status: Acute Current Visit: Yes Qualifiers: Pulmonary embolism type: unspecified Chronicity: unspecified Acute cor pulmonale presence: without acute cor pulmonale Qualified Code(s): I26.99 - Other pulmonary embolism without acute cor pulmonale (3) Cellulitis SNOMED Code(s): 004181781 ICD Code: L03.90 - CELLULITIS, UNSPECIFIED Status: Resolved Current Visit : Yes Qualifiers: Site of cellulitis: extremity Laterality: left (4) Diabetes mellitus SNOMED Code(s): 73863061 ICD Code: E11.9 - TYPE 2 DIABETES MELLITUS WITHOUT COMPLICATIONS Status: Chronic Current Visit: Yes Qualifiers: Diabetes mellitus type: type 2 Diabetes mellitus fpc insulin use: without marine oil terminal 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 use Diabetes mellitus complication status: with other specified complication Qualified Code(s): E11.69 - Type 2 diabetes mellitus with other specified complication (5) HLD (hyperlipidemia) SNOMED Code(s): 80304624 ICD Code: E78.5 - HYPERLIPIDEMIA, UNSPECIFIED Status: Chronic Current Visit: Yes Qualifiers: Hyperlipidemia type: mixed hyperlipidemia Qualified Code(s): E78.2 - Mixed hyperlipidemia (6) Morbid obesity with BMI of 40.0-44.9, adult SNOMED Code(s): 132162735, 04785992878494 ICD Code: E66.01 - MORBID (SEVERE) OBESITY DUE TO EXCESS CALORIES; Z68.41 - BODY MASS INDEX (BMI) 40.0-44.9, ADULT Status: Chronic Current Visit: Yes (7) MRSA carrier SNOMED Code(s): 410806680 ICD Code: Z22.322 - CARRIER OR SUSPECTED CARRIER OF METHICILLIN RESIS STAPH Status: Acute Current Visit: Yes (8) Folic acid deficiency SNOMED Code(s): 719291844 ICD Code: E53.8 - DEFICIENCY OF OTHER SPECIFIED B GROUP VITAMINS Status: Acute Current Visit: Yes (9) Generalized weakness SNOMED Code(s): 41543783 ICD Code: R53.1 - WEAKNESS Status: Acute Current Visit: Yes (10) Hepatic encephalopathy SNOMED Code(s): 68466178 ICD Code: K72.90 - HEPATIC FAILURE, UNSPECIFIED WITHOUT COMA Status: Resolved Current Visit: Yes (11) Hypomagnesemia SNOMED Code(s): 881604317 ICD Code: E83.42 - HYPOMAGNESEMIA Status: Resolved Current Visit: Yes (12) Hypotension SNOMED Code(s): 34962964 ICD Code: I95.9 - HYPOTENSION, UNSPECIFIED Status: Acute Current Visit: Yes Qualifiers: Hypotension type: other hypotension type Qualified Code(s): I95.89 - Other hypotension (13) Lactic acidosis SNOMED Code(s): 51643834 ICD Code: E87.2 - ACIDOSIS Status: Resolved Current Visit: Yes (14) Knee pain, bilateral SNOMED Code(s): 20759166 ICD Code: M25.561 - PAIN IN RIGHT KNEE; M25.562 - PAIN IN LEFT KNEE Status : Resolved Current Visit: Yes Qualifiers: Chronicity: acute Qualified Code(s): M25.561 - Pain in right knee; M25.562 - Pain in left knee (15) Hypokalemia SNOMED Code(s): 86032451 ICD Code: E87.6 - HYPOKALEMIA Status: Resolved Current Visit: Yes (16) Alcohol abuse SNOMED Code(s): 59445121 ICD Code: F10.10 - ALCOHOL ABUSE, UNCOMPLICATED Status: Chronic Current Visit: Yes (17) Rectal bleed SNOMED Code(s): 60158936 ICD Code: K62.5 - HEMORRHAGE OF ANUS AND RECTUM Status: Resolved Current Visit: Yes (18) Pilonidal cyst SNOMED Code(s): 62179485 ICD Code: L05.91 - PILONIDAL CYST WITHOUT ABSCESS Status: Acute Current Visit: Yes (19) Hematoma SNOMED Code(s): 279147067 ICD Code: T14.8XXA - OTHER INJURY OF UNSPECIFIED BODY REGION, INITIAL ENCOUNTER Status: Acute Current Visit: Yes Problem Details: - left lateral lower extremity (20) Atrial fibrillation with RVR SNOMED Code(s): 456588982734577 ICD Code: I48.91 - UNSPECIFIED ATRIAL FIBRILLATION Status: Acute Current Visit: Yes (21) Nicotine use disorder SNOMED Code(s): 01955972 ICD Code: F17.200 - NICOTINE DEPENDENCE, UNSPECIFIED, UNCOMPLICATED Status : Acute Current Visit: Yes - Patient Summary/Data Consults: Consultations 01/08/19 17:34 Consult to Case Management/Relocation Counselor [CONS] Routine Consult to Battery Service Technician [CONS] Routine Consult to Spiritual Care [CONS] Routine OT Evaluation and Treatment [CONS] Routine PT Evaluation and Treatment [CONS] Routine 01/12/19 10:53 Consult to Physician [CONS] Routine - Patient Instructions Diet: Usual Diet as Tolerated, Low Sodium, Diabetic Diet, Weight Loss Diet Activity: As Tolerated Driving: Do Not Drive Showering/Bathing: May Shower Notify Provider of: Fever, Increased Pain, Swelling and Redness, Drainage, Nausea and/or Vomiting - Discharge Plan *PRESCRIPTION DRUG MONITORING PROGRAM REVIEWED*: Not Applicable *COPY OF PRESCRIPTION DRUG MONITORING REPORT IN PATIENT RM: Not Applicable Prescriptions/Med Rec: Apixaban [Eliquis] 10 mg PO BID #5 tablet Folic Acid 1 mg PO BEDTIME #15 tablet Furosemide [Lasix] 40 mg PO ASDIRECTED #60 tablet Insulin Lispro [HumaLOG] See Protocol SUBCUT QIDACANDBED PRN #1 vial PRN Reason: Hyperglycemia Lactulose [Cephulac] 20 gm PO DAILY #30 cup Levothyroxine 75 mcg PO ACBREAKFAST #30 tablet Magnesium Oxide 400 mg PO BID #20 tablet Midodrine 10 mg PO TIDAC PRN #90 tablet PRN Reason: Relative Hypotension Multivitamins,Therapeutic [Thera] 1 each PO BEDTIME #10 tablet Rifaximin [Xifaxan] 550 mg PO BID #60 tablet Thiamine [Vitamin B-1] 100 mg PO BEDTIME #10 tablet Home Medications: Home Meds Tamsulosin HCl 0.4 mg PO BID 05/01/16 [History] Rosuvastatin Calcium 5 mg PO DAILY 02/05/18 [History] oxyCODONE HCl/Acetaminophen [Oxycodone-Acetaminophen 5-325] 1 tab PO DAILY PRN 02/05/18 [History] Dutasteride [Avodart] 0.5 mg PO DAILY 01/08/19 [History] Insulin Glargine,Hum.Rec.Anlog [Lantus Solostar] 22 unit SQ BEDTIME 01/08/19 [ History] Omeprazole Magnesium [Prilosec Otc] 40 mg PO DAILY 01/08/19 [History] Apixaban [Eliquis] 5 mg PO BID #60 tablet 01/15/19 [Rx] Apixaban [Eliquis] 10 mg PO BID #5 tablet 01/15/19 [Rx] Folic Acid 1 mg PO BEDTIME #15 tablet 01/15/19 [Rx] Furosemide [Lasix] 40 mg PO ASDIRECTED #60 tablet 01/15/19 [Rx] Insulin Lispro [HumaLOG] See Protocol SUBCUT QIDACANDBED PRN #1 vial 01/15/19 [ Rx] Lactulose [Cephulac] 20 gm PO DAILY #30 cup 01/15/19 [Rx] Levothyroxine 75 mcg PO ACBREAKFAST #30 tablet 01/15/19 [Rx] Magnesium Oxide 400 mg PO BID #20 tablet 01/15/19 [Rx] Midodrine 10 mg PO TIDAC PRN #90 tablet 01/15/19 [Rx] Multivitamins,Therapeutic [Thera] 1 each PO BEDTIME #10 tablet 01/15/19 [Rx] Rifaximin [Xifaxan] 550 mg PO BID #60 tablet 01/15/19 [Rx] Spironolactone [Aldactone] 50 mg PO DAILY #30 01/15/19 [Rx] Thiamine [Vitamin B-1] 100 mg PO BEDTIME #10 tablet 01/15/19 [Rx] Oxygen Therapy Mode: Room Air Patient Handouts: Anemia, Hepatic Encephalopathy, Hypomagnesemia, Hypokalemia, Cellulitis, Adult, [id number], Pulmonary Embolism, Metabolic Acidosis, Incision and Drainage of a Pilonidal Cyst, Smokeless Tobacco Information, Adult , Edema, [id number], Steps to Quit Smoking, Atrial Fibrillation, Aqak-[id number]-Vnpn , Obesity, Adult, [id number] Referrals: Reji Bravo MD [Primary Care Provider] - 01/18/19 11:00 am (Please follow up with Dr. Elaine on 1099.) Melvin Pollock MD [Physician] - 01/27/19 1:30 pm (Please follow up with Dr. Pollock on Jan.27 at 1:30pm, please check in at 1:15pm.) - Discharge Summary/Plan Comment DC Time >30 min.: Yes (45 mins) Discharge Summary/Plan Comment: Discharge to [facility] General Info Date of Service: 01/15/19 Subjective Update: Follow Up Functional Status: Reports: Pain Controlled, Tolerating Diet, Ambulating, Urinating. Denies: New Symptoms - Review of Systems General: Reports: Weakness. Denies: Fever, Chills HEENT: Reports: No Symptoms Pulmonary: Denies: Shortness of Breath, Cough Cardiovascular: Reports: Edema. Denies: Chest Pain, Palpitations, Dyspnea on Exertion, Lightheadedness Gastrointestinal: Denies: Abdominal Pain, Vomiting Genitourinary: Denies: No Symptoms Musculoskeletal: Reports: No Symptoms Skin: Reports: Bruising, Other (hematoma) Neurological: Reports: Weakness. Denies: Pre-Existing Deficit, Gait Disturbance Psychiatric: Denies: Depression, Mood Lability, Anxiety, Agitation, Hallucinations, Suicidal Ideation, Homicidal Ideation - Patient Data Vitals - Most Recent: Last Vital Signs Temp 36.1 C 01/15/19 11:17 Pulse 103 H 01/15/19 11:17 Resp 20 01/15/19 11:17 BP 96/60 01/15/19 11:41 Pulse Ox 100 01/15/19 11:17 Weight - Most Recent: 111.856 kg I&O - Last 24 hours: Intake & Output 01/14/19 01/15/19 01/15/19 22:59 06:59 14:59 Intake Total 720 400 180 Output Total 650 300 Balance 70 100 180 Lab Results - Last 24 hrs: Laboratory Results - last 24 hr 01/14/19 01/14/19 01/15/19 Range/Units 17:18 20:48 04:50 WBC (4.23-9.07) K/mm3 RBC (4.63-6.08) M/mm3 Hgb (13.7-17.5) gm/L Hct (40.1-51.0) % MCV (79.0-92.2) fl MCH (25.7-32.2) pg MCHC (32.2-35.5) g/dl RDW Std Deviation (35.1-43.9) fL Plt Count (163-337) K/mm3 MPV (9.4-12.3) fl Neut % (Auto) (34.0-67.9) % Lymph % (Auto) (21.8-53.1) % [place] % (Auto) (5.3-12.2) % Eos % (Auto) (0.8-7.0) Baso % (Auto) (0.1-1.2) % Neut # (Auto) (1.78-5.38) K/mm3 Lymph # (Auto) (1.32-3.57) K/mm3 [place] # (Auto) (0.30-0.82) K/mm3 Eos # (Auto) (0.04-0.54) K/mm3 Baso # (Auto) (0.01-0.08) K/mm3 Manual Slide Review Sodium 131 L (136-145) mEq/L Potassium 4.8 (3.5-5.1) mEq/L Chloride 100 (98-107) mEq/L Carbon Dioxide 21 (21-32) mEq/L Anion Gap 14.8 (5-15) BUN 42 H (7-18) mg/dL Creatinine 1.7 H (0.7-1.3) mg/dL Est Cr Clr Drug Dosing 39.82 mL/min Estimated GFR (MDRD) 41 (>60) mL/min BUN/Creatinine Ratio 24.7 H (14-18) Glucose 113 (80-115) mg/dL POC Glucose 133 H 156 H (80-115) mg/dL Calcium 8.5 (8.5-10.1) mg/dL C-Reactive Protein 14.8 H* (<1.0) mg/dL NT-Pro-B Natriuret Pep (0-125) pg/mL 01/15/19 01/15/19 01/15/19 Range/Units 04:50 04:50 06:12 WBC 12.00 H (4.23-9.07) K/mm3 RBC 3.62 L (4.63-6.08) M/mm3 Hgb 12.5 L (13.7-17.5) gm/L Hct 35.9 L (40.1-51.0) % MCV 99.2 H (79.0-92.2) fl MCH 34.5 H (25.7-32.2) pg MCHC 34.8 (32.2-35.5) g/dl RDW Std Deviation 54.9 H (35.1-43.9) fL Plt Count 120 L (163-337) K/mm3 MPV 10.2 (9.4-12.3) fl Neut % (Auto) 70.7 H (34.0-67.9) % Lymph % (Auto) 10.8 L (21.8-53.1) % Hardin % (Auto) 11.7 (5.3-12.2) % Eos % (Auto) 1.6 (0.8-7.0) Baso % (Auto) 0.4 (0.1-1.2) % Neut # (Auto) 8.50 H (1.78-5.38) K/mm3 Lymph # (Auto) 1.29 L (1.32-3.57) K/mm3 Hardin # (Auto) 1.40 H (0.30-0.82) K/mm3 Eos # (Auto) 0.19 (0.04-0.54) K/mm3 Baso # (Auto) 0.05 (0.01-0.08) K/mm3 Manual Slide Review Abnormal smear Sodium (136-145) mEq/L Potassium (3.5-5.1) mEq/L Chloride (98-107) mEq/L Carbon Dioxide (21-32) mEq/L Anion Gap (5-15) BUN (7-18) mg/dL Creatinine (0.7-1.3) mg/dL Est Cr Clr Drug Dosing mL/min Estimated GFR (MDRD) (>60) mL/min BUN/Creatinine Ratio (14-18) Glucose (80-115) mg/dL POC Glucose 111 (80-115) mg/dL Calcium (8.5-10.1) mg/dL C-Reactive Protein (<1.0) mg/dL NT-Pro-B Natriuret Pep 1294 H (0-125) pg/mL 01/15/19 Range/Units 11:44 WBC (4.23-9.07) K/mm3 RBC (4.63-6.08) M/mm3 Hgb (13.7-17.5) gm/L Hct (40.1-51.0) % MCV (79.0-92.2) fl MCH (25.7-32.2) pg MCHC (32.2-35.5) g/dl RDW Std Deviation (35.1-43.9) fL Plt Count (163-337) K/mm3 MPV (9.4-12.3) fl Neut % (Auto) (34.0-67.9) % Lymph % (Auto) (21.8-53.1) % Hardin % (Auto) (5.3-12.2) % Eos % (Auto) (0.8-7.0) Baso % (Auto) (0.1-1.2) % Neut # (Auto) (1.78-5.38) K/mm3 Lymph # (Auto) (1.32-3.57) K/mm3 Hardin # (Auto) (0.30-0.82) K/mm3 Eos # (Auto) (0.04-0.54) K/mm3 Baso # (Auto) (0.01-0.08) K/mm3 Manual Slide Review Sodium (136-145) mEq/L Potassium (3.5-5.1) mEq/L Chloride (98-107) mEq/L Carbon Dioxide (21-32) mEq/L Anion Gap (5-15) BUN (7-18) mg/dL Creatinine (0.7-1.3) mg/dL Est Cr Clr Drug Dosing mL/min Estimated GFR (MDRD) (>60) mL/min BUN/Creatinine Ratio (14-18) Glucose (80-115) mg/dL POC Glucose 121 H (80-115) mg/dL Calcium (8.5-10.1) mg/dL C-Reactive Protein (<1.0) mg/dL NT-Pro-B Natriuret Pep (0-125) pg/mL Med Orders - Current: Current Medications Acetaminophen (Tylenol) 650 mg PO Q4H PRN PRN Reason: Pain (Mild 1-3)/fever Hydrocodone Bitart/Acetaminophen ([place] 325-5 Mg) 1 tab PO Q4H PRN PRN Reason: Pain (moderate 4-6) Last Admin: 01/15/19 09:31 Dose: 1 tab Albuterol/Ipratropium (Duoneb 3.0-0.5 Mg/3 Ml) 3 ml NEB Q4HRRT PRN PRN Reason: Shortness Of Breath/wheezing Apixaban (Eliquis) 10 mg PO BID MIKO Stop: 01/17/19 09:01 Last Admin: 01/15/19 09:07 Dose: 10 mg Apixaban (Eliquis) 5 mg PO BID [facility] Bisacodyl (Dulcolax) 5 mg PO DAILY PRN PRN Reason: Constipation Dextrose/Water (Dextrose 50% In Water) 50 ml IVPUSH ASDIRECTED PRN PRN Reason: Hypoglycemia Docusate Sodium (Colace) 100 mg PO BID PRN PRN Reason: Constipation Last Admin: 01/09/19 13:40 Dose: 100 mg Finasteride (Proscar) 5 mg PO DAILY [facility] Last Admin: 01/15/19 09:09 Dose: 5 mg Folic Acid (Folic Acid) 1 mg PO BEDTIME [facility] Last Admin: 01/14/19 20:53 Dose: 1 mg Furosemide (Lasix) 20 mg PO SuMoWeFr@0900 [facility] Last Admin: 01/15/19 09:22 Dose: Not Given Hydromorphone HCl (Dilaudid) 0.25 mg IVPUSH Q2H PRN PRN Reason: Pain (severe 7-10) Last Admin: 01/09/19 01:04 Dose: 0.25 mg Promethazine HCl 6.25 mg/ (Sodium Chloride) 50.25 mls @ 100 mls/hr IV Q6H PRN PRN Reason: Nausea/Vomiting Insulin Glargine (Lantus) 22 unit SUBCUT BEDTIME [facility] Last Admin: 01/14/19 20:53 Dose: 22 units Insulin Human Lispro (Humalog) 0 unit SUBCUT QIDACANDBED [facility]; Protocol Last Admin: 01/15/19 11:45 Dose: Not Given Lactulose (Cephulac) 20 gm PO DAILY [facility] Last Admin: 01/15/19 09:06 Dose: 20 gm Levothyroxine Sodium (Levothyroxine) 75 mcg PO ACBREAKFAST [facility] Last Admin: 01/15/19 05:25 Dose: 75 mcg Lorazepam (Ativan) 1 mg IV Q6H PRN PRN Reason: Anxiety Last Admin: 01/10/19 04:25 Dose: 1 mg Lorazepam (Ativan) 2 mg IVPUSH Q4H PRN PRN Reason: Seizures Lorazepam (Ativan) 0 mg IVPUSH Q4H PRN; Protocol PRN Reason: Withdrawal Symptoms Magnesium Oxide (Magnesium Oxide) 400 mg PO BID [facility] Last Admin: 01/15/19 09:09 Dose: 400 mg Metoprolol Tartrate (Lopressor) 5 mg IVPUSH Q4H PRN PRN Reason: Tachycardia Last Admin: 01/09/19 17:01 Dose: 5 mg Metoprolol Tartrate (Lopressor) 50 mg PO Q12H [facility] Last Admin: 01/15/19 09:20 Dose: Not Given Midodrine (Midodrine) 10 mg PO TIDAC [facility] Last Admin: 01/15/19 11:34 Dose: 10 mg Multivitamins (Thera) 1 each PO BEDTIME [facility] Last Admin: 01/14/19 20:49 Dose: 1 each Ondansetron HCl (Zofran) 4 mg IV Q6H PRN PRN Reason: Nausea/Vomiting Oxycodone/Acetaminophen (Percocet 325-5 Mg) 1 tab PO DAILY PRN PRN Reason: Pain (severe 7-10) Last Admin: 01/12/19 21:19 Dose: 1 tab Pantoprazole Sodium (Protonix) 40 mg PO DAILY@0700 [facility] Last Admin: 01/15/19 06:10 Dose: 40 mg Polyethylene Glycol (Miralax) 17 gm PO DAILY PRN PRN Reason: Constipation Rifaximin (Xifaxan) 550 mg PO BID [facility] Last Admin: 01/15/19 09:08 Dose: 550 mg Rosuvastatin Calcium (Crestor) 10 mg PO DAILY [facility] Last Admin: 01/15/19 09:10 Dose: 10 mg Senna/Docusate Sodium (Senna Plus) 1 tab PO BID PRN PRN Reason: Constipation Sodium Chloride (Saline Flush) 10 ml FLUSH ASDIRECTED PRN PRN Reason: Keep Vein Open Last Admin: 01/08/19 12:53 Dose: 10 ml Spironolactone (Aldactone) 50 mg PO DAILY [facility] Last Admin: 01/15/19 09:22 Dose: Not Given Tamsulosin HCl (Flomax) 0.4 mg PO BID [facility] Last Admin: 01/15/19 09:11 Dose: 0.4 mg Thiamine HCl (Vitamin B-1) 100 mg PO BEDTIME [facility] Last Admin: 01/14/19 20:51 Dose: 100 mg Discontinued Medications Albuterol/Ipratropium (Duoneb 3.0-0.5 Mg/3 Ml) 3 ml NEB Q4H PRN PRN Reason: Shortness Of Breath/wheezing Apixaban (Eliquis) 5 mg PO BID [facility] Last Admin: 01/12/19 20:43 Dose: 5 mg Apixaban (Eliquis) 5 mg PO ONETIME ONE Stop: 01/12/19 21:01 Last Admin: 01/12/19 21:18 Dose: 5 mg Diltiazem HCl (Cardizem) 10 mg IVPUSH ONETIME ONE Stop: 01/08/19 12:43 Last Admin: 01/08/19 12:52 Dose: 10 mg Furosemide (Lasix) 20 mg PO DAILY MIKO Furosemide (Lasix) 20 mg PO SuMoWeFr@0900 [facility] Hydrochlorothiazide (Hydrochlorothiazide) 12.5 mg PO BEDTIME [facility]KO Last Admin: 01/10/19 20:08 Dose: 12.5 mg Sodium Chloride (Normal Saline) 500 mls @ 999 mls/hr IV ONETIME ONE Stop: 01/08/19 13:12 Last Admin: 01/08/19 12:52 Dose: 999 mls/hr Diltiazem HCl 125 mg/ Sodium (Chloride) 125 mls @ 10 mls/hr IV TITRATE MIKO; Protocol Last Titration: 01/08/19 22:25 Dose: 0 mg/hr, 0 mls/hr Magnesium Sulfate 2 gm/ Premix 50 mls @ 50 mls/hr IV ONETIME ONE Stop: 01/08/19 15:05 Last Admin: 01/08/19 16:40 Dose: 50 mls/hr Amiodarone HCl/Dextrose (Nexterone In Dextrose 360 Mg/200 Ml) 200 mls @ 33.333 mls/hr IV ASDIRECTED MIKO; Protocol Lactated Ringer's (Ringers, Lactated) 500 mls @ 450 mls/hr IV BOLUS ONE Stop: 01/08/19 20:48 Last Admin: 01/08/19 20:04 Dose: 450 mls/hr Furosemide 100 mg/ Sodium (Chloride) 110 mls @ 2.5 mls/hr IV TITRATE MIKO; Protocol Ceftriaxone Sodium 1 gm/ (Sodium Chloride) 100 mls @ 200 mls/hr IV Q24H [facility]KO Last Admin: 01/08/19 20:50 Dose: Not Given Magnesium Sulfate 2 gm/ Premix 50 mls @ 25 mls/hr IV ONETIME ONE Stop: 01/08/19 22:16 Last Admin: 01/08/19 20:40 Dose: 25 mls/hr Thiamine HCl 200 mg/ Sodium (Chloride) 102 mls @ 204 mls/hr IV ONETIME ONE Stop: 01/08/19 20:21 Last Admin: 01/08/19 20:41 Dose: 204 mls/hr Ceftriaxone Sodium 1 gm/ (Sodium Chloride) 100 mls @ 200 mls/hr IV Q24H MIKO Last Admin: 01/12/19 20:44 Dose: 200 mls/hr Furosemide 100 mg/ Sodium (Chloride) 100 mls @ 2.273 mls/hr IV TITRATE MIKO; Protocol Last Admin: 01/09/19 11:34 Dose: 2.5 mls/hr Magnesium Sulfate 2 gm/ Premix 50 mls @ 25 mls/hr IV ONETIME ONE Stop: 01/10/19 09:13 Last Admin: 01/10/19 07:45 Dose: 25 mls/hr Insulin Glargine (Lantus) 22 unit SUBCUT BEDTIME [facility] Last Admin: 01/08/19 20:06 Dose: 22 unit Insulin Glargine (Lantus) 22 unit .ROUTE .STK-MED ONE Stop: 01/08/19 21:01 Lactulose (Cephulac) 20 gm PO TID MIKO Last Admin: 01/12/19 16:14 Dose: Not Given Lactulose (Cephulac) 20 gm PO BID MIKO Last Admin: 01/13/19 08:15 Dose: 20 gm Levothyroxine Sodium (Synthroid) 100 mcg PO DAILY [facility] Last Admin: 01/09/19 08:51 Dose: 100 mcg Metoprolol Tartrate (Lopressor) 25 mg PO Q12H [facility]KO Last Admin: 01/08/19 20:20 Dose: Not Given Metoprolol Tartrate (Lopressor) 5 mg IVPUSH ONETIME ONE Stop: 01/08/19 18:25 Last Admin: 01/08/19 18:30 Dose: 5 mg Metoprolol Tartrate (Lopressor) 25 mg PO Q12H [facility]KO Last Admin: 01/08/19 20:01 Dose: 25 mg Midodrine (Midodrine) 10 mg PO NOW STA Stop: 01/09/19 08:32 Last Admin: 01/09/19 08:48 Dose: 10 mg Mupirocin (Bactroban Oint) 0 gm TOP TID [facility] Stop: 01/14/19 09:01 Last Admin: 01/14/19 08:53 Dose: 1 applic Potassium Chloride (Klor-Con M20) 60 meq PO ONETIME ONE Stop: 01/10/19 07:15 Last Admin: 01/10/19 07:55 Dose: 60 meq Potassium Chloride (Klor-Con M20) 40 meq PO BID MIKO Stop: 01/12/19 09:01 Last Admin: 01/12/19 09:36 Dose: 40 meq Rosuvastatin Calcium (Crestor) 5 mg PO DAILY [facility] Spironolactone (Aldactone) 100 mg PO DAILY [facility] Last Admin: 01/10/19 09:25 Dose: 100 mg Temazepam (Restoril) 15 mg PO BEDTIME PRN PRN Reason: Insomnia Last Admin: 01/10/19 20:07 Dose: 15 mg Zolpidem Tartrate (Ambien) 5 mg PO BEDTIME PRN PRN Reason: Sleep - Exam General: Reports: Alert, Oriented, Cooperative, No Acute Distress HEENT: Reports: Pupils Equal, Pupils Reactive, EOMI, Mucous Membr. Moist/[place] Neck: Reports: Supple Lungs: Reports: Normal Respiratory Effort, Decreased Breath Sounds Cardiovascular: Reports: Irregular Rhythm GI/Abdominal Exam: Normal Bowel Sounds, Soft, Non-Tender, No Organomegaly, No Distention, No Abnormal Bruit (Male) Exam: Deferred Rectal (Males) Exam: Deferred Back Exam: Reports: Normal Inspection, Decreased Range of Motion Extremities: Normal Range of Motion, Non-Tender, Normal Capillary Refill, Other (Left leg larg hematoma) Skin: Reports: Warm, Dry, Intact, Ecchymosis (left lower extremity) Neurological: Reports: No New Focal Deficit, Normal Gait Psy/Mental Status: Reports: Alert, Normal Affect, Normal Mood
[2019-01-15] MEDS: Acetaminophen/oxyCODONE 325-5 MG Tab PO PRN (13:32)
[2019-01-17] MEDS ORDERED: Apixaban 5 MG Tab PO SCH (21:00)
== END 2019-01-15 13:55 | DRG 308 ==
LOC: JD.ED 12:06 → JD.ICU 16:50 → JD.MS 01-13 11:55
PROVIDERS: ADMIT Internal Medicine; ATTEND Internal Medicine
DX: I48.91 Unspecified atrial fibrillation (principal); I26.99 Other pulmonary embolism without acute cor pulmonale; E87.2 Acidosis; K62.5 Hemorrhage of anus and rectum; L03.116 Cellulitis of left lower limb; D52.0 Dietary folate deficiency anemia; K72.90 Hepatic failure, unspecified without coma; E83.42 Hypomagnesemia; I95.9 Hypotension, unspecified; E87.6 Hypokalemia; F10.10 Alcohol abuse, uncomplicated; L05.91 Pilonidal cyst without abscess; F17.210 Nicotine dependence, cigarettes, uncomplicated; H54.7 Unspecified visual loss; I11.0 Hypertensive heart disease with heart failure; I50.9 Heart failure, unspecified; G89.29 Other chronic pain; K59.09 Other constipation; E11.22 Type 2 diabetes mellitus with diabetic chronic kidney disease; M25.562 Pain in left knee; M25.561 Pain in right knee; N40.0 Benign prostatic hyperplasia without lower urinary tract symptoms; E03.9 Hypothyroidism, unspecified; M19.90 Unspecified osteoarthritis, unspecified site; F32.9 Major depressive disorder, single episode, unspecified; N18.3 Chronic kidney disease, stage 3 (moderate); E66.01 Morbid (severe) obesity due to excess calories; E78.2 Mixed hyperlipidemia; S80.12XA Contusion of left lower leg, initial encounter; T50.995A Adverse effect of other drugs, medicaments and biological substances, initial encounter; R19.7 Diarrhea, unspecified; Z79.899 Other long term (current) drug therapy; Z22.322 Carrier or suspected carrier of Methicillin resistant Staphylococcus aureus; Z68.39 Body mass index [BMI] 39.0-39.9, adult; Z79.4 Long term (current) use of insulin; Z79.01 Long term (current) use of anticoagulants; Z98.890 Other specified postprocedural states
CPT/HCPCS: 36415; 51702; 71045; 71045-26; 73564-26-LT; 73564-26-RT; 73564-LT; 73564-RT; 76881-26-LT; 76881-LT; 78582; 78582-26; 80048; 80053; 80061; 80306; 81001; 82140; 82272; 82306; 82570; 82607; 82746; 82962; 83036; 83540; 83605; 83735; 83880; 83921; 84156; 84439; 84443; 84466; 84484; 85025; 85379; 85610; 85730; 86140; 87086; 87088; 87186; 87641; 93005; 93010; 93306; 93970; 93970-26; 96365; 96366; 96375; 96376; 97110-GO; 97110-GP; 97112-GP; 97116-GP; 97162-GP; 97166-GO; 97530-GO; 97530-GP; 99284; 99285-25; A9270-GY; A9540; G0480; J0696; J1170; J1815-GY; J1940; J2060; J3411; J3475; J3490; J7030; J7040; J7120

== ENCOUNTER 2019-01-20 11:26 | Emergency (ER) | payer MEDICAID ==
[2019-01-20 11:43] VITALS: BP 106/70
[2019-01-20] MEDS ORDERED: Acetaminophen/oxyCODONE 325-5 MG Tab PO ONE (13:01)
--- NOTE | 2019-01-20 13:05 | EDM.PDOC ---
ED HPI GENERAL MEDICAL PROBLEM - General Chief Complaint: Cardiovascular Problem Stated Complaint: LOW BP, LEFT LOWER LEG WEEPING Time Seen by Provider: 01/20/19 12:17 Source of Information: Reports: Patient, Prison Records History Limitations: Reports: No Limitations - History of Present Illness INITIAL COMMENTS - FREE TEXT/NARRATIVE: The patient has a history of alcohol-induced cirrhosis with ascites, as well as atrial fibrillation, diabetes, and chronic renal insufficiency. The patient is on Eliquis. Papers from [facility] indicate that the patient was admitted there this past 01/15/2019, for inability to care for himself. They indicate that since admission, his blood pressure has been 70-80/50-60, therefore they have been withholding his diuretics. As a result, the patient has developed increased left lower extremity edema, with a weeping wound. They indicate that his weight has increased, although the patient says that he thought his weight actually went down. He is complaining of bilateral lower extremity pain, for which he takes 1 Percocet per day. Paperwork indicates that the patient has chronic bilateral lower extremity ulcers; the patient states that he has had them for about 10 years. No recent fever. Review of prior medical records finds that the patient underwent an ultrasound of his left leg on , 01/14/2019, which is read by Dr. Echavarria as: 1. Findings which are felt compatible with liquefying hematoma as noted above. The patient's PCP is Dr. Reji Elaine. Bilateral Leg Pain Score (Numeric/FACES): 10 - Related Data Allergies Allergy/AdvReac Type Severity Reaction Status Date / Time No Known Allergies Allergy Verified 06/01/18 17:29 Home Meds: Home Meds Tamsulosin HCl 0.4 mg PO BID 05/01/16 [History] Rosuvastatin Calcium 5 mg PO DAILY 02/05/18 [History] oxyCODONE HCl/Acetaminophen [Oxycodone-Acetaminophen 5-325] 1 tab PO DAILY PRN 02/05/18 [History] Dutasteride [Avodart] 0.5 mg PO DAILY 01/08/19 [History] Insulin Glargine,Hum.Rec.Anlog [Lantus Solostar] 22 unit SQ BEDTIME 01/08/19 [ History] Omeprazole Magnesium [Prilosec Otc] 40 mg PO DAILY 01/08/19 [History] Folic Acid 1 mg PO BEDTIME #15 tablet 01/15/19 [Rx] Furosemide [Lasix] 40 mg PO ASDIRECTED #60 tablet 01/15/19 [Rx] Insulin Lispro [HumaLOG] See Protocol SUBCUT QIDACANDBED PRN #1 vial 01/15/19 [ Rx] Lactulose [Cephulac] 20 gm PO DAILY #30 cup 01/15/19 [Rx] Levothyroxine 75 mcg PO ACBREAKFAST #30 tablet 01/15/19 [Rx] Magnesium Oxide 400 mg PO BID #20 tablet 01/15/19 [Rx] Metoprolol Tartrate [Lopressor] 50 mg PO Q12HR #60 tablet 01/15/19 [Rx] Midodrine 10 mg PO TIDAC PRN #90 tablet 01/15/19 [Rx] Multivitamins,Therapeutic [Thera] 1 each PO BEDTIME #10 tablet 01/15/19 [Rx] Rifaximin [Xifaxan] 550 mg PO BID #60 tablet 01/15/19 [Rx] Spironolactone [Aldactone] 50 mg PO DAILY #30 01/15/19 [Rx] Thiamine [Vitamin B-1] 100 mg PO BEDTIME #10 tablet 01/15/19 [Rx] Apixaban [Eliquis] 5 mg PO BID 01/20/19 [History] Past Medical History HEENT History: Reports: Impaired Vision Other HEENT History: wears glasses Cardiovascular History: Reports: Afib, Hypertension Gastrointestinal History: Reports: Cirrhosis (alcohol-induced, with ascites), GERD Genitourinary History: Reports: BPH, Chronic Renal Insuffiency Musculoskeletal History: Reports: Osteoarthritis, Other (See Below) (Chronic bilateral lower extremity edema) Psychiatric History: Reports: Addiction (alcohol), Depression Endocrine/Metabolic History: Reports: Diabetes, Type II, Hypothyroidism, Obesity /BMI 30+ - Infectious Disease History Infectious Disease History: Reports: MRSA - Past Surgical History Musculoskeletal Surgical History: Reports: Knee Replacement (bilateral) Dermatological Surgical History: Reports: Skin Graft (1978, 2 severe bernal) Social & Family History - Family History Family Medical History: Noncontributory Cardiac: Reports: [place] Other Cardiac Family History: father Neurological: Reports: Alzheimers Disease Other Neurological Family History: mother - Tobacco Use Smoking Status *Q: Never Smoker Tobacco Use Within Last Twelve Months: Smokeless Tobacco (chews 1 can per week) - Caffeine Use Caffeine Use: Reports: Coffee - Alcohol Use Alcohol Use History: Yes Date/Time of Last Drink Comment: Alcoholic, last drank around October 2018 - Recreational Drug Use Recreational Drug Use: No - Living Situation & Occupation Living situation: Reports: Single, Extended Care Facility ([facility]) Occupation: Retired ED ROS GENERAL - Review of Systems Review Of Systems: ROS reveals no pertinent complaints other than HPI. GI/Abdominal: Reports: Constipation (chronic) ED EXAM, SKIN/RASH Exam: See Below Exam Limited By: No Limitations General Appearance: Alert, WD/WN, No Apparent Distress Eye Exam: Bilateral Eye: EOMI, Normal Inspection Ears: Normal External Exam, Hearing Grossly Normal Nose: Normal Inspection Throat/Mouth: Normal Inspection, Normal Lips, Normal Voice, No Airway Compromise Head: Atraumatic, Normocephalic Neck: Normal Inspection, Full Range of Motion Respiratory/Chest: No Respiratory Distress, Lungs Clear, Normal Breath Sounds, No Accessory Muscle Use Cardiovascular: Normal Peripheral Pulses, No Gallop, No JVD, No Murmur, No Rub, Irregularly Irregular (regular rate) Peripheral Pulses: 3+: Radial (L), Radial (R) GI/Abdominal: Normal Bowel Sounds, Soft, Non-Tender, No Organomegaly, No Distention, No Abnormal Bruit, No Mass, Other (Obese) (Male) Exam: Deferred Rectal (Males) Exam: Deferred Back Exam: Normal Inspection, Full Range of Motion, NT Extremities: Normal Range of Motion, Normal Capillary Refill, Other (The right leg has approximately 3+ pitting pretibial edema, but no hyperpigmentation. The left lower extremity has 3-4+ pretibial pitting edema, but also circumferential erythema, not extending to the ankle, nor up to the knee, with a large area of what appears to be a popped blister, under which is some ulceration. There is local swelling to this area, with fluctuance on the lateral aspect. This area is quite tender to palpation. Neurovascular status of both lower extremities appears to be intact.) Neurological: Alert, Oriented, Normal Cognition, No Motor/Sensory Deficits Psychiatric: Normal Affect Skin: Warm, Dry, Intact, Normal Color, No Rash Course - Vital Signs Last Recorded V/S: Last Vital Signs Temp 36.3 C 01/20/19 11:40 Pulse 97 01/20/19 11:40 Resp 18 01/20/19 11:40 BP 106/70 01/20/19 11:40 Pulse Ox 100 01/20/19 11:40 - Orders/Labs/Meds Orders: Active Orders 24 hr Category Date Time Status Pharmacy to Dose - Vancomycin Med 01/20/19 15:02 Active 0 dose .XX ASDIRECTED PRN Vancomycin 2 gm Med 01/20/19 15:15 Active Sodium Chloride 0.9% [Normal Saline] 500 ml IV ONETIME Medication Orders Vancomycin HCl 2 gm/ Sodium (Chloride) 500 mls @ 250 mls/hr IV ONETIME ONE Stop: 01/20/19 17:14 Last Admin: 01/20/19 15:28 Dose: 250 mls/hr Vancomycin HCl (Pharmacy To Dose - Vancomycin) 0 dose .XX ASDIRECTED PRN PRN Reason: PHARMACY TO DOSE Labs: Laboratory Tests 01/20/19 Range/Units 13:07 MRSA (PCR) Positive H Meds: Medications Generic Name Dose Route Start Last Admin Trade Name Freq PRN Reason Stop Dose Admin Vancomycin HCl 2 gm/ Sodium 500 mls @ 250 mls/hr 01/20/19 15:15 01/20/19 15: 28 Chloride IV 01/20/19 17:14 250 mls/hr ONETIME ONE Administration Vancomycin HCl 0 dose 01/20/19 15:02 Pharmacy To Dose - Vancomycin .XX ASDIRECTED PRN PHARMACY TO DOSE Discontinued Medications Generic Name Dose Route Start Last Admin Trade Name Freq PRN Reason Stop Dose Admin Oxycodone/Acetaminophen 1 tab 01/20/19 13:01 01/20/19 13:09 Percocet 325-5 Mg PO 01/20/19 13:02 1 tab ONETIME ONE Administration - Re-Assessments/Exams Free Text/Narrative Re-Assessment/Exam: 01/20/19 13:04 The patient has superficial erythema and calor to his left leg, not extending to his ankle or foot, and not extending above the knee. He has a large popped blister with purulent appearance to the anterior leg. His examination is consistent with cellulitis, and the patient would likely benefit from IV antibiotics. There is swelling and fluctuance to the lateral aspect of the ulceration, however, as per the HPI, and ultrasound performed 01/14/2019 finds that it is most likely liquefying hematoma, as opposed to an abscess. Because he has a history of MRSA in the past, I have ordered a MRSA screen by PCR. I will decide on an antibiotic based on that result. 01/20/19 14:59 The patient's MRSA screen by PCR has returned positive. Case discussed with the Pharmacist. They will dose of the patient's vancomycin, both loading and continuation. 01/20/19 15:19 MRSA results discussed with the patient. I am recommending admission to the hospital for IV vancomycin. The patient agreed. I then spoke with Dr. Regalado at 15:18. He stated that this was the same presentation of the patient had last time, but the patient's hospital course was very complicated and prolonged. The patient had a pulmonary embolus, developed hepatic encephalopathy, developed atrial fibrillation, was confused and combative. He does not feel that the patient is an appropriate candidate for admission to our hospital, and is therefore recommending transfer to [place]. 01/20/19 15:24 The patient is not happy about being transferred to [place], but prefers [facility]. 01/20/19 15:51 Case discussed with Shari at [facility] at 15:26. Case then discussed with Dr. Stevens, Hospitalist at [facility], at 15:47. He accepted the patient for admission to their facility. The patient will be transported by ground ambulance. Departure - Departure Time of Disposition: 15:53 Disposition: DC/Tfer to Acute Hospital 02 Condition: Good Clinical Impression: Cellulitis of left leg - Discharge Information *PRESCRIPTION DRUG MONITORING PROGRAM REVIEWED*: Not Applicable *COPY OF PRESCRIPTION DRUG MONITORING REPORT IN PATIENT RM: Not Applicable Referrals: Reji rBavo MD [Primary Care Provider] - - My Orders Last 24 Hours: My Active Orders 01/20/19 15:02 Pharmacy to Dose - Vancomycin 0 dose .XX ASDIRECTED PRN 01/20/19 15:15 Vancomycin 2 gm Sodium Chloride 0.9% [Normal Saline] 500 ml IV ONETIME - Assessment/Plan Last 24 Hours: My Active Orders 01/20/19 15:02 Pharmacy to Dose - Vancomycin 0 dose .XX ASDIRECTED PRN 01/20/19 15:15 Vancomycin 2 gm Sodium Chloride 0.9% [Normal Saline] 500 ml IV ONETIME
[2019-01-20] MEDS ORDERED: Vancomycin 2 GM in Sodium Chloride 0.9% 500 ML IV ONE (15:15)
== END 2019-01-20 18:39 ==
LOC: JD.ED 11:26
DX: L03.116 Cellulitis of left lower limb (principal); I12.9 Hypertensive chronic kidney disease with stage 1 through stage 4 chronic kidney disease, or unspecified chronic kidney disease; E11.22 Type 2 diabetes mellitus with diabetic chronic kidney disease; N18.9 Chronic kidney disease, unspecified; F17.200 Nicotine dependence, unspecified, uncomplicated; I48.91 Unspecified atrial fibrillation; E03.9 Hypothyroidism, unspecified; E66.9 Obesity, unspecified; K21.9 Gastro-esophageal reflux disease without esophagitis; Z79.4 Long term (current) use of insulin; Z79.899 Other long term (current) drug therapy; Z86.14 Personal history of Methicillin resistant Staphylococcus aureus infection
CPT/HCPCS: 87641; 96365; 96366; 99285; A9270; J3370; J7040

== ENCOUNTER 2019-10-21 10:14 | Inpatient (IN) | payer MEDICAID, MEDICARE ==
--- NOTE | 2019-10-21 10:46 | EDM.PDOC ---
ED HPI GENERAL MEDICAL PROBLEM - General Chief Complaint: Cardiovascular Problem Stated Complaint: LEGS SWOLLEN Time Seen by Provider: 10/21/19 10:46 - History of Present Illness INITIAL COMMENTS - FREE TEXT/NARRATIVE: 64-year-old male presents the emergency room with increasing leg swelling. Patient has noticed this over the last couple of days. But especially yesterday and today. Patient has not really had any chest pain with this however he has had some increasing shortness of breath especially with activity. She had a similar episode about a year ago. The patient has chronic atrial fibrillation and is on Eliquis. He is also had some blood clots in his legs he thinks. Patient does take Lasix 40 mg it is unclear to me how many of these he takes a day he is also on spironolactone and digoxin. Denies any fevers or chills or symptoms to make him think he has been ill recently he has had no cough or worsening congestion. - Related Data Allergies Allergy/AdvReac Type Severity Reaction Status Date / Time No Known Allergies Allergy Verified 06/01/18 17:29 Home Meds: Home Meds Tamsulosin HCl 0.4 mg PO BID 05/01/16 [History] Rosuvastatin Calcium 5 mg PO DAILY 02/05/18 [History] oxyCODONE HCl/Acetaminophen [Oxycodone-Acetaminophen 5-325] 1 tab PO DAILY PRN 02/05/18 [History] Dutasteride [Avodart] 0.5 mg PO DAILY 01/08/19 [History] Insulin Glargine,Hum.Rec.Anlog [Lantus Solostar] 22 unit SQ BEDTIME 01/08/19 [ History] Omeprazole Magnesium [Prilosec Otc] 40 mg PO DAILY 01/08/19 [History] Folic Acid 1 mg PO BEDTIME #15 tablet 01/15/19 [Rx] Furosemide [Lasix] 40 mg PO ASDIRECTED #60 tablet 01/15/19 [Rx] Insulin Lispro [HumaLOG] See Protocol SUBCUT QIDACANDBED PRN #1 vial 01/15/19 [ Rx] Lactulose [Cephulac] 20 gm PO DAILY #30 cup 01/15/19 [Rx] Levothyroxine 75 mcg PO ACBREAKFAST #30 tablet 01/15/19 [Rx] Magnesium Oxide 400 mg PO BID #20 tablet 01/15/19 [Rx] Metoprolol Tartrate [Lopressor] 50 mg PO Q12HR #60 tablet 01/15/19 [Rx] Midodrine 10 mg PO TIDAC PRN #90 tablet 01/15/19 [Rx] Multivitamins,Therapeutic [Thera] 1 each PO BEDTIME #10 tablet 01/15/19 [Rx] Rifaximin [Xifaxan] 550 mg PO BID #60 tablet 01/15/19 [Rx] Thiamine [Vitamin B-1] 100 mg PO BEDTIME #10 tablet 01/15/19 [Rx] Apixaban [Eliquis] 5 mg PO BID 01/20/19 [History] Digoxin 125 mcg PO DAILY 10/21/19 [History] Insulin Aspart [NovoLOG] 1 unit SQ ASDIRECTED 10/21/19 [History] Insulin Lispro [Humalog Kwikpen U-100] 1 - 7 units SQ TID 10/21/19 [History] Sertraline [Zoloft] 50 mg PO DAILY 10/21/19 [History] Spironolactone 50 mg PO DAILY 10/21/19 [History] Past Medical History HEENT History: Reports: Impaired Vision Other HEENT History: wears glasses Cardiovascular History: Reports: Afib, Hypertension Other Cardiovascular History: edema, PVCs Respiratory History: Reports: None Gastrointestinal History: Reports: Cirrhosis (alcohol-induced, with ascites), GERD Other Gastrointestinal History: alcoholic cirrhosis of liver with ascites Genitourinary History: Reports: BPH, Chronic Renal Insuffiency Other Genitourinary History: hematuria [employer] History: Reports: None Musculoskeletal History: Reports: Osteoarthritis, Other (See Below) (Chronic bilateral lower extremity edema) Neurological History: Reports: None Psychiatric History: Reports: Addiction (alcohol), Depression Other Psychiatric History: alcohol abuse Endocrine/Metabolic History: Reports: Diabetes, Type II, Hypothyroidism, Obesity /BMI 30+ Hematologic History: Reports: None Immunologic History: Reports: None Oncologic (Cancer) History: Reports: None - Infectious Disease History Infectious Disease History: Reports: MRSA - Past Surgical History Musculoskeletal Surgical History: Reports: Knee Replacement (bilateral) Dermatological Surgical History: Reports: Skin Graft (1978, 2 severe bernal) Social & Family History - Family History Family Medical History: Noncontributory Cardiac: Reports: [place] Other Cardiac Family History: father Neurological: Reports: Alzheimers Disease Other Neurological Family History: mother - Caffeine Use Caffeine Use: Reports: Coffee - Living Situation & Occupation Living situation: Reports: Single, Extended Care Facility ([facility]) Occupation: Retired ED ROS GENERAL - Review of Systems Review Of Systems: See Below Constitutional: Reports: No Symptoms HEENT: Reports: No Symptoms Respiratory: Reports: Shortness of Breath (With activity). Denies: Cough, Sputum, Hemoptysis Cardiovascular: Reports: Edema. Denies: Chest Pain Endocrine: Reports: No Symptoms GI/Abdominal: Reports: No Symptoms : Reports: No Symptoms Musculoskeletal: Reports: No Symptoms Skin: Reports: No Symptoms Neurological: Reports: No Symptoms Psychiatric: Reports: No Symptoms Hematologic/Lymphatic: Reports: No Symptoms Immunologic: Reports: No Symptoms ED EXAM, GENERAL - Physical Exam Exam: See Below Exam Limited By: No Limitations General Appearance: Alert, No Apparent Distress Ears: Normal External Exam, Normal Canal, Hearing Grossly Normal, Normal TMs Nose: Normal Inspection, Normal Mucosa, No Blood Throat/Mouth: Normal Inspection, Normal Oropharynx, Normal Voice, No Airway Compromise Head: Atraumatic, Normocephalic Neck: Normal Inspection, Supple, Non-Tender, Full Range of Motion. No: Lymphadenopathy (L), Lymphadenopathy (R) Respiratory/Chest: No Respiratory Distress, Lungs Clear, Normal Breath Sounds Cardiovascular: Normal Peripheral Pulses, No Murmur, Tachycardia (Rate is usually 100-120), Irregularly Irregular, Other (Bilateral lower extremity edema 1-2+) GI/Abdominal: Normal Bowel Sounds, Soft, Non-Tender Back Exam: Normal Inspection. No: CVA Tenderness (L), CVA Tenderness (R) Extremities: Pedal Edema Neurological: Alert, Oriented, Normal Cognition Skin Exam: Warm, Dry, Intact EKG INTERPRETATION Rhythm: A-Fib Rate (Beats/Min): 120 Olivia: LAD-Left Olivia Deviation P-Wave: Absent QRS: Normal ST-T: Normal QT: Shortened (Borderline prolongation) Comparison: Change From Previous EKG (KG looks better than it did in December of last year as his rate is not in the 170s otherwise no significant changes.) EKG Interpretation Comments: Abnormal EKG Course - Vital Signs Last Recorded V/S: Last Vital Signs Temp 36.2 C 10/21/19 10:52 Pulse 123 H 10/21/19 14:45 Resp 10/21/19 10:52 BP 144/56 H 10/21/19 14:45 Pulse Ox 90 L 10/21/19 10:52 - Orders/Labs/Meds Orders: Active Orders 24 hr Category Date Time Status EKG Documentation Completion [RC] STAT Care 10/21/19 11:23 Active Chest 1V Frontal [CR] Stat Exams 10/21/19 11:23 Taken CULTURE URINE [RM] Stat Lab 10/21/19 14:25 Received PHOSPHORUS [CHEM] Stat Lab 10/21/19 17:13 Ordered TSH [CHEM] Stat Lab 10/21/19 17:13 Ordered Diltiazem [Cardizem] 100 mg Med 10/21/19 17:30 Active Sodium Chloride 0.9% [Normal Saline] 100 ml IV TITRATE Magnesium Sulfate/Water [Magnesium Sulfate in Water Med 10/21/19 16:17 Active Premix] 2 gm Premix Bag 1 bag IV ONETIME Medication Orders Magnesium Sulfate 2 gm/ Premix 50 mls @ 25 mls/hr IV ONETIME ONE Stop: 10/21/19 18:16 Last Admin: 10/21/19 16:39 Dose: 25 mls/hr Diltiazem HCl 100 mg/ Sodium (Chloride) 100 mls @ 5 mls/hr IV TITRATE MIKO; Protocol Labs: Laboratory Tests 10/21/19 10/21/19 10/21/19 Range/Units 12:52 12:52 12:52 WBC 3.62 L (4.23-9.07) K/mm3 RBC 4.23 L (4.63-6.08) M/mm3 Hgb 13.2 L (13.7-17.5) gm/dl Hct 38.5 L (40.1-51.0) % MCV 91.0 D (79.0-92.2) fl MCH 31.2 (25.7-32.2) pg MCHC 34.3 (32.2-35.5) g/dl RDW Std Deviation 44.5 H (35.1-43.9) fL Plt Count 85 L (163-337) K/mm3 MPV 9.8 (9.4-12.3) fl Neut % (Auto) 65.4 (34.0-67.9) % Lymph % (Auto) 21.0 L (21.8-53.1) % [place] % (Auto) 11.9 (5.3-12.2) % Eos % (Auto) 0.8 (0.8-7.0) Baso % (Auto) 0.6 (0.1-1.2) % Neut # (Auto) 2.37 (1.78-5.38) K/mm3 Lymph # (Auto) 0.76 L (1.32-3.57) K/mm3 [place] # (Auto) 0.43 (0.30-0.82) K/mm3 Eos # (Auto) 0.03 L (0.04-0.54) K/mm3 Baso # (Auto) 0.02 (0.01-0.08) K/mm3 Manual Slide Review Abnormal smear Sodium 141 D (136-145) mEq/L Potassium 4.1 (3.5-5.1) mEq/L Chloride 103 (98-107) mEq/L Carbon Dioxide 26 (21-32) mEq/L Anion Gap 16.1 H (5-15) BUN 10 D (7-18) mg/dL Creatinine 1.3 (0.7-1.3) mg/dL Est Cr Clr Drug Dosing 51.12 mL/min Estimated GFR (MDRD) 55 (>60) mL/min BUN/Creatinine Ratio 7.7 L (14-18) Glucose 137 H (80-115) mg/dL Calcium 9.0 (8.5-10.1) mg/dL Magnesium (1.8-2.4) mg/dl Total Bilirubin 2.7 H (0.2-1.0) mg/dL AST 38 H (15-37) U/L ALT 28 (16-63) U/L Alkaline Phosphatase 90 (46-116) U/L Troponin I < 0.017 (0.00-0.056) ng/mL NT-Pro-B Natriuret Pep 1220 H (0-125) pg/mL Total Protein 7.1 (6.4-8.2) g/dl Albumin 3.1 L (3.4-5.0) g/dl Globulin 4.0 gm/dL Albumin/Globulin Ratio 0.8 L (1-2) Urine Color (Yellow) Urine Appearance (Clear) Urine pH (5.0-8.0) Ur Specific [place] (1.005-1.030) Urine Protein (Negative) Urine Glucose (UA) (Negative) Urine Ketones (Negative) Urine Occult Blood (Negative) Urine Nitrite (Negative) Urine Bilirubin (Negative) Urine Urobilinogen (0.2-1.0) Ur Leukocyte Esterase (Negative) Urine RBC (0-5) /hpf Urine WBC (0-5) /hpf Ur Squamous Epith Cells (0-5) /hpf Urine Bacteria (FEW) /hpf Urine Mucus (FEW) /hpf Digoxin (0.9-2.0) ng/mL 10/21/19 10/21/19 10/21/19 Range/Units 12:52 12:52 14:25 WBC (4.23-9.07) K/mm3 RBC (4.63-6.08) M/mm3 Hgb (13.7-17.5) gm/dl Hct (40.1-51.0) % MCV (79.0-92.2) fl MCH (25.7-32.2) pg MCHC (32.2-35.5) g/dl RDW Std Deviation (35.1-43.9) fL Plt Count (163-337) K/mm3 MPV (9.4-12.3) fl Neut % (Auto) (34.0-67.9) % Lymph % (Auto) (21.8-53.1) % [place] % (Auto) (5.3-12.2) % Eos % (Auto) (0.8-7.0) Baso % (Auto) (0.1-1.2) % Neut # (Auto) (1.78-5.38) K/mm3 Lymph # (Auto) (1.32-3.57) K/mm3 [place] # (Auto) (0.30-0.82) K/mm3 Eos # (Auto) (0.04-0.54) K/mm3 Baso # (Auto) (0.01-0.08) K/mm3 Manual Slide Review Sodium (136-145) mEq/L Potassium (3.5-5.1) mEq/L Chloride (98-107) mEq/L Carbon Dioxide (21-32) mEq/L Anion Gap (5-15) BUN (7-18) mg/dL Creatinine (0.7-1.3) mg/dL Est Cr Clr Drug Dosing mL/min Estimated GFR (MDRD) (>60) mL/min BUN/Creatinine Ratio (14-18) Glucose (80-115) mg/dL Calcium (8.5-10.1) mg/dL Magnesium 1.1 L (1.8-2.4) mg/dl Total Bilirubin (0.2-1.0) mg/dL AST (15-37) U/L ALT (16-63) U/L Alkaline Phosphatase (46-116) U/L Troponin I (0.00-0.056) ng/mL NT-Pro-B Natriuret Pep (0-125) pg/mL Total Protein (6.4-8.2) g/dl Albumin (3.4-5.0) g/dl Globulin gm/dL Albumin/Globulin Ratio (1-2) Urine Color Light yellow (Yellow) Urine Appearance Clear (Clear) Urine pH 7.0 (5.0-8.0) Ur Specific [place] 1.025 (1.005-1.030) Urine Protein Negative (Negative) Urine Glucose (UA) Negative (Negative) Urine Ketones Negative (Negative) Urine Occult Blood Negative (Negative) Urine Nitrite Negative (Negative) Urine Bilirubin Negative (Negative) Urine Urobilinogen 0.2 (0.2-1.0) Ur Leukocyte Esterase Trace H (Negative) Urine RBC 0-5 (0-5) /hpf Urine WBC 0-5 (0-5) /hpf Ur Squamous Epith Cells 0-5 (0-5) /hpf Urine Bacteria Few (FEW) /hpf Urine Mucus Few (FEW) /hpf Digoxin 0.3 L (0.9-2.0) ng/mL Meds: Medications Generic Name Dose Route Start Last Admin Trade Name Freq PRN Reason Stop Dose Admin Magnesium Sulfate 2 gm/ Premix 50 mls @ 25 mls/hr 10/21/19 16:17 10/21/19 16: 39 IV 10/21/19 18:16 25 mls/hr ONETIME ONE Administration Diltiazem HCl 100 mg/ Sodium 100 mls @ 5 mls/hr 10/21/19 17:30 Chloride IV TITRATE MIKO Protocol 5 MG/HR Discontinued Medications Generic Name Dose Route Start Last Admin Trade Name Freq PRN Reason Stop Dose Admin Furosemide 40 mg 10/21/19 11:19 10/21/19 13:22 Lasix IVPUSH 10/21/19 11:20 40 mg NOW ONE Administration Metoprolol Tartrate 2.5 mg 10/21/19 14:29 10/21/19 14:45 Lopressor IVPUSH 10/21/19 14:30 2.5 mg ONETIME ONE Administration - Re-Assessments/Exams Free Text/Narrative Re-Assessment/Exam: 10/21/19 13:19 Labs have not been obtained yet as he is a difficult stick EKG shows atrial fibrillation with a ventricular rate of 120 chest x-ray is limited due to body habitus however he has some mild to moderate cardiomegaly subtle vascular congestion and, he may have some old rib fractures on the right side. 10/21/19 16:21 Patient's pulse rate is been stable between 101 120 for the most part but when he got up it would get up as high as 200 when he had to void. I gave him 2.5 of IV Lopressor and his pulse rate has come down but I was just ended rechecked him his pulse rate would jump into the 140s when it was around 100 just from having him sit up. 10/21/19 16:12 Dr. Bradshaw will evaluate for potential admission 10/21/19 17:17 Dr. Bradshaw will admit and assume care Departure - Departure Time of Disposition: 16:18 Disposition: Admitted As Inpatient 65 Clinical Impression: Atrial fibrillation with rapid ventricular response, Congestive heart failure ( CHF) Referrals: Elmer Ahn MD [Physician] - Forms: ED Department Discharge Sepsis Event Note - Focused Exam Vital Signs: Vital Signs Temp Pulse Pulse Resp BP BP Pulse Ox 10/21/19 14:45 123 H 144/56 H 10/21/19 10:52 36.2 C 124 H 20 178/93 H 90 L Date Exam was Performed: 10/21/19 Time Exam was Performed: 17:17 - My Orders Last 24 Hours: My Active Orders 10/21/19 11:23 EKG Documentation Completion [RC] STAT Chest 1V Frontal [CR] Stat 10/21/19 14:25 CULTURE URINE [RM] Stat 10/21/19 16:17 Magnesium Sulfate/Water [Magnesium Sulfate in Water Premix] 2 gm Premix Bag 1 bag IV ONETIME 10/21/19 17:13 PHOSPHORUS [CHEM] Stat - Assessment/Plan Last 24 Hours: My Active Orders 10/21/19 11:23 EKG Documentation Completion [RC] STAT Chest 1V Frontal [CR] Stat 10/21/19 14:25 CULTURE URINE [RM] Stat 10/21/19 16:17 Magnesium Sulfate/Water [Magnesium Sulfate in Water Premix] 2 gm Premix Bag 1 bag IV ONETIME 10/21/19 17:13 PHOSPHORUS [CHEM] Stat
[2019-10-21] MEDS ORDERED: Furosemide 40 MG/4 ML VIAL IVPUSH ONE (11:19)
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
[2019-10-21] MEDS ORDERED: Metoprolol Tartrate 5 MG/5 ML SDV IVPUSH ONE (14:29)
[2019-10-21] MEDS ORDERED: Magnesium Sulfate/Water 2 GM in Premix Bag 1 BAG IV ONE ×2 (16:17→19:42)
[2019-10-21] MEDS ORDERED: LORazepam 2 MG/ML SDV ONE (18:30)
[2019-10-21] MEDS ORDERED: LORazepam 2 MG/ML SDV IVPUSH ONE (18:36)
[2019-10-21] MEDS ORDERED: Lidocaine 1% 10 ML MDV ONE (19:10)
[2019-10-21] MEDS ORDERED: Lidocaine 1% 10 ML MDV INJECT ONE (19:13)
[2019-10-21] MEDS ORDERED: Diltiazem 50 MG/10 ML SDV IVPUSH ONE (19:20)
[2019-10-21] MEDS: Diltiazem 100 MG in Sodium Chloride 0.9% 100 ML IV SCH (19:27)
[2019-10-21] MEDS ORDERED: Magnesium Sulfate/Water 2 GM in Premix Bag 1 BAG IV SCH (19:45)
--- NOTE | 2019-10-21 19:46 | PCM.PRNOTE ---
- Free Text/Narrative Note: Central Venous Catheter Placement Date: 10/21/2019 Time: 19:19 Indication: Intravenous access Attending: Shayla Bradshaw MD A time-out was completed verifying correct patient, procedure, site, positioning , and special equipment if applicable. The patient was placed in a dependent position appropriate for central line placement based on the vein to be cannulated. The patients left neck was prepped and draped in sterile fashion. 1% Lidocaine was used to anesthetize the surrounding skin area. A triple lumen 7-[place] Cordis catheter was introduced into the the internal jugular using the Seldinger technique and under ultrasound guidance. The catheter was threaded smoothly over the guide wire and appropriate blood return was obtained. Each lumen of the catheter was evacuated of air and flushed with sterile saline. The catheter was then sutured in place to the skin and a sterile dressing applied. Perfusion to the extremity distal to the point of catheter insertion was checked and found to be adequate. Estimated Blood Loss: 10mL The patient tolerated the procedure well and there were no complications.
--- NOTE | 2019-10-21 19:46 | PCM.HP.2 ---
H&P History of Present Illness - General Date of Service: 10/21/19 Admit Problem/Dx: Admission Diagnosis/Problem Admission Diagnosis/Problem Afib, Atrial fibrillation - History of Present Illness Initial Comments - Free Text/Narative: This is a 64 year old male with past medical history of diabetes and coagulopathy who comes to the ED complaining of worsening lower extremity edema for approx. 2 days. As per patient his legs are swollen at baseline but in the past week or so it has been getting worse up to 2 days ago when he really noticed the difference. Denies any chest pain with this however he has had some increasing shortness of breath especially with activity. Of note he had a similar episode about a year ago. The patient has chronic atrial fibrillation and is on Eliquis, also on Lasix and spironolactone as well as digoxin Denies any fevers or chills or symptoms to make him think he has been ill recently he has had no cough or worsening congestion. - Related Data Allergies/Adverse Reactions: Allergies Allergy/AdvReac Type Severity Reaction Status Date / Time No Known Allergies Allergy Verified 10/21/19 19:49 Home Medications: Home Meds Tamsulosin HCl 0.4 mg PO BID 05/01/16 [History] Rosuvastatin Calcium 5 mg PO DAILY 02/05/18 [History] Dutasteride [Avodart] 0.5 mg PO DAILY 01/08/19 [History] Omeprazole Magnesium [Prilosec Otc] 40 mg PO DAILY 01/08/19 [History] Folic Acid 1 mg PO BEDTIME #15 tablet 01/15/19 [Rx] Furosemide [Lasix] 40 mg PO ASDIRECTED #60 tablet 01/15/19 [Rx] Insulin Lispro [HumaLOG] See Protocol SUBCUT QIDACANDBED PRN #1 vial 01/15/19 [ Rx] Lactulose [Cephulac] 20 gm PO DAILY #30 cup 01/15/19 [Rx] Levothyroxine 75 mcg PO ACBREAKFAST #30 tablet 01/15/19 [Rx] Magnesium Oxide 400 mg PO BID #20 tablet 01/15/19 [Rx] Multivitamins,Therapeutic [Thera] 1 each PO BEDTIME #10 tablet 01/15/19 [Rx] Rifaximin [Xifaxan] 550 mg PO BID #60 tablet 01/15/19 [Rx] Apixaban [Eliquis] 5 mg PO BID 01/20/19 [History] Acetaminophen [8Hr Arthritis Pain Relief] 650 mg PO Q4HR PRN 10/21/19 [History] Insulin Aspart [NovoLOG] 1 unit SQ ASDIRECTED 10/21/19 [History] Insulin Lispro [Humalog Kwikpen U-100] 1 - 7 units SQ TID 10/21/19 [History] Lactobacillus Acidophilus [Acidophilus] 1 cap PO BID 10/21/19 [History] Spironolactone [Aldactone] 50 mg PO DAILY 10/21/19 [History] Diltiazem IR [Cardizem] 60 mg PO Q6H #120 tablet 10/24/19 [Rx] Melatonin 9 mg PO BEDTIME #90 tablet 10/24/19 [Rx] Sertraline [Zoloft] 50 mg PO BEDTIME #30 tablet 10/24/19 [Rx] Spironolactone [Aldactone] 50 mg PO BID #60 tablet 10/24/19 [Rx] Past Medical History HEENT History: Reports: Impaired Vision Other HEENT History: wears glasses Cardiovascular History: Reports: Afib, Hypertension Other Cardiovascular History: edema, PVCs Respiratory History: Reports: None Gastrointestinal History: Reports: Cirrhosis, GERD Other Gastrointestinal History: alcoholic cirrhosis of liver with ascites Genitourinary History: Reports: BPH, Chronic Renal Insuffiency Other Genitourinary History: hematuria 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 ENGINEER 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: Reports: None Musculoskeletal History: Reports: Osteoarthritis, Other (See Below) Neurological History: Reports: None Psychiatric History: Reports: Addiction, Depression Other Psychiatric History: alcohol abuse Endocrine/Metabolic History: Reports: Diabetes, Type II, Hypothyroidism, Obesity /BMI 30+ Hematologic History: Reports: None Immunologic History: Reports: None Oncologic (Cancer) History: Reports: None - Infectious Disease History Infectious Disease History: Reports: MRSA - Past Surgical History Musculoskeletal Surgical History: Reports: Knee Replacement Dermatological Surgical History: Reports: Skin Graft Social & Family History - Family History Family Medical History: Noncontributory Cardiac: Reports: SD Other Cardiac Family History: father Neurological: Reports: Alzheimers Disease Other Neurological Family History: mother - Tobacco Use Smoking Status *Q: Never Smoker - Caffeine Use Caffeine Use: Reports: Coffee - Recreational Drug Use Recreational Drug Use: No - Living Situation & Occupation Living situation: Reports: Single, Extended Care Facility ([facility]) Occupation: Retired H&P Review of Systems - Review of Systems: Review Of Systems: See Below General: Reports: Weakness. Denies: Fever, Chills, Malaise, Fatigue, Night Sweats, Diaphoresis, Decreased Appetite HEENT: Denies: Rhinitis, Post Nasal Drip, Sinus Congestion, Sore Throat, Vertigo , Visual Changes Pulmonary: Denies: Shortness of Breath, Wheezing, Pleuritic Chest Pain, Cough, Sputum Cardiovascular: Reports: Edema. Denies: Chest Pain, Palpitations, Dyspnea on Exertion, Orthopnea, PND, Lightheadedness, Syncope, Claudication Gastrointestinal: Denies: Abdominal Pain, Anorexia, Constipation, Diarrhea, Distension, Flatus, Nausea, Vomiting Genitourinary: Denies: Dysuria, Frequency, Burning, Pain Musculoskeletal: Denies: Joint Pain, Joint Swelling, Muscle Pain, Muscle Stiffness Skin: Denies: Cyanosis, Jaundice, Mottled, Pallor Psychiatric: Denies: Confusion, Depression, Mood Lability Neurological: Denies: Confusion, Dizziness, Headache, Numbness Exam - Exam Exam: See Below (irght knee wignificantly swollen with vertical scar with adequate healing) - Vital Signs Vital Signs: Last Vital Signs Temp 97.2 F 10/21/19 10:52 Pulse 123 H 10/21/19 14:45 Resp 20 10/21/19 10:52 BP 144/56 H 10/21/19 14:45 Pulse Ox 90 L 10/21/19 10:52 Weight: 119.748 kg - Exam General: Alert, Oriented, Cooperative. No: Mild Distress HEENT: Conjunctiva Clear, EACs Clear, Posterior Pharynx Clear, Pupils Equal Neck: Supple, Trachea Midline, +2 Carotid Pulse wo Bruit, Full Range of Motion. No: Lymphadenopathy Lungs: Clear to Auscultation, Normal Respiratory Effort. No: Crackles, Rales, Rhonchi, Rub, Stridor, Wheezing Cardiovascular: Irregular Rhythm, Tachycardia. No: Systolic Murmur, Diastolic Murmur, Rubs, Gallop/S3, Gallop/S4 GI/Abdominal Exam: Normal Bowel Sounds, Soft, Non-Tender, Distended. No: Guarding, Rigid, Rebound Extremities: Pedal Edema (2+ up to knees BL), Slow Capillary Refill, Joint Swelling, Limited Range of Motion, Other Peripheral Pulses: 2+: Carotid (L), Carotid (R), Brachial (L), Brachial (R), Dorsalis Pedis (L), Dorsalis Pedis (R) Skin: Warm, Moist Neuro Extensive - Mental Status: Alert, Oriented x3 - Patient Data Result Diagrams: 10/23/19 05:30 10/23/19 05:30 Sepsis Event Note - Evaluation Sepsis Screening Result: No Definite Risk - Focused Exam Vital Signs: Vital Signs Temp Pulse Pulse Resp BP BP Pulse Ox 10/21/19 14:45 123 H 144/56 H 10/21/19 10:52 97.2 F 124 H 20 178/93 H 90 L Date Exam was Performed: 10/25/19 Time Exam was Performed: 19:28 - Problem List (1) Hypothyroidism SNOMED Code(s): 91092376 ICD Code: E03.9 - HYPOTHYROIDISM, UNSPECIFIED Status: Acute (2) Atrial fibrillation with RVR SNOMED Code(s): 859401675795674 ICD Code: I48.91 - UNSPECIFIED ATRIAL FIBRILLATION Status: Acute (3) Cirrhosis SNOMED Code(s): 73361551 ICD Code: K74.60 - UNSPECIFIED CIRRHOSIS OF LIVER Status: Chronic Priority: Medium Qualifiers: Hepatic cirrhosis type: alcoholic cirrhosis Ascites presence: without ascites Qualified Code(s): K70.30 - Alcoholic cirrhosis of liver without ascites (4) Diabetes mellitus SNOMED Code(s): 94150863 ICD Code: E11.9 - TYPE 2 DIABETES MELLITUS WITHOUT COMPLICATIONS Status: Chronic Qualifiers: Diabetes mellitus type: type 2 Diabetes mellitus penitentiary insulin use: without penitentiary use Diabetes mellitus complication status: with other specified complication Qualified Code(s): E11.69 - Type 2 diabetes mellitus with other specified complication (5) Hypertension SNOMED Code(s): 35686501 ICD Code: I10 - ESSENTIAL (PRIMARY) HYPERTENSION Status: Chronic Priority : Medium Qualifiers: Hypertension type: essential hypertension Qualified Code(s): I10 - Essential (primary) hypertension (6) Hypophosphatemia SNOMED Code(s): 3383825 ICD Code: E83.39 - OTHER DISORDERS OF PHOSPHORUS METABOLISM Status: Acute (7) Chronic anticoagulation SNOMED Code(s): 578611822 ICD Code: Z79.01 - DETENTION (CURRENT) USE OF ANTICOAGULANTS Status: Acute (8) Hypomagnesemia SNOMED Code(s): 896865483 ICD Code: E83.42 - HYPOMAGNESEMIA Status: Acute (9) Pancytopenia SNOMED Code(s): 761644923 ICD Code: D61.818 - OTHER PANCYTOPENIA Status: Acute (10) Hypoalbuminemia SNOMED Code(s): 256500603 ICD Code: E88.09 - OTH DISORDERS OF PLASMA-PROTEIN METABOLISM, NEC Status: Acute (11) Chronic back pain SNOMED Code(s): 050970547 ICD Code: M54.9 - DORSALGIA, UNSPECIFIED; G89.29 - OTHER CHRONIC PAIN Status: Acute Problem List Initiated/Reviewed/Updated: Yes Assessment/Plan Comment:: PRIOR TO ADMISSION As per patient his legs are swollen at baseline but in the past week or so it has been getting worse up to 2 days ago when he really noticed the difference. Denies any chest pain with this however he has had some increasing shortness of breath especially with activity. Of note he had a similar episode about a year ago. The patient has chronic atrial fibrillation and is on Eliquis, also on Lasix and spironolactone as well as digoxin Denies any fevers or chills or symptoms to make him think he has been ill recently he has had no cough or worsening congestion 10/21/19 - HR on admission 123, asymptomatic - Worsening tachycardia when he ambulates, up to 180s - SatO2 90% - Clinically stable - Labs and other tastes - WBC 3.62, Hb 13.2, PLT 85 - Mg 1.1, PO4 1.6 Atrial fibrillation with RVR Chronic anticoagulation BL LE edema - Start Diltiazem drip - Place central line fo IV access - Echocardiogram - IV lasix Alcoholic liver cirrhosis Pancytopenia - Monitor CBC - Goal Hb 7 Diabetes mellitus, unknown HbA1c - Glucose trend - Home insulin Hypertension - Restart home medications - PRN Hydralazine Hypophosphatemia Hypomagnesemia - Replace PROPHYLAXIS: DVT- continue home medications GI- not indicated CODE STATUS: FULL CODE DISPOSITION: Patient will be admitted to ICU for diltiazem drip and transition to oral rate control medications. - Mortality Measure Prognosis:: Good
--- NOTE | 2019-10-21 19:49 | CR ---
Chest: Portable view of the chest was obtained. Comparison: Prior chest x-ray of 01/08/19. Slight widening of the superior mediastinum is seen. Heart is mildly enlarged. Tortuous thoracic aorta is seen. Lungs are clear with no acute parenchymal change. Left jugular line is seen. Tip lies within the superior vena cava slightly past the junction to the brachiocephalic vein. Impression: 1. Tip of central line as described above. 2. Mild widening of the superior mediastinum. This may represent thyroid goiter but chest CT recommended (which should include contrast if patient's kidney function is satisfactory) to exclude adenopathy. 3. Mild cardiomegaly. 4. No pneumothorax. Diagnostic code #9 Study was dictated in MDT
[2019-10-21] MEDS ORDERED: Ondansetron 4 MG/2 ML SDV IV PRN (19:52)
[2019-10-21] MEDS ORDERED: Ondansetron 4 MG Tab.DIS PO PRN (19:52)
[2019-10-21] MEDS ORDERED: Sodium Phosphate 30 MMOLE in Sodium Chloride 0.9% 250 ML IV ONE (20:10)
[2019-10-21] MEDS ORDERED: Sertraline 50 MG Tab PO SCH (20:45)
[2019-10-21] MEDS: Sertraline 50 MG Tab PO SCH (20:56)
[2019-10-21] MEDS: Acetaminophen 325 MG Tab PO PRN (20:56)
[2019-10-21] MEDS: Apixaban 5 MG Tab PO SCH (20:56)
[2019-10-21] MEDS: Tamsulosin 0.4 MG Cap.ER PO SCH (20:56)
[2019-10-21] MEDS ORDERED: Melatonin 3 MG Tab PO SCH ×2 (21:00)
[2019-10-22] MEDS: Levothyroxine 75 MCG Tab PO SCH (06:24)
[2019-10-22] MEDS: Acetaminophen 325 MG Tab PO PRN ×4 (06:34→21:28)
[2019-10-22] MEDS ORDERED: Pantoprazole 40 MG Tab.CR PO SCH (07:00)
[2019-10-22] MEDS: Lactulose Soln 10 GM/15 ML 30 ML UD Cup PO SCH (08:21)
[2019-10-22] MEDS: Finasteride 5 MG Tab PO SCH (08:22)
[2019-10-22] MEDS: Spironolactone 25 MG Tab PO SCH (08:22)
[2019-10-22] MEDS: Apixaban 5 MG Tab PO SCH ×2 (08:22→20:02)
[2019-10-22] MEDS: Tamsulosin 0.4 MG Cap.ER PO SCH ×2 (08:22→21:17)
[2019-10-22] MEDS: Furosemide 40 MG/4 ML VIAL IVPUSH SCH (08:23)
--- NOTE | 2019-10-22 08:47 | CR ---
Chest: Portable view of the chest was obtained. Comparison: Prior chest x-ray of 01/08/19. Heart size is mildly prominent. Mediastinum is within normal limits for portable technique. Lungs are clear with no acute parenchymal change. Bony structures are unremarkable. Impression: 1. Slight cardiomegaly. 2. Nothing acute is seen on portable chest x-ray. Diagnostic code #2 Study was dictated in MDT
[2019-10-22] MEDS ORDERED: Magnesium Sulfate/Water 2 GM in Premix Bag 1 BAG IV ONE (10:00)
[2019-10-22] MEDS: Potassium Chloride 10 MEQ in Premix Bag 1 BAG IV SCH ×4 (10:25→13:50)
[2019-10-22] MEDS: Diltiazem IR 30 MG Tab PO SCH ×4 (11:32→22:05)
--- NOTE | 2019-10-22 15:22 | PCM.PN ---
- General Info Date of Service: 10/22/19 Subjective Update: Slept OK Tolerating diet No complaints - Patient Data Vitals - Most Recent: Last Vital Signs Temp 97.2 F 10/22/19 11:55 Pulse 101 H 10/21/19 19:31 Resp 16 10/22/19 14:51 BP 143/69 H 10/22/19 14:51 Pulse Ox 94 L 10/22/19 14:51 Weight - Most Recent: 126.915 kg - Exam General: Alert, Oriented, Cooperative, No Acute Distress HEENT: Pupils Equal, Pupils Reactive, EOMI, Mucous Membr. Moist/[place] Neck: Supple, Trachea Midline, No JVD, No Thyromegaly. No: Lymphadenopathy Lungs: Clear to Auscultation, Normal Respiratory Effort. No: Crackles, Rales, Rhonchi, Rub, Stridor, Wheezing Cardiovascular: Irregular Rhythm, Bradycardia, Tachycardia. No: Murmurs, Gallops, Rubs GI/Abdominal Exam: Normal Bowel Sounds, Soft, Non-Tender. No: Distended, Guarding, Rigid, Rebound Back Exam: Normal Inspection Extremities: Normal Inspection, Pedal Edema, Slow Capillary Refill, Joint Swelling Sepsis Event Note - Evaluation Sepsis Screening Result: No Definite Risk - Problem List & Annotations (1) Hypothyroidism SNOMED Code(s): 52711797 Code(s): E03.9 - HYPOTHYROIDISM, UNSPECIFIED Status: Acute (2) Atrial fibrillation with RVR SNOMED Code(s): 971265081736475 Code(s): I48.91 - UNSPECIFIED ATRIAL FIBRILLATION Status: Acute (3) Cirrhosis SNOMED Code(s): 91145064 Code(s): K74.60 - UNSPECIFIED CIRRHOSIS OF LIVER Status: Chronic Priority : Medium Qualifiers: Hepatic cirrhosis type: alcoholic cirrhosis Ascites presence: without ascites Qualified Code(s): K70.30 - Alcoholic cirrhosis of liver without ascites (4) Diabetes mellitus SNOMED Code(s): 18899279 Code(s): E11.9 - TYPE 2 DIABETES MELLITUS WITHOUT COMPLICATIONS Status: Chronic Qualifiers: Diabetes mellitus type: type 2 Diabetes mellitus intermediate designer insulin use: without intermediate designer use Diabetes mellitus complication status: with other specified complication Qualified Code(s): E11.69 - Type 2 diabetes mellitus with other specified complication (5) Hypertension SNOMED Code(s): 18111852 Code(s): I10 - ESSENTIAL (PRIMARY) HYPERTENSION Status: Chronic Priority : Medium Qualifiers: Hypertension type: essential hypertension Qualified Code(s): I10 - Essential (primary) hypertension (6) Hypophosphatemia SNOMED Code(s): 2157044 Code(s): E83.39 - OTHER DISORDERS OF PHOSPHORUS METABOLISM Status: Acute (7) Chronic anticoagulation SNOMED Code(s): 762324277 Code(s): Z79.01 - DIRECTOR OF CARDIOLOGY SERVICE LINE (CURRENT) USE OF ANTICOAGULANTS Status: Acute (8) Hypomagnesemia SNOMED Code(s): 624344929 Code(s): E83.42 - HYPOMAGNESEMIA Status: Acute - Problem List Review Problem List Initiated/Reviewed/Updated: Yes - Assessment Assessment:: PRIOR TO ADMISSION As per patient his legs are swollen at baseline but in the past week or so it has been getting worse up to 2 days ago when he really noticed the difference. Denies any chest pain with this however he has had some increasing shortness of breath especially with activity. Of note he had a similar episode about a year ago. The patient has chronic atrial fibrillation and is on Eliquis, also on Lasix and spironolactone as well as digoxin Denies any fevers or chills or symptoms to make him think he has been ill recently he has had no cough or worsening congestion 10/21/19 - HR on admission 123, asymptomatic - Worsening tachycardia when he ambulates, up to 180s - SatO2 90% - Clinically stable - Labs and other tastes - WBC 3.62, Hb 13.2, PLT 85 - Mg 1.1, PO4 1.6 10/22/19 - VS trend - BP trend: 104-178/71-98 - HR trend 92-129 - Tmax 98.2 - O2Sat: >91% on RA - Lab results - K 3.2 - Mg 1.7 - Still on drip - Plan Plan:: Atrial fibrillation with RVR Chronic anticoagulation BL LE edema - Taper down drip - Start PO Diltiazem - F/U echocardiogram result - Continue IV lasix - Daily weights and fluid restriction Alcoholic liver cirrhosis Pancytopenia - Monitor CBC - Goal Hb 7 Diabetes mellitus, unknown HbA1c - Glucose trend - Home insulin Hypertension - Restart home medications - PRN Hydralazine Hypokalemia Hypomagnesemia - Replace Hypophosphatemia, resolved PROPHYLAXIS: DVT- continue home medications GI- not indicated CODE STATUS: FULL CODE DISPOSITION: Patient will remain admitted to ICU for diltiazem drip and transition to oral rate control medications.
[2019-10-22] MEDS: Diltiazem 100 MG in Sodium Chloride 0.9% 100 ML IV SCH (18:05)
[2019-10-22] MEDS: Melatonin 3 MG Tab PO SCH (20:02)
[2019-10-22] MEDS: Sertraline 50 MG Tab PO SCH (20:03)
[2019-10-23] MEDS: Pantoprazole 40 MG Tab.CR PO SCH (05:16)
[2019-10-23] MEDS: Levothyroxine 75 MCG Tab PO SCH (05:16)
[2019-10-23] MEDS: Diltiazem IR 30 MG Tab PO SCH ×2 (05:17→10:30)
[2019-10-23 07:57] LABS: VITAMIN D,25-HYDROXY 30.4 ng/ml (30.0-100.0)
[2019-10-23] MEDS: Furosemide 40 MG/4 ML VIAL IVPUSH SCH (08:20)
[2019-10-23] MEDS: Finasteride 5 MG Tab PO SCH (08:20)
[2019-10-23] MEDS: Spironolactone 25 MG Tab PO SCH (08:21)
[2019-10-23] MEDS: Lactulose Soln 10 GM/15 ML 30 ML UD Cup PO SCH (08:21)
[2019-10-23] MEDS: Tamsulosin 0.4 MG Cap.ER PO SCH ×2 (08:21→20:09)
[2019-10-23] MEDS: Apixaban 5 MG Tab PO SCH ×2 (08:21→20:09)
[2019-10-23] MEDS ORDERED: Magnesium Sulfate/Water 4 GM in Premix Bag 1 BAG IV ONE (09:49)
[2019-10-23] MEDS: Potassium Chloride 10 MEQ in Premix Bag 1 BAG IV SCH ×4 (10:20→13:20)
[2019-10-23] MEDS ORDERED: Diltiazem IR 30 MG Tab PO ONE (11:39)
--- NOTE | 2019-10-23 12:16 | PCM.PN ---
- General Info Date of Service: 10/23/19 Subjective Update: Slept OK Rate controlled Ambulating with assistance Tolerating diet - Patient Data Vitals - Most Recent: Last Vital Signs Temp 97.6 F 10/23/19 12:00 Pulse 60 10/23/19 04:00 Resp 20 10/23/19 12:00 BP 131/77 10/23/19 12:00 Pulse Ox 96 10/23/19 12:00 Weight - Most Recent: 127.097 kg - Exam General: Alert, Oriented, Cooperative, No Acute Distress HEENT: Pupils Equal, Pupils Reactive, EOMI, Mucous Membr. Moist/[place] Neck: Supple, Trachea Midline, No JVD Lungs: Clear to Auscultation, Normal Respiratory Effort. No: Crackles, Rales, Rhonchi, Rub, Wheezing Cardiovascular: Regular Rate, Regular Rhythm. No: Murmurs, Gallops, Rubs GI/Abdominal Exam: Normal Bowel Sounds, Soft, Distended. No: Guarding, Rigid, Rebound Back Exam: Normal Inspection. No: CVA Tenderness (L), CVA Tenderness (R) Extremities: Pedal Edema, Slow Capillary Refill, Joint Swelling Skin: Warm, Dry Psy/Mental Status: Alert, Normal Affect Sepsis Event Note - Evaluation Sepsis Screening Result: No Definite Risk - Problem List & Annotations (1) Hypothyroidism SNOMED Code(s): 08059906 Code(s): E03.9 - HYPOTHYROIDISM, UNSPECIFIED Status: Acute (2) Atrial fibrillation with RVR SNOMED Code(s): 798538310144772 Code(s): I48.91 - UNSPECIFIED ATRIAL FIBRILLATION Status: Acute (3) Cirrhosis SNOMED Code(s): 86902820 Code(s): K74.60 - UNSPECIFIED CIRRHOSIS OF LIVER Status: Chronic Priority : Medium Qualifiers: Hepatic cirrhosis type: alcoholic cirrhosis Ascites presence: without ascites Qualified Code(s): K70.30 - Alcoholic cirrhosis of liver without ascites (4) Diabetes mellitus SNOMED Code(s): 99665085 Code(s): E11.9 - TYPE 2 DIABETES MELLITUS WITHOUT COMPLICATIONS Status: Chronic Qualifiers: Diabetes mellitus type: type 2 Diabetes 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 insulin use: without icicle machine operator use Diabetes mellitus complication status: with other specified complication Qualified Code(s): E11.69 - Type 2 diabetes mellitus with other specified complication (5) Hypertension SNOMED Code(s): 84345584 Code(s): I10 - ESSENTIAL (PRIMARY) HYPERTENSION Status: Chronic Priority : Medium Qualifiers: Hypertension type: essential hypertension Qualified Code(s): I10 - Essential (primary) hypertension (6) Hypophosphatemia SNOMED Code(s): 5358871 Code(s): E83.39 - OTHER DISORDERS OF PHOSPHORUS METABOLISM Status: Acute (7) Chronic anticoagulation SNOMED Code(s): 446660183 Code(s): Z79.01 - GROUP LEADER SEMICONDUCTOR TESTING (CURRENT) USE OF ANTICOAGULANTS Status: Acute (8) Hypomagnesemia SNOMED Code(s): 178222492 Code(s): E83.42 - HYPOMAGNESEMIA Status: Acute - Problem List Review Problem List Initiated/Reviewed/Updated: Yes - Assessment Assessment:: PRIOR TO ADMISSION As per patient his legs are swollen at baseline but in the past week or so it has been getting worse up to 2 days ago when he really noticed the difference. Denies any chest pain with this however he has had some increasing shortness of breath especially with activity. Of note he had a similar episode about a year ago. The patient has chronic atrial fibrillation and is on Eliquis, also on Lasix and spironolactone as well as digoxin Denies any fevers or chills or symptoms to make him think he has been ill recently he has had no cough or worsening congestion 10/21/19 - HR on admission 123, asymptomatic - Worsening tachycardia when he ambulates, up to 180s - SatO2 90% - Clinically stable - Labs and other tastes - WBC 3.62, Hb 13.2, PLT 85 - Mg 1.1, PO4 1.6 10/22/19 - VS trend - BP trend: 104-178/71-98 - HR trend 92-129 - Tmax 98.2 - O2Sat: >91% on RA - Lab results - K 3.2 - Mg 1.7 - Still on drip 10/23/19 - No longer on drip - Transitioned to PO Diltiazem, rate controlled - Vital signs trend - BP 108-159/64-85 - HR 61-90 - Tmax 98 - Lab results - K still at 3.2 - Glu 124-148 - Mg down from 1.7 to 1.6 - Plan Plan:: Atrial fibrillation with RVR Chronic anticoagulation BL LE edema - Continue PO Diltiazem - Continue IV lasix - Daily weights and fluid restriction Alcoholic liver cirrhosis Pancytopenia - Monitor CBC - Goal Hb 7 Diabetes mellitus, unknown HbA1c - Glucose trend - Home insulin Hypertension - Restart home medications - PRN Hydralazine Hypokalemia Hypomagnesemia - Replace Hypophosphatemia, resolved PROPHYLAXIS: DVT- continue home medications GI- not indicated CODE STATUS: FULL CODE DISPOSITION: Patient will remain admitted to medical floor, pending rate control and echocardiogram result
[2019-10-23] MEDS: Acetaminophen 325 MG Tab PO PRN ×2 (13:45→20:09)
[2019-10-23] MEDS: Diltiazem IR 60 MG Tab PO SCH ×2 (17:08→22:17)
[2019-10-23] MEDS: Sertraline 50 MG Tab PO SCH (20:08)
[2019-10-23] MEDS: Melatonin 3 MG Tab PO SCH (20:09)
[2019-10-24 03:15] VITALS: PULSE 66
[2019-10-24] MEDS: Levothyroxine 75 MCG Tab PO SCH (05:42)
[2019-10-24] MEDS: Pantoprazole 40 MG Tab.CR PO SCH (05:42)
[2019-10-24] MEDS: Diltiazem IR 60 MG Tab PO SCH ×2 (05:42→10:59)
[2019-10-24] MEDS: Acetaminophen 325 MG Tab PO PRN (07:16)
[2019-10-24 08:23] VITALS: BP 130/59
[2019-10-24] MEDS: Tamsulosin 0.4 MG Cap.ER PO SCH (08:43)
[2019-10-24] MEDS: Apixaban 5 MG Tab PO SCH (08:43)
[2019-10-24] MEDS: Lactulose Soln 10 GM/15 ML 30 ML UD Cup PO SCH (08:43)
[2019-10-24] MEDS: Spironolactone 25 MG Tab PO SCH (08:43)
[2019-10-24] MEDS: Finasteride 5 MG Tab PO SCH (08:43)
[2019-10-24] MEDS: Furosemide 40 MG/4 ML VIAL IVPUSH SCH (08:44)
[2019-10-24] MEDS ORDERED: Iopamidol 755 Mg/ML 100 ML Bottle IVPUSH ONE (09:23)
[2019-10-24] MEDS ORDERED: Iopamidol 755 MG/ML 50 ML Bottle IVPUSH ONE (09:23)
--- NOTE | 2019-10-24 12:23 | PCM.DCSUM1 ---
Discharge Summary - Hospital Course HPI Initial Comments: This is a 64 year old male with past medical history of diabetes and coagulopathy who comes to the ED complaining of worsening lower extremity edema for approx. 2 days. As per patient his legs are swollen at baseline but in the past week or so it has been getting worse up to 2 days ago when he really noticed the difference. Denies any chest pain with this however he has had some increasing shortness of breath especially with activity. Of note he had a similar episode about a year ago. The patient has chronic atrial fibrillation and is on Eliquis, also on Lasix and spironolactone as well as digoxin Denies any fevers or chills or symptoms to make him think he has been ill recently he has had no cough or worsening congestion. Diagnosis: Stroke: No - Discharge Data Discharge Date: 10/24/19 Discharge Disposition: Home, Self-Care 01 Condition: Good - Referral to Home Health Primary Care Physician: Reji Bravo MD - Discharge Diagnosis/Problem(s) (1) Hypothyroidism SNOMED Code(s): 92965504 ICD Code: E03.9 - HYPOTHYROIDISM, UNSPECIFIED Status: Acute (2) Atrial fibrillation with RVR SNOMED Code(s): 562280188973066 ICD Code: I48.91 - UNSPECIFIED ATRIAL FIBRILLATION Status: Acute (3) Cirrhosis SNOMED Code(s): 93827412 ICD Code: K74.60 - UNSPECIFIED CIRRHOSIS OF LIVER Status: Chronic Priority: Medium Qualifiers: Hepatic cirrhosis type: alcoholic cirrhosis Ascites presence: without ascites Qualified Code(s): K70.30 - Alcoholic cirrhosis of liver without ascites (4) Diabetes mellitus SNOMED Code(s): 06028434 ICD Code: E11.9 - TYPE 2 DIABETES MELLITUS WITHOUT COMPLICATIONS Status: Chronic Qualifiers: Diabetes mellitus type: type 2 Diabetes mellitus fpc insulin use: without terminal makeup operator use Diabetes mellitus complication status: with other specified complication Qualified Code(s): E11.69 - Type 2 diabetes mellitus with other specified complication (5) Hypertension SNOMED Code(s): 29249327 ICD Code: I10 - ESSENTIAL (PRIMARY) HYPERTENSION Status: Chronic Priority : Medium Qualifiers: Hypertension type: essential hypertension Qualified Code(s): I10 - Essential (primary) hypertension (6) Hypophosphatemia SNOMED Code(s): 6000166 ICD Code: E83.39 - OTHER DISORDERS OF PHOSPHORUS METABOLISM Status: Acute (7) Chronic anticoagulation SNOMED Code(s): 660282919 ICD Code: Z79.01 - PENITENTIARY (CURRENT) USE OF ANTICOAGULANTS Status: Acute (8) Hypomagnesemia SNOMED Code(s): 095417809 ICD Code: E83.42 - HYPOMAGNESEMIA Status: Acute (9) Pancytopenia SNOMED Code(s): 968532508 ICD Code: D61.818 - OTHER PANCYTOPENIA Status: Acute (10) Hypoalbuminemia SNOMED Code(s): 521669806 ICD Code: E88.09 - [facility] DISORDERS OF PLASMA-PROTEIN METABOLISM, NEC Status: Acute (11) Chronic back pain SNOMED Code(s): 162260484 ICD Code: M54.9 - DORSALGIA, UNSPECIFIED; G89.29 - OTHER CHRONIC PAIN Status: Acute - Patient Summary/Data Consults: Consultations 10/21/19 19:52 OT Evaluation and Treatment [CONS] Routine PT Evaluation and Treatment [CONS] Routine Hospital Course: PRIOR TO ADMISSION As per patient his legs are swollen at baseline but in the past week or so it has been getting worse up to 2 days ago when he really noticed the difference. Denies any chest pain with this however he has had some increasing shortness of breath especially with activity. Of note he had a similar episode about a year ago. The patient has chronic atrial fibrillation and is on Eliquis, also on Lasix and spironolactone as well as digoxin Denies any fevers or chills or symptoms to make him think he has been ill recently he has had no cough or worsening congestion 10/21/19 - HR on admission 123, asymptomatic - Worsening tachycardia when he ambulates, up to 180s - SatO2 90% - Clinically stable - Labs and other tastes - WBC 3.62, Hb 13.2, PLT 85 - Mg 1.1, PO4 1.6 10/22/19 - VS trend - BP trend: 104-178/71-98 - HR trend 92-129 - Tmax 98.2 - O2Sat: >91% on RA - Lab results - K 3.2 - Mg 1.7 - Still on drip 10/23/19 - No longer on drip - Transitioned to PO Diltiazem, rate controlled - Vital signs trend - BP 108-159/64-85 - HR 61-90 - Tmax 98 - Lab results - K still at 3.2 - Glu 124-148 - Mg down from 1.7 to 1.6 10/24/19 - CT chest within normal limits, no masses found - Rate controlled, discharged on Diltiazem and Eliquis - Patient Instructions Diet: Heart Healthy Diet Fluid Restriction: 1500 mL Activity: As Tolerated Notify Provider of: Fever, Increased Pain, Swelling and Redness - Discharge Plan *PRESCRIPTION DRUG MONITORING PROGRAM REVIEWED*: No *COPY OF PRESCRIPTION DRUG MONITORING REPORT IN PATIENT RM: No Prescriptions/Med Rec: Diltiazem IR [Cardizem] 60 mg PO Q6H #120 tablet Melatonin 9 mg PO BEDTIME #90 tablet Sertraline [Zoloft] 50 mg PO BEDTIME #30 tablet Spironolactone [Aldactone] 50 mg PO BID #60 tablet Home Medications: Home Meds Tamsulosin HCl 0.4 mg PO BID 05/01/16 [History] Rosuvastatin Calcium 5 mg PO DAILY 02/05/18 [History] Dutasteride [Avodart] 0.5 mg PO DAILY 01/08/19 [History] Omeprazole Magnesium [Prilosec Otc] 40 mg PO DAILY 01/08/19 [History] Folic Acid 1 mg PO BEDTIME #15 tablet 01/15/19 [Rx] Furosemide [Lasix] 40 mg PO ASDIRECTED #60 tablet 01/15/19 [Rx] Insulin Lispro [HumaLOG] See Protocol SUBCUT QIDACANDBED PRN #1 vial 01/15/19 [ Rx] Lactulose [Cephulac] 20 gm PO DAILY #30 cup 01/15/19 [Rx] Levothyroxine 75 mcg PO ACBREAKFAST #30 tablet 01/15/19 [Rx] Magnesium Oxide 400 mg PO BID #20 tablet 01/15/19 [Rx] Multivitamins,Therapeutic [Thera] 1 each PO BEDTIME #10 tablet 01/15/19 [Rx] Rifaximin [Xifaxan] 550 mg PO BID #60 tablet 01/15/19 [Rx] Apixaban [Eliquis] 5 mg PO BID 01/20/19 [History] Acetaminophen [8Hr Arthritis Pain Relief] 650 mg PO Q4HR PRN 10/21/19 [History] Insulin Aspart [NovoLOG] 1 unit SQ ASDIRECTED 10/21/19 [History] Insulin Lispro [Humalog Kwikpen U-100] 1 - 7 units SQ TID 10/21/19 [History] Lactobacillus Acidophilus [Acidophilus] 1 cap PO BID 10/21/19 [History] Spironolactone [Aldactone] 50 mg PO DAILY 10/21/19 [History] Diltiazem IR [Cardizem] 60 mg PO Q6H #120 tablet 10/24/19 [Rx] Melatonin 9 mg PO BEDTIME #90 tablet 10/24/19 [Rx] Sertraline [Zoloft] 50 mg PO BEDTIME #30 tablet 10/24/19 [Rx] Spironolactone [Aldactone] 50 mg PO BID #60 tablet 10/24/19 [Rx] Oxygen Therapy Mode: Room Air Forms: ED Department Discharge Referrals: Elmer Shah MD [Physician] - 11/10/19 2:00 pm (according to pt. he has an appointment w/ dr shah this 09 of november at 2 pm.) - Discharge Summary/Plan Comment DC Time >30 min.: Yes - General Info Date of Service: 10/24/19 Subjective Update: Slept OK Stable No changes in HR while ambulating Chest CT today for abnormal CXR - Patient Data Vitals - Most Recent: Last Vital Signs Temp 97.8 F 10/24/19 08:22 Pulse 66 10/24/19 03:00 Resp 18 10/24/19 08:22 BP 130/59 L 10/24/19 08:22 Pulse Ox 96 10/24/19 08:22 Weight - Most Recent: 119.748 kg - Exam General: Reports: Alert, Oriented, Cooperative HEENT: Reports: Pupils Equal, Pupils Reactive, EOMI, Mucous Membr. Moist/[place] Neck: Reports: Supple, Trachea Midline, No JVD, No Thyromegaly, +2 Carotid Pulse wo Bruit Lungs: Reports: Clear to Auscultation, Normal Respiratory Effort. Denies: Crackles, Rales, Rhonchi, Rub, Stridor, Wheezing Cardiovascular: Reports: Regular Rate, Regular Rhythm. Denies: Gallops, Rubs GI/Abdominal Exam: Normal Bowel Sounds, Soft, Non-Tender, No Organomegaly, Distended. No: Guarding, Rigid, Rebound Back Exam: Reports: Normal Inspection Extremities: Slow Capillary Refill Skin: Reports: Warm, Dry Neurological: Reports: No New Focal Deficit Psy/Mental Status: Reports: Alert, Normal Affect, Normal Mood *Q Meaningful Use (DIS) - VTE *Q VTE Anticoagulation Contraindications: Medical/Procedure Contrai
--- NOTE | 2019-10-25 06:36 | CT ---
CT chest Technique: Multiple axial sections were obtained from above the dome of the diaphragm inferiorly through the pubic symphysis. Intravenous contrast was utilized reconstructed coronal and sagittal images were obtained. Comparison: Prior chest x-ray of 10/21/19. Prior CT abdomen and pelvis exam of 06/23/15 and 05/30/18. Findings: Left internal jugular catheter is seen. Tip lies within the upper superior vena cava. Aorta shows no aneurysm. No mediastinal mass or adenopathy is seen. Widening of the mediastinum on chest x-ray is felt to be a normal variant. No hilar adenopathy is seen. No pericardial thickening is noted. Small cyst is noted within the right kidney measuring 1.3 cm. Kidneys are otherwise unremarkable. Small hiatal hernia is seen. Liver slightly nodular in contour which is compatible with mild cirrhosis. Spleen measures at the upper limits of normal at 13.3 cm. Surgical clips are seen from prior cholecystectomy. Small low density lesion is noted within the pancreas measuring about 1.8 cm. This appears stable back to 2016 and therefore I believe is incidental. Liver and spleen findings are also stable back to 2016. Minimal areas of atelectasis believed to be present within the lingula and right middle lobe. No acute parenchymal change is appreciated. Very small nodule measuring about 3 mm is seen within the right upper lung. This is believed to be incidental. Bone window settings were reviewed which show no acute osseous finding. Scattered degenerative change is appreciated within the spine. Several old right posterior rib fractures are noted. Impression: 1. Slightly nodular contour of the liver as well as spleen measuring at the upper limits of normal in size. Findings felt compatible with cirrhosis which appears stable back to 2016. 2. Small pancreatic lesion also felt to be stable from study from 2016 and therefore believed to be incidental. 3. Slight parenchymal findings within both lungs believed to be nonacute. 4. No mediastinal mass or goiter is seen. Chest x-ray finding of mediastinal widening is therefore felt to be incidental. 5. Other findings believed to be nonacute as described above. Diagnostic code #3 This report was dictated in MDT I agree with preliminary report from [facility], finalized on 10/24/19, 12:07 PM Central Daylight Time
== END 2019-10-24 14:36 | disposition home or self-care (01) | DRG 309 ==
LOC: JD.ED 10:14 → JD.ICU 17:17
PROVIDERS: ADMIT Internal Medicine; ATTEND Internal Medicine
DX: I48.91 Unspecified atrial fibrillation (principal); D61.818 Other pancytopenia; I13.0 Hypertensive heart and chronic kidney disease with heart failure and stage 1 through stage 4 chronic kidney disease, or unspecified chronic kidney disease; Z68.41 Body mass index [BMI] 40.0-44.9, adult; F10.288 Alcohol dependence with other alcohol-induced disorder; H54.7 Unspecified visual loss; E03.9 Hypothyroidism, unspecified; N40.0 Benign prostatic hyperplasia without lower urinary tract symptoms; K70.30 Alcoholic cirrhosis of liver without ascites; M19.90 Unspecified osteoarthritis, unspecified site; E83.39 Other disorders of phosphorus metabolism; E83.42 Hypomagnesemia; E88.09 Other disorders of plasma-protein metabolism, not elsewhere classified; Z86.14 Personal history of Methicillin resistant Staphylococcus aureus infection; Z96.653 Presence of artificial knee joint, bilateral; F10.10 Alcohol abuse, uncomplicated; Y90.9 Presence of alcohol in blood, level not specified; M54.9 Dorsalgia, unspecified; G89.29 Other chronic pain; K21.9 Gastro-esophageal reflux disease without esophagitis; F32.9 Major depressive disorder, single episode, unspecified; E66.9 Obesity, unspecified; N18.9 Chronic kidney disease, unspecified; Z96.659 Presence of unspecified artificial knee joint; I50.9 Heart failure, unspecified; E11.22 Type 2 diabetes mellitus with diabetic chronic kidney disease; Z79.01 Long term (current) use of anticoagulants; Z79.890 Hormone replacement therapy; Z79.4 Long term (current) use of insulin; Z79.899 Other long term (current) drug therapy
CPT/HCPCS: 36415; 71045; 80053; 80162; 81001; 83735; 83880; 84100; 84443; 84484; 85025; 87086; 93005; 96365; 96375; 99284; J1940; J3475; J3490; 36410; 71260; 71260-26; 80048; 82306; 82607; 82746; 82962; 83540; 84466; 85045; 87070; 87641; 97110-GO; 97162-GP; 97165-GO; 99222; 99231; 99239; A9270-GY; J2001; J3480; J7050; Q9967

== ENCOUNTER 2020-01-18 12:16 | Inpatient (IN) | payer MEDICARE, OTHER ==
[2020-01-18] MEDS ORDERED: Sodium Chloride 0.9% 10 ML Syringe FLUSH PRN (13:16)
[2020-01-18] MEDS ORDERED: Diltiazem 50 MG/10 ML SDV IVPUSH ONE (13:17)
[2020-01-18] MEDS ORDERED: Diltiazem 100 MG in Sodium Chloride 0.9% 100 ML IV SCH (13:30)
--- NOTE | 2020-01-18 14:25 | CR ---
Chest: Portable view of the chest was obtained. Comparison: Prior chest x-ray of 10/21/19. Heart size and mediastinum are within normal limits for portable technique. Old healed right-sided rib fractures are noted. Lungs show no acute parenchymal change. Impression: 1. Nothing acute is appreciated on portable chest x-ray. Diagnostic code #2 This report was dictated in MDT
[2020-01-18] MEDS: Sodium Chloride 0.9% 1,000 ML IV SCH (14:27)
--- NOTE | 2020-01-18 14:30 | CT ---
Head CT Technique: Multiple axial sections through the brain were obtained. Intravenous contrast was not utilized. Comparison: Prior head CT study of 05/30/18. Findings: Ventricles along with basal cisterns and sulci with convexities are moderately prominent. Minimal areas of diminished density is noted within the periventricular and subcortical white matter most likely relating to stable small vessel ischemic demyelination change. No other abnormal parenchymal densities are seen. No evidence of intracranial hemorrhage. No midline shift or mass-effect is seen. Bone window settings were reviewed. No acute calvarial finding is seen. Skull lesion is noted within the left frontal region which is stable from prior exam which measures approximately 1.7 cm in size. Visualized paranasal sinuses show nothing acute. Small air-fluid level is noted within the right mastoid sinus. Impression: 1. Senescent change as described above. 2. Small air-fluid level within the right mastoid sinus most likely relating to retained secretions if patient has no symptoms of mastoiditis. 3. Nothing acute is otherwise seen on noncontrasted CT exam. Diagnostic code #3 This report was dictated in MDT
--- NOTE | 2020-01-18 14:44 | EDM.PDOC ---
ED HPI GENERAL MEDICAL PROBLEM - General Chief Complaint: Syncope Stated Complaint: SYNCOPE AND FALLING Time Seen by Provider: 01/18/20 12:27 Source of Information: Reports: Patient History Limitations: Reports: No Limitations - History of Present Illness INITIAL COMMENTS - FREE TEXT/NARRATIVE: The patient presents with a syncopal episode. He says this has been going on for a few weeks. He passed out today. He does not think he hit his head. His daughter told him that he was out for about 30 minutes. He said this happens at least 1 time per week. he has a history of A-fib. He says he has been more short of breath lately with exertion. He has no increased swelling in his legs. There has been no changes in his medications. He is on blood thinners. He has no headache, neck pain, fever, chills, cough, congestion, runny nose, chest pain, abdominal pain, nausea or vomiting. Onset: Gradual Duration: Hour(s): Severity: Moderate Improves with: Reports: None Worsens with: Reports: None Associated Symptoms: Reports: Shortness of Breath. Denies: Chest Pain, Cough, Fever/Chills, Headaches, Nausea/Vomiting - Related Data Allergies Allergy/AdvReac Type Severity Reaction Status Date / Time No Known Allergies Allergy Verified 01/18/20 12:38 Home Meds: Home Meds Tamsulosin HCl 0.4 mg PO BID 05/01/16 [History] Rosuvastatin Calcium 5 mg PO DAILY 02/05/18 [History] Dutasteride [Avodart] 0.5 mg PO DAILY 01/08/19 [History] Omeprazole Magnesium [Prilosec Otc] 40 mg PO DAILY 01/08/19 [History] Folic Acid 1 mg PO BEDTIME #15 tablet 01/15/19 [Rx] Furosemide [Lasix] 40 mg PO ASDIRECTED #60 tablet 01/15/19 [Rx] Insulin Lispro [HumaLOG] See Protocol SUBCUT QIDACANDBED PRN #1 vial 01/15/19 [Rx] Lactulose [Cephulac] 20 gm PO DAILY #30 cup 01/15/19 [Rx] Levothyroxine 75 mcg PO ACBREAKFAST #30 tablet 01/15/19 [Rx] Magnesium Oxide 400 mg PO BID #20 tablet 01/15/19 [Rx] Multivitamins,Therapeutic [Thera] 1 each PO BEDTIME #10 tablet 01/15/19 [Rx] Rifaximin [Xifaxan] 550 mg PO BID #60 tablet 01/15/19 [Rx] Apixaban [Eliquis] 5 mg PO BID 01/20/19 [History] Acetaminophen [8Hr Arthritis Pain Relief] 650 mg PO Q4HR PRN 10/21/19 [History] Insulin Aspart [NovoLOG] 1 unit SQ ASDIRECTED 10/21/19 [History] Insulin Lispro [Humalog Kwikpen U-100] 1 - 7 units SQ TID 10/21/19 [History] Lactobacillus Acidophilus [Acidophilus] 1 cap PO BID 10/21/19 [History] Spironolactone [Aldactone] 50 mg PO DAILY 10/21/19 [History] Diltiazem IR [Cardizem] 60 mg PO Q6H #120 tablet 10/24/19 [Rx] Melatonin 9 mg PO BEDTIME #90 tablet 10/24/19 [Rx] Sertraline [Zoloft] 50 mg PO BEDTIME #30 tablet 10/24/19 [Rx] Spironolactone [Aldactone] 50 mg PO BID #60 tablet 10/24/19 [Rx] Past Medical History HEENT History: Reports: Impaired Vision Other HEENT History: wears glasses Cardiovascular History: Reports: Afib, Hypertension Other Cardiovascular History: edema, PVCs Respiratory History: Reports: None Gastrointestinal History: Reports: Cirrhosis, GERD Other Gastrointestinal History: alcoholic cirrhosis of liver with ascites Genitourinary History: Reports: BPH, Chronic Renal Insuffiency Other Genitourinary History: hematuria CRUSHER TENDER History: Reports: None Musculoskeletal History: Reports: Osteoarthritis, Other (See Below) Neurological History: Reports: Headaches, Chronic Psychiatric History: Reports: Addiction, Depression Other Psychiatric History: alcohol abuse Endocrine/Metabolic History: Reports: Diabetes, Type II, Hypothyroidism, Obesity/BMI 30+ Hematologic History: Reports: None Immunologic History: Reports: None Oncologic (Cancer) History: Reports: None - Infectious Disease History Infectious Disease History: Reports: Chicken Pox, Measles, Other (See Below) Other Infectious Disease History: E-coli--R) knee replacement. - Past Surgical History Musculoskeletal Surgical History: Reports: Knee Replacement Other Musculoskeletal Surgeries/Procedures:: E-coli--to R) knee replacement. Dermatological Surgical History: Reports: Skin Graft Social & Family History - Family History Family Medical History: Noncontributory Cardiac: Reports: PA Other Cardiac Family History: father Neurological: Reports: Alzheimers Disease Other Neurological Family History: mother - Tobacco Use Smoking Status *Q: Never Smoker Second Hand Smoke Exposure: No - Caffeine Use Caffeine Use: Reports: Coffee Other Caffeine Use: rarely - Recreational Drug Use Recreational Drug Use: No - Living Situation & Occupation Living situation: Reports: Single, Extended Care Facility ([facility]) Occupation: Retired ED ROS GENERAL - Review of Systems Review Of Systems: See Below Constitutional: Reports: No Symptoms HEENT: Reports: No Symptoms Respiratory: Reports: Shortness of Breath Cardiovascular: Reports: Syncope. Denies: Chest Pain Endocrine: Reports: No Symptoms GI/Abdominal: Reports: No Symptoms : Reports: No Symptoms ED EXAM, GENERAL - Physical Exam Exam: See Below Exam Limited By: No Limitations General Appearance: Alert, No Apparent Distress Ears: Normal External Exam Nose: Normal Inspection Head: Atraumatic, Normocephalic Neck: Normal Inspection Respiratory/Chest: No Respiratory Distress, Lungs Clear, Normal Breath Sounds Cardiovascular: No Edema, No Murmur, Irregularly Irregular GI/Abdominal: Soft, Non-Tender, No Organomegaly, No Mass Extremities: Normal Inspection Neurological: Alert, Oriented, No Motor/Sensory Deficits EKG INTERPRETATION EKG Date: 01/18/20 Time: 13:54 Rhythm: A-Fib Rate (Beats/Min): 115 Chadwick: LAD-Left Chadwick Deviation P-Wave: Absent QRS: Normal ST-T: Normal QT: Normal Course - Vital Signs Last Recorded V/S: Last Vital Signs Temp 97.8 F 01/18/20 12:30 Pulse 102 H 01/18/20 12:30 Resp 12 01/18/20 12:30 BP 143/94 H 01/18/20 12:30 Pulse Ox 95 01/18/20 12:30 - Orders/Labs/Meds Orders: Active Orders 24 hr Category Date Time Status Cardiac Monitoring [RC] . DIRECTED Care 01/18/20 13:16 Active EKG Documentation Completion [RC] STAT Care 01/18/20 13:17 Active Peripheral IV Care [RC] . DIRECTED Care 01/18/20 13:16 Active CBC WITH AUTO DIFF [HEME] Stat Lab 01/18/20 14:25 Results Diltiazem [Cardizem] 100 mg Med 01/18/20 13:30 Active Sodium Chloride 0.9% [Normal Saline] 100 ml IV TITRATE Sodium Chloride 0.9% [Normal Saline] 1,000 ml Med 01/18/20 13:30 Active IV ASDIRECTED Sodium Chloride 0.9% [Saline Flush] Med 01/18/20 13:16 Active 10 ml FLUSH ASDIRECTED PRN Peripheral IV Insertion Adult [OM.PC] Stat Oth 01/18/20 13:16 Ordered Medication Orders Diltiazem HCl 100 mg/ Sodium (Chloride) 100 mls @ 10 mls/hr IV TITRATE MIKO; Protocol Last Admin: 01/18/20 14:30 Dose: 10 mg/hr, 10 mls/hr Documented by: TAMEKA Sodium Chloride (Normal Saline) 1,000 mls @ 125 mls/hr IV ASDIRECTED MIKO Last Admin: 01/18/20 14:27 Dose: 125 mls/hr Documented by: TAMEKA Sodium Chloride (Saline Flush) 10 ml FLUSH ASDIRECTED PRN PRN Reason: Keep Vein Open Last Admin: 01/18/20 14:27 Dose: 10 ml Documented by: TAMEKA Labs: Laboratory Tests 01/18/20 01/18/20 Range/Units 14:25 14:25 WBC 2.28 L* (4.23-9.07) K/mm3 RBC 4.39 L (4.63-6.08) M/mm3 Hgb 14.1 D (13.7-17.5) gm/dl Hct 41.6 (40.1-51.0) % MCV 94.8 H D (79.0-92.2) fl MCH 32.1 (25.7-32.2) pg MCHC 33.9 (32.2-35.5) g/dl RDW Std Deviation 58.2 H (35.1-43.9) fL Plt Count 103 L (163-337) K/mm3 MPV 10.1 (9.4-12.3) fl Neut % (Auto) 44.7 (34.0-67.9) % Lymph % (Auto) 34.6 (21.8-53.1) % Osborne % (Auto) 16.7 H (5.3-12.2) % Eos % (Auto) 1.8 (0.8-7.0) Baso % (Auto) 2.2 H (0.1-1.2) % Neut # (Auto) 1.02 L (1.78-5.38) K/mm3 Lymph # (Auto) 0.79 L (1.32-3.57) K/mm3 [place]borne # (Auto) 0.38 (0.30-0.82) K/mm3 Eos # (Auto) 0.04 (0.04-0.54) K/mm3 Baso # (Auto) 0.05 (0.01-0.08) K/mm3 Sodium 141 (136-145) mEq/L Potassium 3.6 (3.5-5.1) mEq/L Chloride 104 (98-107) mEq/L Carbon Dioxide 23 (21-32) mEq/L Anion Gap 17.6 H (5-15) BUN 13 (7-18) mg/dL Creatinine 1.0 (0.7-1.3) mg/dL Est Cr Clr Drug Dosing 66.46 mL/min Estimated GFR (MDRD) > 60 (>60) mL/min BUN/Creatinine Ratio 13.0 L (14-18) Glucose 109 (80-115) mg/dL Calcium 8.3 L (8.5-10.1) mg/dL Magnesium 1.1 L (1.8-2.4) mg/dl Total Bilirubin 1.9 H (0.2-1.0) mg/dL AST 155 H (15-37) U/L ALT 87 H (16-63) U/L Alkaline Phosphatase 101 (46-116) U/L Troponin I < 0.017 (0.00-0.056) ng/mL Total Protein 7.0 (6.4-8.2) g/dl Albumin 2.8 L (3.4-5.0) g/dl Globulin 4.2 gm/dL Albumin/Globulin Ratio 0.7 L (1-2) Meds: Medications Generic Name Dose Route Start Last Admin Trade Name Freq PRN Reason Stop Dose Admin Diltiazem HCl 100 mg/ Sodium 100 mls @ 10 mls/hr 01/18/20 13:30 01/18/20 14:30 Chloride IV 10 mg/hr TITRATE MIKO 10 mls/hr Administration Protocol 10 MG/HR Sodium Chloride 1,000 mls @ 125 mls/hr 01/18/20 13:30 01/18/20 14:27 Normal Saline IV 125 mls/hr ASDIRECTED MIKO Administration Sodium Chloride 10 ml 01/18/20 13:16 01/18/20 14:27 Saline Flush FLUSH 10 ml ASDIRECTED PRN Administration Keep Vein Open Discontinued Medications Generic Name Dose Route Start Last Admin Trade Name Freq PRN Reason Stop Dose Admin Diltiazem HCl 10 mg 01/18/20 13:17 01/18/20 14:24 Cardizem IVPUSH 01/18/20 13:18 10 mg ONETIME ONE Administration Diltiazem HCl 60 mg 01/18/20 15:42 Cardizem PO 01/18/20 15:43 ONETIME ONE - Re-Assessments/Exams Free Text/Narrative Re-Assessment/Exam: 01/18/20 14:46 I ordered an IV NS 125mL/hr, EKG, CXR, CT of his head, labs, cardizem bolus of 10mg IV and a drip at 10mg/hr. 01/18/20 15:49 His heart rate did slow down in the 80s. His WBC was low at 2.28. His RBCs were low at 4.39. His anion gap was elevated at 17.1. His magnesium was low at 1.1. His total bili is elevated at 1.9. His AST is elevated at 155. His ALT is elevated at 87. His troponin is negative. I wanted to admit him to the hospital but he did not want to be admitted. I will stop the drip and give him oral cardizem. Departure - Departure Time of Disposition: 16:05 Disposition: Home, Self-Care 01 Condition: Good Clinical Impression: Atrial fibrillation with RVR, Hypomagnesemia Syncope Qualifiers: Syncope type: unspecified Qualified Code(s): R55 - Syncope and collapse Referrals: Elmer Ahn MD [Primary Care Provider] - 1 Week Forms: ED Department Discharge Additional Instructions: Take your medication as prescribed. Follow up with Dr Ahn within a week. Please return if you are worse. Sepsis Event Note (ED) - Evaluation Sepsis Screening Result: No Definite Risk - Focused Exam Vital Signs: Vital Signs Temp Pulse Resp BP Pulse Ox 01/18/20 12:30 97.8 F 102 H 12 143/94 H 95 - My Orders Last 24 Hours: My Active Orders 01/18/20 13:16 Cardiac Monitoring [RC] . DIRECTED Peripheral IV Care [RC] . DIRECTED Sodium Chloride 0.9% [Saline Flush] 10 ml FLUSH ASDIRECTED PRN Peripheral IV Insertion Adult [OM.PC] Stat 01/18/20 13:17 EKG Documentation Completion [RC] STAT 01/18/20 13:30 Diltiazem [Cardizem] 100 mg Sodium Chloride 0.9% [Normal Saline] 100 ml IV TITRATE Sodium Chloride 0.9% [Normal Saline] 1,000 ml IV ASDIRECTED 01/18/20 14:25 CBC WITH AUTO DIFF [HEME] Stat - Assessment/Plan Last 24 Hours: My Active Orders 01/18/20 13:16 Cardiac Monitoring [RC] . DIRECTED Peripheral IV Care [RC] . DIRECTED Sodium Chloride 0.9% [Saline Flush] 10 ml FLUSH ASDIRECTED PRN Peripheral IV Insertion Adult [OM.PC] Stat 01/18/20 13:17 EKG Documentation Completion [RC] STAT 01/18/20 13:30 Diltiazem [Cardizem] 100 mg Sodium Chloride 0.9% [Normal Saline] 100 ml IV TITRATE Sodium Chloride 0.9% [Normal Saline] 1,000 ml IV ASDIRECTED 01/18/20 14:25 CBC WITH AUTO DIFF [HEME] Stat
[2020-01-18] MEDS ORDERED: Diltiazem IR 60 MG Tab PO ONE (15:42)
[2020-01-18 17:58] VITALS: PULSE 86
[2020-01-18] MEDS ORDERED: Magnesium Sulfate/Water 4 GM in Premix Bag 1 BAG IV ONE (20:36)
[2020-01-18] MEDS ORDERED: Ondansetron 4 MG/2 ML SDV IV PRN (20:44)
--- NOTE | 2020-01-18 20:52 | PCM.HP.2 ---
H&P History of Present Illness - General Date of Service: 01/18/20 Admit Problem/Dx: Admission Diagnosis/Problem Admission Diagnosis/Problem Afib, Atrial fibrillation - History of Present Illness Initial Comments - Free Text/Narative: 64-year-old male with history of atrial fibrillation, cirrhosis, diabetes, Hypo thyroidism, GERD, and hypertension presents to the emergency department after syncopal episode. Patient was found by his daughter and his daughter states he was out for approximately 30 minutes. Patient states that he gets dizzy or passes out approximately 1 time per week. Patient also states he has been more short of breath recently but denies fever, chills, cough, congestion, chest pain, abdominal pain, nausea or vomiting. In the emergency department his heart rate was in the low 100s. His magnesium was significantly low at 1.1. Anion gap was 17.9 and his renal function was normal. Patient does have a history of alcohol abuse but stopped drinking in November. Patient has CT confirmed evidence of cirrhosis first seen in 2016 here. He has significant for leukopenia, thrombocytopenia, hypoalbuminemia, and hyperbilirubinemia all consistent with liver disease/cirrhosis. In the emergency room patient was placed on a Cardizem drip, given Cardizem bolus, and given Cardizem IR 60 mg. Patient was going to go home but his daughter convinced him to stay for admission. When he was replaced on the monitor he was back in RVR and Cardizem drip was restarted. On arrival to the ICU rate was in the 80s and Cardizem drip was held. - Related Data Allergies/Adverse Reactions: Allergies Allergy/AdvReac Type Severity Reaction Status Date / Time No Known Allergies Allergy Verified 01/18/20 22:29 Home Medications: Home Meds Tamsulosin HCl 0.4 mg PO BID 05/01/16 [History] Rosuvastatin Calcium 5 mg PO DAILY 02/05/18 [History] Dutasteride [Avodart] 0.5 mg PO DAILY 01/08/19 [History] Omeprazole Magnesium [Prilosec Otc] 40 mg PO DAILY 01/08/19 [History] Folic Acid 1 mg PO BEDTIME #15 tablet 01/15/19 [Rx] Furosemide [Lasix] 40 mg PO ASDIRECTED #60 tablet 01/15/19 [Rx] Insulin Lispro [HumaLOG] See Protocol SUBCUT QIDACANDBED PRN #1 vial 01/15/19 [Rx] Lactulose [Cephulac] 20 gm PO DAILY #30 cup 01/15/19 [Rx] Levothyroxine 75 mcg PO ACBREAKFAST #30 tablet 01/15/19 [Rx] Magnesium Oxide 400 mg PO BID #20 tablet 01/15/19 [Rx] Multivitamins,Therapeutic [Thera] 1 each PO BEDTIME #10 tablet 01/15/19 [Rx] Rifaximin [Xifaxan] 550 mg PO BID #60 tablet 01/15/19 [Rx] Apixaban [Eliquis] 5 mg PO BID 01/20/19 [History] Acetaminophen [8Hr Arthritis Pain Relief] 650 mg PO Q4HR PRN 10/21/19 [History] Insulin Aspart [NovoLOG] 1 unit SQ ASDIRECTED 10/21/19 [History] Insulin Lispro [Humalog Kwikpen U-100] 1 - 7 units SQ TID 10/21/19 [History] Lactobacillus Acidophilus [Acidophilus] 1 cap PO BID 10/21/19 [History] Spironolactone [Aldactone] 50 mg PO DAILY 10/21/19 [History] Diltiazem IR [Cardizem] 60 mg PO Q6H #120 tablet 10/24/19 [Rx] Melatonin 9 mg PO BEDTIME #90 tablet 10/24/19 [Rx] Sertraline [Zoloft] 50 mg PO BEDTIME #30 tablet 10/24/19 [Rx] Spironolactone [Aldactone] 50 mg PO BID #60 tablet 10/24/19 [Rx] Past Medical History HEENT History: Reports: Impaired Vision Other HEENT History: wears glasses Cardiovascular History: Reports: Afib, Hypertension Other Cardiovascular History: edema, PVCs Respiratory History: Reports: None Gastrointestinal History: Reports: Cirrhosis, GERD Other Gastrointestinal History: alcoholic cirrhosis of liver with ascites Genitourinary History: Reports: BPH, Chronic Renal Insuffiency Other Genitourinary History: hematuria BUNDLE PERSON History: Reports: None Musculoskeletal History: Reports: Osteoarthritis, Other (See Below) Neurological History: Reports: Headaches, Chronic Psychiatric History: Reports: Addiction, Depression Other Psychiatric History: alcohol abuse Endocrine/Metabolic History: Reports: Diabetes, Type II, Hypothyroidism, Obesity/BMI 30+ Hematologic History: Reports: None Immunologic History: Reports: None Oncologic (Cancer) History: Reports: None - Infectious Disease History Infectious Disease History: Reports: Chicken Pox, Measles, Other (See Below) Other Infectious Disease History: E-coli--R) knee replacement. - Past Surgical History Musculoskeletal Surgical History: Reports: Knee Replacement Other Musculoskeletal Surgeries/Procedures:: E-coli--to R) knee replacement. Dermatological Surgical History: Reports: Skin Graft Social & Family History - Family History Family Medical History: Noncontributory Cardiac: Reports: [place] Other Cardiac Family History: father Neurological: Reports: Alzheimers Disease Other Neurological Family History: mother - Tobacco Use Smoking Status *Q: Never Smoker Second Hand Smoke Exposure: No - Caffeine Use Caffeine Use: Reports: Coffee Other Caffeine Use: rarely - Recreational Drug Use Recreational Drug Use: No - Living Situation & Occupation Living situation: Reports: Single, Extended Care Facility ([facility]) Occupation: Retired H&P Review of Systems - Review of Systems: Review Of Systems: Comprehensive ROS is negative, except as noted in HPI. Exam - Exam Exam: See Below - Vital Signs Vital Signs: Last Vital Signs Temp 98 F 01/18/20 20:13 Pulse 86 01/18/20 17:57 Resp 14 01/18/20 20:13 BP 142/91 H 01/18/20 20:13 Pulse Ox 98 01/18/20 20:13 Weight: 122.651 kg - Exam Quality Assessment: No: Supplemental Oxygen General: Alert, Oriented, 4 HEENT: Conjunctiva Clear, Hearing Intact, Mucosa Moist & [place] Neck: Supple, Trachea Midline. No: JVD Lungs: Clear to Auscultation, Normal Respiratory Effort Cardiovascular: Irregular Rhythm (Regular rate). No: Diastolic Murmur, Rubs GI/Abdominal Exam: Normal Bowel Sounds, Soft, Non-Tender, No Organomegaly, No Distention, No Abnormal Bruit Extremities: Normal Inspection, Non-Tender, No Pedal Edema, Normal Capillary Refill Skin: Warm, Dry, Intact Neuro Extensive - Mental Status: Alert, Oriented x3, Normal Mood/Affect, Normal Cognition, Disorientation to Time Psychiatric: Alert, Normal Affect, Normal Mood - Patient Data Lab Results Last 24 hrs: Laboratory Results - last 24 hr 01/18/20 01/18/20 01/18/20 Range/Units 14:25 14:25 18:30 WBC 2.28 L* (4.23-9.07) K/mm3 RBC 4.39 L (4.63-6.08) M/mm3 Hgb 14.1 D (13.7-17.5) gm/dl Hct 41.6 (40.1-51.0) % MCV 94.8 H D (79.0-92.2) fl MCH 32.1 (25.7-32.2) pg MCHC 33.9 (32.2-35.5) g/dl RDW Std Deviation 58.2 H (35.1-43.9) fL Plt Count 103 L (163-337) K/mm3 MPV 10.1 (9.4-12.3) fl Neut % (Auto) 44.7 (34.0-67.9) % Lymph % (Auto) 34.6 (21.8-53.1) % Giles % (Auto) 16.7 H (5.3-12.2) % Eos % (Auto) 1.8 (0.8-7.0) Baso % (Auto) 2.2 H (0.1-1.2) % Neut # (Auto) 1.02 L (1.78-5.38) K/mm3 Lymph # (Auto) 0.79 L (1.32-3.57) K/mm3 Giles # (Auto) 0.38 (0.30-0.82) K/mm3 Eos # (Auto) 0.04 (0.04-0.54) K/mm3 Baso # (Auto) 0.05 (0.01-0.08) K/mm3 Manual Slide Review Abnormal smear Sodium 141 (136-145) mEq/L Potassium 3.6 (3.5-5.1) mEq/L Chloride 104 (98-107) mEq/L Carbon Dioxide 23 (21-32) mEq/L Anion Gap 17.6 H (5-15) BUN 13 (7-18) mg/dL Creatinine 1.0 (0.7-1.3) mg/dL Est Cr Clr Drug Dosing 66.46 mL/min Estimated GFR (MDRD) > 60 (>60) mL/min BUN/Creatinine Ratio 13.0 L (14-18) Glucose 109 (80-115) mg/dL Calcium 8.3 L (8.5-10.1) mg/dL Magnesium 1.1 L (1.8-2.4) mg/dl Total Bilirubin 1.9 H (0.2-1.0) mg/dL AST 155 H (15-37) U/L ALT 87 H (16-63) U/L Alkaline Phosphatase 101 (46-116) U/L Troponin I < 0.017 (0.00-0.056) ng/mL Total Protein 7.0 (6.4-8.2) g/dl Albumin 2.8 L (3.4-5.0) g/dl Globulin 4.2 gm/dL Albumin/Globulin Ratio 0.7 L (1-2) COVID-19 (KVNG) Negative (NEGATIVE) Result Diagrams: 01/19/20 07:35 01/19/20 07:35 EKG INTERPRETATION EKG Date: 01/18/20 Time: 13:54 Rhythm: A-Fib Rate (Beats/Min): 115 Valentine: LAD-Left Valentine Deviation P-Wave: Absent QRS: Normal ST-T: Normal QT: Normal Sepsis Event Note - Evaluation Sepsis Screening Result: No Definite Risk - Focused Exam Vital Signs: Vital Signs Temp Pulse Resp BP BP Pulse Ox 01/18/20 20:13 98 F 14 142/91 H 98 01/18/20 17:57 98.0 F 86 16 105/52 L 98 01/18/20 16:00 97 124/81 01/18/20 12:30 97.8 F 102 H 12 143/94 H 95 Problem List Initiated/Reviewed/Updated: Yes Orders Last 24hrs: Active Orders 24 hr Category Date Time Status Admission Status [Patient Status] [ADT] Routine ADT 01/18/20 19:43 Active Cardiac Monitoring [RC] . DIRECTED Care 01/18/20 13:16 Active EKG Documentation Completion [RC] STAT Care 01/18/20 13:17 Active Oxygen Therapy [RC] PRN Care 01/18/20 20:44 Ordered Peripheral IV Care [RC] Q2HR Care 01/18/20 13:16 Active Up ad Glendy [RC] ASDIRECTED Care 01/18/20 20:44 Ordered VTE/DVT Education [RC] PER UNIT ROUTINE Care 01/18/20 20:44 Ordered Vital Signs [RC] Q4H Care 01/18/20 20:44 Ordered Consistent Carbohydrate Diet [DIET] Diet 01/19/20 Breakfast Ordered CBC WITH AUTO DIFF [HEME] AM Lab 01/19/20 05:11 Ordered COMPREHENSIVE METABOLIC PN,CMP [CHEM] AM Lab 01/19/20 05:11 Ordered MAGNESIUM [CHEM] AM Lab 01/19/20 05:11 Ordered PHOSPHORUS [CHEM] AM Lab 01/19/20 05:11 Ordered Diltiazem IR [Cardizem] Med 01/18/20 22:00 Ordered 60 mg PO Q6HR Diltiazem [Cardizem] 100 mg Med 01/18/20 13:30 Active Sodium Chloride 0.9% [Normal Saline] 100 ml IV TITRATE Magnesium Sulfate/Water [Magnesium Sulfate in Water Med 01/18/20 20:36 Ordered Premix] 4 gm Premix Bag 1 bag IV ONETIME Ondansetron [Zofran] Med 01/18/20 20:44 Ordered 4 mg IV Q4H PRN Sodium Chloride 0.9% [Normal Saline] 1,000 ml Med 01/18/20 13:30 Active IV ASDIRECTED Sodium Chloride 0.9% [Saline Flush] Med 01/18/20 13:16 Active 10 ml FLUSH ASDIRECTED PRN Peripheral IV Insertion Adult [OM.PC] Stat Oth 01/18/20 13:16 Ordered Resuscitation Status Routine Resus Stat 01/18/20 20:44 Ordered Medication Orders Diltiazem HCl 100 mg/ Sodium (Chloride) 100 mls @ 10 mls/hr IV TITRATE MIKO; Protocol Last Admin: 01/18/20 14:30 Dose: 10 mg/hr, 10 mls/hr Documented by: TAMEKA Sodium Chloride (Normal Saline) 1,000 mls @ 125 mls/hr IV ASDIRECTED MIKO Last Admin: 01/18/20 14:27 Dose: 125 mls/hr Documented by: TAMEKA Magnesium Sulfate 4 gm/ Premix 50 mls @ 12.5 mls/hr IV ONETIME ONE Stop: 01/19/20 00:35 Ondansetron HCl (Zofran) 4 mg IV Q4H PRN PRN Reason: Nausea/Vomiting Sodium Chloride (Saline Flush) 10 ml FLUSH ASDIRECTED PRN PRN Reason: Keep Vein Open Last Admin: 01/18/20 14:27 Dose: 10 ml Documented by: TAMEKA Assessment/Plan Comment:: Assessment Syncope likely secondary to atrial fibrillation with RVR * Patient was noted to be in RVR on presentation to the emergency room. * After being placed on Cardizem drip rate decreased to 100. He was also given a bolus of Cardizem and Cardizem 60 mg orally. * On diltiazem IR 60 mg every 6 hours at home Thrombocytopenia, Leukopenia, hyperbilirubinemia, elevated LFTs, hypoalbumi nemiasecondary to cirrhosis * Platelets 103, WBC 2.28, bilirubin 1.9, AST 155, ALT 87, albumin 2.8 * INR not performed * CT showed nodular liver consistent with cirrhosis. Stable since 2016 * Patient states he stopped drinking last month. Insulin-dependent diabetes * Unknown hemoglobin A1c * On Humalog sliding scale. * Glucose 109 Chronic: Hypothyroidism, GERD, and hypertension Plan * Admit to ICU. * Transfer from insulin drip to instant release diltiazem and when stable to long-acting diltiazem. * Follow liver enzymes and CBC. * Fine scale insulin and fingerstick blood sugar 4 times daily * CIWAA every 4 hours * Home medications are unavailable for review. * Get home meds as soon as available and restart as appropriate. * It is believed that he is on Eliquis 5 mg twice daily, therefore start Eliquis in the morning 5 mg twice daily for VTE prophylaxis. * CODE STATUS: Full code * Length of stay likely 1 to 2 days. - Mortality Measure Prognosis:: Good
[2020-01-18] MEDS ORDERED: 50% Dextrose in Water 50 ML Syringe IVPUSH PRN (21:15)
[2020-01-18] MEDS ORDERED: Acetaminophen 325 MG Tab PO PRN (21:17)
[2020-01-18] MEDS: Diltiazem IR 60 MG Tab PO SCH (21:26)
[2020-01-18] MEDS: Famotidine 20 MG Tab PO SCH (21:26)
[2020-01-18] MEDS: Magnesium Oxide 400 MG Tab PO SCH (21:26)
[2020-01-18] MEDS: Insulin Lispro 100 Units/ML 3 ML Vial SUBCUT SCH (21:32)
[2020-01-18] MEDS ORDERED: Melatonin 3 MG Tab PO SCH (22:40)
[2020-01-19] MEDS: Sodium Chloride 0.9% 1,000 ML IV SCH ×2 (00:38→08:06)
[2020-01-19] MEDS: Diltiazem IR 60 MG Tab PO SCH (05:00)
[2020-01-19] MEDS: Insulin Lispro 100 Units/ML 3 ML Vial SUBCUT SCH ×2 (06:57→11:12)
[2020-01-19] MEDS ORDERED: Diltiazem 240 MG Cap.ER PO SCH (07:00)
[2020-01-19] MEDS: Famotidine 20 MG Tab PO SCH (08:03)
[2020-01-19] MEDS: Magnesium Oxide 400 MG Tab PO SCH (08:03)
[2020-01-19 08:04] VITALS: BP 173/86
[2020-01-19] MEDS ORDERED: LORazepam 2 MG/ML SDV IV SCH (09:00)
[2020-01-19] MEDS ORDERED: LORazepam 1 MG Tab PO SCH (09:00)
[2020-01-19] MEDS ORDERED: Spironolactone 25 MG Tab PO ONE (11:00)
[2020-01-19] MEDS ORDERED: Apixaban 5 MG Tab PO SCH (11:00)
--- NOTE | 2020-01-19 14:30 | PCM.DCSUM1 ---
Discharge Summary - Hospital Course HPI Initial Comments: 64-year-old male with history of atrial fibrillation, cirrhosis, diabetes, Hypothyroidism, GERD, and hypertension presents to the emergency department after syncopal episode. Patient was found by his daughter and his daughter states he was out for approximately 30 minutes. Patient states that he gets dizzy or passes out approximately 1 time per week. Patient also states he has been more short of breath recently but denies fever, chills, cough, congestion, chest pain, abdominal pain, nausea or vomiting. In the emergency department his heart rate was in the low 100s. His magnesium was significantly low at 1.1. Anion gap was 17.9 and his renal function was normal. Patient does have a history of alcohol abuse but stopped drinking in November. Patient has CT confirmed evidence of cirrhosis first seen in 2016 here. He has significant for leukopenia, thrombocytopenia, hypoalbuminemia, and hyperbilirubinemia all consistent with liver disease/cirrhosis. In the emergency room patient was placed on a Cardizem drip, given Cardizem bolus, and given Cardizem IR 60 mg. Patient was going to go home but his daughter convinced him to stay for admission. When he was replaced on the monitor he was back in RVR and Cardizem drip was restarted. On arrival to the ICU rate was in the 80s and Cardizem drip was held. Assessment Syncope likely secondary to atrial fibrillation with RVR * Patient was noted to be in RVR on presentation to the emergency room. * After being placed on Cardizem drip rate decreased to 100. He was also given a bolus of Cardizem and Cardizem 60 mg orally. * On diltiazem IR 60 mg every 6 hours at home Thrombocytopenia, Leukopenia, hyperbilirubinemia, elevated LFTs, hypoalbuminemiasecondary to cirrhosis * Platelets 103, WBC 2.28, bilirubin 1.9, AST 155, ALT 87, albumin 2.8 * INR not performed * CT showed nodular liver consistent with cirrhosis. Stable since 2015 * Patient states he stopped drinking last month. Insulin-dependent diabetes * Unknown hemoglobin A1c * On Humalog sliding scale. * Glucose 109 Hypomagnesemia * Magnesium 1.1 * This could contribute to his cardiac arrhythmias Chronic: Hypothyroidism, GERD, and hypertension Plan * Admit to ICU. * Transfer from insulin drip to instant release diltiazem and when stable to long-acting diltiazem. * Follow liver enzymes and CBC. * Sliding scale insulin and fingerstick blood sugar 4 times daily * Mag sulfate 4 g IV and magnesium oxide 400 mg twice daily * CIWAA every 4 hours * Home medications are unavailable for review. * Get home meds as soon as available and restart as appropriate. * It is believed that he is on Eliquis 5 mg twice daily, therefore start Eliquis in the morning 5 mg twice daily for VTE prophylaxis. * CODE STATUS: Full code * Length of stay likely 1 to 2 days. Diagnosis: Stroke: No - Discharge Data Discharge Date: 01/19/20 Discharge Disposition: Home, Self-Care 01 Condition: Good - Referral to Home Health Primary Care Physician: Elmer Ahn MD - Discharge Diagnosis/Problem(s) (1) Atrial fibrillation with RVR SNOMED Code(s): 843581734549776 ICD Code: I48.91 - UNSPECIFIED ATRIAL FIBRILLATION Status: Acute Current Visit: Yes (2) Syncope SNOMED Code(s): 446785454 ICD Code: R55 - SYNCOPE AND COLLAPSE Status: Acute Current Visit: Yes Qualifiers: Syncope type: unspecified Qualified Code(s): R55 - Syncope and collapse (3) Acute kidney injury SNOMED Code(s): 82338281, 49914429 ICD Code: N17.9 - ACUTE KIDNEY FAILURE, UNSPECIFIED Status: Acute Current Visit: No (4) Cirrhosis SNOMED Code(s): 18990492 ICD Code: K74.60 - UNSPECIFIED CIRRHOSIS OF LIVER Status: Chronic Priority: Medium Current Visit: No Qualifiers: Hepatic cirrhosis type: alcoholic cirrhosis Ascites presence: without ascites Qualified Code(s): K70.30 - Alcoholic cirrhosis of liver without ascites - Patient Summary/Data Consults: Consultations 01/19/20 09:17 OT Evaluation and Treatment [CONS] Routine PT Evaluation and Treatment [CONS] Routine Hospital Course: Patient was admitted and received 60 mg of Cardizem IR and stopped Cardizem drip. Patient's rate was well controlled overnight, therefore he was placed on Cardizem CD 240 mg. Patient was monitored for the next 8 hours without any further elevations in his heart rate. Magnesium was replaced and his morning magnesium level was 2.0. Recommend that patient not go back on omeprazole because it can lower magnesium levels. Patient can switch to Pepcid 20 mg twice daily. Continue magnesium 400 mg twice daily. Follow-up with your primary care provider in 1 week. - Patient Instructions Diet: Diabetic Diet Activity: As Tolerated Driving: Do Not Drive Showering/Bathing: May Shower Notify Provider of: Fever, Nausea and/or Vomiting Other/Special Instructions: In addition to rapid heart rate secondary to your atrial fibrillation you had a significantly low magnesium level. Omeprazole can contribute to low magnesium. I recommend that you stop omeprazole and switch to Pepcid or other H2 yasmin like Zantac. Make sure you take supplemental magnesium as prescribed. Get a recheck for your low magnesium levels later this week or early next week. - Discharge Plan *PRESCRIPTION DRUG MONITORING PROGRAM REVIEWED*: No *COPY OF PRESCRIPTION DRUG MONITORING REPORT IN PATIENT RM: No Prescriptions/Med Rec: Diltiazem [Dilacor XR] 240 mg PO DAILY #30 cap.er Magnesium Oxide 400 mg PO BID #60 tablet Famotidine [Pepcid] 20 mg PO BID #60 tablet Home Medications: Home Meds Tamsulosin HCl 0.4 mg PO BID 05/01/16 [History] Rosuvastatin Calcium 5 mg PO DAILY 02/05/18 [History] Dutasteride [Avodart] 0.5 mg PO DAILY 01/08/19 [History] Omeprazole Magnesium [Prilosec Otc] 40 mg PO DAILY 01/08/19 [History] Folic Acid 1 mg PO BEDTIME #15 tablet 01/15/19 [Rx] Furosemide [Lasix] 40 mg PO ASDIRECTED #60 tablet 01/15/19 [Rx] Insulin Lispro [HumaLOG] See Protocol SUBCUT QIDACANDBED PRN #1 vial 01/15/19 [Rx] Lactulose [Cephulac] 20 gm PO DAILY #30 cup 01/15/19 [Rx] Levothyroxine 75 mcg PO ACBREAKFAST #30 tablet 01/15/19 [Rx] Magnesium Oxide 400 mg PO BID #20 tablet 01/15/19 [Rx] Multivitamins,Therapeutic [Thera] 1 each PO BEDTIME #10 tablet 01/15/19 [Rx] Rifaximin [Xifaxan] 550 mg PO BID #60 tablet 01/15/19 [Rx] Apixaban [Eliquis] 5 mg PO BID 01/20/19 [History] Acetaminophen [8Hr Arthritis Pain Relief] 650 mg PO Q4HR PRN 10/21/19 [History] Insulin Aspart [NovoLOG] 1 unit SQ ASDIRECTED 10/21/19 [History] Insulin Lispro [Humalog Kwikpen U-100] 1 - 7 units SQ TID 10/21/19 [History] Lactobacillus Acidophilus [Acidophilus] 1 cap PO BID 10/21/19 [History] Melatonin 9 mg PO BEDTIME #90 tablet 10/24/19 [Rx] Sertraline [Zoloft] 50 mg PO BEDTIME #30 tablet 10/24/19 [Rx] Spironolactone [Aldactone] 50 mg PO BID #60 tablet 10/24/19 [Rx] Apixaban [Eliquis] 5 mg PO BID tablet 01/19/20 [Rx] Diltiazem [Dilacor XR] 240 mg PO DAILY #30 cap.er 01/19/20 [Rx] Famotidine [Pepcid] 20 mg PO BID #60 tablet 01/19/20 [Rx] Magnesium Oxide 400 mg PO BID #60 tablet 01/19/20 [Rx] Patient Handouts: Type 2 Diabetes Mellitus, Diagnosis, Adult, Atrial Fibrillation, [id number], Syncope, [id number] Forms: ED Department Discharge Referrals: Elmer Ahn MD [Primary Care Provider] - 1 Week - Discharge Summary/Plan Comment DC Time >30 min.: Yes Discharge Summary/Plan Comment: Follow-up with primary care provider in 1 week. Please get magnesium level either at the end of this week or beginning of next week. - General Info Date of Service: 01/19/20 Admission Dx/Problem (Free Text: Admission Diagnosis/Problem Admission Diagnosis/Problem Afib, Atrial fibrillation Functional Status: Reports: Pain Controlled - Review of Systems General: Reports: No Symptoms HEENT: Reports: No Symptoms Pulmonary: Reports: No Symptoms Cardiovascular: Reports: No Symptoms Gastrointestinal: Reports: No Symptoms Musculoskeletal: Reports: No Symptoms Psychiatric: Reports: No Symptoms - Patient Data Vitals - Most Recent: Last Vital Signs Temp 97.9 F 01/19/20 08:00 Pulse 86 01/18/20 17:57 Resp 16 01/19/20 08:00 BP 173/86 H 01/19/20 08:00 Pulse Ox 98 01/19/20 08:00 Weight - Most Recent: 122.651 kg I&O - Last 24 hours: Intake & Output 01/18/20 01/19/20 01/19/20 22:59 06:59 14:59 Intake Total 1485 880 Balance 1485 880 Lab Results - Last 24 hrs: Laboratory Results - last 24 hr 01/18/20 01/18/20 01/18/20 Range/Units 14:25 14:25 18:30 WBC 2.28 L* (4.23-9.07) K/mm3 RBC 4.39 L (4.63-6.08) M/mm3 Hgb 14.1 D (13.7-17.5) gm/dl Hct 41.6 (40.1-51.0) % MCV 94.8 H D (79.0-92.2) fl MCH 32.1 (25.7-32.2) pg MCHC 33.9 (32.2-35.5) g/dl RDW Std Deviation 58.2 H (35.1-43.9) fL Plt Count 103 L (163-337) K/mm3 MPV 10.1 (9.4-12.3) fl Neut % (Auto) 44.7 (34.0-67.9) % Lymph % (Auto) 34.6 (21.8-53.1) % [place] % (Auto) 16.7 H (5.3-12.2) % Eos % (Auto) 1.8 (0.8-7.0) Baso % (Auto) 2.2 H (0.1-1.2) % Neut # (Auto) 1.02 L (1.78-5.38) K/mm3 Lymph # (Auto) 0.79 L (1.32-3.57) K/mm3 [place] # (Auto) 0.38 (0.30-0.82) K/mm3 Eos # (Auto) 0.04 (0.04-0.54) K/mm3 Baso # (Auto) 0.05 (0.01-0.08) K/mm3 Manual Slide Review Abnormal smear Sodium 141 (136-145) mEq/L Potassium 3.6 (3.5-5.1) mEq/L Chloride 104 (98-107) mEq/L Carbon Dioxide 23 (21-32) mEq/L Anion Gap 17.6 H (5-15) BUN 13 (7-18) mg/dL Creatinine 1.0 (0.7-1.3) mg/dL Est Cr Clr Drug Dosing 66.46 mL/min Estimated GFR (MDRD) > 60 (>60) mL/min BUN/Creatinine Ratio 13.0 L (14-18) Glucose 109 (80-115) mg/dL POC Glucose (80-115) mg/dL Calcium 8.3 L (8.5-10.1) mg/dL Phosphorus (2.6-4.7) mg/dL Magnesium 1.1 L (1.8-2.4) mg/dl Total Bilirubin 1.9 H (0.2-1.0) mg/dL AST 155 H (15-37) U/L ALT 87 H (16-63) U/L Alkaline Phosphatase 101 (46-116) U/L Troponin I < 0.017 (0.00-0.056) ng/mL Total Protein 7.0 (6.4-8.2) g/dl Albumin 2.8 L (3.4-5.0) g/dl Globulin 4.2 gm/dL Albumin/Globulin Ratio 0.7 L (1-2) COVID-19 ([facility]) Negative (NEGATIVE) 01/18/20 01/19/20 01/19/20 Range/Units 21:31 06:54 07:35 WBC 2.44 L* (4.23-9.07) K/mm3 RBC 4.11 L (4.63-6.08) M/mm3 Hgb 13.0 L (13.7-17.5) gm/dl Hct 39.2 L (40.1-51.0) % MCV 95.4 H (79.0-92.2) fl MCH 31.6 (25.7-32.2) pg MCHC 33.2 (32.2-35.5) g/dl RDW Std Deviation 58.8 H (35.1-43.9) fL Plt Count 103 L (163-337) K/mm3 MPV 10.0 (9.4-12.3) fl Neut % (Auto) 39.8 (34.0-67.9) % Lymph % (Auto) 35.2 (21.8-53.1) % [place] % (Auto) 19.3 H (5.3-12.2) % Eos % (Auto) 3.7 (0.8-7.0) Baso % (Auto) 1.6 H (0.1-1.2) % Neut # (Auto) 0.97 L (1.78-5.38) K/mm3 Lymph # (Auto) 0.86 L (1.32-3.57) K/mm3 [place] # (Auto) 0.47 (0.30-0.82) K/mm3 Eos # (Auto) 0.09 (0.04-0.54) K/mm3 Baso # (Auto) 0.04 (0.01-0.08) K/mm3 Manual Slide Review Abnormal smear Sodium (136-145) mEq/L Potassium (3.5-5.1) mEq/L Chloride (98-107) mEq/L Carbon Dioxide (21-32) mEq/L Anion Gap (5-15) BUN (7-18) mg/dL Creatinine (0.7-1.3) mg/dL Est Cr Clr Drug Dosing mL/min Estimated GFR (MDRD) (>60) mL/min BUN/Creatinine Ratio (14-18) Glucose (80-115) mg/dL POC Glucose 125 H 96 (80-115) mg/dL Calcium (8.5-10.1) mg/dL Phosphorus (2.6-4.7) mg/dL Magnesium (1.8-2.4) mg/dl Total Bilirubin (0.2-1.0) mg/dL AST (15-37) U/L ALT (16-63) U/L Alkaline Phosphatase (46-116) U/L Troponin I (0.00-0.056) ng/mL Total Protein (6.4-8.2) g/dl Albumin (3.4-5.0) g/dl Globulin gm/dL Albumin/Globulin Ratio (1-2) COVID-19 ([facility]) (NEGATIVE) 01/19/20 01/19/20 Range/Units 07:35 11:12 WBC (4.23-9.07) K/mm3 RBC (4.63-6.08) M/mm3 Hgb (13.7-17.5) gm/dl Hct (40.1-51.0) % MCV (79.0-92.2) fl MCH (25.7-32.2) pg MCHC (32.2-35.5) g/dl RDW Std Deviation (35.1-43.9) fL Plt Count (163-337) K/mm3 MPV (9.4-12.3) fl Neut % (Auto) (34.0-67.9) % Lymph % (Auto) (21.8-53.1) % [place] % (Auto) (5.3-12.2) % Eos % (Auto) (0.8-7.0) Baso % (Auto) (0.1-1.2) % Neut # (Auto) (1.78-5.38) K/mm3 Lymph # (Auto) (1.32-3.57) K/mm3 [place] # (Auto) (0.30-0.82) K/mm3 Eos # (Auto) (0.04-0.54) K/mm3 Baso # (Auto) (0.01-0.08) K/mm3 Manual Slide Review Sodium 139 (136-145) mEq/L Potassium 4.0 (3.5-5.1) mEq/L Chloride 107 (98-107) mEq/L Carbon Dioxide 23 (21-32) mEq/L Anion Gap 13.0 (5-15) BUN 12 (7-18) mg/dL Creatinine 1.1 (0.7-1.3) mg/dL Est Cr Clr Drug Dosing 60.42 mL/min Estimated GFR (MDRD) > 60 (>60) mL/min BUN/Creatinine Ratio 10.9 L (14-18) Glucose 129 H (80-115) mg/dL POC Glucose 149 H (80-115) mg/dL Calcium 8.0 L (8.5-10.1) mg/dL Phosphorus 2.2 L (2.6-4.7) mg/dL Magnesium 2.0 (1.8-2.4) mg/dl Total Bilirubin 3.0 H (0.2-1.0) mg/dL AST 105 H (15-37) U/L ALT 75 H (16-63) U/L Alkaline Phosphatase 96 (46-116) U/L Troponin I (0.00-0.056) ng/mL Total Protein 6.5 (6.4-8.2) g/dl Albumin 2.6 L (3.4-5.0) g/dl Globulin 3.9 gm/dL Albumin/Globulin Ratio 0.7 L (1-2) COVID-19 ([facility]) (NEGATIVE) Med Orders - Current: Current Medications Acetaminophen (Tylenol) 650 mg PO Q6H PRN PRN Reason: Pain Apixaban (Eliquis) 5 mg PO BID [facility] Last Admin: 01/19/20 11:10 Dose: 5 mg Documented by: Dextrose/Water (Dextrose 50% In Water) 50 ml IVPUSH ASDIRECTED PRN PRN Reason: Hypoglycemia Diltiazem HCl (Dilacor Xr) 240 mg PO Q24H [facility] Last Admin: 01/19/20 06:57 Dose: 240 mg Documented by: Famotidine (Pepcid) 20 mg PO BID [facility] Last Admin: 01/19/20 08:03 Dose: 20 mg Documented by: Diltiazem HCl 100 mg/ Sodium (Chloride) 100 mls @ 10 mls/hr IV TITRATE [facility]; Protocol Last Admin: 01/18/20 14:30 Dose: 10 mg/hr, 10 mls/hr Documented by: Insulin Human Lispro (Humalog) 0 unit SUBCUT QIDACANDBED [facility]; Protocol Last Admin: 01/19/20 11:12 Dose: Not Given Documented by: Lorazepam (Ativan) 0 mg IV ASDIRECTED [facility]; Protocol Lorazepam (Ativan) 0 mg PO ASDIRECTED [facility]; Protocol Magnesium Oxide (Magnesium Oxide) 400 mg PO BID [facility] Last Admin: 01/19/20 08:03 Dose: 400 mg Documented by: Melatonin (Melatonin) 9 mg PO BEDTIME [facility] Last Admin: 01/18/20 22:50 Dose: 9 mg Documented by: Ondansetron HCl (Zofran) 4 mg IV Q4H PRN PRN Reason: Nausea/Vomiting Sodium Chloride (Saline Flush) 10 ml FLUSH ASDIRECTED PRN PRN Reason: Keep Vein Open Last Admin: 01/18/20 14:27 Dose: 10 ml Documented by: Discontinued Medications Diltiazem HCl (Cardizem) 10 mg IVPUSH ONETIME ONE Stop: 01/18/20 13:18 Last Admin: 01/18/20 14:24 Dose: 10 mg Documented by: Diltiazem HCl (Cardizem) 60 mg PO ONETIME ONE Stop: 01/18/20 15:43 Last Admin: 01/18/20 16:06 Dose: 60 mg Documented by: Diltiazem HCl (Cardizem) 60 mg PO Q6H [facility] Last Admin: 01/19/20 05:00 Dose: Not Given Documented by: Sodium Chloride (Normal Saline) 1,000 mls @ 125 mls/hr IV ASDIRECTED [facility] Last Admin: 01/19/20 08:06 Dose: 125 mls/hr Documented by: Magnesium Sulfate 4 gm/ Premix 50 mls @ 12.5 mls/hr IV ONETIME ONE Stop: 01/19/20 00:35 Last Admin: 01/18/20 20:55 Dose: 12.5 mls/hr Documented by: Melatonin (Melatonin) 9 mg PO BEDTIME [facility] Spironolactone (Aldactone) 50 mg PO ONETIME ONE Stop: 01/19/20 11:01 Last Admin: 01/19/20 11:10 Dose: 50 mg Documented by: - Exam General: Reports: Alert, Oriented HEENT: Reports: Pupils Equal, Mucous Membr. Moist/[place] Neck: Reports: Supple Lungs: Reports: Clear to Auscultation, Normal Respiratory Effort Cardiovascular: Reports: Regular Rate, Regular Rhythm GI/Abdominal Exam: Normal Bowel Sounds, Soft, Non-Tender, No Distention Extremities: Normal Inspection, Non-Tender, Normal Capillary Refill, Pedal Edema (Trace to 1+ lower extremity pitting edema bilaterally.)
[2020-01-19] MEDS ORDERED: Melatonin 3 MG Tab PO SCH (21:00)
== END 2020-01-19 15:26 | disposition home or self-care (01) | DRG 309 ==
LOC: JD.ED 12:16 → JD.ICU 19:43
PROVIDERS: ADMIT Family Medicine; ATTEND Family Medicine
DX: I48.91 Unspecified atrial fibrillation (principal); R55 Syncope and collapse; N17.9 Acute kidney failure, unspecified; H54.7 Unspecified visual loss; Z68.41 Body mass index [BMI] 40.0-44.9, adult; K70.31 Alcoholic cirrhosis of liver with ascites; D69.6 Thrombocytopenia, unspecified; D72.819 Decreased white blood cell count, unspecified; E80.6 Other disorders of bilirubin metabolism; E88.09 Other disorders of plasma-protein metabolism, not elsewhere classified; F32.9 Major depressive disorder, single episode, unspecified; E03.9 Hypothyroidism, unspecified; F10.10 Alcohol abuse, uncomplicated; Y90.9 Presence of alcohol in blood, level not specified; K21.9 Gastro-esophageal reflux disease without esophagitis; Z79.01 Long term (current) use of anticoagulants; E83.42 Hypomagnesemia; K70.30 Alcoholic cirrhosis of liver without ascites; N40.0 Benign prostatic hyperplasia without lower urinary tract symptoms; Z20.828 Contact with and (suspected) exposure to other viral communicable diseases; I12.9 Hypertensive chronic kidney disease with stage 1 through stage 4 chronic kidney disease, or unspecified chronic kidney disease; E11.22 Type 2 diabetes mellitus with diabetic chronic kidney disease; N18.9 Chronic kidney disease, unspecified; M19.90 Unspecified osteoarthritis, unspecified site; E66.9 Obesity, unspecified; Z96.651 Presence of right artificial knee joint; Z79.4 Long term (current) use of insulin; Z79.899 Other long term (current) drug therapy; Z79.890 Hormone replacement therapy
CPT/HCPCS: 36415; 70450; 71045; 80053; 83735; 84484; 85025; 93005; A9270; J3490 ×2; J7030; J7050; U0002; 82962; 84100; 93010; 96365; 96366; 97162-GP; 97165-GO; 99222; 99239; 99284; 99285-25; J3475

== ENCOUNTER 2020-02-17 16:34 | Emergency (ER) | payer MEDICAID, MEDICARE, OTHER ==
[2020-02-17 16:52] VITALS: PULSE 132
[2020-02-17] MEDS ORDERED: Iopamidol 612 MG/ML 100 ML Bottle IVPUSH ONE (17:11)
[2020-02-17] MEDS ORDERED: Sodium Chloride 0.9% 10 ML Syringe FLUSH PRN (17:11)
[2020-02-17] MEDS ORDERED: Iopamidol 612 MG/ML 50 ML SDV IVPUSH ONE (17:11)
--- NOTE | 2020-02-17 18:15 | CT ---
Head CT Technique: Multiple axial sections through the brain were obtained. Intravenous contrast was not utilized. Comparison: Previous head CT study of 01/18/20. Findings: Ventricles along with basal cisterns and sulci over convexities are moderately prominent. Minimal diminished density is noted within the periventricular white matter compatible with small vessel ischemic demyelination change. No other abnormal parenchymal densities are seen. No evidence of intracranial hemorrhage. No midline shift or mass effect is seen. Soft tissue swelling is noted within the right posterior frontal scalp. Bone window settings were reviewed. Visualized mastoid sinuses show nothing acute. Visualized paranasal sinuses show nothing acute. No acute calvarial finding is appreciated. Skull lesion is noted within the posterior right frontal region measuring about 1.7 cm. 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 Impression: 1. Senescent change as noted above. 2. Nothing acute is appreciated on noncontrast head CT study. Diagnostic code #2 Study was dictated in MDT
--- NOTE | 2020-02-17 18:31 | CT ---
CT cervical spine Technique: Multiple axial sections were obtained from above C1 inferiorly to the mid T2 level. Reconstructed sagittal and coronal images were obtained. Findings: Mild disc space narrowing throughout the cervical spine which shows severe disc space narrowing at C5-C6 and C6-C7. Posterior osteophytes are noted at C5-C6 and C6-C7. Mild scattered anterior osteophytes are seen throughout the cervical spine. Mild left-sided neural foraminal stenosis is noted at C3-C4. Moderate left-sided neural foraminal stenosis is noted at C4-C5. Moderate right-sided neural foraminal stenosis is noted at C5-C6 with mild left-sided neural foraminal stenosis at C5-C6. Moderate bilateral neural foraminal stenosis at C6-C7. No bony central canal stenosis is seen. Osteopenia is noted. No fracture is appreciated. Scattered degenerative change within the apophyseal joints which is most prominent on the left side. Scoliosis is also noted. No acute fracture is appreciated. Impression: 1. Diffuse degenerative change. Mild scoliosis. 2. No acute fracture is seen. Diagnostic code #2 Study was dictated in MDT
--- NOTE | 2020-02-17 18:39 | CT ---
CT chest Technique: Multiple axial sections were obtained from above the lung apices inferiorly through the lung bases. Intravenous contrast was utilized. Comparison: Prior chest CT study of 10/24/19. Findings: Aorta shows no aneurysm. Mediastinum and hilar regions show no adenopathy. No pericardial thickening is seen. Gynecomastia is identified bilaterally. Lungs are clear with no acute parenchymal change. No pulmonary contusion is seen. Bone window settings were reviewed. Old fractures are noted which appear healed within the posterior third, fourth, fifth, sixth and seventh ribs. No acute rib fracture is appreciated. Vertebral body heights are maintained. Scattered disc space narrowing is noted within the thoracic spine. Impression: 1. Findings as noted above. 2. Nothing acute is appreciated on CT study of the chest. Diagnostic code #2 CT abdomen and pelvis Technique: Multiple axial sections were obtained from above the dome of the diaphragm inferiorly to the pubic symphysis. Intravenous contrast was utilized. Reconstructed coronal and sagittal images were obtained. Comparison: Prior CT abdomen and pelvis exam of 05/30/18. Findings: Liver contains no focal abnormality. Spleen appears within normal limits. Liver appears somewhat cirrhotic. Varicosities are seen medial to the spleen. Adrenal glands show no nodule. Pancreas is within normal limits. Surgical clips are seen from prior cholecystectomy. Adrenal glands appear without nodule. Kidneys show symmetric contrast enhancement without hydronephrosis or mass. Aorta shows no aneurysm. No retroperitoneal adenopathy or mesenteric abnormalities are seen. No free fluid or inflammatory change is appreciated. Appendix is seen which is normal in size. Bone window settings were reviewed which shows scattered degenerative change throughout the lumbar spine. No acute osseous finding is seen within the lumbar spine or within the pelvis. Delayed images were obtained through the abdomen which shows contrast excretion from both kidneys into both ureters which show no contrast extravasation. No ureteral obstruction is seen. Contrast is noted within the bladder. Impression: 1. Cirrhosis within the liver with varicosities noted next to the spleen. 2. Other findings as noted above which are nonacute. Diagnostic code #3 Study was dictated in MDT
[2020-02-17] MEDS ORDERED: Potassium Chloride 20 MEQ Tab.ER PO ONE (19:53)
[2020-02-17] MEDS ORDERED: Diphtheria,Pertussis(Acell),Tetanus Vaccine 0.5 ML Syringe IM ONE (19:57)
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
== END 2020-02-17 20:32 | disposition home or self-care (01) ==
LOC: JD.ED 16:34
DX: S01.81XA Laceration without foreign body of other part of head, initial encounter (principal); F10.129 Alcohol abuse with intoxication, unspecified; Y90.8 Blood alcohol level of 240 mg/100 ml or more; I48.91 Unspecified atrial fibrillation; I12.9 Hypertensive chronic kidney disease with stage 1 through stage 4 chronic kidney disease, or unspecified chronic kidney disease; N18.9 Chronic kidney disease, unspecified; E11.22 Type 2 diabetes mellitus with diabetic chronic kidney disease; E03.9 Hypothyroidism, unspecified; F32.9 Major depressive disorder, single episode, unspecified; Z23 Encounter for immunization; E66.9 Obesity, unspecified; Z68.41 Body mass index [BMI] 40.0-44.9, adult; Z79.4 Long term (current) use of insulin; Z79.01 Long term (current) use of anticoagulants; Z79.899 Other long term (current) drug therapy; V59.40XA Driver of pick-up truck or van injured in collision with unspecified motor vehicles in traffic accident, initial encounter
CPT/HCPCS: 36415; 70450; 71260; 72125; 74177; 80053; 80307; 85025; 90471; 90715; 99284; A9270; Q9967; 99283